=== PATIENT | female | born 1945 ===

== ENCOUNTER 2016-07-27 10:53 | Inpatient (IN) | payer MEDICARE, MEDICAID ==
[2016-07-27 10:54] VITALS: BMI 25.0
[2016-07-27] MEDS ORDERED: Sodium Chloride 0.9% 1,000 ML IV ONE (11:54)
[2016-07-27] MEDS ORDERED: Sodium Chloride 0.9% 250 ML IV ONE ×2 (12:03→17:18)
[2016-07-27 12:16] LABS: BASO % 0.3 % (0.0-2.0); EOS # 0.3 K/uL (0.0-0.7); EOS % 5.9 % (0.0-4.0); HEMATOCRIT 40.8 % (34.0-47.0); LYMPH % 16.1 % (20.0-40.0); MEAN CELL VOLUME 90.1 fL (81.0-99.0); MEAN CORPUSCULAR HEMOGLOBIN 30.1 pg (27.0-31.0); MEAN CORPUSCULAR HGB CONC 33.3 g/dL (33.0-37.0); MEAN PLATELET VOLUME 7.9 fL (7.2-11.7); MONO # 0.7 K/uL (0.0-0.8); MONO % 12.3 % (0.0-10.0); NRBC % 0.2 % (0.0-2.0); RED CELL DISTRIBUTION WIDTH 13.1 % (11.5-14.5); WHITE BLOOD COUNT 5.9 K/uL (4.8-10.8)
[2016-07-27 12:26] LABS: CHLORIDE 101 mmol/L (98-107); SODIUM 133 mmol/L (132-148)
[2016-07-27 12:28] LABS: ALB/GLOB RATIO 0.9 (1.0-2.1); AST/SGOT 26 U/L (14-36); BILIRUBIN,TOTAL 0.9 mg/dL (0.2-1.3); CARBON DIOXIDE 22 mmol/L (22-30); GFR AFRICAN-AMERICAN > 60; TOTAL PROTEIN 6.6 g/dL (6.3-8.3)
[2016-07-27 12:29] LABS: ALKALINE PHOSPHATASE 70 U/L (38-126); ALT/SGPT 15 U/L (9-52); BLOOD UREA NITROGEN 5 mg/dL (7-17); CALCIUM 8.1 mg/dl (8.6-10.4); GLUCOSE,RANDOM 87 mg/dL (65-105)
--- NOTE | 2016-07-27 12:31 | C.PDOC ---
History Of Present Illness 71 y/o female presents to the ED for evaluation of diarrhea which began around 1 month ago. Patient states she was evaluated by her PMD and prescribed antibiotics for her symptoms. Patient states she discontinued antibiotic use after her symptoms began to improve. Patient noticed her symptoms started again , f/u with Dr Do who prescribed a new set of abx. Notes her symptoms have still persisted. Last night, patient experienced mid-sternal chest pain which has since improved. Pain was sharp, no radiating. She denies fever, chills, difficulty breathing, and nausea. Patient notes PMHx of esophageal cancer which has been in remission for around 6 years. Patient states she "had mass removed from colon a couple months ago." Time Seen by Provider: 07/27/16 11:16 Chief Complaint (Nursing): Chest Pain History Per: Patient, Family History/Exam Limitations: language barrier (family used to translate ) Onset/Duration Of Symptoms: Persistent Current Symptoms Are (Timing): Still Present Quality: "Pain" Past Medical History Reviewed: Historical Data, Nursing Documentation, Vital Signs Vital Signs: Last Vital Signs Temp 98.0 F 07/27/16 17:18 Pulse 86 07/27/16 17:43 Resp 17 07/27/16 17:43 BP 103/50 L 07/27/16 17:43 Pulse Ox 94 L 07/27/16 17:43 - Medical History PMH: Arthritis, Colonic Polyps, Malignancy (THROAT CA) Denies: Chronic Kidney Disease Surgical History: Appendectomy, Endoscopy - [facility] Procedures CLOSED ENDOSCOPIC BIOPSY OF LARGE INTESTINE (01/28/14) DRAINAGE OF SPINAL CANAL, PERCUTANEOUS APPROACH, DIAGNOSTIC (03/15/15) ENDOSC POLYPECTOMY OF LG INTEST (09/09/14) ESOPHAGEAL DILATION (07/12/12) ESOPHAGOGASTRODUODENOSCOPY [EGD] W/CLOSED BIOPSY (06/17/14) EXCISION OF STOMACH, ENDO, DIAGN (03/15/15) INSPECTION OF LARYNX, ENDO (03/15/15) OTHER ENDOSCOPY OF SM INTEST (07/12/12) Family History: States: Unknown Family Hx - Social History Hx Tobacco Use: No Hx Alcohol Use: Yes Hx Substance Use: No - Immunization History Hx Tetanus Toxoid Vaccination: No Hx Influenza Vaccination: No Hx Pneumococcal Vaccination: No Review Of Systems Except As Marked, All Systems Reviewed And Found Negative. Constitutional: Negative for: Fever, Chills Cardiovascular: Positive for: Chest Pain (mid-sternal ) Gastrointestinal: Positive for: Diarrhea. Negative for: Vomiting Physical Exam - Physical Exam Appears: Non-toxic, No Acute Distress Skin: Normal Color, Warm, Dry Head: Atraumatic, Normacephalic Eye(s): bilateral: Normal Inspection, EOMI Oral Mucosa: Moist Neck: Normal ROM, Supple Chest: Symmetrical, No Deformity, Tenderness (midsternal chest wall ) Cardiovascular: Rhythm Regular, No Murmur Respiratory: Normal Breath Sounds, No Rales, No Rhonchi, No Wheezing Gastrointestinal/Abdominal: Tenderness (diffuse ), Guarding, No Rebound Back: Normal Inspection, No Vertebral Tenderness, No Paraspinal Tenderness Extremity: Normal ROM, Capillary Refill (less than 2 seconds ) Neurological/Psych: Oriented x3, Normal Speech, Normal Cognition Gait: Steady ED Course And Treatment - Laboratory Results Result Diagrams: 07/27/16 12:08 07/27/16 12:08 ECG: Interpreted By Me, Viewed By Me ECG Rhythm: Sinus Rhythm Interpretation Of ECG: Sinus Rhythm at rate 93bpm. No specific changes. T wave inversions in leads 3. Rate From EC O2 Sat by Pulse Oximetry: 99 (on RA) Pulse Ox Interpretation: Normal Progress Note: labs, CT A/P, EKG ordered and reviewed. Pt received IV Fluids. On reassessment, patient is resting comfortably and showing no signs of distress. Case discussed with Dr. Do who advises admission under Dr. Marquez. Case discussed with Dr. Marquez, who accepts the patient for admission. Disposition - Disposition Disposition: HOSPITALIZED Disposition Time: 15:43 Condition: STABLE - Clinical Impression Clinical Impression: Chest pain, Colitis, Diarrhea, Heme + stool - PA / GEOGRAPHY DEPARTMENT CHAIR / Resident Statement MD/DO has reviewed & agrees with the documentation as recorded. - Scribe Statement The provider has reviewed the documentation as recorded by the Scribe (Ludivina Marquez) All medical record entries made by the Scribe were at my direction and personally dictated by me. I have reviewed the chart and agree that the record accurately reflects my personal performance of the history, physical exam, medical decision making, and the department course for this patient. I have also personally directed, reviewed, and agree with the discharge instructions and disposition.
[2016-07-27] MEDS ORDERED: Iodixanol 320 mg/ml 150 ml Bottle IV ONE (13:16)
--- NOTE | 2016-07-27 14:12 | CT ---
CT abdomen and pelvis History: Abdominal pain. Comparison: CT abdomen dated 07/11/2012 Technique: Multiple contiguous axial images were performed through the abdomen and pelvis with the use of intravenous contrast. Subsequently, sagittal and coronal reformatted images were obtained. This CT exam was performed using one or more of the following dose reduction techniques: Automated exposure control, adjustment of the mA and/or kV according to patient size, and/or use of iterative reconstruction technique. Findings: Scattered areas of atelectasis and minimal consolidation at the visualized lung bases. Moderate to large hiatal hernia noted. Heart size within normal limits. Mild fatty infiltration of the liver. Gallbladder is preserved. Prominent common bile duct measuring up to 8 millimeters. Few punctate hypodensities in the liver, too small to adequately characterize. Spleen is preserved. Adrenal glands are preserved. Atrophic pancreas. Right kidney: Multiple prominent cystic lesions for example in the midpole a prominent lesion measures 3.7 centimeters demonstrating a Hounsfield unit attenuation of 8. Additional smaller hypodensities in the lower pole. Left Kidney: Punctate hypodensity in the midpole of the left kidney, too small to adequately characterize. Mild thickening of the urinary bladder. Free fluid noted within the pelvic cul-de-sac. Prominent thickening Postsurgical changes at the level of the right hemicolon. Diffuse thickening and edema seen throughout the visualized colon suggestive for a prominent colitis, possibly infectious versus inflammatory versus ischemic. Clinical correlation. Scattered diverticuli. Fluid in the right hemicolon. Few shotty para-aortic mesenteric lymph nodes. Calcification and plaque within the aorta. Prominent degenerative changes in the spine. Multilevel Schmorl's nodes noted. Impression: 1. Postsurgical changes at the level of the right hemicolon. Diffuse thickening and edema seen throughout the visualized colon suggestive for a prominent colitis, possibly infectious versus inflammatory versus ischemic. Clinical correlation. Scattered diverticuli. 2. Moderate to large hiatal hernia noted. 3. Mild thickening of the urinary bladder. 4. Free fluid noted within the pelvic cul-de-sac. 5. Renal cysts. Additional findings as above.
[2016-07-27] MEDS ORDERED: Ciprofloxacin 400mg/200ml D5W 400 MG/200 ML BAG IV STA (15:12)
[2016-07-27] MEDS ORDERED: metroNIDAZOLE IV 500 mg/100 ml 500 MG/100 ML BAG IV STA (15:20)
[2016-07-27] MEDS ORDERED: metroNIDAZOLE IV 500 mg/100 ml 500 MG/100 ML BAG ONE (15:28)
[2016-07-27] MEDS ORDERED: Ciprofloxacin 400mg/200ml D5W 400 MG/200 ML BAG IVPB ONE (15:28)
[2016-07-27 17:44] LABS: RBC URINE 1 /hpf (0-3); URINE BILIRUBIN NEGATIVE (NEGATIVE); URINE BLOOD NEGATIVE (NEGATIVE); URINE COLOR Yellow (YELLOW); URINE GLUCOSE (UA) NORMAL (Normal); URINE KETONE 1+ mg/dL (NEGATIVE); URINE LEUKOCYTE ESTERASE NEG Leu/uL (Negative); URINE PROTEIN NEGATIVE (NEGATIVE); URINE UROBILINOGEN NORMAL mg/dL (0.2-1.0); WBC URINE 1 /hpf (0-5)
[2016-07-27] MEDS: Ciprofloxacin 400mg/200ml D5W 400 MG/200 ML BAG IVPB SCH (18:00)
--- NOTE | 2016-07-27 19:25 | CP.PCM.CON ---
History of Present Illness - History of Present Illness History of Present Illness: 71 year old female with a history of esophageal cancer s/p surgery and adjuvant chemotherapy and radiation in 2010, admitted with colitis. The patient was found to have colitis by her PMD and prescribed antibiotics. She began to feel better and stopped her antibiotics. She reports a few days later her abdominal pain and diarrhea returned. Due to frequent liquid bowel movements she notes to feeling weak and came to the ER. She is currently feeling better and notes her diarrhea has resolved. Past medical history: Esophageal cancer Past surgical history: Partial esophagectomy, bowel resection Family history: Denies hematologic and oncologic problems Social history: Former tobacco abuse Allergies: NKA Review of systems: All remaining review of systems including HEENT, cardiovascular, respiratory, gastrointestinal, genitourinary, musculoskeletal, dermatologic, neurologic, and psychiatric are negative unless mentioned in the HPI. Past Patient History - Past Medical History & Family History Past Medical History?: Yes - Past Social History Smoking Status: Former Smoker - CARDIAC Hx Cardiac Disorders: No - PULMONARY Hx Respiratory Disorders: No - NEUROLOGICAL Hx Neurological Disorder: No - HEENT Hx HEENT Problems: Yes Hx Difficulty Chewing: Yes Other/Comment: DYSPHAGIA RELATED TO EXTENSIVE ESOPHAGEAL CANCER SX AND "TUBE" IN PLACE OF ESOPHAGUS - RENAL Hx Chronic Kidney Disease: No - ENDOCRINE/METABOLIC Hx Endocrine Disorders: No - HEMATOLOGICAL/ONCOLOGICAL Hx Blood Disorders: Yes Hx Blood Transfusions: Yes Hx Blood Transfusion Reaction: No Hx Cancer: Yes (ESOPHAGEAL) - INTEGUMENTARY Hx Dermatological Problems: No - MUSCULOSKELETAL/RHEUMATOLOGICAL Hx Arthritis: Yes - GASTROINTESTINAL Hx Gastrointestinal Disorders: Yes Hx Gastroesophageal Reflux: Yes HX Swallowing Problems: Yes Other/Comment: ESOPHAGEAL CANCER - GENITOURINARY/GYNECOLOGICAL Hx Genitourinary Disorders: No - PSYCHIATRIC Hx Substance Use: No - SURGICAL HISTORY Hx Appendectomy: Yes - ANESTHESIA Hx Anesthesia: Yes Hx Anesthesia Reactions: No Hx Malignant Hyperthermia: No Meds Allergies/Adverse Reactions: Allergies Allergy/AdvReac Type Severity Reaction Status Date / Time No Known Allergies Allergy Verified 07/27/16 11:01 - Medications Medications: Current Medications Aspirin (Aspirin) 325 mg PO DAILY [facility] Enoxaparin Sodium (Lovenox) 40 mg SC DAILY [facility] Ciprofloxacin (Cipro 400mg/200ml Dsw) 400 mg in 200 mls @ 133 mls/hr IVPB DAILY [facility] Last Admin: 07/27/16 18:00 Dose: Not Given Metronidazole (Flagyl) 500 mg in 100 mls @ 100 mls/hr IVPB BID [facility] Pantoprazole Sodium (Protonix Ec Tab) 40 mg PO DAILY [facility] Physical Exam - Head Exam Head Exam: ATRAUMATIC - Eye Exam Eye Exam: Normal appearance - ENT Exam ENT Exam: Mucous Membranes Dry - Respiratory Exam Respiratory Exam: NORMAL BREATHING PATTERN - Cardiovascular Exam Cardiovascular Exam: +S1, +S2 - GI/Abdominal Exam GI & Abdominal Exam: Normal Bowel Sounds - Neurological Exam Neurological exam: Oriented x3 - Psychiatric Exam Psychiatric exam: Normal Affect, Normal Mood - Skin Skin Exam: Warm Results - Vital Signs Recent Vital Signs: Last Vital Signs Temp 97.8 F 07/27/16 18:42 Pulse 75 07/27/16 18:42 Resp 17 07/27/16 18:42 BP 99/50 L 07/27/16 18:42 Pulse Ox 99 07/27/16 18:44 - Labs Result Diagrams: 07/27/16 12:08 07/27/16 12:08 Labs: Laboratory Results - last 24 hr 07/27/16 17:36 Urine Color Yellow Urine Clarity Clear Urine pH 5.0 Ur Specific [place] 1.059 H Urine Protein Negative Urine Glucose (UA) Normal Urine Ketones 1+ H Urine Blood Negative Urine Nitrate Negative Urine Bilirubin Negative Urine Urobilinogen Normal Ur Leukocyte Esterase Neg Urine WBC (Auto) 1 Urine RBC (Auto) 1 Ur Squamous Epith Cells 10 H Assessment & Plan (1) Neoplasm of esophagus, malignant Assessment and Plan: in remission likely cured Thank you for this interesting consult. Status: Chronic
[2016-07-27] MEDS ORDERED: HYDROmorphone 1 mg/ml ISec IVP PRN (20:44)
--- NOTE | 2016-07-27 21:07 | CP.PCM.HP ---
Past Patient History - Past Medical History & Family History Past Medical History?: Yes - Past Social History Smoking Status: Former Smoker - CARDIAC Hx Cardiac Disorders: No - PULMONARY Hx Respiratory Disorders: No - NEUROLOGICAL Hx Neurological Disorder: No - HEENT Hx HEENT Problems: Yes Hx Difficulty Chewing: Yes Other/Comment: DYSPHAGIA RELATED TO EXTENSIVE ESOPHAGEAL CANCER SX AND "TUBE" IN PLACE OF ESOPHAGUS - RENAL Hx Chronic Kidney Disease: No - ENDOCRINE/METABOLIC Hx Endocrine Disorders: No - HEMATOLOGICAL/ONCOLOGICAL Hx Blood Disorders: Yes Hx Blood Transfusions: Yes Hx Blood Transfusion Reaction: No Hx Cancer: Yes (ESOPHAGEAL) - INTEGUMENTARY Hx Dermatological Problems: No - MUSCULOSKELETAL/RHEUMATOLOGICAL Hx Arthritis: Yes - GASTROINTESTINAL Hx Gastrointestinal Disorders: Yes Hx Gastroesophageal Reflux: Yes HX Swallowing Problems: Yes Other/Comment: ESOPHAGEAL CANCER - GENITOURINARY/GYNECOLOGICAL Hx Genitourinary Disorders: No - PSYCHIATRIC Hx Substance Use: No - SURGICAL HISTORY Hx Appendectomy: Yes - ANESTHESIA Hx Anesthesia: Yes Hx Anesthesia Reactions: No Hx Malignant Hyperthermia: No Meds Allergies/Adverse Reactions: Allergies Allergy/AdvReac Type Severity Reaction Status Date / Time No Known Allergies Allergy Verified 07/27/16 11:01 Results - Vital Signs Recent Vital Signs: Last Vital Signs Temp 97.8 F 07/27/16 18:42 Pulse 75 07/27/16 18:42 Resp 17 07/27/16 18:42 BP 99/50 L 07/27/16 18:42 Pulse Ox 99 07/27/16 18:44 - Labs Result Diagrams: 07/27/16 12:08 07/27/16 12:08 Labs: Laboratory Results - last 24 hr 07/27/16 07/27/16 17:36 19:37 Total Creatine Kinase 23 L CK-MB (Mass) 0.39 Troponin I, Quant < 0.0120 Urine Color Yellow Urine Clarity Clear Urine pH 5.0 Ur Specific [place] 1.059 H Urine Protein Negative Urine Glucose (UA) Normal Urine Ketones 1+ H Urine Blood Negative Urine Nitrate Negative Urine Bilirubin Negative Urine Urobilinogen Normal Ur Leukocyte Esterase Neg Urine WBC (Auto) 1 Urine RBC (Auto) 1 Ur Squamous Epith Cells 10 H
[2016-07-28] MEDS: Pantoprazole 40 mg EC Tab PO SCH (10:25)
[2016-07-28] MEDS: metroNIDAZOLE IV 500 mg/100 ml 500 MG/100 ML BAG IVPB SCH ×2 (10:25→17:06)
[2016-07-28] MEDS: Enoxaparin 40 mg Syringe SC SCH (10:25)
--- NOTE | 2016-07-28 12:12 | PN ---
DATE: 07/28/2016 LOCATION: 550, bed B. This is a 71-year-old female seen and examined in rounds today, as well as for GI consultation on 12/03 as requested by the admitting MD, appeared to be awake, alert, oriented, complaining of crampy abdominal pain with diarrhea and intermittent periods of rectal bleeding. However, the most recent l ab results showed normal CBC, but guaiac positive stool with low BUN 5, low creatinine 0.5 with low a lbumin 3.1. Abdominal and pelvic CAT scan done yesterday. Report and films are seen indicative of changes, posto perative at the level of the right hemicolon with evidence of prominent colitis, infectious versus in flammatory bowel disease. Evidence of moderate to large hiatus hernia also seen with renal cyst. PHYSICAL EXAMINATION: GENERAL: A 71-year-old female, appears to be awake. VITAL SIGNS: Afebrile with pulse of 76, respiratory rate 20-22, blood pressure of 100/58. HEENT: Showed pale, dry oral mucoid membrane. Nonicteric sclerae. LUNGS: Few scattered crepitations, decreased air entry at bases. HEART: Positive S1 and S2. ABDOMEN: Soft. Bowel sounds are present with mild generalized tenderness. No mass or organomegaly. No rebound tenderness or guarding. RECTAL: Positive tone, guaiac positive stool. EXTREMITIES: With evidence of muscle wasting syndrome with slight lower extremity edematous changes. No clubbing or cyanosis. NEUROLOGIC: No reported neurological deficits, sensory or motor. IMPRESSION: 1. Diarrhea, rectal bleeding of unclear etiology that could be secondary to infectious diarrhea vers us inflammatory bowel disease. 2. Known history of osteoarthritis. 3. Peptic ulcer disease. 4. Colon polyp by history. 5. Esophageal dilation done before due to what reported is esophageal carcinoma. 6. Large hiatus hernia by radiology study results. 7. Status post partial ____, as well as partial bowel resection. SUGGESTION: 1. I agree with your plan. 2. Continue current medication. 3. Cancer markers including CEA. 4. Rehydration. 5. Colonoscopy to be scheduled after adequate preparation when the patient is more stable clinically . Thank you for letting me participate in your patient's case management. Griselda Hallman MD cc: 14 TT: 07/28/2016 12:11:35 Confirmation # [id number] Dictation # [id number]
[2016-07-28 13:02] LABS: INR 1.4
[2016-07-28 13:45] LABS: CARCINOEMBRYONIC ANTIGEN 14.7 ng/mL (0-3.0)
[2016-07-28 13:49] LABS: CA 19-9 < 1.4 U/mL (0-37)
[2016-07-28] MEDS: Ciprofloxacin 400mg/200ml D5W 400 MG/200 ML BAG IVPB SCH (14:04)
--- NOTE | 2016-07-28 14:28 | CP.PCM.CON ---
History of Present Illness - History of Present Illness History of Present Illness: 71 year old with hx of esophageal malignancy treated surgically. multiple admissions with CP, SOB, hx of asthma. had EF of 50% on echo about a year ago, presented with persistent. sob f/u with echo diarrhea, seen by oncology, no evidence of tumor rendered in remission or cured, she presented with colitis and diarrhea was treated initially with antibiotic however she has a recurrence after she stopped Review of Systems - Review of Systems Systems not reviewed;Unavailable: Unstable Vital Signs - Constitutional Constitutional: Anorexia, Weight Loss, Weakness - EENT Eyes: Dry Eye. absent: Discharge, Exophthalmos Ears: absent: Ear Discharge, Dizziness Nose/Mouth/Throat: absent: Nasal Discharge - Cardiovascular Cardiovascular: Dyspnea. absent: Acrocyanosis, Chest Pain, Edema, Palpitations , Syncope - Respiratory Respiratory: Dyspnea. absent: Cough, Hemoptysis - Gastrointestinal Gastrointestinal: Abdominal Pain, Cramping, Diarrhea. absent: Vomiting - Genitourinary Genitourinary: absent: Change in Urinary Stream Past Patient History - Past Medical History & Family History Past Medical History?: Yes - Past Social History Smoking Status: Former Smoker - CARDIAC Hx Cardiac Disorders: No - PULMONARY Hx Respiratory Disorders: No - NEUROLOGICAL Hx Neurological Disorder: No - HEENT Hx HEENT Problems: Yes Hx Difficulty Chewing: Yes Other/Comment: DYSPHAGIA RELATED TO EXTENSIVE ESOPHAGEAL CANCER SX AND "TUBE" IN PLACE OF ESOPHAGUS - RENAL Hx Chronic Kidney Disease: No - ENDOCRINE/METABOLIC Hx Endocrine Disorders: No - HEMATOLOGICAL/ONCOLOGICAL Hx Blood Disorders: Yes Hx Blood Transfusions: Yes Hx Blood Transfusion Reaction: No Hx Cancer: Yes (ESOPHAGEAL) - INTEGUMENTARY Hx Dermatological Problems: No - MUSCULOSKELETAL/RHEUMATOLOGICAL Hx Arthritis: Yes - GASTROINTESTINAL Hx Gastrointestinal Disorders: Yes Hx Gastroesophageal Reflux: Yes HX Swallowing Problems: Yes Other/Comment: ESOPHAGEAL CANCER - GENITOURINARY/GYNECOLOGICAL Hx Genitourinary Disorders: No - PSYCHIATRIC Hx Substance Use: No - SURGICAL HISTORY Hx Appendectomy: Yes - ANESTHESIA Hx Anesthesia: Yes Hx Anesthesia Reactions: No Hx Malignant Hyperthermia: No Meds Allergies/Adverse Reactions: Allergies Allergy/AdvReac Type Severity Reaction Status Date / Time No Known Allergies Allergy Verified 07/27/16 11:01 - Medications Medications: Current Medications Aspirin (Aspirin) 325 mg PO DAILY [facility] Enoxaparin Sodium (Lovenox) 40 mg SC DAILY [facility] Ciprofloxacin (Cipro 400mg/200ml Dsw) 400 mg in 200 mls @ 133 mls/hr IVPB DAILY [facility] Last Admin: 07/27/16 18:00 Dose: Not Given Metronidazole (Flagyl) 500 mg in 100 mls @ 100 mls/hr IVPB BID [facility] Pantoprazole Sodium (Protonix Ec Tab) 40 mg PO DAILY [facility] Physical Exam - Constitutional Appears: Toxic - Head Exam Head Exam: ATRAUMATIC - Eye Exam Eye Exam: EOMI - ENT Exam ENT Exam: Mucous Membranes Dry - Neck Exam Neck exam: Negative for: Lymphadenopathy, Thyromegaly - Respiratory Exam Respiratory Exam: Clear to Auscultation Bilateral. absent: Rales - Cardiovascular Exam Cardiovascular Exam: REGULAR RHYTHM, Systolic Murmur - GI/Abdominal Exam GI & Abdominal Exam: Diminished Bowel Sounds, Distended, Organomegaly - Rectal Exam Rectal Exam: Deferred - Extremities Exam Extremities exam: Positive for: normal capillary refill. Negative for: calf tenderness - Neurological Exam Neurological exam: Alert, Oriented x3 - Psychiatric Exam Psychiatric exam: Normal Mood - Skin Skin Exam: Dry Results - Vital Signs Recent Vital Signs: Last Vital Signs Temp 98.0 F 07/27/16 17:18 Pulse 86 07/27/16 17:43 Resp 17 07/27/16 17:43 BP 103/50 L 07/27/16 17:43 Pulse Ox 94 L 07/27/16 17:43 - Labs Result Diagrams: 07/27/16 12:08 07/27/16 12:08 Labs: Laboratory Results - last 24 hr 07/27/16 17:36 Urine Color Yellow Urine Clarity Clear Urine pH 5.0 Ur Specific [place] 1.059 H Urine Protein Negative Urine Glucose (UA) Normal Urine Ketones 1+ H Urine Blood Negative Urine Nitrate Negative Urine Bilirubin Negative Urine Urobilinogen Normal Ur Leukocyte Esterase Neg Urine WBC (Auto) 1 Urine RBC (Auto) 1 Ur Squamous Epith Cells 10 H Assessment & Plan (1) Neoplasm of esophagus, malignant Status: Chronic Comment: intervention as per oncology observe (2) Asthma Status: Chronic Comment: with shortness of breath observe and follow-up with echo
--- NOTE | 2016-07-28 14:30 | CP.PCM.PN ---
Subjective - Date & Time of Evaluation Date of Evaluation: 07/28/16 Time of Evaluation: 12:00 - Subjective Subjective: out of bed to chair, still with diarrhea, seen by oncology, follow-up with GI, awaiting an echo Objective - Vital Signs/Intake and Output Vital Signs (last 24 hours): Temp Pulse Resp BP Pulse Ox 97.7 F 72 20 104/59 L 99 07/28/16 08:00 07/28/16 08:00 07/28/16 08:00 07/28/16 08:00 07/28/16 08:00 - Medications Medications: Current Medications Aspirin (Aspirin) 325 mg PO DAILY [facility] Last Admin: 07/28/16 10:25 Dose: 325 mg Bisacodyl (Dulcolax) 10 mg PO ONCE ONE Stop: 07/29/16 17:01 Enoxaparin Sodium (Lovenox) 40 mg SC DAILY [facility] Last Admin: 07/28/16 10:25 Dose: 40 mg Hydromorphone HCl (Dilaudid) 1 mg IVP Q8 PRN PRN Reason: Pain, moderate (4-7) Last Admin: 07/28/16 08:38 Dose: 1 mg Ciprofloxacin (Cipro 400mg/200ml Dsw) 400 mg in 200 mls @ 133 mls/hr IVPB DAILY [facility] Last Admin: 07/28/16 14:04 Dose: 133 mls/hr Metronidazole (Flagyl) 500 mg in 100 mls @ 100 mls/hr IVPB BID [facility] Last Admin: 07/28/16 10:25 Dose: 100 mls/hr Metoclopramide HCl (Reglan) 5 mg IVP Q6 [facility] Pantoprazole Sodium (Protonix Ec Tab) 40 mg PO DAILY [facility] Last Admin: 07/28/16 10:25 Dose: 40 mg Polyethylene Glycol/Electrolytes (Golytely) 4,000 ml PO ONCE ONE Stop: 07/29/16 10:01 - Labs Labs: PT 15.8 SECONDS (9.7-12.2) H 07/28/16 12:43 INR 1.4 07/28/16 12:43 APTT 35 SECONDS (21-34) H 07/28/16 12:43 - Constitutional Appears: Toxic - Head Exam Head Exam: ATRAUMATIC - Eye Exam Eye Exam: EOMI - ENT Exam ENT Exam: Mucous Membranes Moist - Neck Exam Neck Exam: absent: Lymphadenopathy, Thyromegaly - Respiratory Exam Respiratory Exam: Clear to Ausculation Bilateral, Rhonchi - Cardiovascular Exam Cardiovascular Exam: REGULAR RHYTHM, Murmur - GI/Abdominal Exam GI & Abdominal Exam: Normal Bowel Sounds. absent: Organomegaly - Rectal Exam Rectal Exam: Deferred - Extremities Exam Extremities Exam: Normal Capillary Refill. absent: Calf Tenderness - Neurological Exam Neurological Exam: Alert, Oriented x3 - Psychiatric Exam Psychiatric exam: Normal Mood - Skin Skin Exam: Dry Assessment and Plan (1) Neoplasm of esophagus, malignant Status: Chronic (2) Asthma Status: Chronic
--- NOTE | 2016-07-28 15:37 | CP.PCM.PN ---
Subjective - Date & Time of Evaluation Date of Evaluation: 07/28/16 Time of Evaluation: 08:20 - Subjective Subjective: clinically same Objective - Vital Signs/Intake and Output Vital Signs (last 24 hours): Temp Pulse Resp BP Pulse Ox 99.8 F H 90 20 100/58 L 96 07/28/16 15:14 07/28/16 15:14 07/28/16 15:14 07/28/16 15:14 07/28/16 15:14 - Medications Medications: Current Medications Aspirin (Aspirin) 325 mg PO DAILY [facility] Last Admin: 07/28/16 10:25 Dose: 325 mg Bisacodyl (Dulcolax) 10 mg PO ONCE ONE Stop: 07/29/16 17:01 Enoxaparin Sodium (Lovenox) 40 mg SC DAILY [facility] Last Admin: 07/28/16 10:25 Dose: 40 mg Hydromorphone HCl (Dilaudid) 1 mg IVP Q8 PRN PRN Reason: Pain, moderate (4-7) Last Admin: 07/28/16 08:38 Dose: 1 mg Ciprofloxacin (Cipro 400mg/200ml Dsw) 400 mg in 200 mls @ 133 mls/hr IVPB DAILY [facility] Last Admin: 07/28/16 14:04 Dose: 133 mls/hr Metronidazole (Flagyl) 500 mg in 100 mls @ 100 mls/hr IVPB BID [facility] Last Admin: 07/28/16 10:25 Dose: 100 mls/hr Metoclopramide HCl (Reglan) 5 mg IVP Q6 [facility] Ondansetron HCl (Zofran Inj) 4 mg IVP Q4 PRN PRN Reason: Nausea/Vomiting Pantoprazole Sodium (Protonix Ec Tab) 40 mg PO DAILY [facility] Last Admin: 07/28/16 10:25 Dose: 40 mg Polyethylene Glycol/Electrolytes (Golytely) 4,000 ml PO ONCE ONE Stop: 07/29/16 10:01 - Labs Labs: PT 15.8 SECONDS (9.7-12.2) H 07/28/16 12:43 INR 1.4 07/28/16 12:43 APTT 35 SECONDS (21-34) H 07/28/16 12:43
[2016-07-29 07:54] LABS: BASO % 0.4 % (0.0-2.0); EOS # 0.4 K/uL (0.0-0.7); EOS % 8.6 % (0.0-4.0); HEMATOCRIT 39.4 % (34.0-47.0); LYMPH # 0.9 K/uL (1.0-4.3); MEAN CELL VOLUME 90.8 fL (81.0-99.0); MEAN CORPUSCULAR HEMOGLOBIN 29.8 pg (27.0-31.0); MEAN CORPUSCULAR HGB CONC 32.9 g/dL (33.0-37.0); MEAN PLATELET VOLUME 7.7 fL (7.2-11.7); MONO # 0.6 K/uL (0.0-0.8); RED CELL DISTRIBUTION WIDTH 13.4 % (11.5-14.5); WHITE BLOOD COUNT 4.9 K/uL (4.8-10.8)
--- NOTE | 2016-07-29 08:05 | CON ---
DATE: 07/27/[address] Griselda Hallman to Dr. Ethan Marquez. I was called for GI consultation by the admitting medical team. The patient is seen and fully examin ed on 07/27/2016 as requested by the admitting medical staff. All the available lab and radiology di dy results, current and previous medication lists, current and previous medical events, allergy to me dication list as well as all the available current and previous medical records were reviewed. Case discussed at length with staff on the floor. This is a 71-year-old female, well-known case for me, was admitted to the hospital through [facility] due to a complaint of crampy abdominal pain, diffuse diarrhea, which started about 1 month a go prior to her admission with generalized weakness and malaise, had been on oral antibiotic before w ithout any significant clinical changes, with reported mid sternal pain and discomfort, which subsequ ently subsided. PAST MEDICAL HISTORY: Including, but not limited to: 1. Throat CA. 2. Peptic ulcer disease. 3. Osteoarthritis. 4. Colon polyps. 5. Status post appendectomy by history. 6. Status post esophageal dilation done several years ago. The patient denied any actual persistent shortness of breath or palpitation, but recent postprandial abdominal distention. CURRENT MEDICATIONS: Lists were reviewed. FAMILY HISTORY: Unknown. SOCIAL HISTORY: Positive for alcohol intake, but no recent history of cigarette smoking or drug abus e. ALLERGY TO MEDICATION: Unclear. After being admitted to the hospital, initial report of stool workup was negative for C. diff. The patient also had normal CBC, but elevated platelet count to 84 with low BUN 5, low creatinine 0.5 . PHYSICAL EXAMINATION: GENERAL: A 71-year-old female, awake, alert, oriented. VITAL SIGNS: Afebrile with pulse of 88, respiratory rate of 20-22 with blood pressure 110/54. HEENT: Showed dry oral mucoid membrane, nonicteric sclerae. LYMPH NODES: No lymphadenitis or lymphadenopathy. LUNGS: Scattered crepitation. Decreased air entry at bases bilaterally. HEART: Positive S1 and S2. ABDOMEN: Soft with generalized tenderness and mild distention. Bowel sounds are hyperactive. No ma ss or organomegaly. No rebound tenderness or guarding. RECTAL: The patient refused. EXTREMITIES: With evidence of muscle wasting syndrome. No clubbing or cyanosis. NEUROLOGIC: No reported new neurological deficits, sensory or motor, and the peripheral pulses are p ositive. IMPRESSION: 1. Persistent diarrhea of unclear etiology, not responding to more than 1 trial of antibiotics as ou tpatient, as mentioned by the patient and the record. The possibility of malabsorption syndrome vers us fecal impaction inducing diarrhea, which is one of the most common causes of diarrhea in elderly v ersus possible diverticulosis with mild diverticulitis was raised. 2. Known history of colon polyps. 3. Known history of throat cancer. 4. Status post appendectomy by history. 5. History of osteoarthritis. SUGGESTION: 1. Agree with your plan. 2. Sectional abdominal CAT scan. 3. Cancer markers. 4. Proton pump inhibitors. 5. Creon 24,000 units p.o. twice a day, cholestyramine powder 1 bag twice a day. 6. The patient will need endoscopic evaluation with lower endoscopy in the meantime due to her persi stent diarrhea as well as known history of colon polyps. 7. Upper endoscopy with small bowel biopsy should be kept in mind to rule out any malabsorption synd ivon. 8. Further recommendations to follow. Thank you for letting me participate in your patient's case management. Griselda Hallman MD cc: 14 TT: 07/29/2016 08:04:11 Confirmation # [id number] Dictation # [id number]
[2016-07-29 08:49] LABS: ALB/GLOB RATIO 0.8 (1.0-2.1); ALKALINE PHOSPHATASE 60 U/L (38-126); ALT/SGPT 16 U/L (9-52); AST/SGOT 14 U/L (14-36); BILIRUBIN,TOTAL 0.4 mg/dL (0.2-1.3); BLOOD UREA NITROGEN 5 mg/dL (7-17); CALCIUM 7.8 mg/dl (8.6-10.4); CARBON DIOXIDE 25 mmol/L (22-30); CHLORIDE 106 mmol/L (98-107); GFR AFRICAN-AMERICAN > 60; GLUCOSE,RANDOM 86 mg/dL (65-105); MAGNESIUM 1.9 mg/dL (1.6-2.3); PHOSPHOROUS 3.5 mg/dL (2.5-4.5); POTASSIUM 3.2 mmol/L (3.6-5.2); SODIUM 140 mmol/L (132-148); TOTAL PROTEIN 5.2 g/dL (6.3-8.3)
[2016-07-29] MEDS ORDERED: Pneumococcal 23-Valent Vaccine IM ONE (10:00)
[2016-07-29] MEDS ORDERED: Peg-Electrolyte Oral Soln 4L (Golytely) PO ONE (10:00)
[2016-07-29] MEDS: Pantoprazole 40 mg EC Tab PO SCH (10:03)
[2016-07-29] MEDS: Enoxaparin 40 mg Syringe SC SCH ×2 (10:03→10:37)
[2016-07-29] MEDS: Potassium Chloride 20 mEq ER Tab PO SCH (10:03)
[2016-07-29] MEDS: metroNIDAZOLE IV 500 mg/100 ml 500 MG/100 ML BAG IVPB SCH ×2 (10:05→21:00)
[2016-07-29] MEDS: Ciprofloxacin 400mg/200ml D5W 400 MG/200 ML BAG IVPB SCH (10:05)
[2016-07-29] MEDS ORDERED: Phytonadione 10 mg/ml Inj (Adult) SC ONE (12:30)
--- NOTE | 2016-07-29 13:06 | PN ---
DATE: 07/29/2016 LOCATION: 550, bed B. This is a 71-year-old female seen and examined in rounds today, tolerating preparation for colonoscop y tomorrow, but with a complaint of generalized weakness and malaise. No reported hematemesis. The patient was seen by Dr. Arthur for cardiology evaluation. The entire chart is reviewed, including but not limited to the most recent lab and radiology study re sults, current and the previous medication list, current and the previous medical events, allergy to medication list, discussed with the staff on the floor. LABORATORY DATA: Most recent lab results showed normal CBC with increased PT and PTT with low potass ium of 3.2 and decreased BUN and creatinine, and low calcium 7.9 with low albumin 2.3, low total prot ein 5.2 with increased CEA level to 14.7. PHYSICAL EXAMINATION: GENERAL: A 71-year-old female, appears to be awake, alert, oriented. VITAL SIGNS: Afebrile with complaint of abdominal cramps with pulse of 88, respiratory rate 20-22, b lood pressure 108/64. HEENT: Showed pale, dry mucoid membranes. Nonicteric sclerae. LUNGS: Few scattered crepitations, decreased air entry at bases. HEART: Positive S1 and S2. ABDOMEN: Soft. Bowel sounds are present with mild generalized tenderness. No mass or organomegaly. EXTREMITIES: Evidence of mild lower extremities edematous changes and evidence of muscle wasting syn drome. No cyanosis or clubbing. Peripheral pulses are positive. NEUROLOGIC: No reported new neurologic deficits, sensory or motor. IMPRESSION: 1. Diarrhea with periods of rectal bleeding of unclear etiology, rule out lower gastrointestinal tra ct blood loss versus occult gastrointestinal malignancy, keeping in mind the elevated CEA level. 2. Known history of osteoarthritis. 3. Reexacerbation of peptic ulcer disease. 4. Colon polyps by history. 5. Esophageal carcinoma with status post esophageal dilation several months ago. 6. Reported large hiatus hernia by radiology studies. 7. Status post partial bowel resection, as well as partial esophageal resection. SUGGESTION: 1. I agree with your plan. 2. Add KCl p.o. 3. Correct any underlying coagulopathy. Griselda Hallman MD cc: 14 TT: 07/29/2016 13:05:51 Confirmation # [id number] Dictation # [id number]
--- NOTE | 2016-07-29 13:12 | CP.PCM.PN ---
Subjective - Date & Time of Evaluation Date of Evaluation: 07/29/16 Time of Evaluation: 13:00 - Subjective Subjective: Less diarrhea, follow-up with GI, observe shortness of breath Objective - Vital Signs/Intake and Output Vital Signs (last 24 hours): Temp Pulse Resp BP Pulse Ox 98.6 F 90 20 103/61 95 07/29/16 07:04 07/29/16 08:00 07/29/16 07:04 07/29/16 07:04 07/29/16 07:04 - Medications Medications: Current Medications Aspirin (Aspirin) 325 mg PO DAILY [facility] Last Admin: 07/29/16 10:03 Dose: 325 mg Bisacodyl (Dulcolax) 10 mg PO ONCE ONE Stop: 07/29/16 17:01 Enoxaparin Sodium (Lovenox) 40 mg SC DAILY [facility] Last Admin: 07/29/16 10:37 Dose: Not Given Hydromorphone HCl (Dilaudid) 1 mg IVP Q8 PRN PRN Reason: Pain, moderate (4-7) Last Admin: 07/29/16 08:38 Dose: 1 mg Ciprofloxacin (Cipro 400mg/200ml Dsw) 400 mg in 200 mls @ 133 mls/hr IVPB DAILY [facility] Last Admin: 07/29/16 10:05 Dose: 133 mls/hr Metronidazole (Flagyl) 500 mg in 100 mls @ 100 mls/hr IVPB BID [facility] Last Admin: 07/29/16 10:05 Dose: 100 mls/hr Metoclopramide HCl (Reglan) 5 mg IVP Q6 [facility] Last Admin: 07/29/16 13:06 Dose: 5 mg Ondansetron HCl (Zofran Inj) 4 mg IVP Q4 PRN PRN Reason: Nausea/Vomiting Last Admin: 07/28/16 15:41 Dose: 4 mg Pantoprazole Sodium (Protonix Ec Tab) 40 mg PO DAILY [facility] Last Admin: 07/29/16 10:03 Dose: 40 mg Potassium Chloride (K-Dur 20 Meq Er Tab) 40 meq PO DAILY [facility] Last Admin: 07/29/16 10:03 Dose: 40 meq - Labs Labs: 07/29/16 07:43 07/29/16 07:43 PT 15.8 SECONDS (9.7-12.2) H 07/28/16 12:43 INR 1.4 07/28/16 12:43 APTT 35 SECONDS (21-34) H 07/28/16 12:43 - Constitutional Appears: Non-toxic - Head Exam Head Exam: ATRAUMATIC - Eye Exam Eye Exam: EOMI - ENT Exam ENT Exam: Mucous Membranes Moist - Respiratory Exam Respiratory Exam: Clear to Ausculation Bilateral. absent: Rales - Cardiovascular Exam Cardiovascular Exam: REGULAR RHYTHM, Murmur - GI/Abdominal Exam GI & Abdominal Exam: Normal Bowel Sounds. absent: Organomegaly - Rectal Exam Rectal Exam: Deferred - Extremities Exam Extremities Exam: Normal Capillary Refill. absent: Calf Tenderness - Neurological Exam Neurological Exam: Alert, Oriented x3 - Psychiatric Exam Psychiatric exam: Normal Mood - Skin Skin Exam: Dry Assessment and Plan (1) Neoplasm of esophagus, malignant Status: Chronic (2) Asthma Status: Chronic
[2016-07-29] MEDS ORDERED: Bisacodyl 5mg EC Tab PO ONE (17:00)
--- NOTE | 2016-07-29 17:25 | CP.PCM.PN ---
Subjective - Date & Time of Evaluation Date of Evaluation: 07/29/16 Time of Evaluation: 10:00 - Subjective Subjective: clinically same Objective - Vital Signs/Intake and Output Vital Signs (last 24 hours): Temp Pulse Resp BP Pulse Ox 99.5 F 84 20 124/53 L 95 07/29/16 15:00 07/29/16 15:00 07/29/16 15:00 07/29/16 15:00 07/29/16 15:00 - Medications Medications: Current Medications Aspirin (Aspirin) 325 mg PO DAILY [facility] Last Admin: 07/29/16 10:03 Dose: 325 mg Enoxaparin Sodium (Lovenox) 40 mg SC DAILY [facility] Last Admin: 07/29/16 10:37 Dose: Not Given Hydromorphone HCl (Dilaudid) 1 mg IVP Q8 PRN PRN Reason: Pain, moderate (4-7) Last Admin: 07/29/16 08:38 Dose: 1 mg Ciprofloxacin (Cipro 400mg/200ml Dsw) 400 mg in 200 mls @ 133 mls/hr IVPB DAILY [facility] Last Admin: 07/29/16 10:05 Dose: 133 mls/hr Metronidazole (Flagyl) 500 mg in 100 mls @ 100 mls/hr IVPB Q12H [facility] Metoclopramide HCl (Reglan) 5 mg IVP Q6 [facility] Last Admin: 07/29/16 17:01 Dose: 5 mg Ondansetron HCl (Zofran Inj) 4 mg IVP Q4 PRN PRN Reason: Nausea/Vomiting Last Admin: 07/28/16 15:41 Dose: 4 mg Pantoprazole Sodium (Protonix Ec Tab) 40 mg PO DAILY [facility] Last Admin: 07/29/16 10:03 Dose: 40 mg Potassium Chloride (K-Dur 20 Meq Er Tab) 40 meq PO DAILY [facility] Last Admin: 07/29/16 10:03 Dose: 40 meq - Labs Labs: PT 15.8 SECONDS (9.7-12.2) H 07/28/16 12:43 INR 1.4 07/28/16 12:43 APTT 35 SECONDS (21-34) H 07/28/16 12:43 - Constitutional Appears: Well - Head Exam Head Exam: ATRAUMATIC, NORMAL INSPECTION, NORMOCEPHALIC - Eye Exam Eye Exam: EOMI, Normal appearance, PERRL Pupil Exam: NORMAL ACCOMODATION, PERRL - ENT Exam ENT Exam: Mucous Membranes Moist, Normal Exam - Neck Exam Neck Exam: Full ROM, Normal Inspection. absent: Lymphadenopathy - Respiratory Exam Respiratory Exam: Decreased Breath Sounds - Cardiovascular Exam Cardiovascular Exam: REGULAR RHYTHM, +S1, +S2 - GI/Abdominal Exam GI & Abdominal Exam: Soft, Diminished Bowel Sounds - Rectal Exam Rectal Exam: Deferred
[2016-07-30] MEDS ORDERED: Propofol 10 mg/ml Inj (20 ML) ONE (08:19)
[2016-07-30] MEDS ORDERED: Lidocaine Hydrochloride 5 ML INJ ONE (08:19)
[2016-07-30] MEDS ORDERED: methylPREDNISolone 125 MG in Sodium Chloride 0.9% 100 ML IVPB ONE (09:09)
[2016-07-30] MEDS ORDERED: MethylPREDNISolone 40 mg Vial IVP ONE (09:53)
[2016-07-30] MEDS: Ciprofloxacin 400mg/200ml D5W 400 MG/200 ML BAG IVPB SCH (10:49)
[2016-07-30] MEDS: metroNIDAZOLE IV 500 mg/100 ml 500 MG/100 ML BAG IVPB SCH (10:50)
[2016-07-30] MEDS: Potassium Chloride 20 mEq ER Tab PO SCH (10:50)
[2016-07-30] MEDS: Pantoprazole 40 mg EC Tab PO SCH (10:50)
[2016-07-30] MEDS: Enoxaparin 40 mg Syringe SC SCH (10:50)
--- NOTE | 2016-07-30 12:46 | CP.PCM.PN ---
Subjective - Date & Time of Evaluation Date of Evaluation: 07/30/16 Time of Evaluation: 13:00 - Subjective Subjective: No further shortness of breath, less diarrhea, in remission as per oncology Objective - Vital Signs/Intake and Output Vital Signs (last 24 hours): Temp Pulse Resp BP Pulse Ox 98.2 F 72 18 96/52 L 97 07/30/16 09:05 07/30/16 09:05 07/30/16 09:05 07/30/16 09:05 07/30/16 09:05 Intake and Output: 07/30/16 07/30/16 06:59 18:59 Intake Total 250 Balance 250 - Medications Medications: Current Medications Acetaminophen (Tylenol 325mg Tab) 650 mg PO Q6 PRN PRN Reason: Pain, Mild (1-3) Last Admin: 07/30/16 11:06 Dose: 650 mg Aspirin (Aspirin) 325 mg PO DAILY [facility] Last Admin: 07/30/16 10:50 Dose: 325 mg Enoxaparin Sodium (Lovenox) 40 mg SC DAILY [facility] Last Admin: 07/30/16 10:50 Dose: 40 mg Hydromorphone HCl (Dilaudid) 1 mg IVP Q8 PRN PRN Reason: Pain, moderate (4-7) Last Admin: 07/30/16 12:19 Dose: 1 mg Ciprofloxacin (Cipro 400mg/200ml Dsw) 400 mg in 200 mls @ 133 mls/hr IVPB DAILY [facility] Last Admin: 07/30/16 10:49 Dose: 133 mls/hr Metronidazole (Flagyl) 500 mg in 100 mls @ 100 mls/hr IVPB Q12H [facility] Last Admin: 07/30/16 10:50 Dose: 100 mls/hr Methylprednisolone (Solu-Medrol) 30 mg IVP Q8H [facility] Stop: 08/01/16 18:01 Methylprednisolone (Solu-Medrol) 20 mg IVP DAILY [facility] Metoclopramide HCl (Reglan) 5 mg IVP Q6 [facility] Last Admin: 07/30/16 12:11 Dose: Not Given Ondansetron HCl (Zofran Inj) 4 mg IVP Q4 PRN PRN Reason: Nausea/Vomiting Last Admin: 07/28/16 15:41 Dose: 4 mg Pantoprazole Sodium (Protonix Ec Tab) 40 mg PO DAILY [facility] Last Admin: 07/30/16 10:50 Dose: 40 mg Potassium Chloride (K-Dur 20 Meq Er Tab) 40 meq PO DAILY [facility] Last Admin: 07/30/16 10:50 Dose: 40 meq - Labs Labs: PT 15.8 SECONDS (9.7-12.2) H 07/28/16 12:43 INR 1.4 07/28/16 12:43 APTT 35 SECONDS (21-34) H 07/28/16 12:43 - Constitutional Appears: Non-toxic - Head Exam Head Exam: ATRAUMATIC - Eye Exam Eye Exam: EOMI - ENT Exam ENT Exam: Mucous Membranes Moist - Neck Exam Neck Exam: absent: Lymphadenopathy, Thyromegaly - Respiratory Exam Respiratory Exam: Clear to Ausculation Bilateral. absent: Rales - Cardiovascular Exam Cardiovascular Exam: REGULAR RHYTHM, Murmur - GI/Abdominal Exam GI & Abdominal Exam: Normal Bowel Sounds. absent: Organomegaly - Rectal Exam Rectal Exam: Deferred - Extremities Exam Extremities Exam: Normal Capillary Refill. absent: Calf Tenderness - Neurological Exam Neurological Exam: Alert, Oriented x3 - Psychiatric Exam Psychiatric exam: Normal Mood - Skin Skin Exam: Dry Assessment and Plan (1) Neoplasm of esophagus, malignant Status: Chronic (2) Asthma Status: Chronic
[2016-07-30] MEDS ORDERED: Potassium Chloride 10 mEq ER Tab PO SCH (13:00)
--- NOTE | 2016-07-30 13:43 | CP.PCM.PN ---
Subjective - Date & Time of Evaluation Date of Evaluation: 07/30/16 Time of Evaluation: 10:40 - Subjective Subjective: clinically same Objective - Vital Signs/Intake and Output Vital Signs (last 24 hours): Temp Pulse Resp BP Pulse Ox 98.2 F 72 18 96/52 L 97 07/30/16 09:05 07/30/16 09:05 07/30/16 09:05 07/30/16 09:05 07/30/16 09:05 Intake and Output: 07/30/16 07/30/16 06:59 18:59 Intake Total 250 Balance 250 - Medications Medications: Current Medications Acetaminophen (Tylenol 325mg Tab) 650 mg PO Q6 PRN PRN Reason: Pain, Mild (1-3) Last Admin: 07/30/16 11:06 Dose: 650 mg Aspirin (Aspirin) 325 mg PO DAILY [facility] Last Admin: 07/30/16 10:50 Dose: 325 mg Enoxaparin Sodium (Lovenox) 40 mg SC DAILY [facility] Last Admin: 07/30/16 10:50 Dose: 40 mg Hydromorphone HCl (Dilaudid) 1 mg IVP Q8 PRN PRN Reason: Pain, moderate (4-7) Last Admin: 07/30/16 12:19 Dose: 1 mg Ciprofloxacin (Cipro 400mg/200ml Dsw) 400 mg in 200 mls @ 133 mls/hr IVPB DAILY [facility] Last Admin: 07/30/16 10:49 Dose: 133 mls/hr Metronidazole (Flagyl) 500 mg in 100 mls @ 100 mls/hr IVPB Q12H [facility] Last Admin: 07/30/16 10:50 Dose: 100 mls/hr Methylprednisolone (Solu-Medrol) 30 mg IVP Q8H [facility] Stop: 08/01/16 18:01 Methylprednisolone (Solu-Medrol) 20 mg IVP DAILY [facility] Metoclopramide HCl (Reglan) 5 mg IVP Q6 [facility] Last Admin: 07/30/16 12:11 Dose: Not Given Ondansetron HCl (Zofran Inj) 4 mg IVP Q4 PRN PRN Reason: Nausea/Vomiting Last Admin: 07/28/16 15:41 Dose: 4 mg Pantoprazole Sodium (Protonix Ec Tab) 40 mg PO DAILY [facility] Last Admin: 07/30/16 10:50 Dose: 40 mg Potassium Chloride (K-Dur 20 Meq Er Tab) 40 meq PO DAILY [facility] Last Admin: 07/30/16 10:50 Dose: 40 meq - Labs Labs: PT 15.8 SECONDS (9.7-12.2) H 07/28/16 12:43 INR 1.4 07/28/16 12:43 APTT 35 SECONDS (21-34) H 07/28/16 12:43 - Constitutional Appears: Well - Head Exam Head Exam: ATRAUMATIC, NORMAL INSPECTION, NORMOCEPHALIC - Eye Exam Eye Exam: EOMI, Normal appearance, PERRL Pupil Exam: NORMAL ACCOMODATION, PERRL - ENT Exam ENT Exam: Mucous Membranes Moist, Normal Exam - Neck Exam Neck Exam: Full ROM, Normal Inspection. absent: Lymphadenopathy - Respiratory Exam Respiratory Exam: Decreased Breath Sounds - Cardiovascular Exam Cardiovascular Exam: REGULAR RHYTHM, +S1, +S2 - GI/Abdominal Exam GI & Abdominal Exam: Soft, Diminished Bowel Sounds - Rectal Exam Rectal Exam: Deferred Additional comments: clinically same Assessment and Plan - Assessment and Plan (Free Text) Plan: Status post: Total colonoscopy today which revealed extensive colitis with ulcer hemorrhoids GI consult Continue IV antibiotic Patient wants to go home awaiting the official colonoscopy
--- NOTE | 2016-07-30 16:04 | CP.PCM.PN ---
Subjective - Date & Time of Evaluation Date of Evaluation: 07/30/16 Time of Evaluation: 16:00 - Subjective Subjective: Feeling better Objective - Vital Signs/Intake and Output Vital Signs (last 24 hours): Temp Pulse Resp BP Pulse Ox 98.2 F 72 18 96/52 L 97 07/30/16 09:05 07/30/16 09:05 07/30/16 09:05 07/30/16 09:05 07/30/16 09:05 Intake and Output: 07/30/16 07/30/16 06:59 18:59 Intake Total 250 Balance 250 - Medications Medications: Current Medications Acetaminophen (Tylenol 325mg Tab) 650 mg PO Q6 PRN PRN Reason: Pain, Mild (1-3) Last Admin: 07/30/16 11:06 Dose: 650 mg Aspirin (Aspirin) 325 mg PO DAILY [facility] Last Admin: 07/30/16 10:50 Dose: 325 mg Enoxaparin Sodium (Lovenox) 40 mg SC DAILY [facility] Last Admin: 07/30/16 10:50 Dose: 40 mg Hydromorphone HCl (Dilaudid) 1 mg IVP Q8 PRN PRN Reason: Pain, moderate (4-7) Last Admin: 07/30/16 12:19 Dose: 1 mg Ciprofloxacin (Cipro 400mg/200ml Dsw) 400 mg in 200 mls @ 133 mls/hr IVPB DAILY [facility] Last Admin: 07/30/16 10:49 Dose: 133 mls/hr Metronidazole (Flagyl) 500 mg in 100 mls @ 100 mls/hr IVPB Q12H [facility] Last Admin: 07/30/16 10:50 Dose: 100 mls/hr Methylprednisolone (Solu-Medrol) 30 mg IVP Q8H [facility] Stop: 08/01/16 18:01 Methylprednisolone (Solu-Medrol) 20 mg IVP DAILY [facility] Metoclopramide HCl (Reglan) 5 mg IVP Q6 [facility] Last Admin: 07/30/16 12:11 Dose: Not Given Ondansetron HCl (Zofran Inj) 4 mg IVP Q4 PRN PRN Reason: Nausea/Vomiting Last Admin: 07/28/16 15:41 Dose: 4 mg Pantoprazole Sodium (Protonix Ec Tab) 40 mg PO DAILY [facility] Last Admin: 07/30/16 10:50 Dose: 40 mg Potassium Chloride (K-Dur 20 Meq Er Tab) 40 meq PO DAILY [facility] Last Admin: 07/30/16 10:50 Dose: 40 meq - Labs Labs: PT 15.8 SECONDS (9.7-12.2) H 07/28/16 12:43 INR 1.4 07/28/16 12:43 APTT 35 SECONDS (21-34) H 07/28/16 12:43 - Head Exam Head Exam: ATRAUMATIC - Eye Exam Eye Exam: Normal appearance - ENT Exam ENT Exam: Mucous Membranes Dry - Respiratory Exam Respiratory Exam: NORMAL BREATHING PATTERN - Cardiovascular Exam Cardiovascular Exam: +S1, +S2 - GI/Abdominal Exam GI & Abdominal Exam: Normal Bowel Sounds Assessment and Plan (1) Neoplasm of esophagus, malignant Assessment & Plan: in remission outpatient surveillance Status: Chronic
[2016-07-30 16:49] VITALS: BP 104/62; PULSE 63; RESP 20; TEMP 97.4; O2SAT 96
--- NOTE | 2016-07-30 16:56 | CP.PCM.PN ---
Subjective - Date & Time of Evaluation Date of Evaluation: 07/30/16 Time of Evaluation: 16:56 - Subjective Subjective: 71 Y/O FEMALE SEEN AND EXAMINED BY DR BUSTAMANTE TODAY PMHX: ASTHMA, NEOPLASM OF ESOPHAGUS, MALIGNANT- IN REMISSION, UNDER DR VILLAGOMEZ [place] , COLONSCOPY DONE BY DR MACHUCA, AWAITING FOR BIOPSY RESULT CONTINUE HOME MEDS, FLAGYL PER DR MACHUCA PT NEED TO FOLLOW UP WITH DR VILLAGOMEZ AND DR BUSTAMANTE IN THE OFFICE IN ONE WEEK FOLLOW UP WITH DR MACHUCA IN 4 WEEKS AGREE W/POC, VERBALIZE UNDERSTANDING Objective - Vital Signs/Intake and Output Vital Signs (last 24 hours): Temp Pulse Resp BP Pulse Ox 97.4 F L 63 20 104/62 96 07/30/16 16:00 07/30/16 16:00 07/30/16 16:00 07/30/16 16:00 07/30/16 16:00 Intake and Output: 07/30/16 07/30/16 06:59 18:59 Intake Total 250 Balance 250 - Medications Medications: Current Medications Acetaminophen (Tylenol 325mg Tab) 650 mg PO Q6 PRN PRN Reason: Pain, Mild (1-3) Last Admin: 07/30/16 11:06 Dose: 650 mg Aspirin (Aspirin) 325 mg PO DAILY [facility] Last Admin: 07/30/16 10:50 Dose: 325 mg Enoxaparin Sodium (Lovenox) 40 mg SC DAILY [facility] Last Admin: 07/30/16 10:50 Dose: 40 mg Hydromorphone HCl (Dilaudid) 1 mg IVP Q8 PRN PRN Reason: Pain, moderate (4-7) Last Admin: 07/30/16 12:19 Dose: 1 mg Ciprofloxacin (Cipro 400mg/200ml Dsw) 400 mg in 200 mls @ 133 mls/hr IVPB DAILY [facility] Last Admin: 07/30/16 10:49 Dose: 133 mls/hr Metronidazole (Flagyl) 500 mg in 100 mls @ 100 mls/hr IVPB Q12H [facility] Last Admin: 07/30/16 10:50 Dose: 100 mls/hr Methylprednisolone (Solu-Medrol) 30 mg IVP Q8H [facility] Stop: 08/01/16 18:01 Methylprednisolone (Solu-Medrol) 20 mg IVP DAILY [facility] Metoclopramide HCl (Reglan) 5 mg IVP Q6 [facility] Last Admin: 07/30/16 12:11 Dose: Not Given Ondansetron HCl (Zofran Inj) 4 mg IVP Q4 PRN PRN Reason: Nausea/Vomiting Last Admin: 07/28/16 15:41 Dose: 4 mg Pantoprazole Sodium (Protonix Ec Tab) 40 mg PO DAILY [facility] Last Admin: 07/30/16 10:50 Dose: 40 mg Potassium Chloride (K-Dur 20 Meq Er Tab) 40 meq PO DAILY [facility] Last Admin: 07/30/16 10:50 Dose: 40 meq - Labs Labs: PT 15.8 SECONDS (9.7-12.2) H 07/28/16 12:43 INR 1.4 07/28/16 12:43 APTT 35 SECONDS (21-34) H 07/28/16 12:43
[2016-07-30] MEDS ORDERED: Pneumococcal 23-Valent Vaccine IM ONE (17:01)
[2016-07-30] MEDS ORDERED: MethylPREDNISolone 40 mg Vial IVP SCH (18:00)
[2016-07-30 19:37] LABS: C DIFF TOXIN A B NEGATIVE (NEGATIVE)
[2016-07-30] MEDS ORDERED: SODIUM CHLORIDE 0.9% IVPB SCH (22:00)
[2016-07-30] MEDS ORDERED: METHYLPREDNISOLONE IVPB SCH (22:00)
[2016-07-30 22:24] LABS: FECAL LEUKOCYTES NEGATIVE (NEGATIVE)
--- NOTE | 2016-07-31 12:01 | CARD ---
APPROVED REPORT EKG Measurement Heart [id number] <Conclusion> Normal sinus rhythm Low voltage QRS Nonspecific T wave abnormality Abnormal ECG
[2016-08-02] MEDS ORDERED: MethylPREDNISolone 40 mg Vial IVP SCH (10:00)
== END 2016-07-30 17:15 | disposition home or self-care (01) | DRG 392 ==
LOC: C.ER 10:53 → C.9E 15:33 → C.5T 17:52 → OBSVTOIN 07-29 14:32
PROVIDERS: ADMIT Internal Medicine Nephrology; ATTEND Internal Medicine Nephrology
PROC: 0DBM8ZX Excision of Descending Colon, Via Natural or Artificial Opening Endoscopic, Diagnostic (ICD-10-PCS; principal; 2016-07-30 08:19)
DX: K58.0 Irritable bowel syndrome with diarrhea (principal); C15.9 Malignant neoplasm of esophagus, unspecified; N28.1 Cyst of kidney, acquired; R13.10 Dysphagia, unspecified; A09 Infectious gastroenteritis and colitis, unspecified; K27.9 Peptic ulcer, site unspecified, unspecified as acute or chronic, without hemorrhage or perforation; K64.8 Other hemorrhoids; K21.9 Gastro-esophageal reflux disease without esophagitis; J45.909 Unspecified asthma, uncomplicated; K44.9 Diaphragmatic hernia without obstruction or gangrene; Z85.819 Personal history of malignant neoplasm of unspecified site of lip, oral cavity, and pharynx; Z86.010 Personal history of colon polyps; Z90.49 Acquired absence of other specified parts of digestive tract; Z92.21 Personal history of antineoplastic chemotherapy; Z92.3 Personal history of irradiation; Z87.891 Personal history of nicotine dependence

== ENCOUNTER 2016-08-03 10:49 | Inpatient (IN) | payer MEDICARE, MEDICAID ==
[2016-08-03 10:49] VITALS: BMI 25.0
[2016-08-03] MEDS ORDERED: Lidocaine 2% Viscous 100 ml PO STA (11:19)
[2016-08-03] MEDS ORDERED: Sodium Chloride 0.9% 1,000 ML IV ONE (11:19)
[2016-08-03] MEDS ORDERED: Belladonna-Phenobarbital PO STA (11:19)
[2016-08-03 11:43] LABS: BASO % 0.3 % (0.0-2.0); EOS # 0.3 K/uL (0.0-0.7); EOS % 5.1 % (0.0-4.0); HEMATOCRIT 42.5 % (34.0-47.0); LYMPH # 0.5 K/uL (1.0-4.3); MEAN CELL VOLUME 89.2 fL (81.0-99.0); MEAN CORPUSCULAR HEMOGLOBIN 29.3 pg (27.0-31.0); MEAN CORPUSCULAR HGB CONC 32.9 g/dL (33.0-37.0); MEAN PLATELET VOLUME 7.4 fL (7.2-11.7); MONO # 0.3 K/uL (0.0-0.8); MONO % 5.6 % (0.0-10.0); PLATELET COUNT 342 K/uL (130-400); RED CELL DISTRIBUTION WIDTH 13.8 % (11.5-14.5); WHITE BLOOD COUNT 5.5 K/uL (4.8-10.8)
[2016-08-03] MEDS ORDERED: Sodium Chloride 0.9% 250 ML IV ONE (11:53)
[2016-08-03] MEDS ORDERED: Belladonna-Phenobarbital ONE (11:53)
[2016-08-03 11:58] LABS: EOSINOPHIL 1 % (0-4); NEUTROPHIL 83 % (50-75); TOTAL CELLS COUNTED 100
[2016-08-03 11:59] LABS: PLATELET CLUMPS PRESENT
--- NOTE | 2016-08-03 12:08 | C.PDOC ---
History Of Present Illness 71 y/o female with Hx of Esophageal cancer presents to ED with complaints of cramping abdominal pain, pinkish liquidly diarrhea. Pain is rated 5/10 and is mostly in the lower abdomen and suprapubic region. 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 Patient was recently D/C from [facility] ED for similar symptoms and patient received a Colonoscopy for Tulips, Hemorrhoids and Colitis. Patient was discharged with Martio that she is currently taking but states medication makes her dizzy and nauseous. Patient denies fever, chills, sob, cp or any other complaints at this time. Time Seen by Provider: 08/03/16 11:06 Chief Complaint (Nursing): Abdominal Pain History Per: Patient History/Exam Limitations: no limitations Onset/Duration Of Symptoms: Days Current Symptoms Are (Timing): Still Present Location Of Pain/Discomfort: Suprapubic Associated Symptoms: Nausea, Vomiting, Diarrhea. denies: Fever, Chills Past Medical History Reviewed: Historical Data, Nursing Documentation, Vital Signs Vital Signs: Last Vital Signs Temp 98.1 F 08/03/16 13:17 Pulse 78 08/03/16 13:17 Resp 18 08/03/16 13:17 BP 105/59 L 08/03/16 13:17 Pulse Ox 98 08/03/16 13:17 - Medical History PMH: Arthritis, Colonic Polyps, Malignancy (THROAT CA) Surgical History: Appendectomy, Endoscopy - [facility] Procedures CLOSED ENDOSCOPIC BIOPSY OF LARGE INTESTINE (01/28/14) DRAINAGE OF SPINAL CANAL, PERCUTANEOUS APPROACH, DIAGNOSTIC (03/15/15) ENDOSC POLYPECTOMY OF LG INTEST (09/09/14) ESOPHAGEAL DILATION (07/12/12) ESOPHAGOGASTRODUODENOSCOPY [EGD] W/CLOSED BIOPSY (06/17/14) EXCISION OF DESCENDING COLON, ENDO, DIAGN (07/29/16) EXCISION OF STOMACH, ENDO, DIAGN (03/15/15) INSPECTION OF LARYNX, ENDO (03/15/15) OTHER ENDOSCOPY OF SM INTEST (07/12/12) Family History: States: Unknown Family Hx - Social History Hx Tobacco Use: No Hx Alcohol Use: Yes (1 drink 3 times aweek) Hx Substance Use: No - Immunization History Hx Tetanus Toxoid Vaccination: No Hx Influenza Vaccination: No Hx Pneumococcal Vaccination: No Review Of Systems Except As Marked, All Systems Reviewed And Found Negative. Constitutional: Negative for: Fever, Chills Gastrointestinal: Positive for: Nausea, Vomiting, Abdominal Pain, Diarrhea Genitourinary: Negative for: Dysuria Musculoskeletal: Negative for: Back Pain Skin: Negative for: Rash Neurological: Positive for: Dizziness. Negative for: Weakness, Headache Physical Exam - Physical Exam Appears: Chronically Ill, Other (Tearful) Skin: Warm Head: Atraumatic, Normacephalic Oral Mucosa: Moist Cardiovascular: Rhythm Regular, No Murmur Respiratory: Normal Breath Sounds, No Rales, No Rhonchi, No Wheezing Gastrointestinal/Abdominal: Tenderness (Diffuse Tenderness more to epigastrium and suprapubic area), No Guarding, No Rebound Extremity: Normal ROM, Capillary Refill (<2 seconds) Neurological/Psych: Oriented x3 ED Course And Treatment - Laboratory Results Result Diagrams: 08/03/16 11:35 08/03/16 11:35 ECG: Interpreted By Me, Viewed By Me ECG Rhythm: Sinus Rhythm ECG Interpretation: Normal Rate From EC (BPM) O2 Sat by Pulse Oximetry: 94 (RA) Pulse Ox Interpretation: Normal Disposition Discussed With DrModesto: Daphne Marquez Doctor Will See Patient In The: Hospital Counseled Patient/Family Regarding: Diagnosis, Need For Followup - Disposition Disposition: HOSPITALIZED Disposition Time: 12:29 Condition: SERIOUS - Clinical Impression Clinical Impression: Colitis, Diarrhea, Heme + stool, Hypotension - Scribe Statement The provider has reviewed the documentation as recorded by the Booibcristopher Goel All medical record entries made by the Booibcristopher were at my direction and personally dictated by me. I have reviewed the chart and agree that the record accurately reflects my personal performance of the history, physical exam, medical decision making, and the department course for this patient. I have also personally directed, reviewed, and agree with the discharge instructions and disposition. Decision To Admit - Pt Status Changed To: Hospital Disposition Of: Inpatient - Admit Certification Admit to Inpatient:: After my assessment, the patient will require hospitalization for at least two midnights. This is because of the severity of symptoms shown, intensity of services needed, and/or the medical risk in this patient being treated as an outpatient. - InPatient: Physician Admission Certification:: patient with colitis, esophageal ca, presents with dizzyness, low BP and, bloody liquid stool. - . Bed Request Type: Telemetry Admitting Physician: Daphne Marquez Patient Diagnosis: Colitis, Diarrhea, Heme + stool, Hypotension
[2016-08-03 12:21] LABS: CHLORIDE 104 mmol/L (98-107); POTASSIUM 2.8 mmol/L (3.6-5.2); SODIUM 139 mmol/L (132-148)
[2016-08-03 12:23] LABS: GFR AFRICAN-AMERICAN > 60
[2016-08-03 12:24] LABS: ALB/GLOB RATIO 0.8 (1.0-2.1); ALKALINE PHOSPHATASE 61 U/L (38-126); ALT/SGPT 16 U/L (9-52); AST/SGOT 15 U/L (14-36); BILIRUBIN,TOTAL 0.5 mg/dL (0.2-1.3); BLOOD UREA NITROGEN 5 mg/dL (7-17); CALCIUM 7.7 mg/dl (8.6-10.4); CARBON DIOXIDE 26 mmol/L (22-30); GLUCOSE,RANDOM 123 mg/dL (65-105); TOTAL PROTEIN 5.5 g/dL (6.3-8.3)
--- NOTE | 2016-08-03 13:14 | CP.PCM.HP ---
Past Patient History - Past Medical History & Family History Past Medical History?: Yes - Past Social History Smoking Status: Former Smoker - CARDIAC Hx Cardiac Disorders: No - PULMONARY Hx Respiratory Disorders: No - NEUROLOGICAL Hx Neurological Disorder: No - HEENT Hx HEENT Problems: Yes Hx Difficulty Chewing: Yes Other/Comment: DYSPHAGIA RELATED TO EXTENSIVE ESOPHAGEAL CANCER SX AND "TUBE" IN PLACE OF ESOPHAGUS - RENAL Hx Chronic Kidney Disease: No - ENDOCRINE/METABOLIC Hx Endocrine Disorders: No - HEMATOLOGICAL/ONCOLOGICAL Hx Blood Disorders: Yes Hx Blood Transfusions: Yes Hx Blood Transfusion Reaction: No Hx Cancer: Yes (ESOPHAGEAL) - INTEGUMENTARY Hx Dermatological Problems: No - MUSCULOSKELETAL/RHEUMATOLOGICAL Hx Arthritis: Yes - GASTROINTESTINAL Hx Gastrointestinal Disorders: Yes Hx Gastroesophageal Reflux: Yes HX Swallowing Problems: Yes Other/Comment: ESOPHAGEAL CANCER - GENITOURINARY/GYNECOLOGICAL Hx Genitourinary Disorders: No - PSYCHIATRIC Hx Substance Use: No - SURGICAL HISTORY Hx Appendectomy: Yes - ANESTHESIA Hx Anesthesia: Yes Hx Anesthesia Reactions: No Hx Malignant Hyperthermia: No Meds Allergies/Adverse Reactions: Allergies Allergy/AdvReac Type Severity Reaction Status Date / Time No Known Allergies Allergy Verified 08/03/16 10:55 Physical Exam - Constitutional Appears: Well - Head Exam Head Exam: ATRAUMATIC, NORMAL INSPECTION, NORMOCEPHALIC - Eye Exam Eye Exam: EOMI, Normal appearance, PERRL Pupil Exam: NORMAL ACCOMODATION, PERRL - ENT Exam ENT Exam: Mucous Membranes Moist, Normal Exam - Neck Exam Neck exam: Positive for: Normal Inspection - Respiratory Exam Respiratory Exam: Decreased Breath Sounds - Cardiovascular Exam Cardiovascular Exam: REGULAR RHYTHM, +S1, +S2 - GI/Abdominal Exam GI & Abdominal Exam: Diminished Bowel Sounds, Soft - Rectal Exam Rectal Exam: Deferred Results - Vital Signs Recent Vital Signs: Last Vital Signs Temp 98.2 F 08/03/16 10:52 Pulse 72 08/03/16 12:00 Resp 18 08/03/16 12:00 BP 94/52 L 08/03/16 12:00 Pulse Ox 94 L 08/03/16 12:33 - Labs Result Diagrams: 08/03/16 11:35 08/03/16 11:35
[2016-08-03 13:20] LABS: RBC URINE 2 /hpf (0-3); URINE BACTERIA RARE (<OCC); URINE BILIRUBIN NEGATIVE (NEGATIVE); URINE BLOOD NEGATIVE (NEGATIVE); URINE COLOR Amber (YELLOW); URINE GLUCOSE (UA) NORMAL (Normal); URINE KETONE TRACE mg/dL (NEGATIVE); URINE LEUKOCYTE ESTERASE TRACE Leu/uL (Negative); URINE PROTEIN 1+ mg/dL (NEGATIVE); URINE UROBILINOGEN NORMAL mg/dL (0.2-1.0); WBC URINE 5 /hpf (0-5)
[2016-08-03] MEDS ORDERED: Sodium Chloride 0.9% 500 ML IV SCH (14:14)
[2016-08-03] MEDS ORDERED: Sodium Chloride 0.9% 500 ML IV ONE ×2 (18:00→18:03)
--- NOTE | 2016-08-03 21:16 | CP.PCM.CON ---
<Anthony Wilkerson - Last Filed: 08/03/16 21:55> History of Present Illness - History of Present Illness History of Present Illness: SURGERY CONSULT NOTE FOR DR. SO 71F present to [facility] with abdominal pain. Patient states pain is in the supra-pubic region and does not radiate anywhere. she has had a similar episode like this multiple times recently. Patient states pain is associated with bloody bowel movements. She also admits to nausea and vomiting. Vomit content included clear fluid and saliva. Patient has had recent colonoscopy that showed extensive ulcerative colitis. Recent CT done 7 days ago showed thickening of the colon suggestive of ulcerative colitis. Patient had now been put on steroid medication on this admission. PMH: esophageal cancer, peptic ulcer disease, OA, recently UC PSH: Esophageal, dilation/resection, partial colon resection Allergies: NKDA Past Patient History - Past Medical History & Family History Past Medical History?: Yes - Past Social History Smoking Status: Former Smoker - CARDIAC Hx Cardiac Disorders: No - PULMONARY Hx Respiratory Disorders: No - NEUROLOGICAL Hx Neurological Disorder: No - HEENT Hx HEENT Problems: Yes Hx Difficulty Chewing: Yes Other/Comment: DYSPHAGIA RELATED TO EXTENSIVE ESOPHAGEAL CANCER SX AND "TUBE" IN PLACE OF ESOPHAGUS - RENAL Hx Chronic Kidney Disease: No - ENDOCRINE/METABOLIC Hx Endocrine Disorders: No - HEMATOLOGICAL/ONCOLOGICAL Hx Blood Disorders: Yes Hx Blood Transfusions: Yes Hx Blood Transfusion Reaction: No Hx Cancer: Yes (ESOPHAGEAL) - INTEGUMENTARY Hx Dermatological Problems: No - MUSCULOSKELETAL/RHEUMATOLOGICAL Hx Arthritis: Yes - GASTROINTESTINAL Hx Gastrointestinal Disorders: Yes Hx Gastroesophageal Reflux: Yes HX Swallowing Problems: Yes Other/Comment: ESOPHAGEAL CANCER - GENITOURINARY/GYNECOLOGICAL Hx Genitourinary Disorders: No - PSYCHIATRIC Hx Substance Use: No - SURGICAL HISTORY Hx Appendectomy: Yes - ANESTHESIA Hx Anesthesia: Yes Hx Anesthesia Reactions: No Hx Malignant Hyperthermia: No Meds Allergies/Adverse Reactions: Allergies Allergy/AdvReac Type Severity Reaction Status Date / Time No Known Allergies Allergy Verified 08/03/16 10:55 - Medications Medications: Current Medications Acetaminophen (Tylenol 325mg Tab) 650 mg PO Q6 PRN PRN Reason: Pain, Mild (1-3) Metronidazole (Flagyl) 500 mg in 100 mls @ 100 mls/hr IVPB Q8 [place] Potassium Chloride 20 meq/ (Sodium Chloride) 1,010 mls @ 100 mls/hr IV .Q10H6M [facility] Stop: 08/04/16 10:41 Last Admin: 08/03/16 17:03 Dose: 100 mls/hr Ciprofloxacin (Cipro 400mg/200ml Dsw) 400 mg in 200 mls @ 133 mls/hr IVPB Q12H [facility] Methylprednisolone (Solu-Medrol) 40 mg IVP Q8H [place] Morphine Sulfate (Morphine) 2 mg IVP Q4 PRN PRN Reason: Pain, moderate (4-7) Last Admin: 08/03/16 19:25 Dose: 2 mg Pantoprazole Sodium (Protonix Inj) 40 mg IVP DAILY [facility] Physical Exam - Constitutional Appears: Non-toxic, No Acute Distress - Eye Exam Eye Exam: EOMI, PERRL - ENT Exam ENT Exam: Mucous Membranes Dry - Respiratory Exam Respiratory Exam: Clear to Auscultation Bilateral, NORMAL BREATHING PATTERN - Cardiovascular Exam Cardiovascular Exam: REGULAR RHYTHM, +S1, +S2 - GI/Abdominal Exam GI & Abdominal Exam: Soft, Tenderness. absent: Distended, Firm, Guarding, Rebound, Rigid - Rectal Exam Rectal Exam: Deferred - Extremities Exam Extremities exam: Negative for: pedal edema, tenderness - Neurological Exam Neurological exam: Alert, Oriented x3 - Psychiatric Exam Psychiatric exam: Anxious - Skin Skin Exam: Dry, Intact, Normal Color, Warm Results - Vital Signs Recent Vital Signs: Last Vital Signs Temp 97.9 F 08/03/16 15:45 Pulse 68 08/03/16 15:45 Resp 18 08/03/16 15:45 BP 89/60 L 08/03/16 15:45 Pulse Ox 96 08/03/16 15:45 - Labs Result Diagrams: 08/03/16 11:35 08/03/16 11:35 Labs: Laboratory Results - last 24 hr 08/03/16 08/03/16 12:43 13:06 Urine Color Rosita Urine Clarity Hazy Urine pH 5.0 Ur Specific Topmost 1.024 Urine Protein 1+ H Urine Glucose (UA) Normal Urine Ketones Trace Urine Blood Negative Urine Nitrate Negative Urine Bilirubin Negative Urine Urobilinogen Normal Ur Leukocyte Esterase Trace Urine WBC (Auto) 5 Urine RBC (Auto) 2 Ur Squamous Epith Cells 13 H Urine Bacteria Rare Blood Type O POSITIVE Antibody Screen Negative Assessment & Plan - Assessment and Plan (Free Text) Assessment: 71F with abdominal pain 2/2 colitis, recently diagnosed ulcerative colitis Plan: - NPO, pain control, anti-nausea - Antibiotics, steroids - IVF, replace potassium - serial abdominal pain - DVT/GI ppx Further recs discuss with Dr. Judah Wilkerson, PGY1 <Franklin So - Last Filed: 08/05/16 11:52> Meds - Medications Medications: Current Medications Acetaminophen (Tylenol 325mg Tab) 650 mg PO Q6 PRN PRN Reason: Pain, Mild (1-3) Last Admin: 08/04/16 23:49 Dose: 650 mg Folic Acid (Folic Acid) 1 mg PO DAILY [facility] Last Admin: 08/05/16 09:23 Dose: 1 mg Hydromorphone HCl (Dilaudid) 1 mg IVP Q4H PRN PRN Reason: Pain, moderate (4-7) Last Admin: 08/05/16 06:49 Dose: 1 mg Metronidazole (Flagyl) 500 mg in 100 mls @ 100 mls/hr IVPB Q8 [facility] Last Admin: 08/05/16 06:08 Dose: 100 mls/hr Ciprofloxacin (Cipro 400mg/200ml Dsw) 400 mg in 200 mls @ 133 mls/hr IVPB Q12H [facility] Last Admin: 08/05/16 09:23 Dose: 133 mls/hr Potassium Chloride 20 meq/ (Sodium Chloride) 1,010 mls @ 125 mls/hr IV .Q8H5M [facility] Last Admin: 08/05/16 06:07 Dose: Not Given Methylprednisolone (Solu-Medrol) 40 mg IVP Q8H [facility] Last Admin: 08/05/16 04:04 Dose: 40 mg Ondansetron HCl (Zofran Inj) 4 mg IVP Q4 PRN PRN Reason: Nausea/Vomiting Last Admin: 08/03/16 22:30 Dose: 4 mg Pantoprazole Sodium (Protonix Inj) 40 mg IVP DAILY [facility] Last Admin: 08/05/16 09:23 Dose: 40 mg Sucralfate (Carafate Oral Susp) 1 gm PO ACBHS [facility] Last Admin: 08/05/16 06:44 Dose: 1 gm Results - Vital Signs Recent Vital Signs: Last Vital Signs Temp 97.8 F 08/05/16 07:02 Pulse 78 08/05/16 07:02 Resp 18 08/05/16 07:02 BP 99/54 L 08/05/16 07:02 Pulse Ox 94 L 08/05/16 07:02 - Labs Result Diagrams: 08/05/16 11:06 08/05/16 11:06 Labs: Laboratory Results - last 24 hr 08/05/16 08/05/16 11:06 11:06 WBC 7.3 D RBC 4.02 Hgb 11.7 Hct 36.5 MCV 90.7 MCH 29.1 MCHC 32.2 L RDW 13.7 Plt Count 320 MPV 7.6 Neut % (Auto) 90.6 H Lymph % (Auto) 5.8 L Delta % (Auto) 3.5 Eos % (Auto) 0.0 Baso % (Auto) 0.1 Neut # 6.6 Lymph # 0.4 L Delta # 0.3 Eos # 0.0 Baso # 0.0 Neutrophils % (Manual) 79 H Band Neutrophils % 10 H Lymphocytes % (Manual) 7 L Monocytes % (Manual) 3 Eosinophils % (Manual) 1 Platelet Estimate Normal Hypochromasia (manual) Slight Poikilocytosis (manual Slight Anisocytosis (manual) Slight Sodium 141 Potassium 3.6 Chloride 113 H Carbon Dioxide 19 L Anion Gap 13 BUN 3 L Creatinine 0.4 L Est GFR ( Amer) > 60 Est GFR (Non-Af Amer) > 60 Random Glucose 221 H Calcium 7.2 L Total Bilirubin 0.3 AST 11 L ALT 13 Alkaline Phosphatase 48 Total Protein 4.6 L Albumin 2.0 L Globulin 2.6 Albumin/Globulin Ratio 0.8 L Attending/Attestation - Attestation I have fully participated in the care of the patient.: Yes I have reviewed all pertinent clinical information: Yes Notes (Text): 08/05/16 11:50 Pt was seen and examined at bedside Agree with above note and assessment Pt with Ulcerative colitis. Currently treated with Steroid C.w current mx.
[2016-08-03] MEDS: metroNIDAZOLE IV 500 mg/100 ml 500 MG/100 ML BAG IVPB SCH (22:20)
[2016-08-03] MEDS: Ciprofloxacin 400mg/200ml D5W 400 MG/200 ML BAG IVPB SCH (22:21)
[2016-08-03] MEDS: HYDROmorphone 1 mg/ml ISec IVP PRN (22:29)
--- NOTE | 2016-08-04 02:34 | CP.PCM.PN ---
<Anthony Wilkerson - Last Filed: 08/04/16 02:31> Subjective - Date & Time of Evaluation Date of Evaluation: 08/04/16 Time of Evaluation: 02:31 - Subjective Subjective: SURGERY PROGRESS NOTE FOR DR. SO 71F seen and examined at bedside. Patient states pain as resolved. Denies nausea /vomting. Objective - Vital Signs/Intake and Output Vital Signs (last 24 hours): Temp Pulse Resp BP Pulse Ox 98.9 F 82 20 99/68 L 95 08/03/16 23:35 08/04/16 00:58 08/03/16 23:35 08/03/16 23:35 08/03/16 23:35 Intake and Output: 08/03/16 08/04/16 18:59 06:59 Intake Total 2750 Balance 2750 - Medications Medications: Current Medications Acetaminophen (Tylenol 325mg Tab) 650 mg PO Q6 PRN PRN Reason: Pain, Mild (1-3) Hydromorphone HCl (Dilaudid) 1 mg IVP Q4H PRN PRN Reason: Pain, moderate (4-7) Last Admin: 08/03/16 22:29 Dose: 1 mg Metronidazole (Flagyl) 500 mg in 100 mls @ 100 mls/hr IVPB Q8 [facility] Last Admin: 08/03/16 22:20 Dose: 100 mls/hr Ciprofloxacin (Cipro 400mg/200ml Dsw) 400 mg in 200 mls @ 133 mls/hr IVPB Q12H [facility] Last Admin: 08/03/16 22:21 Dose: 133 mls/hr Potassium Chloride 20 meq/ (Sodium Chloride) 1,010 mls @ 150 mls/hr IV .Q6H44M [facility] Stop: 08/04/16 03:57 Last Admin: 08/03/16 22:25 Dose: 150 mls/hr Methylprednisolone (Solu-Medrol) 40 mg IVP Q8H [facility] Ondansetron HCl (Zofran Inj) 4 mg IVP Q4 PRN PRN Reason: Nausea/Vomiting Last Admin: 08/03/16 22:30 Dose: 4 mg Pantoprazole Sodium (Protonix Inj) 40 mg IVP DAILY [facility] - Constitutional Appears: Non-toxic, No Acute Distress - Respiratory Exam Respiratory Exam: Clear to Ausculation Bilateral, NORMAL BREATHING PATTERN - Cardiovascular Exam Cardiovascular Exam: REGULAR RHYTHM, +S1, +S2 - GI/Abdominal Exam GI & Abdominal Exam: Soft. absent: Distended, Firm, Guarding, Rigid, Tenderness , Rebound - Neurological Exam Neurological Exam: Alert, Awake Assessment and Plan - Assessment and Plan (Free Text) Assessment: 71F with ulcerative colitis - continue pain control - continue abx, steroid - continue medical management - serial abdominal exams - will continue to follow Further recs discuss with Dr. Judah Wilkerson, PGY1 <Franklin So - Last Filed: 08/05/16 11:55> Objective - Vital Signs/Intake and Output Vital Signs (last 24 hours): Temp Pulse Resp BP Pulse Ox 97.8 F 78 18 99/54 L 94 L 08/05/16 07:02 08/05/16 07:02 08/05/16 07:02 08/05/16 07:02 08/05/16 07:02 Intake and Output: 08/05/16 08/05/16 06:59 18:59 Intake Total 2450 Balance 2450 - Medications Medications: Current Medications Acetaminophen (Tylenol 325mg Tab) 650 mg PO Q6 PRN PRN Reason: Pain, Mild (1-3) Last Admin: 08/04/16 23:49 Dose: 650 mg Folic Acid (Folic Acid) 1 mg PO DAILY [facility] Last Admin: 08/05/16 09:23 Dose: 1 mg Hydromorphone HCl (Dilaudid) 1 mg IVP Q4H PRN PRN Reason: Pain, moderate (4-7) Last Admin: 08/05/16 06:49 Dose: 1 mg Metronidazole (Flagyl) 500 mg in 100 mls @ 100 mls/hr IVPB Q8 [facility] Last Admin: 08/05/16 06:08 Dose: 100 mls/hr Ciprofloxacin (Cipro 400mg/200ml Dsw) 400 mg in 200 mls @ 133 mls/hr IVPB Q12H [facility] Last Admin: 08/05/16 09:23 Dose: 133 mls/hr Potassium Chloride 20 meq/ (Sodium Chloride) 1,010 mls @ 125 mls/hr IV .Q8H5M [facility] Last Admin: 08/05/16 06:07 Dose: Not Given Methylprednisolone (Solu-Medrol) 40 mg IVP Q8H [facility] Last Admin: 08/05/16 04:04 Dose: 40 mg Ondansetron HCl (Zofran Inj) 4 mg IVP Q4 PRN PRN Reason: Nausea/Vomiting Last Admin: 08/03/16 22:30 Dose: 4 mg Pantoprazole Sodium (Protonix Inj) 40 mg IVP DAILY [facility] Last Admin: 08/05/16 09:23 Dose: 40 mg Sucralfate (Carafate Oral Susp) 1 gm PO ACBHS [facility] Last Admin: 08/05/16 06:44 Dose: 1 gm - Labs Labs: 08/05/16 11:06 08/05/16 11:06 Attending/Attestation - Attestation I have personally seen and examined this patient.: Yes I have fully participated in the care of the patient.: Yes I have reviewed all pertinent clinical information, including history, physical exam and plan: Yes Notes (Text): 08/05/16 11:53 Pt was seen and examined at bedside 08/05/16 Agree with above note and assessment Pt with Ulcerative colitis. Pt is improving clinically C.w current mx. Plan d.w pt in detail Risk and benefit explained in detail.
[2016-08-04] MEDS: MethylPREDNISolone 40 mg Vial IVP SCH ×3 (03:31→21:30)
[2016-08-04] MEDS: metroNIDAZOLE IV 500 mg/100 ml 500 MG/100 ML BAG IVPB SCH ×3 (05:27→22:10)
[2016-08-04] MEDS: HYDROmorphone 1 mg/ml ISec IVP PRN (08:40)
[2016-08-04 09:27] LABS: MEAN CELL VOLUME 90.1 fL (81.0-99.0); MEAN CORPUSCULAR HEMOGLOBIN 29.3 pg (27.0-31.0); MEAN CORPUSCULAR HGB CONC 32.6 g/dL (33.0-37.0); MEAN PLATELET VOLUME 7.7 fL (7.2-11.7); RED CELL DISTRIBUTION WIDTH 14.3 % (11.5-14.5); WHITE BLOOD COUNT 4.1 K/uL (4.8-10.8)
[2016-08-04] MEDS: Ciprofloxacin 400mg/200ml D5W 400 MG/200 ML BAG IVPB SCH ×2 (09:28→22:11)
[2016-08-04 09:42] LABS: CHLORIDE 106 mmol/L (98-107); POTASSIUM 3.6 mmol/L (3.6-5.2); SODIUM 134 mmol/L (132-148)
[2016-08-04 09:44] LABS: BILIRUBIN,TOTAL 0.4 mg/dL (0.2-1.3); GFR AFRICAN-AMERICAN > 60
[2016-08-04 09:45] LABS: ALB/GLOB RATIO 0.8 (1.0-2.1); ALKALINE PHOSPHATASE 47 U/L (38-126); ALT/SGPT 18 U/L (9-52); AST/SGOT 11 U/L (14-36); BLOOD UREA NITROGEN 3 mg/dL (7-17); CALCIUM 6.6 mg/dl (8.6-10.4); CARBON DIOXIDE 20 mmol/L (22-30); GLUCOSE,RANDOM 278 mg/dL (65-105); TOTAL PROTEIN 4.7 g/dL (6.3-8.3)
--- NOTE | 2016-08-04 11:17 | PN ---
DATE: 08/04/2016 LOCATION: [facility], bed B. This is a 71-year-old female seen and examined for GI consultation on 08/03/2016 as requested by the admitting MD, reexamined again today with less abdominal pain and subsequent decrease of bowel moveme nt frequency. It has to be mentioned that the patient was in the hospital a few days ago, had a colonoscopy up to a bout the hepatic flexure with excessive colitis with ulceration. Pathology report was indicative of ulcerative colitis for which the patient was placed on steroids; however, she was sent home, then cam e back with reexacerbation of her symptoms including rectal bleeding, severe crampy abdominal pain an d diarrhea. Please see my colonoscopy report from recent admission. The entire chart is reviewed, including but not limited to most recent lab and radiology study result s, current and previous medication list, current and the previous medical events, and the patient has so far normal CBC at the time of the admission with low potassium of 2.8 due to her diarrhea, low BU N and creatinine due to poor oral intake with increased blood glucose level of 127, low calcium 7.7 w ith low albumin and low total protein. The patient was placed again on IV steroids since admission yesterday. PHYSICAL EXAMINATION: GENERAL: A 71-year-old female, awake, alert, oriented. VITAL SIGNS: Afebrile with pulse of 72, respiratory rate 20-22, blood pressure of 104/66. HEENT: Showed pale, dry oral mucoid membrane. Nonicteric sclerae. LUNGS: Few scattered crepitation, decreased air entry at bases. HEART: Positive S1 and S2. ABDOMEN: Soft. Bowel sounds are present and hyperactive with diffuse tenderness, less than before. No mass or organomegaly, but positive for mild distention. RECTAL: Positive tone. Vault is empty, guaiac positive stool. EXTREMITIES: With evidence of mild muscle waste syndrome, but without significant edema, clubbing or cyanosis. Peripheral pulses are positive. NEUROLOGIC: No new reported neurological deficits, sensory or motor. IMPRESSION: 1. Reexacerbation of inflammatory bowel disease, please see recent pathology report and recent colono scopy report done by myself on very recent previous admission. 2. Known history of esophageal carcinoma treated surgically. 3. Known history of colon polyp, osteoarthritis, status post appendectomy. 4. Reexacerbation of peptic ulcer disease. SUGGESTION: 1. Continue current management. 2. Subsequent decrease of the steroid dose with Solu-Cortef to be 20 mg IV piggyback q. 12 hours star ting at 8:00 a.m. 3. Carafate liquid p.o. 4. Further recommendation to follow. It has to be mentioned that as the patient has severe inflammatory changes during the recent colonosc opy, repeat colonoscopy may be required only when the patient is more stable clinically. Further evaluation and recommendation to follow. Griselda Hallman MD cc: [id number] TT: 08/04/2016 11:16:36 Confirmation # [id number] Dictation # [id number] mn
[2016-08-04] MEDS: Sucralfate 1 gm/10 ml Oral Susp UD PO SCH (21:31)
--- NOTE | 2016-08-04 22:28 | CON ---
DATE: 08/03/[address] Griselda Hallman to Dr. Ethan Marquez. I was called for GI consultation by the admitting medical team. The patient is seen and fully examin ed on 08/03/[address] Ethan Marquez. The entire chart is reviewed, including, but not caro ited to, the most recent lab and radiology study results, current and previous medication list, curre nt and the previous medical events, as well as allergies to medications list. Case discussed with the staff on the floor at length. HISTORY OF PRESENT ILLNESS: This is a 71-year-old female, very well-known case for me from previous office, who had a colonoscopy a few days ago, before she was discontinued home, indicative of diffuse , extensive ulcerative colitis, readmitted again with diffuse abdominal pain, bloody diarrhea, very p oor oral intake, generalized weakness, and malaise. The patient also complaining of pain in the suprapubic area. PAST MEDICAL HISTORY: Including, but not limited to: 1. Recently diagnosed ulcerative colitis by colonoscopy. 2. Osteoarthritis. 3. Throat CA. 4. Colon polyps. 5. Status post appendectomy. The patient also had a complaint of recurrent dysphagia with esophageal atresia. CURRENT MEDICATIONS: Medication lists were reviewed. ALLERGIES TO MEDICATIONS: List is re-evaluated. FAMILY HISTORY: Unknown. SOCIAL HISTORY: Positive for alcohol intake, but no recent history of cigarette smoking. After being admitted to the hospital, the patient was found to have normal CBC, but low BUN at 5, low creatinine of 0.6, a low potassium 2.8, and elevated blood glucose level to 123. PHYSICAL EXAMINATION: GENERAL: A 71-year-old female. VITAL SIGNS: Afebrile with pulse of 82, respiratory rate 20-22, with blood pressure of 110/62. HEENT: Showed pale, dry oral mucoid membrane. Nonicteric sclerae. LUNGS: Few scattered bilateral crepitations with decreased air entry at bases. HEART: Positive S1 and S2. ABDOMEN: Soft with diffuse tenderness and generalized mild distention. Bowel sounds are hyperactive . No mass or organomegaly. No rebound tenderness or guarding. RECTAL: Positive stool, trace of fresh and old blood and blood clot. EXTREMITIES: With evidence of muscle wasting syndrome. No clubbing or cyanosis, but mild edematous changes. NEUROLOGIC: No new reported neurological deficits, sensory or motor. IMPRESSION: 1. Re-exacerbation of inflammatory bowel disease, diagnosed recently by colonoscopy and pathology re port. 2. Gastrointestinal bleeding secondary to above. 3. History of throat carcinoma. 4. Past medical history including, but not limited to, colon polyps, osteoarthritis. SUGGESTION: 1. Agree with your plan. 2. Complete stool workup, including C. diff. 3. Start steroids IV. Folic acid p.o. Keep the patient n.p.o. except oral medication for now with IV peripheral hyperalimentation. 4. Asacol p.o. 5. Proton pump inhibitors IV. Will follow up closely with you. Thank you for letting me participate in your patient's case management. It has to be mentioned that the recent colonoscopy was up to about the hepatic flexure due to the exc essive inflammation of the colon and what appears to be severe edematous changes inducing narrowing o f the lumen of the colon. The patient may need followup colonoscopy when she is more stable clinically and after aggressive rizwan atment. Dr. Ethan Marquez to be informed by Dr. Griselda Hallman. Griselda Hallman MD cc: 14 TT: 08/04/2016 22:27:25 Confirmation # [id number] Dictation # [id number] radha
--- NOTE | 2016-08-05 00:06 | CP.PCM.CON ---
History of Present Illness - History of Present Illness History of Present Illness: 71 year old female with a history of esophageal cancer s/p surgery and adjuvant chemotherapy and radiation in 2010, admitted with colitis, recently diagnosed with ulcerative colitis. The patient was found to have colitis by her PMD and prescribed antibiotics. She began to feel better and stopped her antibiotics. She reports a few days later her abdominal pain and diarrhea returned. Due to frequent liquid bowel movements she notes to feeling weak and came to the ER. She underwent a colonscopy with Dr. Hallman during her prior admission and pathology was consistent with ulcerative colitis. Past medical history: Esophageal cancer Past surgical history: Partial esophagectomy, bowel resection Family history: Denies hematologic and oncologic problems Social history: Former tobacco abuse Allergies: NKA Review of systems: All remaining review of systems including HEENT, cardiovascular, respiratory, gastrointestinal, genitourinary, musculoskeletal, dermatologic, neurologic, and psychiatric are negative unless mentioned in the HPI. Past Patient History - Past Medical History & Family History Past Medical History?: Yes - Past Social History Smoking Status: Former Smoker - CARDIAC Hx Cardiac Disorders: No - PULMONARY Hx Respiratory Disorders: No - NEUROLOGICAL Hx Neurological Disorder: No - HEENT Hx HEENT Problems: Yes Hx Difficulty Chewing: Yes Other/Comment: DYSPHAGIA RELATED TO EXTENSIVE ESOPHAGEAL CANCER SX AND "TUBE" IN PLACE OF ESOPHAGUS - RENAL Hx Chronic Kidney Disease: No - ENDOCRINE/METABOLIC Hx Endocrine Disorders: No - HEMATOLOGICAL/ONCOLOGICAL Hx Blood Disorders: Yes Hx Blood Transfusions: Yes Hx Blood Transfusion Reaction: No Hx Cancer: Yes (ESOPHAGEAL) - INTEGUMENTARY Hx Dermatological Problems: No - MUSCULOSKELETAL/RHEUMATOLOGICAL Hx Arthritis: Yes - GASTROINTESTINAL Hx Gastrointestinal Disorders: Yes Hx Gastroesophageal Reflux: Yes HX Swallowing Problems: Yes Other/Comment: ESOPHAGEAL CANCER - GENITOURINARY/GYNECOLOGICAL Hx Genitourinary Disorders: No - PSYCHIATRIC Hx Substance Use: No - SURGICAL HISTORY Hx Appendectomy: Yes - ANESTHESIA Hx Anesthesia: Yes Hx Anesthesia Reactions: No Hx Malignant Hyperthermia: No Meds Allergies/Adverse Reactions: Allergies Allergy/AdvReac Type Severity Reaction Status Date / Time No Known Allergies Allergy Verified 08/03/16 10:55 - Medications Medications: Current Medications Acetaminophen (Tylenol 325mg Tab) 650 mg PO Q6 PRN PRN Reason: Pain, Mild (1-3) Last Admin: 08/04/16 23:49 Dose: 650 mg Folic Acid (Folic Acid) 1 mg PO DAILY [facility] Last Admin: 08/04/16 09:29 Dose: 1 mg Hydromorphone HCl (Dilaudid) 1 mg IVP Q4H PRN PRN Reason: Pain, moderate (4-7) Last Admin: 08/04/16 08:40 Dose: 1 mg Metronidazole (Flagyl) 500 mg in 100 mls @ 100 mls/hr IVPB Q8 [facility] Last Admin: 08/04/16 22:10 Dose: 100 mls/hr Ciprofloxacin (Cipro 400mg/200ml Dsw) 400 mg in 200 mls @ 133 mls/hr IVPB Q12H [facility] Last Admin: 08/04/16 22:11 Dose: 133 mls/hr Potassium Chloride 20 meq/ (Sodium Chloride) 1,010 mls @ 125 mls/hr IV .Q8H5M [facility] Last Admin: 08/04/16 23:52 Dose: 125 mls/hr Methylprednisolone (Solu-Medrol) 40 mg IVP Q8H [facility] Last Admin: 08/04/16 21:30 Dose: 40 mg Ondansetron HCl (Zofran Inj) 4 mg IVP Q4 PRN PRN Reason: Nausea/Vomiting Last Admin: 08/03/16 22:30 Dose: 4 mg Pantoprazole Sodium (Protonix Inj) 40 mg IVP DAILY [facility] Last Admin: 08/04/16 09:29 Dose: 40 mg Sucralfate (Carafate Oral Susp) 1 gm PO ACBHS [facility] Last Admin: 08/04/16 21:31 Dose: 1 gm Physical Exam - Head Exam Head Exam: ATRAUMATIC - Eye Exam Eye Exam: Normal appearance - ENT Exam ENT Exam: Mucous Membranes Dry - Respiratory Exam Respiratory Exam: Clear to Auscultation Bilateral - Cardiovascular Exam Cardiovascular Exam: +S1, +S2 - GI/Abdominal Exam GI & Abdominal Exam: Normal Bowel Sounds - Extremities Exam Extremities exam: Positive for: normal inspection - Neurological Exam Neurological exam: Oriented x3 - Psychiatric Exam Psychiatric exam: Normal Affect, Normal Mood - Skin Skin Exam: Warm Results - Vital Signs Recent Vital Signs: Last Vital Signs Temp 97.6 F 08/04/16 15:28 Pulse 67 08/04/16 15:28 Resp 20 08/04/16 15:28 BP 91/53 L 08/04/16 15:28 Pulse Ox 95 08/04/16 15:28 - Labs Result Diagrams: 08/04/16 09:13 08/04/16 09:13 Labs: Laboratory Results - last 24 hr 08/04/16 08/04/16 09:13 09:13 WBC 4.1 L RBC 4.43 Hgb 13.0 Hct 40.0 MCV 90.1 MCH 29.3 MCHC 32.6 L RDW 14.3 Plt Count 305 MPV 7.7 Sodium 134 Potassium 3.6 Chloride 106 Carbon Dioxide 20 L Anion Gap 12 BUN 3 L Creatinine 0.4 L Est GFR ( Amer) > 60 Est GFR (Non-Af Amer) > 60 Random Glucose 278 H Calcium 6.6 L Total Bilirubin 0.4 AST 11 L D ALT 18 Alkaline Phosphatase 47 Total Protein 4.7 L Albumin 2.1 L Globulin 2.6 Albumin/Globulin Ratio 0.8 L Assessment & Plan (1) Neoplasm of esophagus, malignant Assessment and Plan: in remission likely cured Status: Chronic (2) Leukopenia Assessment and Plan: mild benign Thank you for this interesting consult. Status: Acute
[2016-08-05] MEDS: MethylPREDNISolone 40 mg Vial IVP SCH ×3 (04:04→21:00)
[2016-08-05] MEDS: metroNIDAZOLE IV 500 mg/100 ml 500 MG/100 ML BAG IVPB SCH ×3 (06:08→22:00)
[2016-08-05] MEDS: Sucralfate 1 gm/10 ml Oral Susp UD PO SCH ×2 (06:44→21:58)
[2016-08-05] MEDS: HYDROmorphone 1 mg/ml ISec IVP PRN ×2 (06:49→20:00)
[2016-08-05] MEDS: Ciprofloxacin 400mg/200ml D5W 400 MG/200 ML BAG IVPB SCH ×2 (09:23→23:00)
[2016-08-05 11:21] LABS: BASO % 0.1 % (0.0-2.0); HEMATOCRIT 36.5 % (34.0-47.0); LYMPH # 0.4 K/uL (1.0-4.3); LYMPH % 5.8 % (20.0-40.0); MEAN CELL VOLUME 90.7 fL (81.0-99.0); MEAN CORPUSCULAR HEMOGLOBIN 29.1 pg (27.0-31.0); MEAN CORPUSCULAR HGB CONC 32.2 g/dL (33.0-37.0); MEAN PLATELET VOLUME 7.6 fL (7.2-11.7); MONO # 0.3 K/uL (0.0-0.8); MONO % 3.5 % (0.0-10.0); PLATELET COUNT 320 K/uL (130-400); RED CELL DISTRIBUTION WIDTH 13.7 % (11.5-14.5)
[2016-08-05 11:27] LABS: WHITE BLOOD COUNT 7.3 K/uL (4.8-10.8)
[2016-08-05 11:31] LABS: CHLORIDE 113 mmol/L (98-107); POTASSIUM 3.6 mmol/L (3.6-5.2); SODIUM 141 mmol/L (132-148)
[2016-08-05 11:33] LABS: ALKALINE PHOSPHATASE 48 U/L (38-126); AST/SGOT 11 U/L (14-36); BILIRUBIN,TOTAL 0.3 mg/dL (0.2-1.3); CARBON DIOXIDE 19 mmol/L (22-30); GFR AFRICAN-AMERICAN > 60
[2016-08-05 11:34] LABS: ALB/GLOB RATIO 0.8 (1.0-2.1); ALT/SGPT 13 U/L (9-52); BLOOD UREA NITROGEN 3 mg/dL (7-17); CALCIUM 7.2 mg/dl (8.6-10.4); GLUCOSE,RANDOM 221 mg/dL (65-105); TOTAL PROTEIN 4.6 g/dL (6.3-8.3)
[2016-08-05 11:48] LABS: EOSINOPHIL 1 % (0-4); NEUTROPHIL 79 % (50-75); TOTAL CELLS COUNTED 100
--- NOTE | 2016-08-05 15:01 | PN ---
DATE: 08/05/2016 LOCATION: 667, bed B. This is a 71-year-old female, seen and examined in rounds today without significant clinical changes with intermittent periods of , but with dyspepsia and nausea with intermittent periods of less b owel movement and less rectal bleeding. The entire chart is reviewed including, but not limited to, the most recent lab and radiology study results, current and previous medication lists, current and p revious medical events. The patient reported that she is for upper endoscopy as she was informed before and that to be schedu led for a.m., not today. The most recent lab results, current and previous medication lists were reviewed and the case discuss ed with the staff on the floor. LABORATORIES: Today showed normal CBC with low CO2 content of 19 indicative of metabolic acidosis wi th low BUN and creatinine as well as increased blood glucose level to 221 with low calcium 7.2 with l ow albumin 2.0, low total protein 4.6. Stool for occult blood reported to be positive. PHYSICAL EXAMINATION: GENERAL: A 71-year-old female, awake, alert, oriented. VITAL SIGNS: Afebrile with pulse of 76, respiratory rate 20-22, blood pressure 106/64. HEENT: Showed pale, dry oral mucoid membrane. Nonicteric sclerae. LUNGS: Few scattered crepitation, decreased air entry at bases. HEART: Positive S1 and S2. ABDOMEN: Soft. Bowel sounds are present. No mass or organomegaly. No rebound tenderness or guardi ng. RECTAL: The patient refused. EXTREMITIES: Without significant edema, clubbing or cyanosis. Peripheral pulses are positive bilate rally. NEUROLOGIC: No reported new neurological deficits, sensory or motor. IMPRESSION: 1. Reexacerbation of inflammatory bowel disease, please see pathology report from recent colonoscopy . 2. Reexacerbation of peptic ulcer disease, rule out gastric versus duodenal ulcer. 3. Known history of esophageal cancer, treated surgically before. 4. Reported history of status post appendectomy, osteoarthritis and a colon polyp. 5. Metabolic acidosis, most likely secondary to infectious process. SUGGESTION: 1. Continue current management. 2. We may consider upper endoscopy due to the patient's recent complaint of dyspepsia and dysphagia on and off with mild nausea. 3. Decrease the dose of IV steroids gradually. Griselda Hallman MD cc: 14 TT: 08/05/2016 14:59:56 Confirmation # [id number] Dictation # [id number]
--- NOTE | 2016-08-05 15:21 | CP.PCM.PN ---
<Jayesh Ruiz Yaron - Last Filed: 08/05/16 15:21> Subjective - Date & Time of Evaluation Date of Evaluation: 08/05/16 Time of Evaluation: 15:20 - Subjective Subjective: Gen Sx: Dr So Pt S&E. OBEY. Reports improvement in abdominal pain. No further blood with bowel movements. Hungry. Objective - Vital Signs/Intake and Output Vital Signs (last 24 hours): Temp Pulse Resp BP Pulse Ox 97.8 F 78 18 99/54 L 94 L 08/05/16 07:02 08/05/16 07:02 08/05/16 07:02 08/05/16 07:02 08/05/16 07:02 Intake and Output: 08/05/16 08/05/16 06:59 18:59 Intake Total 2450 Balance 2450 - Medications Medications: Current Medications Acetaminophen (Tylenol 325mg Tab) 650 mg PO Q6 PRN PRN Reason: Pain, Mild (1-3) Last Admin: 08/05/16 13:19 Dose: 650 mg Folic Acid (Folic Acid) 1 mg PO DAILY [facility] Last Admin: 08/05/16 09:23 Dose: 1 mg Hydromorphone HCl (Dilaudid) 1 mg IVP Q4H PRN PRN Reason: Pain, moderate (4-7) Last Admin: 08/05/16 06:49 Dose: 1 mg Metronidazole (Flagyl) 500 mg in 100 mls @ 100 mls/hr IVPB Q8 [facility] Last Admin: 08/05/16 13:21 Dose: 100 mls/hr Ciprofloxacin (Cipro 400mg/200ml Dsw) 400 mg in 200 mls @ 133 mls/hr IVPB Q12H [facility] Last Admin: 08/05/16 09:23 Dose: 133 mls/hr Potassium Chloride 20 meq/ (Sodium Chloride) 1,010 mls @ 125 mls/hr IV .Q8H5M [facility] Last Admin: 08/05/16 06:07 Dose: Not Given Methylprednisolone (Solu-Medrol) 40 mg IVP Q8H [facility] Last Admin: 08/05/16 14:41 Dose: 40 mg Ondansetron HCl (Zofran Inj) 4 mg IVP Q4 PRN PRN Reason: Nausea/Vomiting Last Admin: 08/03/16 22:30 Dose: 4 mg Pantoprazole Sodium (Protonix Inj) 40 mg IVP DAILY [facility] Last Admin: 08/05/16 09:23 Dose: 40 mg Sucralfate (Carafate Oral Susp) 1 gm PO ACBHS [facility] Last Admin: 08/05/16 06:44 Dose: 1 gm - Labs Labs: 08/05/16 11:06 08/05/16 11:06 - Constitutional Appears: Non-toxic, No Acute Distress - ENT Exam ENT Exam: Mucous Membranes Moist - Respiratory Exam Respiratory Exam: absent: Accessory Muscle Use, Respiratory Distress - Cardiovascular Exam Cardiovascular Exam: REGULAR RHYTHM - GI/Abdominal Exam GI & Abdominal Exam: Soft, Tenderness (LLQ). absent: Distended Assessment and Plan - Assessment and Plan (Free Text) Assessment: 71F with ulcerative colitis; responding to medical mgmt Plan: pt condition improved no plan for surgical intervention further mgmt per GI and primary please reconsult if necessary d/w Dr Judah Ruiz, PGY2 <Franklin So - Last Filed: 08/06/16 10:57> Objective - Vital Signs/Intake and Output Vital Signs (last 24 hours): Temp Pulse Resp BP Pulse Ox 97.8 F 62 20 112/70 94 L 08/06/16 10:27 08/06/16 10:27 08/06/16 10:27 08/06/16 10:27 08/06/16 10:27 Intake and Output: 08/06/16 08/06/16 06:59 18:59 Intake Total 975 100 Balance 975 100 - Medications Medications: Current Medications Acetaminophen (Tylenol 325mg Tab) 650 mg PO Q6 PRN PRN Reason: Pain, Mild (1-3) Last Admin: 08/05/16 16:49 Dose: 650 mg Folic Acid (Folic Acid) 1 mg PO DAILY [facility] Last Admin: 08/05/16 09:23 Dose: 1 mg Hydromorphone HCl (Dilaudid) 1 mg IVP Q4H PRN PRN Reason: Pain, moderate (4-7) Last Admin: 08/06/16 00:58 Dose: 1 mg Metronidazole (Flagyl) 500 mg in 100 mls @ 100 mls/hr IVPB Q8 [facility] Last Admin: 08/06/16 06:00 Dose: 100 mls/hr Ciprofloxacin (Cipro 400mg/200ml Dsw) 400 mg in 200 mls @ 133 mls/hr IVPB Q12H [facility] Last Admin: 08/06/16 09:17 Dose: 133 mls/hr Potassium Chloride 20 meq/ (Sodium Chloride) 1,010 mls @ 125 mls/hr IV .Q8H5M [facility] Last Admin: 08/06/16 00:57 Dose: 125 mls/hr Methylprednisolone (Solu-Medrol) 40 mg IVP Q8H [facility] Last Admin: 08/06/16 04:15 Dose: 40 mg Metoclopramide HCl (Reglan) 5 mg IVP ONCE ONE Stop: 08/06/16 11:01 Ondansetron HCl (Zofran Inj) 4 mg IVP Q4 PRN PRN Reason: Nausea/Vomiting Last Admin: 08/03/16 22:30 Dose: 4 mg Ondansetron HCl (Zofran Inj) 4 mg IVP ONCE PRN PRN Reason: Nausea/Vomiting Stop: 08/06/16 12:37 Pantoprazole Sodium (Protonix Inj) 40 mg IVP DAILY [facility] Last Admin: 08/05/16 09:23 Dose: 40 mg Sucralfate (Carafate Oral Susp) 1 gm PO ACBHS [facility] Last Admin: 08/05/16 21:58 Dose: 1 gm - Labs Labs: 08/06/16 07:58 08/06/16 07:58 PT 12.9 SECONDS (9.7-12.2) H 08/05/16 17:12 INR 1.2 08/05/16 17:12 APTT 29 SECONDS (21-34) 08/05/16 17:12 Attending/Attestation - Attestation I have personally seen and examined this patient.: Yes I have fully participated in the care of the patient.: Yes I have reviewed all pertinent clinical information, including history, physical exam and plan: Yes Notes (Text): 08/06/16 10:57 Pt was seen and examined at bedside on 08/05/16 Agree with above note and assessment Pt with Resolving Ulcerative Colitis No need for any surgical intervention at present C/W current mx Plan d.w pt in detail Risk and benefit explained in detail.
--- NOTE | 2016-08-05 17:03 | CP.PCM.PN ---
Subjective - Date & Time of Evaluation Date of Evaluation: 08/05/16 Time of Evaluation: 12:20 - Subjective Subjective: clinically same Objective - Vital Signs/Intake and Output Vital Signs (last 24 hours): Temp Pulse Resp BP Pulse Ox 97.5 F L 64 20 101/66 97 08/05/16 15:41 08/05/16 15:41 08/05/16 15:41 08/05/16 15:41 08/05/16 15:41 Intake and Output: 08/05/16 08/05/16 06:59 18:59 Intake Total 2450 Balance 2450 - Medications Medications: Current Medications Acetaminophen (Tylenol 325mg Tab) 650 mg PO Q6 PRN PRN Reason: Pain, Mild (1-3) Last Admin: 08/05/16 16:49 Dose: 650 mg Folic Acid (Folic Acid) 1 mg PO DAILY [facility] Last Admin: 08/05/16 09:23 Dose: 1 mg Hydromorphone HCl (Dilaudid) 1 mg IVP Q4H PRN PRN Reason: Pain, moderate (4-7) Last Admin: 08/05/16 06:49 Dose: 1 mg Metronidazole (Flagyl) 500 mg in 100 mls @ 100 mls/hr IVPB Q8 [facility] Last Admin: 08/05/16 13:21 Dose: 100 mls/hr Ciprofloxacin (Cipro 400mg/200ml Dsw) 400 mg in 200 mls @ 133 mls/hr IVPB Q12H [facility] Last Admin: 08/05/16 09:23 Dose: 133 mls/hr Potassium Chloride 20 meq/ (Sodium Chloride) 1,010 mls @ 125 mls/hr IV .Q8H5M [facility] Last Admin: 08/05/16 06:07 Dose: Not Given Methylprednisolone (Solu-Medrol) 40 mg IVP Q8H [facility] Last Admin: 08/05/16 14:41 Dose: 40 mg Ondansetron HCl (Zofran Inj) 4 mg IVP Q4 PRN PRN Reason: Nausea/Vomiting Last Admin: 08/03/16 22:30 Dose: 4 mg Pantoprazole Sodium (Protonix Inj) 40 mg IVP DAILY [facility] Last Admin: 08/05/16 09:23 Dose: 40 mg Sucralfate (Carafate Oral Susp) 1 gm PO ACBHS [facility] Last Admin: 08/05/16 06:44 Dose: 1 gm - Labs Labs: 08/05/16 11:06 08/05/16 11:06 - Constitutional Appears: Well - Head Exam Head Exam: ATRAUMATIC, NORMAL INSPECTION, NORMOCEPHALIC - Eye Exam Eye Exam: EOMI, Normal appearance, PERRL Pupil Exam: NORMAL ACCOMODATION, PERRL - ENT Exam ENT Exam: Mucous Membranes Moist, Normal Exam - Neck Exam Neck Exam: Full ROM, Normal Inspection. absent: Lymphadenopathy - Respiratory Exam Respiratory Exam: Decreased Breath Sounds - Cardiovascular Exam Cardiovascular Exam: REGULAR RHYTHM, +S1, +S2 - GI/Abdominal Exam GI & Abdominal Exam: Soft, Diminished Bowel Sounds - Rectal Exam Rectal Exam: Deferred
[2016-08-05 17:54] LABS: INR 1.2
--- NOTE | 2016-08-05 22:15 | CP.PCM.PN ---
Subjective - Date & Time of Evaluation Date of Evaluation: 08/05/16 Time of Evaluation: 19:00 - Subjective Subjective: Feeling better Objective - Vital Signs/Intake and Output Vital Signs (last 24 hours): Temp Pulse Resp BP Pulse Ox 97.5 F L 76 20 101/66 97 08/05/16 15:41 08/05/16 16:20 08/05/16 15:41 08/05/16 15:41 08/05/16 15:41 - Medications Medications: Current Medications Acetaminophen (Tylenol 325mg Tab) 650 mg PO Q6 PRN PRN Reason: Pain, Mild (1-3) Last Admin: 08/05/16 16:49 Dose: 650 mg Folic Acid (Folic Acid) 1 mg PO DAILY [facility] Last Admin: 08/05/16 09:23 Dose: 1 mg Hydromorphone HCl (Dilaudid) 1 mg IVP Q4H PRN PRN Reason: Pain, moderate (4-7) Last Admin: 08/05/16 20:00 Dose: 1 mg Metronidazole (Flagyl) 500 mg in 100 mls @ 100 mls/hr IVPB Q8 [facility] Last Admin: 08/05/16 22:00 Dose: 100 mls/hr Ciprofloxacin (Cipro 400mg/200ml Dsw) 400 mg in 200 mls @ 133 mls/hr IVPB Q12H [facility] Last Admin: 08/05/16 09:23 Dose: 133 mls/hr Potassium Chloride 20 meq/ (Sodium Chloride) 1,010 mls @ 125 mls/hr IV .Q8H5M [facility] Last Admin: 08/05/16 22:04 Dose: Not Given Methylprednisolone (Solu-Medrol) 40 mg IVP Q8H [facility] Last Admin: 08/05/16 21:00 Dose: 40 mg Ondansetron HCl (Zofran Inj) 4 mg IVP Q4 PRN PRN Reason: Nausea/Vomiting Last Admin: 08/03/16 22:30 Dose: 4 mg Pantoprazole Sodium (Protonix Inj) 40 mg IVP DAILY [facility] Last Admin: 08/05/16 09:23 Dose: 40 mg Sucralfate (Carafate Oral Susp) 1 gm PO ACBHS [facility] Last Admin: 08/05/16 21:58 Dose: 1 gm - Labs Labs: 08/05/16 11:06 08/05/16 11:06 PT 12.9 SECONDS (9.7-12.2) H 08/05/16 17:12 INR 1.2 08/05/16 17:12 APTT 29 SECONDS (21-34) 08/05/16 17:12 - Head Exam Head Exam: ATRAUMATIC - Eye Exam Eye Exam: Normal appearance - ENT Exam ENT Exam: Mucous Membranes Dry - Respiratory Exam Respiratory Exam: NORMAL BREATHING PATTERN - Cardiovascular Exam Cardiovascular Exam: +S1, +S2 - GI/Abdominal Exam GI & Abdominal Exam: Normal Bowel Sounds - Extremities Exam Extremities Exam: Normal Inspection Assessment and Plan (1) Neoplasm of esophagus, malignant Assessment & Plan: in remission likely cured Status: Chronic (2) Leukopenia Status: Acute
[2016-08-06] MEDS: HYDROmorphone 1 mg/ml ISec IVP PRN ×3 (00:58→19:17)
[2016-08-06] MEDS: MethylPREDNISolone 40 mg Vial IVP SCH ×3 (04:15→19:17)
[2016-08-06] MEDS: metroNIDAZOLE IV 500 mg/100 ml 500 MG/100 ML BAG IVPB SCH ×3 (06:00→21:07)
[2016-08-06 08:12] LABS: BASO # 0.1 K/uL (0.0-0.2); BASO % 1.4 % (0.0-2.0); HEMATOCRIT 38.9 % (34.0-47.0); LYMPH # 0.4 K/uL (1.0-4.3); MEAN CELL VOLUME 91.8 fL (81.0-99.0); MEAN CORPUSCULAR HEMOGLOBIN 29.2 pg (27.0-31.0); MEAN CORPUSCULAR HGB CONC 31.8 g/dL (33.0-37.0); MEAN PLATELET VOLUME 7.5 fL (7.2-11.7); MONO # 0.2 K/uL (0.0-0.8); MONO % 3.6 % (0.0-10.0); PLATELET COUNT 308 K/uL (130-400); RED CELL DISTRIBUTION WIDTH 14.3 % (11.5-14.5)
[2016-08-06 08:34] LABS: CHLORIDE 116 mmol/L (98-107); POTASSIUM 3.8 mmol/L (3.6-5.2); SODIUM 140 mmol/L (132-148)
[2016-08-06 08:36] LABS: GFR AFRICAN-AMERICAN > 60
[2016-08-06 08:37] LABS: ALB/GLOB RATIO 0.8 (1.0-2.1); ALKALINE PHOSPHATASE 53 U/L (38-126); ALT/SGPT 19 U/L (9-52); AST/SGOT 12 U/L (14-36); BILIRUBIN,TOTAL 0.3 mg/dL (0.2-1.3); BLOOD UREA NITROGEN 4 mg/dL (7-17); CALCIUM 7.5 mg/dl (8.6-10.4); CARBON DIOXIDE 21 mmol/L (22-30); GLUCOSE,RANDOM 126 mg/dL (65-105); TOTAL PROTEIN 4.8 g/dL (6.3-8.3)
[2016-08-06] MEDS: Ciprofloxacin 400mg/200ml D5W 400 MG/200 ML BAG IVPB SCH ×2 (09:17→22:09)
[2016-08-06 09:43] LABS: NEUTROPHIL 89 % (50-75); TOTAL CELLS COUNTED 100
[2016-08-06] MEDS ORDERED: Propofol 10 mg/ml Inj (20 ML) ONE (10:25)
[2016-08-06] MEDS: Sucralfate 1 gm/10 ml Oral Susp UD PO SCH ×2 (11:58→22:10)
--- NOTE | 2016-08-06 16:25 | CP.PCM.PN ---
Subjective - Date & Time of Evaluation Date of Evaluation: 08/06/16 Time of Evaluation: 11:40 - Subjective Subjective: clinically same Objective - Vital Signs/Intake and Output Vital Signs (last 24 hours): Temp Pulse Resp BP Pulse Ox 98.2 F 73 20 108/63 95 08/06/16 15:26 08/06/16 15:26 08/06/16 15:26 08/06/16 15:26 08/06/16 15:26 Intake and Output: 08/06/16 08/06/16 06:59 18:59 Intake Total 975 1100 Output Total 500 Balance 975 600 - Medications Medications: Current Medications Acetaminophen (Tylenol 325mg Tab) 650 mg PO Q6 PRN PRN Reason: Pain, Mild (1-3) Last Admin: 08/05/16 16:49 Dose: 650 mg Folic Acid (Folic Acid) 1 mg PO DAILY [facility] Last Admin: 08/06/16 11:58 Dose: 1 mg Hydromorphone HCl (Dilaudid) 1 mg IVP Q4H PRN PRN Reason: Pain, moderate (4-7) Last Admin: 08/06/16 12:42 Dose: 1 mg Metronidazole (Flagyl) 500 mg in 100 mls @ 100 mls/hr IVPB Q8 [facility] Last Admin: 08/06/16 14:42 Dose: 100 mls/hr Ciprofloxacin (Cipro 400mg/200ml Dsw) 400 mg in 200 mls @ 133 mls/hr IVPB Q12H [facility] Last Admin: 08/06/16 09:17 Dose: 133 mls/hr Potassium Chloride 20 meq/ (Sodium Chloride) 1,010 mls @ 125 mls/hr IV .Q8H5M [facility] Last Admin: 08/06/16 00:57 Dose: 125 mls/hr Methylprednisolone (Solu-Medrol) 40 mg IVP Q8H [facility] Last Admin: 08/06/16 12:07 Dose: 40 mg Ondansetron HCl (Zofran Inj) 4 mg IVP Q4 PRN PRN Reason: Nausea/Vomiting Last Admin: 08/06/16 12:43 Dose: 4 mg Pantoprazole Sodium (Protonix Inj) 40 mg IVP DAILY [facility] Last Admin: 08/06/16 11:57 Dose: 40 mg Sucralfate (Carafate Oral Susp) 1 gm PO ACBHS [facility] Last Admin: 08/06/16 11:58 Dose: 1 gm - Labs Labs: 08/06/16 07:58 08/06/16 07:58 PT 12.9 SECONDS (9.7-12.2) H 08/05/16 17:12 INR 1.2 08/05/16 17:12 APTT 29 SECONDS (21-34) 08/05/16 17:12 - Constitutional Appears: Well - Head Exam Head Exam: ATRAUMATIC, NORMAL INSPECTION, NORMOCEPHALIC - Eye Exam Eye Exam: EOMI, Normal appearance, PERRL Pupil Exam: NORMAL ACCOMODATION, PERRL - ENT Exam ENT Exam: Mucous Membranes Moist, Normal Exam - Neck Exam Neck Exam: Full ROM, Normal Inspection. absent: Lymphadenopathy - Respiratory Exam Respiratory Exam: Decreased Breath Sounds - Cardiovascular Exam Cardiovascular Exam: REGULAR RHYTHM, +S1, +S2 - GI/Abdominal Exam GI & Abdominal Exam: Soft, Diminished Bowel Sounds - Rectal Exam Rectal Exam: Deferred
--- NOTE | 2016-08-06 21:34 | CARD ---
APPROVED REPORT EKG Measurement Heart [id number] <Conclusion> Normal sinus rhythm Low voltage QRS T wave abnormality, consider anterior ischemia Abnormal ECG
[2016-08-07] MEDS: HYDROmorphone 1 mg/ml ISec IVP PRN (01:04)
[2016-08-07] MEDS: MethylPREDNISolone 40 mg Vial IVP SCH ×2 (04:24→13:37)
[2016-08-07] MEDS: metroNIDAZOLE IV 500 mg/100 ml 500 MG/100 ML BAG IVPB SCH ×3 (05:40→22:06)
[2016-08-07] MEDS: Sucralfate 1 gm/10 ml Oral Susp UD PO SCH ×2 (09:49→22:07)
[2016-08-07] MEDS: Ciprofloxacin 400mg/200ml D5W 400 MG/200 ML BAG IVPB SCH ×2 (09:50→22:07)
--- NOTE | 2016-08-07 18:02 | PN ---
DATE: 08/07/2016 LOCATION: 667, bed B. HISTORY OF PRESENT ILLNESS: This is a 71-year-old female seen and examined at rounds today without s ignificant clinical changes or reported active bleeding as per the patient's statement. Tolerating o ral intake somewhat okay. The entire chart is reviewed, including but not limited to the most recent lab and radiology study re sults, current and previous medication lists, current and previous medical events. LABORATORY DATA: Yesterday, labs showed normal CBC with CO2 content of 21 indicative of metabolic ac idosis with low BUN and creatinine, but elevated blood glucose level with low albumin as well as low total protein. Pathology report from gastric mucosa was reported to be negative for Helicobacter pylori infection. PHYSICAL EXAMINATION: GENERAL: A 71-year-old female with a complaint of intermittent period of crampy abdominal pain. Ridge eared to be awake, alert, oriented. VITAL SIGNS: Afebrile with pulse of 80, respiratory rate 20-22 with blood pressure of 132/74. HEENT: Showed pale, dry oral mucoid membrane. Nonicteric sclerae. LUNGS: Few scattered crepitation, decreased air entry at bases. HEART: Positive S1 and S2. ABDOMEN: Soft. Bowel sounds are present with generalized mild tenderness and slight distention. No mass or organomegaly. RECTAL: The patient refused. EXTREMITIES: With mild lower extremity edematous changes. No clubbing or cyanosis. NEUROLOGIC: No reported new neurologic deficits, sensory or motor. IMPRESSION: 1. Inflammatory bowel disease by recent history with bloody diarrhea, gradually improving, patient i s on steroids. 2. Reexacerbation of peptic ulcer disease. 3. Known history of esophageal carcinoma treated surgically. 4. Known history of osteomyelitis, colon polyps, status post appendectomy. 5. Metabolic acidosis secondary to above. SUGGESTION: 1. Agree with your plan. 2. Would repeat colonoscopy after 24-48 hours and for full evaluation of the entire colon wall, plea se see my initial recent colonoscopy . to be discussed with the admitting medical team, discussed today with the family. Griselda Hallman MD cc: 14 TT: 08/07/2016 18:01:40 Confirmation # [id number] Dictation # [id number]
--- NOTE | 2016-08-07 18:26 | CP.PCM.PN ---
Subjective - Date & Time of Evaluation Date of Evaluation: 08/07/16 Time of Evaluation: 11:20 - Subjective Subjective: clinically same Objective - Vital Signs/Intake and Output Vital Signs (last 24 hours): Temp Pulse Resp BP Pulse Ox 98.2 F 84 20 127/71 94 L 08/07/16 09:04 08/07/16 09:04 08/07/16 09:04 08/07/16 09:04 08/07/16 09:04 Intake and Output: 08/07/16 08/07/16 06:59 18:59 Intake Total 2335 Balance 2335 - Medications Medications: Current Medications Acetaminophen (Tylenol 325mg Tab) 650 mg PO Q6 PRN PRN Reason: Pain, Mild (1-3) Last Admin: 08/05/16 16:49 Dose: 650 mg Folic Acid (Folic Acid) 1 mg PO DAILY [facility] Last Admin: 08/07/16 09:50 Dose: 1 mg Hydromorphone HCl (Dilaudid) 1 mg IVP Q4H PRN PRN Reason: Pain, moderate (4-7) Last Admin: 08/07/16 01:04 Dose: 1 mg Metronidazole (Flagyl) 500 mg in 100 mls @ 100 mls/hr IVPB Q8 [facility] Last Admin: 08/07/16 13:37 Dose: 100 mls/hr Ciprofloxacin (Cipro 400mg/200ml Dsw) 400 mg in 200 mls @ 133 mls/hr IVPB Q12H [facility] Last Admin: 08/07/16 09:50 Dose: 133 mls/hr Potassium Chloride 20 meq/ (Sodium Chloride) 1,010 mls @ 125 mls/hr IV .Q8H5M [facility] Last Admin: 08/07/16 06:41 Dose: 125 mls/hr Methylprednisolone (Solu-Medrol) 20 mg IVP Q12H [facility] Ondansetron HCl (Zofran Inj) 4 mg IVP Q4 PRN PRN Reason: Nausea/Vomiting Last Admin: 08/06/16 12:43 Dose: 4 mg Pantoprazole Sodium (Protonix Inj) 40 mg IVP DAILY [facility] Last Admin: 08/07/16 09:49 Dose: 40 mg Sucralfate (Carafate Oral Susp) 1 gm PO ACBHS [facility] Last Admin: 08/07/16 09:49 Dose: Not Given - Labs Labs: 08/06/16 07:58 08/06/16 07:58 PT 12.9 SECONDS (9.7-12.2) H 08/05/16 17:12 INR 1.2 08/05/16 17:12 APTT 29 SECONDS (21-34) 08/05/16 17:12
[2016-08-08] MEDS: metroNIDAZOLE IV 500 mg/100 ml 500 MG/100 ML BAG IVPB SCH ×3 (05:36→22:46)
[2016-08-08] MEDS: Sucralfate 1 gm/10 ml Oral Susp UD PO SCH ×2 (08:05→22:47)
--- NOTE | 2016-08-08 08:05 | PN ---
DATE: 08/08/2016 LOCATION: 667, bed B. This 71-year-old female seen and examined in rounds without significant clinical changes with subsequ ent decrease of bowel movement frequency and much less reported rectal bleeding to near normal. The patient appears to be awake, alert, oriented, tolerating oral intake well and the dose of steroid s has been reduced to 20 mg of Solu-Medrol q. 12 hours IV piggyback. The entire chart is reviewed including, but not limited to the most recent lab and radiology study re sults, current and the previous medication lists, current and the previous medical events and the mos t recent CBC was reported to be within normal limit as well as the acceptable level of PT and INR. The patient still has low CO2 content indicative of metabolic acidosis with low albumin, low BUN, low creatinine with mildly elevated blood glucose level with low calcium 7.5. PHYSICAL EXAMINATION: GENERAL: A 71-year-old female seen and examined with the staff on the floor. VITAL SIGNS: Afebrile with pulse of 68, respiratory rate 20-22 with blood pressure of 118/62. HEENT: Showed pale, dry oral mucoid membrane. Nonicteric sclerae. LUNGS: Few scattered crepitation, decreased air entry at bases. HEART: Positive S1 and S2. ABDOMEN: Soft with mild generalized tenderness. No mass or organomegaly. No rebound tenderness or guarding. EXTREMITIES: Without significant edema, clubbing or cyanosis. NEUROLOGIC: No reported new neurological deficit, sensory or motor. IMPRESSION: 1. Reexacerbation of inflammatory bowel disease, on steroids, folic acid. 2. Peptic ulcer disease by history. 3. Electrolyte imbalance with hypocalcemia due to above most likely and due to the patient's recurre nt episodes of bloody diarrhea before. 4. Known history of esophageal cancer, treated surgically. 5. History of colon polyp, osteomyelitis with status post appendectomy. 6. Malnutrition with hypoalbuminemia, hypoproteinemia. SUGGESTION: 1. Agree with your plan. 2. The patient for colonoscopy after more adequate preparation. 3. Case is to be discussed with the admitting MD at length. Griselda Hallman MD cc: 14 TT: 08/08/2016 08:05:10 Confirmation # [id number] Dictation # [id number] tn
[2016-08-08] MEDS: MethylPREDNISolone 40 mg Vial IVP SCH ×2 (10:11→22:46)
[2016-08-08] MEDS: Ciprofloxacin 400mg/200ml D5W 400 MG/200 ML BAG IVPB SCH ×2 (10:12→22:46)
[2016-08-08] MEDS ORDERED: Peg-Electrolyte Oral Soln 4L (Golytely) PO ONE (11:00)
--- NOTE | 2016-08-08 16:05 | CP.PCM.PN ---
Subjective - Date & Time of Evaluation Date of Evaluation: 08/08/16 Time of Evaluation: 10:20 - Subjective Subjective: clinically same Objective - Vital Signs/Intake and Output Vital Signs (last 24 hours): Temp Pulse Resp BP Pulse Ox 98.2 F 96 H 20 101/65 96 08/08/16 15:46 08/08/16 15:46 08/08/16 15:46 08/08/16 15:46 08/08/16 15:46 Intake and Output: 08/08/16 08/08/16 06:59 18:59 Intake Total 1095 Balance 1095 - Medications Medications: Current Medications Acetaminophen (Tylenol 325mg Tab) 650 mg PO Q6 PRN PRN Reason: Pain, Mild (1-3) Last Admin: 08/08/16 00:40 Dose: 650 mg Bisacodyl (Dulcolax) 10 mg PO ONCE ONE Stop: 08/08/16 17:01 Folic Acid (Folic Acid) 1 mg PO DAILY [facility] Last Admin: 08/08/16 10:16 Dose: 1 mg Metronidazole (Flagyl) 500 mg in 100 mls @ 100 mls/hr IVPB Q8 [facility] Last Admin: 08/08/16 13:34 Dose: 100 mls/hr Ciprofloxacin (Cipro 400mg/200ml Dsw) 400 mg in 200 mls @ 133 mls/hr IVPB Q12H [facility] Last Admin: 08/08/16 10:12 Dose: 133 mls/hr Methylprednisolone (Solu-Medrol) 20 mg IVP Q12H [facility] Last Admin: 08/08/16 10:11 Dose: 20 mg Metoclopramide HCl (Reglan) 5 mg IVP Q6 [facility] Last Admin: 08/08/16 11:45 Dose: 5 mg Ondansetron HCl (Zofran Inj) 4 mg IVP Q4 PRN PRN Reason: Nausea/Vomiting Last Admin: 08/06/16 12:43 Dose: 4 mg Pantoprazole Sodium (Protonix Ec Tab) 40 mg PO DAILY [facility] Sucralfate (Carafate Oral Susp) 1 gm PO ACBHS [facility] Last Admin: 08/08/16 08:05 Dose: 1 gm - Labs Labs: 08/06/16 07:58 08/06/16 07:58 PT 12.9 SECONDS (9.7-12.2) H 08/05/16 17:12 INR 1.2 08/05/16 17:12 APTT 29 SECONDS (21-34) 08/05/16 17:12 - Constitutional Appears: Well - Head Exam Head Exam: ATRAUMATIC, NORMAL INSPECTION, NORMOCEPHALIC - Eye Exam Eye Exam: EOMI, Normal appearance, PERRL Pupil Exam: NORMAL ACCOMODATION, PERRL - ENT Exam ENT Exam: Mucous Membranes Moist, Normal Exam - Neck Exam Neck Exam: Full ROM, Normal Inspection. absent: Lymphadenopathy - Respiratory Exam Respiratory Exam: Decreased Breath Sounds - Cardiovascular Exam Cardiovascular Exam: REGULAR RHYTHM, +S1, +S2 - GI/Abdominal Exam GI & Abdominal Exam: Soft, Diminished Bowel Sounds - Rectal Exam Rectal Exam: Deferred
[2016-08-08] MEDS ORDERED: Bisacodyl 5mg EC Tab PO ONE (17:00)
[2016-08-08] MEDS: Potassium Chl 20 mEq in NS 1,000 ML IV SCH (22:40)
[2016-08-09] MEDS: Potassium Chl 20 mEq in NS 1,000 ML IV SCH ×5 (00:51→22:35)
[2016-08-09 06:12] LABS: BASO % 0.1 % (0.0-2.0); EOS % 0.1 % (0.0-4.0); HEMATOCRIT 36.6 % (34.0-47.0); LYMPH # 0.5 K/uL (1.0-4.3); LYMPH % 17.9 % (20.0-40.0); MEAN CELL VOLUME 88.8 fL (81.0-99.0); MEAN CORPUSCULAR HEMOGLOBIN 29.2 pg (27.0-31.0); MEAN CORPUSCULAR HGB CONC 32.9 g/dL (33.0-37.0); MONO # 0.1 K/uL (0.0-0.8); MONO % 4.3 % (0.0-10.0); NRBC % 0.2 % (0.0-2.0); RED CELL DISTRIBUTION WIDTH 13.6 % (11.5-14.5)
[2016-08-09 06:41] LABS: CHLORIDE 104 mmol/L (98-107); SODIUM 137 mmol/L (132-148)
[2016-08-09 06:42] LABS: POTASSIUM 3.6 mmol/L (3.6-5.2)
[2016-08-09 06:44] LABS: ALB/GLOB RATIO 0.8 (1.0-2.1); ALKALINE PHOSPHATASE 52 U/L (38-126); ALT/SGPT 24 U/L (9-52); AST/SGOT 12 U/L (14-36); BILIRUBIN,TOTAL 0.4 mg/dL (0.2-1.3); BLOOD UREA NITROGEN 4 mg/dL (7-17); CARBON DIOXIDE 27 mmol/L (22-30); GFR AFRICAN-AMERICAN > 60; GLUCOSE,RANDOM 140 mg/dL (65-105); TOTAL PROTEIN 4.4 g/dL (6.3-8.3)
[2016-08-09 06:45] LABS: CALCIUM 7.4 mg/dl (8.6-10.4)
[2016-08-09] MEDS: Sucralfate 1 gm/10 ml Oral Susp UD PO SCH ×2 (07:55→22:35)
[2016-08-09] MEDS: Pantoprazole 40 mg EC Tab PO SCH (10:16)
[2016-08-09] MEDS: MethylPREDNISolone 40 mg Vial IVP SCH ×2 (10:16→22:34)
[2016-08-09] MEDS: Ciprofloxacin 400mg/200ml D5W 400 MG/200 ML BAG IVPB SCH ×2 (10:18→22:34)
[2016-08-09] MEDS ORDERED: Propofol 10 mg/ml Inj (20 ML) ONE (12:31)
[2016-08-09] MEDS ORDERED: Lactated Ringer's 500 ML IV ONE (12:33)
[2016-08-09 15:39] VITALS: RESP 20
--- NOTE | 2016-08-09 17:54 | CP.PCM.PN ---
Subjective - Date & Time of Evaluation Date of Evaluation: 08/09/16 Time of Evaluation: 09:40 - Subjective Subjective: clinically same Objective - Vital Signs/Intake and Output Vital Signs (last 24 hours): Temp Pulse Resp BP Pulse Ox 97.8 F 82 20 105/66 96 08/09/16 15:39 08/09/16 15:39 08/09/16 15:39 08/09/16 15:39 08/09/16 15:39 Intake and Output: 08/09/16 08/09/16 06:59 18:59 Intake Total 1000 700 Balance 1000 700 - Medications Medications: Current Medications Acetaminophen (Tylenol 325mg Tab) 650 mg PO Q6 PRN PRN Reason: Pain, Mild (1-3) Last Admin: 08/09/16 17:29 Dose: 650 mg Folic Acid (Folic Acid) 1 mg PO DAILY [facility] Last Admin: 08/09/16 10:16 Dose: 1 mg Ciprofloxacin (Cipro 400mg/200ml Dsw) 400 mg in 200 mls @ 133 mls/hr IVPB Q12H [facility] Last Admin: 08/09/16 10:18 Dose: 133 mls/hr Potassium Chloride/Sodium Chloride (Potassium Chl 20 Meq In Ns) 1,000 mls @ 125 mls/hr IV .Q8H [facility] Last Admin: 08/09/16 13:55 Dose: Not Given Methylprednisolone (Solu-Medrol) 20 mg IVP Q12H [facility] Last Admin: 08/09/16 10:16 Dose: 20 mg Metoclopramide HCl (Reglan) 5 mg IVP Q6 [facility] Last Admin: 08/09/16 17:30 Dose: Not Given Ondansetron HCl (Zofran Inj) 4 mg IVP Q4 PRN PRN Reason: Nausea/Vomiting Last Admin: 08/06/16 12:43 Dose: 4 mg Pantoprazole Sodium (Protonix Ec Tab) 40 mg PO DAILY [facility] Last Admin: 08/09/16 10:16 Dose: 40 mg Sucralfate (Carafate Oral Susp) 1 gm PO ACBHS [facility] Last Admin: 08/09/16 07:55 Dose: Not Given - Labs Labs: 08/09/16 06:08 08/09/16 06:08 PT 12.9 SECONDS (9.7-12.2) H 08/05/16 17:12 INR 1.2 06/19/17 17:12 APTT 29 SECONDS (21-34) 08/05/16 17:12 - Constitutional Appears: Well - Head Exam Head Exam: ATRAUMATIC, NORMAL INSPECTION, NORMOCEPHALIC - Eye Exam Eye Exam: EOMI, Normal appearance, PERRL Pupil Exam: NORMAL ACCOMODATION, PERRL - ENT Exam ENT Exam: Mucous Membranes Moist, Normal Exam - Neck Exam Neck Exam: Full ROM, Normal Inspection. absent: Lymphadenopathy - Respiratory Exam Respiratory Exam: Decreased Breath Sounds - Cardiovascular Exam Cardiovascular Exam: REGULAR RHYTHM, +S1, +S2 - GI/Abdominal Exam GI & Abdominal Exam: Soft, Diminished Bowel Sounds - Rectal Exam Rectal Exam: Deferred
[2016-08-10] MEDS: Potassium Chl 20 mEq in NS 1,000 ML IV SCH ×3 (06:47→21:30)
[2016-08-10] MEDS: Sucralfate 1 gm/10 ml Oral Susp UD PO SCH ×2 (06:47→21:41)
--- NOTE | 2016-08-10 09:32 | PN ---
DATE: 08/10/2016 LOCATION: 667, bed B. This is a 71-year-old female seen and examined at rounds without significant clinical changes with bridges bsequent decrease of bowel movement frequency, but with trace of fresh blood. The patient is post-colonoscopy with removal of a colon polyp, most likely inflammatory polyp. Armando ating oral intake well. The entire chart is reviewed including, but not limited to the most recent lab and radiology study re sults, current and the previous medication lists, current and the previous medical events. Case disc ussed with the staff at length. Today's labs still pending; however, her hemoglobin and hematocrit r eported yesterday to be normal, but low white blood cells of 3.0 with low platelet count 117 with low BUN and creatinine with blood glucose level of 140 with low calcium 7.4, low albumin 1.9 and low tot al protein 4.4 for which albumin IV should be kept in mind. PHYSICAL EXAMINATION: GENERAL: A 71-year-old female, awake, alert, oriented. VITAL SIGNS: Afebrile with pulse of 82, respiratory rate 20-22, blood pressure of 124/66. HEENT: Showed pale, dry oral mucoid membrane. Nonicteric sclerae. LUNGS: Few scattered crepitation, decreased air entry at bases. HEART: Positive S1 and S2. ABDOMEN: Soft with mild generalized tenderness. No mass or organomegaly. No rebound tenderness or guarding. RECTAL: The patient refused. EXTREMITIES: Without significant edema, clubbing or cyanosis. NEUROLOGIC: No new reported neurological deficits, sensory or motor. It has to be mentioned that the patient has intermittent periods of dyspepsia with mild dysphagia. IMPRESSION: 1. Inflammatory bowel disease. 2. Bloody diarrhea secondary to above. 3. Known history of esophageal cancer, treated surgically with remnant of esophagitis and peptic ulc er disease. 4. Known history of osteomyelitis, status post appendectomy. 5. Metabolic acidosis by recent history secondary to above. 6. Malnutrition with hypoalbuminemia, hypoproteinemia. SUGGESTION: 1. Agree with your plan. 2. Follow up on pathology report. 3. Gradually decrease the steroid intake. The patient will need Asacol 1 tablet 3 times a day with folic acid 1 tablet p.o. daily. Griselda Hallman MD cc: 14 TT: 08/10/2016 09:31:25 Confirmation # [id number] Dictation # [id number] tn
[2016-08-10] MEDS: MethylPREDNISolone 40 mg Vial IVP SCH ×2 (10:05→21:30)
[2016-08-10] MEDS: Pantoprazole 40 mg EC Tab PO SCH (10:05)
--- NOTE | 2016-08-10 10:18 | CP.PCM.PN ---
Subjective - Date & Time of Evaluation Date of Evaluation: 08/10/16 Time of Evaluation: 09:40 - Subjective Subjective: clinically same Objective - Vital Signs/Intake and Output Vital Signs (last 24 hours): Temp Pulse Resp BP Pulse Ox 98.5 F 82 20 118/68 92 L 08/10/16 07:00 08/10/16 08:45 08/10/16 07:00 08/10/16 07:00 08/10/16 07:00 Intake and Output: 08/10/16 08/10/16 06:59 18:59 Intake Total 2320 Balance 2320 - Medications Medications: Current Medications Acetaminophen (Tylenol 325mg Tab) 650 mg PO Q6 PRN PRN Reason: Pain, Mild (1-3) Last Admin: 08/09/16 17:29 Dose: 650 mg Folic Acid (Folic Acid) 1 mg PO DAILY [facility] Last Admin: 08/10/16 10:05 Dose: 1 mg Potassium Chloride/Sodium Chloride (Potassium Chl 20 Meq In Ns) 1,000 mls @ 125 mls/hr IV .Q8H [facility] Last Admin: 08/10/16 06:47 Dose: Not Given Methylprednisolone (Solu-Medrol) 20 mg IVP Q12H [facility] Last Admin: 08/10/16 10:05 Dose: 20 mg Metoclopramide HCl (Reglan) 5 mg IVP Q6 [facility] Last Admin: 08/10/16 06:47 Dose: Not Given Ondansetron HCl (Zofran Inj) 4 mg IVP Q4 PRN PRN Reason: Nausea/Vomiting Last Admin: 08/06/16 12:43 Dose: 4 mg Pantoprazole Sodium (Protonix Ec Tab) 40 mg PO DAILY [facility] Last Admin: 08/10/16 10:05 Dose: 40 mg Sucralfate (Carafate Oral Susp) 1 gm PO ACBHS [facility] Last Admin: 08/10/16 06:47 Dose: Not Given - Labs Labs: 08/09/16 06:08 08/09/16 06:08 PT 12.9 SECONDS (9.7-12.2) H 08/05/16 17:12 INR 1.2 08/05/16 17:12 APTT 29 SECONDS (21-34) 08/05/16 17:12 - Constitutional Appears: Well - Head Exam Head Exam: ATRAUMATIC, NORMAL INSPECTION, NORMOCEPHALIC - Eye Exam Eye Exam: EOMI, Normal appearance, PERRL Pupil Exam: NORMAL ACCOMODATION, PERRL - ENT Exam ENT Exam: Mucous Membranes Moist, Normal Exam - Neck Exam Neck Exam: Full ROM, Normal Inspection. absent: Lymphadenopathy - Respiratory Exam Respiratory Exam: Decreased Breath Sounds - Cardiovascular Exam Cardiovascular Exam: REGULAR RHYTHM, +S1, +S2 - GI/Abdominal Exam GI & Abdominal Exam: Soft, Diminished Bowel Sounds - Rectal Exam Rectal Exam: Deferred
[2016-08-10] MEDS: HYDROmorphone 1 mg/ml ISec IVP PRN ×2 (11:53→21:37)
[2016-08-10] MEDS: Ciprofloxacin 400mg/200ml D5W 400 MG/200 ML BAG IVPB SCH (12:23)
[2016-08-11] MEDS: Ciprofloxacin 400mg/200ml D5W 400 MG/200 ML BAG IVPB SCH ×3 (00:06→22:30)
[2016-08-11 02:01] LABS: RBC URINE < 1 /hpf (0-3); URINE BACTERIA RARE (<OCC); URINE BILIRUBIN NEGATIVE (NEGATIVE); URINE BLOOD NEGATIVE (NEGATIVE); URINE COLOR Yellow (YELLOW); URINE GLUCOSE (UA) 1+ mg/dL (Normal); URINE KETONE NEGATIVE (NEGATIVE); URINE LEUKOCYTE ESTERASE NEG Leu/uL (Negative); URINE PROTEIN NEGATIVE (NEGATIVE); URINE UROBILINOGEN NORMAL mg/dL (0.2-1.0); WBC URINE 1 /hpf (0-5)
[2016-08-11] MEDS: Potassium Chl 20 mEq in NS 1,000 ML IV SCH ×4 (06:15→23:43)
[2016-08-11] MEDS: Sucralfate 1 gm/10 ml Oral Susp UD PO SCH ×2 (06:38→21:56)
--- NOTE | 2016-08-11 09:25 | PN ---
DATE: 08/11/2016 LOCATION: 7, bed B This 71-year-old female seen and examined in rounds without significant clinical changes or reported active bleeding so far with low grade temperature reported as 99.3 with pulse of 84, respiratory rate 20-22. The pathology report of the upper endoscopy showed no evidence of Helicobacter pylori infect ion and the most recent lab result showed normal hemoglobin and hematocrit with thrombocytopenia with low albumin 1.9, low total protein 4.4. PHYSICAL EXAMINATION: GENERAL: A 71-year-old female, awake, alert, oriented. VITAL SIGNS: Respiratory rate of 20-22, blood pressure 110/62. HEENT: Showed pale, dry oral mucoid membrane. Nonicteric sclerae. LUNGS: Few scattered crepitation, decreased air entry at bases. HEART: Positive S1 and S2. ABDOMEN: Soft. Bowel sounds are present with mild generalized tenderness. No mass or organomegaly. No rebound tenderness or guarding. EXTREMITIES: No reported significant clinical changes. No clubbing, cyanosis or edema. NEUROLOGIC: No reported new neurological deficits, sensory or motor. It has to be mentioned that the patient's bowel movement frequency had been decreased gradually and r eported again period of mild dysphagia and dyspepsia. IMPRESSION: 1. Inflammatory bowel disease by previous pathology report. 2. Blood diarrhea secondary to above, improving. 3. Known history of esophageal cancer treated surgically. 4. Peptic ulcer disease. 5. Known history of osteomyelitis. 6. Malnutrition with hypoalbuminemia, hypoproteinemia. SUGGESTION: 1. Continue current medication. 2. Subsequent decrease of steroid intake, patient may start on prednisone 10 mg 1 tablet twice a day for the following week and then 5 mg twice a day for the following 1 month until seen in my office f or followup. 3. Asacol 1 tablet 3 times a day p.o. 4. Folic acid 1 tablet p.o. daily. 5. Prilosec 40 mg 1 tablet p.o. daily. 6. Carafate 1 gram 1 tablet 3 times a day. 7. The patient may need albumin IV before discharge home. 8. Advance oral intake. Griselda Hallman MD cc: 14 TT: 08/11/2016 09:24:05 Confirmation # [id number] Dictation # [id number]
[2016-08-11] MEDS: HYDROmorphone 1 mg/ml ISec IVP PRN ×2 (10:14→18:28)
[2016-08-11] MEDS: Pantoprazole 40 mg EC Tab PO SCH (10:14)
[2016-08-11] MEDS: MethylPREDNISolone 40 mg Vial IVP SCH ×2 (10:15→21:57)
--- NOTE | 2016-08-11 15:32 | CP.PCM.PN ---
Subjective - Date & Time of Evaluation Date of Evaluation: 08/11/16 Objective - Vital Signs/Intake and Output Vital Signs (last 24 hours): Temp Pulse Resp BP Pulse Ox 98.4 F 89 20 119/64 94 L 08/11/16 10:22 08/11/16 10:22 08/11/16 10:22 08/11/16 10:22 08/11/16 10:22 Intake and Output: 08/11/16 08/11/16 06:59 18:59 Intake Total 2132.5 Balance 2132.5 - Medications Medications: Current Medications Acetaminophen (Tylenol 325mg Tab) 650 mg PO Q6 PRN PRN Reason: Pain, Mild (1-3) Last Admin: 08/09/16 17:29 Dose: 650 mg Folic Acid (Folic Acid) 1 mg PO DAILY [facility] Last Admin: 08/11/16 10:14 Dose: 1 mg Hydromorphone HCl (Dilaudid) 1 mg IVP Q4H PRN PRN Reason: Pain, severe (8-10) Last Admin: 08/11/16 10:14 Dose: 1 mg Potassium Chloride/Sodium Chloride (Potassium Chl 20 Meq In Ns) 1,000 mls @ 125 mls/hr IV .Q8H [facility] Last Admin: 08/11/16 06:15 Dose: Not Given Ciprofloxacin (Cipro 400mg/200ml Dsw) 400 mg in 200 mls @ 133 mls/hr IVPB Q12H [facility] Last Admin: 08/11/16 14:22 Dose: 133 mls/hr Methylprednisolone (Solu-Medrol) 20 mg IVP Q12H [facility] Last Admin: 08/11/16 10:15 Dose: 20 mg Metoclopramide HCl (Reglan) 5 mg IVP Q6 [facility] Last Admin: 08/11/16 12:36 Dose: Not Given Ondansetron HCl (Zofran Inj) 4 mg IVP Q4 PRN PRN Reason: Nausea/Vomiting Last Admin: 08/06/16 12:43 Dose: 4 mg Pantoprazole Sodium (Protonix Ec Tab) 40 mg PO DAILY [facility] Last Admin: 08/11/16 10:14 Dose: 40 mg Sucralfate (Carafate Oral Susp) 1 gm PO ACBHS [facility] Last Admin: 08/11/16 06:38 Dose: Not Given - Labs Labs: 08/09/16 06:08 08/09/16 06:08 PT 12.9 SECONDS (9.7-12.2) H 08/05/16 17:12 INR 1.2 08/05/16 17:12 APTT 29 SECONDS (21-34) 08/05/16 17:12 Assessment and Plan - Assessment and Plan (Free Text) Plan: cbc cmp to check hgb adn platelets and electrolytes cosme speak to dr. brothers adn will ask him to speak to family to see whatelse can be done to prevent keep on happening abdo pain colitis is being treated [facility] antibitioci followupw ith dr. vera as out pt
[2016-08-12 01:39] LABS: RBC URINE 1 /hpf (0-3); URINE BACTERIA RARE (<OCC); URINE BILIRUBIN NEGATIVE (NEGATIVE); URINE BLOOD NEGATIVE (NEGATIVE); URINE COLOR Yellow (YELLOW); URINE GLUCOSE (UA) NORMAL (Normal); URINE KETONE NEGATIVE (NEGATIVE); URINE LEUKOCYTE ESTERASE NEG Leu/uL (Negative); URINE PROTEIN NEGATIVE (NEGATIVE); URINE UROBILINOGEN NORMAL mg/dL (0.2-1.0); WBC URINE 1 /hpf (0-5)
[2016-08-12] MEDS: Sucralfate 1 gm/10 ml Oral Susp UD PO SCH (06:50)
[2016-08-12 09:12] VITALS: O2SAT 95
[2016-08-12] MEDS: Pantoprazole 40 mg EC Tab PO SCH (09:35)
[2016-08-12] MEDS: MethylPREDNISolone 40 mg Vial IVP SCH (09:36)
--- NOTE | 2016-08-12 09:46 | CP.PCM.PN ---
Subjective - Date & Time of Evaluation Date of Evaluation: 08/12/16 Time of Evaluation: 10:40 - Subjective Subjective: clinically same Objective - Vital Signs/Intake and Output Vital Signs (last 24 hours): Temp Pulse Resp BP Pulse Ox 98.0 F 64 20 150/77 95 08/12/16 07:05 08/12/16 07:05 08/12/16 07:05 08/12/16 07:05 08/12/16 07:05 - Medications Medications: Current Medications Acetaminophen (Tylenol 325mg Tab) 650 mg PO Q6 PRN PRN Reason: Pain, Mild (1-3) Last Admin: 08/12/16 08:37 Dose: 650 mg Folic Acid (Folic Acid) 1 mg PO DAILY [facility] Last Admin: 08/12/16 09:35 Dose: 1 mg Hydromorphone HCl (Dilaudid) 1 mg IVP Q4H PRN PRN Reason: Pain, severe (8-10) Last Admin: 08/11/16 18:28 Dose: 1 mg Ciprofloxacin (Cipro 400mg/200ml Dsw) 400 mg in 200 mls @ 133 mls/hr IVPB Q12H [facility] Last Admin: 08/11/16 22:30 Dose: 133 mls/hr Methylprednisolone (Solu-Medrol) 20 mg IVP Q12H [facility] Last Admin: 08/12/16 09:36 Dose: 20 mg Metoclopramide HCl (Reglan) 5 mg IVP Q6 [facility] Last Admin: 08/12/16 05:36 Dose: 5 mg Ondansetron HCl (Zofran Inj) 4 mg IVP Q4 PRN PRN Reason: Nausea/Vomiting Last Admin: 08/06/16 12:43 Dose: 4 mg Pantoprazole Sodium (Protonix Ec Tab) 40 mg PO DAILY [facility] Last Admin: 08/12/16 09:35 Dose: 40 mg Sucralfate (Carafate Oral Susp) 1 gm PO ACBHS [facility] Last Admin: 08/12/16 06:50 Dose: 1 gm - Labs Labs: 08/09/16 06:08 08/09/16 06:08 PT 12.9 SECONDS (9.7-12.2) H 08/05/16 17:12 INR 1.2 08/05/16 17:12 APTT 29 SECONDS (21-34) 08/05/16 17:12 - Constitutional Appears: Well - Head Exam Head Exam: ATRAUMATIC, NORMAL INSPECTION, NORMOCEPHALIC - Eye Exam Eye Exam: EOMI, Normal appearance, PERRL Pupil Exam: NORMAL ACCOMODATION, PERRL - ENT Exam ENT Exam: Mucous Membranes Moist, Normal Exam - Neck Exam Neck Exam: Full ROM, Normal Inspection. absent: Lymphadenopathy - Respiratory Exam Respiratory Exam: Decreased Breath Sounds - Cardiovascular Exam Cardiovascular Exam: REGULAR RHYTHM, +S1, +S2 - GI/Abdominal Exam GI & Abdominal Exam: Soft, Diminished Bowel Sounds - Rectal Exam Rectal Exam: Deferred
--- NOTE | 2016-08-12 12:49 | PN ---
DATE: 08/12/2016 LOCATION: 667, bed B. This 71-year-old female is seen and examined at rounds today in the presence of her family members. Case discussed at length, for over half an hour, with the patient's daughter by telephone. The patie nt had much less abdominal pain much less bowel movement frequency with more solid stool, and no repo rted active bleeding. Tolerating oral intake well; however, she had been complaining of mild dysuria and polyuria recently. The entire chart is reviewed, including but not limited to the most recent lab and radiology study re sults, current and previous medication lists, current and the previous medical events. Today's lab is still pending. PHYSICAL EXAMINATION: GENERAL: A 71-year-old female, awake, alert, oriented. VITAL SIGNS: Afebrile with pulse of 68, respiratory rate 20-22 with blood pressure of 132/74. HEENT: Showed pale, dry mucoid membrane. Nonicteric sclerae. LUNGS: A few scattered crepitations. Decreased air entry at bases. HEART: Positive S1 and S2. ABDOMEN: Soft. Bowel sounds are present. No mass or organomegaly. No rebound tenderness or guardi ng, but mild suprapubic tenderness. EXTREMITIES: Without edema, clubbing or cyanosis. NEUROLOGIC: No reported new neurologic deficits, sensory or motor. IMPRESSION: 1. Reexacerbation of inflammatory bowel disease. 2. Peptic ulcer disease. 3. Anemia, most likely secondary to above. 4. Diarrhea secondary to above. 5. Known history of osteomyelitis. 6. Known history of esophageal cancer treated surgically. SUGGESTION: 1. Continue current management. 2. The patient is improving clinically and to be sent home on prednisone 10 mg p.o. 1 twice a day q. 12 for the following 3-4 weeks until seen in my office; that to be tapered gradually. 3. Folic acid 1 tablet p.o. daily. 4. Asacol 1 tablet 3 times a day p.o. 5. Protonix 40 mg 1 tablet p.o. q.i.d. 6. Further recommendation to follow as outpatient. Griselda Hallman MD cc: 14 TT: 08/12/2016 12:49:35 Confirmation # [id number] Dictation # [id number] mn
[2016-08-12] MEDS: Ciprofloxacin 400mg/200ml D5W 400 MG/200 ML BAG IVPB SCH (14:57)
--- NOTE | 2016-08-12 15:22 | CP.PCM.PN ---
Subjective - Date & Time of Evaluation Date of Evaluation: 08/12/16 Time of Evaluation: 15:20 - Subjective Subjective: 71 Y/O FEMALE SEEN AND EXAMINED TODAY BY DR Ethan BUSTAMANTE, WITH PMHX ARTHRITIS, POLYPS, THROAT CA, APPENDECTOMY, ENDOSCOPY, ADMITTED FOR DIARRHEA, REEXCERBATION OF IBD, PEPTIC ULCER, AMEMIA, RX FOR PREDNISONE 10 MG PO BID FOR 4 WEEKS BACTRIM 1 TAB PO BID FOR 7 DAYS ASACOL 1 TAB PO TID FOLIC ACID 1 MG PO TAB DAILY FOLLOW UP WITH DR MACHUCA IN 3 WEEKS RETURN TO ED IF ANY GI BLEED, WORSENING S/S Objective - Vital Signs/Intake and Output Vital Signs (last 24 hours): Temp Pulse Resp BP Pulse Ox 98.0 F 64 20 150/77 95 08/12/16 07:05 08/12/16 07:05 08/12/16 07:05 08/12/16 07:05 08/12/16 07:05 - Medications Medications: Current Medications Acetaminophen (Tylenol 325mg Tab) 650 mg PO Q6 PRN PRN Reason: Pain, Mild (1-3) Last Admin: 08/12/16 08:37 Dose: 650 mg Folic Acid (Folic Acid) 1 mg PO DAILY [facility] Last Admin: 08/12/16 09:35 Dose: 1 mg Hydromorphone HCl (Dilaudid) 1 mg IVP Q4H PRN PRN Reason: Pain, severe (8-10) Last Admin: 08/11/16 18:28 Dose: 1 mg Ciprofloxacin (Cipro 400mg/200ml Dsw) 400 mg in 200 mls @ 133 mls/hr IVPB Q12H [facility] Last Admin: 08/12/16 14:57 Dose: 133 mls/hr Methylprednisolone (Solu-Medrol) 20 mg IVP Q12H [facility] Last Admin: 08/12/16 09:36 Dose: 20 mg Metoclopramide HCl (Reglan) 5 mg IVP Q6 [facility] Last Admin: 08/12/16 14:57 Dose: 5 mg Ondansetron HCl (Zofran Inj) 4 mg IVP Q4 PRN PRN Reason: Nausea/Vomiting Last Admin: 08/06/16 12:43 Dose: 4 mg Pantoprazole Sodium (Protonix Ec Tab) 40 mg PO DAILY [facility] Last Admin: 08/12/16 09:35 Dose: 40 mg Sucralfate (Carafate Oral Susp) 1 gm PO ACB[facility] [place] Last Admin: 08/12/16 06:50 Dose: 1 gm - Labs Labs: 08/09/16 06:08 08/09/16 06:08 PT 12.9 SECONDS (9.7-12.2) H 08/05/16 17:12 INR 1.2 08/05/16 17:12 APTT 29 SECONDS (21-34) 08/05/16 17:12
[2016-08-12 15:42] VITALS: BP 100/59; PULSE 77; TEMP 98.4
== END 2016-08-12 17:10 | disposition home or self-care (01) | DRG 392 ==
LOC: C.ER 10:49 → C.9E 12:31 → C.6T 12:51
PROVIDERS: ADMIT Internal Medicine Nephrology; ATTEND Internal Medicine Nephrology
PROC: 0DB68ZX Excision of Stomach, Via Natural or Artificial Opening Endoscopic, Diagnostic (ICD-10-PCS; principal; 2016-08-06 10:29)
PROC: 0DBM8ZX Excision of Descending Colon, Via Natural or Artificial Opening Endoscopic, Diagnostic (ICD-10-PCS; 2016-08-09)
PROC: 0DBL8ZX Excision of Transverse Colon, Via Natural or Artificial Opening Endoscopic, Diagnostic (ICD-10-PCS; 2016-08-09)
PROC: 0DBN8ZX Excision of Sigmoid Colon, Via Natural or Artificial Opening Endoscopic, Diagnostic (ICD-10-PCS; 2016-08-09)
DX: K58.0 Irritable bowel syndrome with diarrhea (principal); E46 Unspecified protein-calorie malnutrition; E87.2 Acidosis; R13.10 Dysphagia, unspecified; D72.819 Decreased white blood cell count, unspecified; K29.00 Acute gastritis without bleeding; K21.0 Gastro-esophageal reflux disease with esophagitis; D12.4 Benign neoplasm of descending colon; D12.5 Benign neoplasm of sigmoid colon; D12.3 Benign neoplasm of transverse colon; K64.8 Other hemorrhoids; K64.4 Residual hemorrhoidal skin tags; D64.9 Anemia, unspecified; E88.09 Other disorders of plasma-protein metabolism, not elsewhere classified; E77.8 Other disorders of glycoprotein metabolism; E83.51 Hypocalcemia; K27.9 Peptic ulcer, site unspecified, unspecified as acute or chronic, without hemorrhage or perforation; Z85.01 Personal history of malignant neoplasm of esophagus; Z85.819 Personal history of malignant neoplasm of unspecified site of lip, oral cavity, and pharynx; Z90.49 Acquired absence of other specified parts of digestive tract; Z92.21 Personal history of antineoplastic chemotherapy; Z92.3 Personal history of irradiation; Z87.891 Personal history of nicotine dependence

== ENCOUNTER 2016-08-21 12:05 | Inpatient (IN) | payer MEDICAID, MEDICARE ==
[2016-08-21 12:06] VITALS: BMI 25.0
[2016-08-21] MEDS ORDERED: Sodium Chloride 0.9% 1,000 ML IV ONE (13:19)
[2016-08-21] MEDS ORDERED: HYDROmorphone 1 mg/ml ISec IM STA (13:19)
--- NOTE | 2016-08-21 13:34 | C.PDOC ---
History Of Present Illness 71 y/o female presents to ED with PMHx of esophageal cancer, peptic ulcer disease, and recent diagnosis of ulcerative colitis; history of esophageal dilations and stenting, partial bowel resection, recent 2 week long admission for abdominal pain and diarrhea and recently discharged home. Since going home, patient states she has been having persistent generalized abdominal pain, copious watery, orange colored diarrhea. Patient states unable to eat anything w /o diarrhea. Also, patient c/o dizziness and lightheadedness, with a near fall this morning. Denies head injury or LOC. Patient notes she was scheduled to see Dr. Do and Dr. Hallman for follow up appointments today, and was advised to come to ER for evaluation. Denies fever, chills, urinary symptoms, chest pain, SOB. Time Seen by Provider: 08/21/16 13:10 Chief Complaint (Nursing): Abdominal Pain History Per: Patient History/Exam Limitations: no limitations Onset/Duration Of Symptoms: Days, Persistent Current Symptoms Are (Timing): Still Present Location Of Pain/Discomfort: Diffuse Radiation Of Pain To:: None Quality Of Discomfort: Cramping, "Pain" Associated Symptoms: Diarrhea. denies: Fever, Vomiting, Urinary Symptoms Recent travel outside of the [place]: No Abnormal Vaginal Bleeding: No Past Medical History Reviewed: Historical Data, Nursing Documentation, Vital Signs Vital Signs: Last Vital Signs Temp 98.6 F 08/21/16 12:19 Pulse 137 H 08/21/16 12:19 Resp 18 08/21/16 12:19 BP 96/66 L 08/21/16 12:19 Pulse Ox 98 08/21/16 13:42 - Medical History PMH: Arthritis, Colonic Polyps, Malignancy (THROAT CA) Surgical History: Appendectomy, [facility] Procedures CLOSED ENDOSCOPIC BIOPSY OF LARGE INTESTINE (01/28/14) DRAINAGE OF SPINAL CANAL, PERCUTANEOUS APPROACH, DIAGNOSTIC (03/15/15) ENDOSC POLYPECTOMY OF LG INTEST (09/09/14) ESOPHAGEAL DILATION (07/12/12) ESOPHAGOGASTRODUODENOSCOPY [EGD] W/CLOSED BIOPSY (06/17/14) EXCISION OF DESCENDING COLON, ENDO, DIAGN (08/03/16) EXCISION OF SIGMOID COLON, ENDO, DIAGN (08/03/16) EXCISION OF STOMACH, ENDO, DIAGN (08/03/16) EXCISION OF TRANSVERSE COLON, ENDO, DIAGN (08/03/16) INSPECTION OF LARYNX, ENDO (03/15/15) OTHER ENDOSCOPY OF SM INTEST (07/12/12) Family History: States: Unknown Family Hx - Social History Hx Tobacco Use: No Hx Alcohol Use: Yes (1 drink 3 times aweek) Hx Substance Use: No - Immunization History Hx Tetanus Toxoid Vaccination: No Hx Influenza Vaccination: No Hx Pneumococcal Vaccination: No Review Of Systems Except As Marked, All Systems Reviewed And Found Negative. Constitutional: Positive for: Weakness. Negative for: Fever, Chills Cardiovascular: Negative for: Chest Pain Respiratory: Negative for: Cough, Shortness of Breath Gastrointestinal: Positive for: Abdominal Pain, Diarrhea. Negative for: Vomiting Genitourinary: Negative for: Dysuria Skin: Negative for: Rash Neurological: Negative for: Headache, Dizziness Physical Exam - Physical Exam Appears: Non-toxic, Other (uncomfortable) Skin: Warm, Dry Head: Atraumatic, Normacephalic Eye(s): bilateral: Normal Inspection, PERRL, EOMI Oral Mucosa: Dry Chest: Symmetrical Cardiovascular: Rhythm Regular (tachycardic), No Murmur, Other (hypotensive) Respiratory: Normal Breath Sounds, No Rales, No Rhonchi, No Wheezing Gastrointestinal/Abdominal: Bowel Sounds (normal), Soft, Tenderness (diffusely tender ), No Distention, No Guarding, No Rebound Back: Normal Inspection Extremity: Normal ROM, Capillary Refill (< 2 sec. ) Extremity: Bilateral: Normal Color And Temperature Neurological/Psych: Oriented x3, Normal Speech, Normal Cognition ED Course And Treatment - Laboratory Results Result Diagrams: 08/21/16 13:37 08/21/16 13:37 Lab Interpretation: Abnormal (Na+126, HCO3 17) O2 Sat by Pulse Oximetry: 98 (RA) Pulse Ox Interpretation: Normal Progress Note: Bloodwork, labs ordered. Treated with Dilaudid and IV fluids. Reevaluation Time: 14:48 Reassessment Condition: Improved - Physician Consult Information Outcome Of Conversation: Case discussed with Dr Do and Brady Hallman. Patient to be admitted to Dr Ethan Marquez for rehydration and treatment of severe ulcerative colitis. Disposition - Disposition Disposition: HOSPITALIZED Disposition Time: 14:49 Condition: SERIOUS - POA Present On Arrival: None - Clinical Impression Clinical Impression: Severe chronic ulcerative colitis, Dehydration - Scribe Statement The provider has reviewed the documentation as recorded by the Chichi Arthur Provider Attestation: All medical record entries made by the Chichi were at my direction and personally dictated by me. I have reviewed the chart and agree that the record accurately reflects my personal performance of the history, physical exam, medical decision making, and the department course for this patient. I have also personally directed, reviewed, and agree with the discharge instructions and disposition.
[2016-08-21 13:47] LABS: BASO % 0.2 % (0.0-2.0); EOS # 0.1 K/uL (0.0-0.7); EOS % 1.4 % (0.0-4.0); LYMPH # 0.6 K/uL (1.0-4.3); LYMPH % 13.9 % (20.0-40.0); MEAN CELL VOLUME 87.5 fL (81.0-99.0); MEAN CORPUSCULAR HEMOGLOBIN 28.8 pg (27.0-31.0); MEAN CORPUSCULAR HGB CONC 32.9 g/dL (33.0-37.0); MEAN PLATELET VOLUME 7.5 fL (7.2-11.7); MONO # 0.2 K/uL (0.0-0.8); MONO % 4.2 % (0.0-10.0); NEUT # 3.5 K/uL (1.8-7.0); NEUT % 80.3 % (50.0-75.0); NRBC % 0.1 % (0.0-2.0); RBC 4.18 Mil/uL (3.80-5.20); RED CELL DISTRIBUTION WIDTH 13.9 % (11.5-14.5); WHITE BLOOD COUNT 4.3 K/uL (4.8-10.8)
[2016-08-21 13:50] LABS: ALBUMIN 2.2 g/dL (3.5-5.0)
[2016-08-21 13:53] LABS: ALB/GLOB RATIO 0.7 (1.0-2.1); ALT/SGPT 15 U/L (9-52); AST/SGOT 22 U/L (14-36); BLOOD UREA NITROGEN 14 mg/dL (7-17); GFR AFRICAN-AMERICAN > 60; GFR NON-AFRICAN AMERICAN > 60
[2016-08-21 13:54] LABS: CALCIUM 7.5 mg/dl (8.6-10.4)
[2016-08-21 13:55] LABS: LIPASE < 10 U/L (23-300)
[2016-08-21 15:37] LABS: SQUAMOUS EPITHIAL 18 /hpf (0-5); URINE BACTERIA FEW (<OCC); URINE BILIRUBIN 1+ (NEGATIVE); URINE BLOOD 2+ (NEGATIVE); URINE CLARITY Hazy (Clear); URINE COLOR Amber (YELLOW); URINE GLUCOSE (UA) NORMAL (Normal); URINE LEUKOCYTE ESTERASE 3+ Leu/uL (Negative); URINE NITRATE NEGATIVE (NEGATIVE); URINE PROTEIN 1+ mg/dL (NEGATIVE); URINE UROBILINOGEN NORMAL mg/dL (0.2-1.0)
[2016-08-21] MEDS ORDERED: HYDROmorphone 1 mg/ml ISec ONE (16:09)
--- NOTE | 2016-08-21 19:42 | CP.PCM.HP ---
Past Patient History - Past Medical History & Family History Past Medical History?: Yes - Past Social History Smoking Status: Former Smoker - CARDIAC Hx Cardiac Disorders: No - PULMONARY Hx Respiratory Disorders: No - NEUROLOGICAL Hx Neurological Disorder: No - HEENT Hx HEENT Problems: Yes Hx Difficulty Chewing: Yes Other/Comment: DYSPHAGIA RELATED TO EXTENSIVE ESOPHAGEAL CANCER SX AND "TUBE" IN PLACE OF ESOPHAGUS - ENDOCRINE/METABOLIC Hx Endocrine Disorders: No - HEMATOLOGICAL/ONCOLOGICAL Hx Blood Disorders: Yes Hx Blood Transfusions: Yes Hx Cancer: Yes (ESOPHAGEAL) - INTEGUMENTARY Hx Dermatological Problems: No - MUSCULOSKELETAL/RHEUMATOLOGICAL Hx Falls: No - GASTROINTESTINAL Hx Gastrointestinal Disorders: Yes Hx Colitis: Yes Hx Gastroesophageal Reflux: Yes HX Swallowing Problems: Yes Other/Comment: ESOPHAGEAL CANCER - GENITOURINARY/GYNECOLOGICAL Hx Genitourinary Disorders: No - PSYCHIATRIC Hx Substance Use: No - SURGICAL HISTORY Hx Appendectomy: Yes - ANESTHESIA Hx Anesthesia: Yes Hx Anesthesia Reactions: No Hx Malignant Hyperthermia: No Meds Allergies/Adverse Reactions: Allergies Allergy/AdvReac Type Severity Reaction Status Date / Time No Known Allergies Allergy Verified 08/21/16 12:23 Results - Vital Signs Recent Vital Signs: Last Vital Signs Temp 98.1 F 08/21/16 19:08 Pulse 105 H 08/21/16 19:08 Resp 20 08/21/16 19:08 BP 105/67 08/21/16 19:08 Pulse Ox 93 L 08/21/16 19:08 - Labs Result Diagrams: 08/21/16 13:37 08/21/16 13:37 Labs: Laboratory Results - last 24 hr 08/21/16 08/21/16 15:25 16:32 POC Glucose (mg/dL) 117 H Urine Color Rosita Urine Clarity Hazy Urine pH 5.0 Ur Specific [place] 1.024 Urine Protein 1+ H Urine Glucose (UA) Normal Urine Ketones 2+ H Urine Blood 2+ H Urine Nitrate Negative Urine Bilirubin 1+ H Urine Urobilinogen Normal Ur Leukocyte Esterase 3+ H Urine WBC (Auto) 200 H Urine RBC (Auto) 34 H Ur Squamous Epith Cells 18 H Urine Bacteria Few H Hyaline Casts 3-5 H
[2016-08-21] MEDS: HYDROmorphone 1 mg/ml ISec IVP PRN (20:25)
[2016-08-21] MEDS: metroNIDAZOLE IV 500 mg/100 ml 500 MG/100 ML BAG IVPB SCH (22:13)
[2016-08-22 00:15] VITALS: RESP 20
[2016-08-22] MEDS: HYDROmorphone 1 mg/ml ISec IVP PRN ×2 (01:55→05:49)
[2016-08-22] MEDS: metroNIDAZOLE IV 500 mg/100 ml 500 MG/100 ML BAG IVPB SCH ×2 (05:45→13:33)
[2016-08-22] MEDS: Tmp-Smz 800 mg-160 mg DS Tab PO SCH ×2 (10:34→18:06)
[2016-08-22] MEDS: Enoxaparin 40 mg Syringe SC SCH (10:34)
[2016-08-22] MEDS: Sodium Chloride 0.9% 1,000 ML IV SCH ×2 (10:35→19:58)
[2016-08-22 11:05] LABS: BASO % 0.2 % (0.0-2.0); EOS # 0.1 K/uL (0.0-0.7); HEMOGLOBIN 10.2 g/dL (11.0-16.0); LYMPH # 1.2 K/uL (1.0-4.3); LYMPH % 32.5 % (20.0-40.0); MEAN CELL VOLUME 86.1 fL (81.0-99.0); MEAN CORPUSCULAR HGB CONC 33.7 g/dL (33.0-37.0); MEAN PLATELET VOLUME 6.8 fL (7.2-11.7); MONO # 0.3 K/uL (0.0-0.8); MONO % 8.5 % (0.0-10.0); NEUT # 2.1 K/uL (1.8-7.0); NEUT % 55.8 % (50.0-75.0); RBC 3.51 Mil/uL (3.80-5.20); RED CELL DISTRIBUTION WIDTH 13.6 % (11.5-14.5); WHITE BLOOD COUNT 3.8 K/uL (4.8-10.8)
--- NOTE | 2016-08-22 11:15 | CP.PCM.PN ---
<Ciara Morales Meenu - Last Filed: 08/22/16 11:12> Subjective - Date & Time of Evaluation Date of Evaluation: 08/22/16 Time of Evaluation: 09:00 - Subjective Subjective: PGY3 Medicine Note - Dr. Ethan Marquez's service: Patient seen and examined at bedside this AM. Patient admitted overnight for persistent abdominal pain and watery diarrhea and dizziness. Patient has history of IBD, peptic ulcer disease and esophageal cancer. Patient reports dizziness today when she moves her head from side to side. Patient says she only had one bout of diarrhea today compared to multiple yesterday. She says the diarrhea is watery and orange. Patient denies fever, chills, chest pain, SOB. Objective - Vital Signs/Intake and Output Vital Signs (last 24 hours): Temp Pulse Resp BP Pulse Ox 98 F 106 H 20 104/54 L 98 08/22/16 00:14 08/22/16 00:14 08/22/16 00:14 08/22/16 00:14 08/22/16 00:14 Intake and Output: 08/22/16 08/22/16 06:59 18:59 Intake Total 400 Balance 400 - Medications Medications: Current Medications Aspirin (Aspirin) 325 mg PO DAILY [facility] Last Admin: 08/22/16 10:34 Dose: 325 mg Enoxaparin Sodium (Lovenox) 40 mg SC DAILY [facility] Last Admin: 08/22/16 10:34 Dose: 40 mg Folic Acid (Folic Acid) 1 mg PO DAILY [facility] Last Admin: 08/22/16 10:34 Dose: 1 mg Hydromorphone HCl (Dilaudid) 1 mg IVP Q4H PRN PRN Reason: Pain, severe (8-10) Last Admin: 08/22/16 05:49 Dose: 1 mg Metronidazole (Flagyl) 500 mg in 100 mls @ 100 mls/hr IVPB Q8 [facility] Last Admin: 08/22/16 05:45 Dose: 100 mls/hr Sodium Chloride (Sodium Chloride 0.9%) 1,000 mls @ 100 mls/hr IV .Q10H [facility] Last Admin: 08/22/16 10:35 Dose: 100 mls/hr Meclizine HCl (Antivert) 12.5 mg PO TID PRN PRN Reason: Dizziness Last Admin: 08/22/16 10:33 Dose: 12.5 mg Mesalamine (Delzicol) 800 mg PO TID [facility] Last Admin: 08/22/16 10:34 Dose: 800 mg Prednisone (Prednisone Tab) 10 mg PO BID [facility] Last Admin: 08/22/16 10:35 Dose: 10 mg Trimethoprim/Sulfamethoxazole (Bactrim Ds Tab) 1 tab PO BID [facility] Last Admin: 08/22/16 10:34 Dose: 1 tab - Labs Labs: 08/22/16 10:53 - Constitutional Appears: Non-toxic, No Acute Distress - Head Exam Head Exam: NORMAL INSPECTION - Eye Exam Eye Exam: EOMI - ENT Exam ENT Exam: Mucous Membranes Moist - Respiratory Exam Respiratory Exam: Clear to Ausculation Bilateral, NORMAL BREATHING PATTERN. absent: Rales, Rhonchi, Wheezes - Cardiovascular Exam Cardiovascular Exam: REGULAR RHYTHM, +S1, +S2. absent: Gallop, Rubs, Murmur - GI/Abdominal Exam GI & Abdominal Exam: Soft, Normal Bowel Sounds. absent: Tenderness - Extremities Exam Extremities Exam: absent: Pedal Edema - Neurological Exam Neurological Exam: Alert, Awake, Oriented x3 - Psychiatric Exam Psychiatric exam: Normal Affect, Normal Mood - Skin Skin Exam: Normal Color, Warm Assessment and Plan - Assessment and Plan (Free Text) Assessment: Diarrhea Likely secondary to ulcerative colitis F/U stool culture, c diff, ova and parasite, stool occult blood, stool leukocytes IV fluids (cannot get vascular access. Order in for mid line or PICC line) Flagyl 500mg IVPB Q8H Abdominal Pain Dailudid 1mg IVP Q4H PRN IBD 08/09/16 colonoscopy - nonbleeding external internal hemorrhoids; congested mucosa in entire colon; five 4mm polyps; significant colonic spasm (please see full report) Pathology report showed active phase of IBD Mesalamine 800mg PO TID Prednisone 10mg PO BID Bactrim 1 tab PO BID GI consult - Dr. Hallman - f/u recs Benign Positional Vertigo Meclizine 12.5mg PO TID PRN Hyponatremia 126 on 08/21/16 Need vascular access for NS Esophageal CA Onc consult - Dr. Do - f/u recs Prophylaxis SCDs Pepcid 20mg IVP Q12H <Daphne Marquez S - Last Filed: 08/22/16 22:53> Objective - Vital Signs/Intake and Output Vital Signs (last 24 hours): Temp Pulse Resp BP Pulse Ox 98.8 F 100 H 20 94/64 L 96 08/22/16 14:00 08/22/16 14:00 08/22/16 14:00 08/22/16 14:00 08/22/16 14:00 Intake and Output: 08/22/16 08/23/16 18:59 06:59 Intake Total 560 Balance 560 - Medications Medications: Current Medications Aspirin (Aspirin) 325 mg PO DAILY [facility] Last Admin: 08/22/16 10:34 Dose: 325 mg Enoxaparin Sodium (Lovenox) 40 mg SC DAILY [facility] Last Admin: 08/22/16 10:34 Dose: 40 mg Famotidine (Pepcid) 20 mg IVP Q12 [facility] Last Admin: 08/22/16 21:52 Dose: Not Given Folic Acid (Folic Acid) 1 mg PO DAILY [facility] Last Admin: 08/22/16 10:34 Dose: 1 mg Sodium Chloride (Sodium Chloride 0.9%) 1,000 mls @ 100 mls/hr IV .Q10H [facility] Last Admin: 08/22/16 19:58 Dose: Not Given Meclizine HCl (Antivert) 12.5 mg PO TID PRN PRN Reason: Dizziness Last Admin: 08/22/16 16:44 Dose: 12.5 mg Mesalamine (Delzicol) 800 mg PO TID [facility] Last Admin: 08/22/16 18:06 Dose: 800 mg Metronidazole (Flagyl) 500 mg PO Q8 [facility] Last Admin: 08/22/16 21:52 Dose: 500 mg Oxycodone/Acetaminophen (Percocet 5/325 Mg Tab) 1 tab PO Q6H PRN PRN Reason: Pain, moderate (4-7) Stop: 08/25/16 13:27 Last Admin: 08/22/16 19:57 Dose: 1 tab Prednisone (Prednisone Tab) 10 mg PO BID [facility] Last Admin: 08/22/16 18:06 Dose: 10 mg Trimethoprim/Sulfamethoxazole (Bactrim Ds Tab) 1 tab PO BID [facility] Last Admin: 08/22/16 18:06 Dose: 1 tab - Labs Labs: 08/22/16 10:53 08/22/16 10:53 Attending/Attestation - Attestation I have personally seen and examined this patient.: Yes I have fully participated in the care of the patient.: Yes I have reviewed all pertinent clinical information, including history, physical exam and plan: Yes Notes (Text): 08/22/16 22:52 Continue with a GI consult patient has alcohol prednisone 3 times daily and will monitor Discussed with the family Case seen and discussed with the staff and other residents
[2016-08-22 11:30] LABS: ALBUMIN 1.9 g/dL (3.5-5.0)
[2016-08-22 11:33] LABS: ALB/GLOB RATIO 0.7 (1.0-2.1); ALT/SGPT 21 U/L (9-52); AST/SGOT 13 U/L (14-36); BLOOD UREA NITROGEN 10 mg/dL (7-17); GFR AFRICAN-AMERICAN > 60; GFR NON-AFRICAN AMERICAN > 60
[2016-08-22 11:34] LABS: CALCIUM 7.2 mg/dl (8.6-10.4)
[2016-08-22] MEDS: Potassium Chloride 20 mEq/15 ml LIQ UD PO SCH ×2 (12:51→16:44)
[2016-08-22] MEDS: Oxycodone/Acetaminophen 5/325 mg Tab PO PRN ×2 (13:42→19:57)
--- NOTE | 2016-08-22 15:34 | CP.PCM.PN ---
Subjective - Date & Time of Evaluation Date of Evaluation: 08/22/16 Time of Evaluation: 08:40 - Subjective Subjective: Clinically same Objective - Vital Signs/Intake and Output Vital Signs (last 24 hours): Temp Pulse Resp BP Pulse Ox 98 F 106 H 20 104/54 L 98 08/22/16 00:14 08/22/16 00:14 08/22/16 00:14 08/22/16 00:14 08/22/16 00:14 Intake and Output: 08/22/16 08/22/16 06:59 18:59 Intake Total 400 560 Balance 400 560 - Medications Medications: Current Medications Aspirin (Aspirin) 325 mg PO DAILY [facility] Last Admin: 08/22/16 10:34 Dose: 325 mg Enoxaparin Sodium (Lovenox) 40 mg SC DAILY [facility] Last Admin: 08/22/16 10:34 Dose: 40 mg Famotidine (Pepcid) 20 mg IVP Q12 [facility] Folic Acid (Folic Acid) 1 mg PO DAILY [facility] Last Admin: 08/22/16 10:34 Dose: 1 mg Sodium Chloride (Sodium Chloride 0.9%) 1,000 mls @ 100 mls/hr IV .Q10H [facility] Last Admin: 08/22/16 10:35 Dose: 100 mls/hr Meclizine HCl (Antivert) 12.5 mg PO TID PRN PRN Reason: Dizziness Last Admin: 08/22/16 10:33 Dose: 12.5 mg Mesalamine (Delzicol) 800 mg PO TID [facility] Last Admin: 08/22/16 13:44 Dose: 800 mg Metronidazole (Flagyl) 500 mg PO Q8 [facility] Last Admin: 08/22/16 14:34 Dose: 500 mg Oxycodone/Acetaminophen (Percocet 5/325 Mg Tab) 1 tab PO Q6H PRN PRN Reason: Pain, moderate (4-7) Stop: 08/25/16 13:27 Last Admin: 08/22/16 13:42 Dose: 1 tab Potassium Chloride (Potassium Chloride Oral Soln) 40 meq PO Q4H [facility] Stop: 08/22/16 16:01 Last Admin: 08/22/16 12:51 Dose: 40 meq Prednisone (Prednisone Tab) 10 mg PO BID [facility] Last Admin: 08/22/16 10:35 Dose: 10 mg Trimethoprim/Sulfamethoxazole (Bactrim Ds Tab) 1 tab PO BID [facility] Last Admin: 08/22/16 10:34 Dose: 1 tab - Labs Labs: 08/22/16 10:53 08/22/16 10:53 Assessment and Plan - Assessment and Plan (Free Text) Plan: Patient with ulcerative colitis on Asacol still being discussed with the GI consultation Prednisone Protonix Lovenox Continue same cipro adn flagyl
[2016-08-23] MEDS: Oxycodone/Acetaminophen 5/325 mg Tab PO PRN ×2 (01:52→09:09)
--- NOTE | 2016-08-23 03:55 | CP.PCM.CON ---
History of Present Illness - History of Present Illness History of Present Illness: 71 year old female with a history of esophageal cancer s/p surgery and adjuvant chemotherapy and radiation in 2010, admitted with colitis, recently diagnosed with ulcerative colitis. The patient was found to have colitis by her PMD and prescribed antibiotics. She began to feel better and stopped her antibiotics. She reports a few days later her abdominal pain and diarrhea returned. Due to frequent liquid bowel movements she notes to feeling weak and came to the ER. She underwent a colonscopy with Dr. Hallman during her prior admission and pathology was consistent with ulcerative colitis. Past medical history: Esophageal cancer Past surgical history: Partial esophagectomy, bowel resection Family history: Denies hematologic and oncologic problems Social history: Former tobacco abuse Allergies: NKA Review of systems: All remaining review of systems including HEENT, cardiovascular, respiratory, gastrointestinal, genitourinary, musculoskeletal, dermatologic, neurologic, and psychiatric are negative unless mentioned in the HPI. Past Patient History - Past Medical History & Family History Past Medical History?: Yes - Past Social History Smoking Status: Former Smoker - CARDIAC Hx Cardiac Disorders: No - PULMONARY Hx Respiratory Disorders: No - NEUROLOGICAL Hx Neurological Disorder: No - HEENT Hx HEENT Problems: Yes Hx Difficulty Chewing: Yes Other/Comment: DYSPHAGIA RELATED TO EXTENSIVE ESOPHAGEAL CANCER SX AND "TUBE" IN PLACE OF ESOPHAGUS - RENAL Hx Chronic Kidney Disease: No - ENDOCRINE/METABOLIC Hx Endocrine Disorders: No - HEMATOLOGICAL/ONCOLOGICAL Hx Blood Disorders: Yes Hx Blood Transfusions: Yes Hx Cancer: Yes (ESOPHAGEAL) - INTEGUMENTARY Hx Dermatological Problems: No - MUSCULOSKELETAL/RHEUMATOLOGICAL Hx Falls: No - GASTROINTESTINAL Hx Gastrointestinal Disorders: Yes Hx Colitis: Yes Hx Gastroesophageal Reflux: Yes HX Swallowing Problems: Yes Other/Comment: ESOPHAGEAL CANCER - GENITOURINARY/GYNECOLOGICAL Hx Genitourinary Disorders: No - PSYCHIATRIC Hx Substance Use: No - SURGICAL HISTORY Hx Appendectomy: Yes - ANESTHESIA Hx Anesthesia: Yes Hx Anesthesia Reactions: No Hx Malignant Hyperthermia: No Meds Allergies/Adverse Reactions: Allergies Allergy/AdvReac Type Severity Reaction Status Date / Time No Known Allergies Allergy Verified 08/21/16 12:23 - Medications Medications: Current Medications Aspirin (Aspirin) 325 mg PO DAILY [facility] Last Admin: 08/22/16 10:34 Dose: 325 mg Enoxaparin Sodium (Lovenox) 40 mg SC DAILY [facility] Last Admin: 08/22/16 10:34 Dose: 40 mg Famotidine (Pepcid) 20 mg IVP Q12 [facility] Last Admin: 08/22/16 21:52 Dose: Not Given Folic Acid (Folic Acid) 1 mg PO DAILY [facility] Last Admin: 08/22/16 10:34 Dose: 1 mg Sodium Chloride (Sodium Chloride 0.9%) 1,000 mls @ 100 mls/hr IV .Q10H [facility] Last Admin: 08/22/16 19:58 Dose: Not Given Meclizine HCl (Antivert) 12.5 mg PO TID PRN PRN Reason: Dizziness Last Admin: 08/22/16 16:44 Dose: 12.5 mg Mesalamine (Delzicol) 800 mg PO TID [facility] Last Admin: 08/22/16 18:06 Dose: 800 mg Metronidazole (Flagyl) 500 mg PO Q8 [facility] Last Admin: 08/22/16 21:52 Dose: 500 mg Oxycodone/Acetaminophen (Percocet 5/325 Mg Tab) 1 tab PO Q6H PRN PRN Reason: Pain, moderate (4-7) Stop: 08/25/16 13:27 Last Admin: 08/23/16 01:52 Dose: 1 tab Prednisone (Prednisone Tab) 10 mg PO BID [facility] Last Admin: 08/22/16 18:06 Dose: 10 mg Trimethoprim/Sulfamethoxazole (Bactrim Ds Tab) 1 tab PO BID [facility] Last Admin: 08/22/16 18:06 Dose: 1 tab Physical Exam - Head Exam Head Exam: ATRAUMATIC - Eye Exam Eye Exam: Normal appearance - ENT Exam ENT Exam: Mucous Membranes Dry - Respiratory Exam Respiratory Exam: NORMAL BREATHING PATTERN - Cardiovascular Exam Cardiovascular Exam: +S1, +S2 - GI/Abdominal Exam GI & Abdominal Exam: Normal Bowel Sounds - Extremities Exam Extremities exam: Positive for: normal inspection - Neurological Exam Neurological exam: Oriented x3 - Psychiatric Exam Psychiatric exam: Normal Affect, Normal Mood - Skin Skin Exam: Warm Results - Vital Signs Recent Vital Signs: Last Vital Signs Temp 97.3 F L 08/23/16 00:00 Pulse 71 08/23/16 00:00 Resp 20 08/23/16 00:00 BP 101/68 08/23/16 00:00 Pulse Ox 98 08/23/16 00:00 - Labs Result Diagrams: 08/22/16 10:53 07/06/17 10:53 Labs: Laboratory Results - last 24 hr 08/22/16 08/22/16 10:53 10:53 WBC 3.8 L RBC 3.51 L Hgb 10.2 L Hct 30.2 L MCV 86.1 MCH 29.0 MCHC 33.7 RDW 13.6 Plt Count 195 MPV 6.8 L Neut % (Auto) 55.8 Lymph % (Auto) 32.5 [place] % (Auto) 8.5 Eos % (Auto) 3.0 Baso % (Auto) 0.2 Neut # 2.1 Lymph # 1.2 [place] # 0.3 Eos # 0.1 Baso # 0.0 Sodium 124 L Potassium 3.1 L Chloride 92 L Carbon Dioxide 25 Anion Gap 10 BUN 10 Creatinine 0.5 L Est GFR ( Amer) > 60 Est GFR (Non-Af Amer) > 60 Random Glucose 134 H Calcium 7.2 L Total Bilirubin 0.6 AST 13 L D ALT 21 Alkaline Phosphatase 86 Total Protein 4.8 L Albumin 1.9 L Globulin 2.9 Albumin/Globulin Ratio 0.7 L Assessment & Plan (1) Anemia Assessment and Plan: will check ferritin, retic count, b12, folate likely chronic disease from colitis Status: Acute (2) Leukopenia Assessment and Plan: benign Status: Acute (3) Neoplasm of esophagus, malignant Assessment and Plan: likely cured Thank you for this interesting consult. Status: Chronic
[2016-08-23] MEDS: Sodium Chloride 0.9% 1,000 ML IV SCH ×2 (06:07→16:13)
--- NOTE | 2016-08-23 07:06 | CARD ---
APPROVED REPORT EKG Measurement Heart [id number] <Conclusion> Sinus tachycardia T wave abnormality, consider anterolateral ischemia Abnormal ECG
[2016-08-23 07:37] LABS: ALBUMIN 2.1 g/dL (3.5-5.0)
[2016-08-23 07:39] LABS: GFR AFRICAN-AMERICAN > 60; GFR NON-AFRICAN AMERICAN > 60
[2016-08-23 07:40] LABS: ALB/GLOB RATIO 0.7 (1.0-2.1); ALT/SGPT 18 U/L (9-52); AST/SGOT 16 U/L (14-36); BLOOD UREA NITROGEN 9 mg/dL (7-17); CALCIUM 7.8 mg/dl (8.6-10.4); MAGNESIUM 1.9 mg/dL (1.6-2.3)
--- NOTE | 2016-08-23 08:53 | CP.PCM.PN ---
Subjective - Date & Time of Evaluation Date of Evaluation: 08/23/16 Time of Evaluation: 08:00 - Subjective Subjective: PGY 3 Medicine Progress Note- Dr. Lupe Marquez's service: Patient seen and examined at bedside this AM. Patient reports feeling well. She has no abdominal pain, no nausea or vomiting. She denies chest pain, SOB, fevers or chills. Patient does report one big bloody BM today. This has never happened before per patient. No other complaints at this time. Objective - Vital Signs/Intake and Output Vital Signs (last 24 hours): Temp Pulse Resp BP Pulse Ox 97.3 F L 71 20 101/68 98 08/23/16 00:00 08/23/16 00:00 08/23/16 00:00 08/23/16 00:00 08/23/16 00:00 Intake and Output: 08/23/16 08/23/16 06:59 18:59 Intake Total 640 Balance 640 - Medications Medications: Current Medications Aspirin (Aspirin) 325 mg PO DAILY [facility] Last Admin: 08/22/16 10:34 Dose: 325 mg Enoxaparin Sodium (Lovenox) 40 mg SC DAILY [facility] Last Admin: 08/22/16 10:34 Dose: 40 mg Famotidine (Pepcid) 20 mg IVP Q12 [facility] Last Admin: 08/22/16 21:52 Dose: Not Given Folic Acid (Folic Acid) 1 mg PO DAILY [facility] Last Admin: 08/22/16 10:34 Dose: 1 mg Sodium Chloride (Sodium Chloride 0.9%) 1,000 mls @ 100 mls/hr IV .Q10H [facility] Last Admin: 08/23/16 06:07 Dose: Not Given Meclizine HCl (Antivert) 12.5 mg PO TID PRN PRN Reason: Dizziness Last Admin: 08/22/16 16:44 Dose: 12.5 mg Mesalamine (Delzicol) 800 mg PO TID [facility] Last Admin: 08/22/16 18:06 Dose: 800 mg Metronidazole (Flagyl) 500 mg PO Q8 [facility] Last Admin: 08/23/16 05:52 Dose: 500 mg Oxycodone/Acetaminophen (Percocet 5/325 Mg Tab) 1 tab PO Q6H PRN PRN Reason: Pain, moderate (4-7) Stop: 08/25/16 13:27 Last Admin: 08/23/16 01:52 Dose: 1 tab Prednisone (Prednisone Tab) 10 mg PO BID [facility] Last Admin: 08/22/16 18:06 Dose: 10 mg Trimethoprim/Sulfamethoxazole (Bactrim Ds Tab) 1 tab PO BID [facility] Last Admin: 08/22/16 18:06 Dose: 1 tab - Labs Labs: 08/22/16 10:53 08/23/16 06:49 - Constitutional Appears: No Acute Distress - Head Exam Head Exam: NORMAL INSPECTION, NORMOCEPHALIC - Eye Exam Eye Exam: EOMI - Respiratory Exam Respiratory Exam: NORMAL BREATHING PATTERN. absent: Rales, Rhonchi, Wheezes - Cardiovascular Exam Cardiovascular Exam: REGULAR RHYTHM, +S1, +S2 - Extremities Exam Extremities Exam: Full ROM. absent: Pedal Edema, Tenderness - Neurological Exam Neurological Exam: Alert, Awake - Psychiatric Exam Psychiatric exam: Normal Mood - Skin Skin Exam: Dry, Intact, Warm Assessment and Plan (1) Diarrhea Assessment & Plan: Likely secondary to ulcerative colitis. F/U stool culture, c diff, ova and parasite, stool occult blood, stool leukocytes IV fluids restarted today via new PICC Flagyl 500mg IVPB Q8H Status: Acute (2) Heme + stool Assessment & Plan: Patient had large bloody BM today Dr. Hallman made aware. Patient made NPO. Status: Acute (3) Anemia Assessment & Plan: Likely secondary to GI bleed and also chronic disease from colitis. F/U ferritin, retic count, b12, folate Status: Acute (4) Severe chronic ulcerative colitis Assessment & Plan: 08/09/16 colonoscopy - nonbleeding external internal hemorrhoids; congested mucosa in entire colon; five 4mm polyps; significant colonic spasm (please see full report) Pathology report showed active phase of IBD Mesalamine 800mg PO TID Prednisone 10mg PO BID Flagyn IVPB GI consult - Dr. Hallman - f/u recs Status: Acute (5) Abdominal pain Assessment & Plan: Likely exacerbation of severe UC. Plan as above Dailudid 1mg IVP Q4H PRN Status: Acute (6) Neoplasm of esophagus, malignant Assessment & Plan: Dr. Do consulted-helpa ppreciated s/p surgery and adjuvant chemotherapy and radiation in 2010 Status: Chronic (7) Hyponatremia Assessment & Plan: Impoved. 129 this AM. Continue NS IVF Status: Acute (8) UTI (urinary tract infection) Assessment & Plan: Start Rocephin IVPB f/u urine Cx for sensitivity Status: Acute (9) Leukopenia Assessment & Plan: As per Dr Do, likely benign Status: Acute (10) Prophylactic measure Assessment & Plan: Lovenox 40 SC on HOLD for GI bleed Start Protonix 40 IVP Q12H All management as per Dr. Marquez. Status: Acute
[2016-08-23] MEDS: Tmp-Smz 800 mg-160 mg DS Tab PO SCH ×2 (09:08→17:55)
[2016-08-23] MEDS: Enoxaparin 40 mg Syringe SC SCH (09:09)
[2016-08-23 10:02] LABS: BASO % 0.1 % (0.0-2.0); EOS % 1.3 % (0.0-4.0); HEMOGLOBIN 9.4 g/dL (11.0-16.0); LYMPH # 1.1 K/uL (1.0-4.3); LYMPH % 31.6 % (20.0-40.0); MEAN CELL VOLUME 86.7 fL (81.0-99.0); MEAN CORPUSCULAR HEMOGLOBIN 28.5 pg (27.0-31.0); MEAN CORPUSCULAR HGB CONC 32.9 g/dL (33.0-37.0); MEAN PLATELET VOLUME 7.1 fL (7.2-11.7); MONO # 0.2 K/uL (0.0-0.8); MONO % 4.7 % (0.0-10.0); NEUT # 2.1 K/uL (1.8-7.0); NEUT % 62.3 % (50.0-75.0); NRBC % 0.1 % (0.0-2.0); RBC 3.31 Mil/uL (3.80-5.20); RED CELL DISTRIBUTION WIDTH 13.5 % (11.5-14.5); WHITE BLOOD COUNT 3.4 K/uL (4.8-10.8)
--- NOTE | 2016-08-23 10:17 | RAD ---
HISTORY: verify right PICC COMPARISON: 12/30/2015. FINDINGS: LUNGS: No active pulmonary disease. PLEURA: No significant pleural effusion identified, no pneumothorax apparent. CARDIOVASCULAR: No radiographic findings to suggest acute or significant cardiovascular disease. PICC line in satisfactory position within 2 cm of the cavoatrial junction. OSSEOUS STRUCTURES: No significant abnormalities. VISUALIZED UPPER ABDOMEN: Normal. OTHER FINDINGS: Postoperative changes likely related to gastric pull-through with dilated stomach within the right jeb thorax. IMPRESSION: Satisfactory position of recently placed PICC line. No pneumothorax.
[2016-08-23 11:22] LABS: FECAL LEUKOCYTES NEGATIVE (NEGATIVE)
--- NOTE | 2016-08-23 13:08 | CP.PCM.PN ---
Subjective - Date & Time of Evaluation Date of Evaluation: 08/23/16 Time of Evaluation: 08:00 - Subjective Subjective: clinically same Objective - Vital Signs/Intake and Output Vital Signs (last 24 hours): Temp Pulse Resp BP Pulse Ox 98.9 F 89 20 100/63 96 08/23/16 09:10 08/23/16 09:10 08/23/16 09:10 08/23/16 09:10 08/23/16 09:10 Intake and Output: 08/23/16 08/23/16 06:59 18:59 Intake Total 640 Balance 640 - Medications Medications: Current Medications Aspirin (Aspirin) 325 mg PO DAILY [facility] Last Admin: 08/23/16 09:08 Dose: 325 mg Enoxaparin Sodium (Lovenox) 40 mg SC DAILY [facility] Last Admin: 08/23/16 09:09 Dose: 40 mg Famotidine (Pepcid) 20 mg IVP Q12 [facility] Last Admin: 08/23/16 09:08 Dose: 20 mg Folic Acid (Folic Acid) 1 mg PO DAILY [facility] Last Admin: 08/23/16 09:08 Dose: 1 mg Sodium Chloride (Sodium Chloride 0.9%) 1,000 mls @ 100 mls/hr IV .Q10H [facility] Last Admin: 08/23/16 06:07 Dose: Not Given Meclizine HCl (Antivert) 12.5 mg PO TID PRN PRN Reason: Dizziness Last Admin: 08/22/16 16:44 Dose: 12.5 mg Mesalamine (Delzicol) 800 mg PO TID [facility] Last Admin: 08/23/16 09:08 Dose: 800 mg Metronidazole (Flagyl) 500 mg PO Q8 [facility] Last Admin: 08/23/16 05:52 Dose: 500 mg Oxycodone/Acetaminophen (Percocet 5/325 Mg Tab) 1 tab PO Q6H PRN PRN Reason: Pain, moderate (4-7) Stop: 08/25/16 13:27 Last Admin: 08/23/16 09:09 Dose: 1 tab Prednisone (Prednisone Tab) 10 mg PO BID [facility] Last Admin: 08/23/16 09:08 Dose: 10 mg Trimethoprim/Sulfamethoxazole (Bactrim Ds Tab) 1 tab PO BID [facility] Last Admin: 08/23/16 09:08 Dose: 1 tab - Labs Labs: 08/23/16 09:52 08/23/16 06:49 - Constitutional Appears: Well - Head Exam Head Exam: ATRAUMATIC, NORMAL INSPECTION, NORMOCEPHALIC - Eye Exam Eye Exam: EOMI, Normal appearance, PERRL Pupil Exam: NORMAL ACCOMODATION, PERRL - ENT Exam ENT Exam: Mucous Membranes Moist, Normal Exam - Neck Exam Neck Exam: Full ROM, Normal Inspection. absent: Lymphadenopathy - Respiratory Exam Respiratory Exam: Decreased Breath Sounds - Cardiovascular Exam Cardiovascular Exam: REGULAR RHYTHM, +S1, +S2 - GI/Abdominal Exam GI & Abdominal Exam: Soft, Diminished Bowel Sounds - Rectal Exam Rectal Exam: Deferred
[2016-08-23] MEDS: HYDROmorphone 1 mg/ml ISec IVP PRN (14:48)
[2016-08-23 15:53] LABS: C DIFF TOXIN A B NEGATIVE (NEGATIVE)
[2016-08-24] MEDS: HYDROmorphone 1 mg/ml ISec IVP PRN ×2 (00:37→09:39)
[2016-08-24] MEDS: Sodium Chloride 0.9% 1,000 ML IV SCH ×4 (02:45→22:52)
[2016-08-24 08:20] LABS: BASO % 0.1 % (0.0-2.0); EOS % 0.7 % (0.0-4.0); HEMOGLOBIN 9.8 g/dL (11.0-16.0); LYMPH # 1.6 K/uL (1.0-4.3); LYMPH % 25.9 % (20.0-40.0); MEAN CELL VOLUME 86.5 fL (81.0-99.0); MEAN CORPUSCULAR HEMOGLOBIN 28.7 pg (27.0-31.0); MEAN CORPUSCULAR HGB CONC 33.2 g/dL (33.0-37.0); MEAN PLATELET VOLUME 7.2 fL (7.2-11.7); MONO # 0.2 K/uL (0.0-0.8); MONO % 2.8 % (0.0-10.0); NEUT # 4.4 K/uL (1.8-7.0); NEUT % 70.5 % (50.0-75.0); RBC 3.41 Mil/uL (3.80-5.20); RED CELL DISTRIBUTION WIDTH 13.7 % (11.5-14.5)
[2016-08-24 08:24] LABS: ALBUMIN 1.9 g/dL (3.5-5.0); WHITE BLOOD COUNT 6.2 K/uL (4.8-10.8)
[2016-08-24 08:27] LABS: AST/SGOT 12 U/L (14-36); GFR AFRICAN-AMERICAN > 60; GFR NON-AFRICAN AMERICAN > 60
[2016-08-24 08:28] LABS: ALB/GLOB RATIO 0.7 (1.0-2.1); ALT/SGPT 22 U/L (9-52); BLOOD UREA NITROGEN 5 mg/dL (7-17); CALCIUM 7.3 mg/dl (8.6-10.4); MAGNESIUM 1.7 mg/dL (1.6-2.3)
[2016-08-24] MEDS ORDERED: methylPREDNISolone 40 MG in Sodium Chloride 0.9% 100 ML IVPB SCH (08:30)
[2016-08-24] MEDS: MethylPREDNISolone 40 mg Vial IV SCH ×2 (09:38→18:00)
[2016-08-24] MEDS: cefTRIAXone IV 1 gm in Dextros 50 ML IVPB SCH (10:36)
[2016-08-24] MEDS: metroNIDAZOLE IV 500 mg/100 ml 500 MG/100 ML BAG IVPB SCH ×2 (13:21→22:01)
--- NOTE | 2016-08-24 14:20 | CP.PCM.PN ---
Subjective - Date & Time of Evaluation Date of Evaluation: 08/24/16 Time of Evaluation: 07:40 - Subjective Subjective: clinically same Objective - Vital Signs/Intake and Output Vital Signs (last 24 hours): Temp Pulse Resp BP Pulse Ox 98.7 F 89 20 102/61 95 08/23/16 23:20 08/23/16 23:20 08/23/16 23:20 08/24/16 00:35 08/23/16 23:20 Intake and Output: 08/24/16 08/24/16 06:59 18:59 Intake Total 1600 Balance 1600 - Medications Medications: Current Medications Aspirin (Aspirin) 325 mg PO DAILY [facility] Last Admin: 08/23/16 09:08 Dose: 325 mg Enoxaparin Sodium (Lovenox) 40 mg SC DAILY [facility] Last Admin: 08/23/16 09:09 Dose: 40 mg Folic Acid (Folic Acid) 1 mg PO DAILY [facility] Last Admin: 08/24/16 09:39 Dose: 1 mg Hydromorphone HCl (Dilaudid) 1 mg IVP Q8 PRN PRN Reason: Pain, severe (8-10) Last Admin: 08/24/16 09:39 Dose: 1 mg Sodium Chloride (Sodium Chloride 0.9%) 1,000 mls @ 100 mls/hr IV .Q10H [facility] Last Admin: 08/24/16 12:15 Dose: Not Given Ceftriaxone Sodium (Rocephin Iv 1 Gm Duplex) 50 mls @ 100 mls/hr IVPB DAILY [facility] Last Admin: 08/24/16 10:36 Dose: 100 mls/hr Metronidazole (Flagyl) 500 mg in 100 mls @ 100 mls/hr IVPB Q8 [facility] Last Admin: 08/24/16 13:21 Dose: 100 mls/hr Meclizine HCl (Antivert) 12.5 mg PO TID PRN PRN Reason: Dizziness Last Admin: 08/22/16 16:44 Dose: 12.5 mg Mesalamine (Delzicol) 800 mg PO TID [facility] Last Admin: 08/24/16 13:21 Dose: 800 mg Methylprednisolone (Solu-Medrol) 40 mg IV Q8H [facility] Stop: 08/26/16 09:01 Last Admin: 08/24/16 09:38 Dose: 40 mg Oxycodone/Acetaminophen (Percocet 5/325 Mg Tab) 1 tab PO Q6H PRN PRN Reason: Pain, moderate (4-7) Stop: 08/25/16 13:27 Last Admin: 08/23/16 09:09 Dose: 1 tab Pantoprazole Sodium (Protonix Inj) 40 mg IVP DAILY [facility] Last Admin: 08/24/16 09:38 Dose: 40 mg Sucralfate (Carafate Oral Susp) 1 gm PO ACBHS [place] - Labs Labs: 08/24/16 08:08 08/24/16 08:08 - Constitutional Appears: Well - Head Exam Head Exam: ATRAUMATIC, NORMAL INSPECTION, NORMOCEPHALIC - Eye Exam Eye Exam: EOMI, Normal appearance, PERRL Pupil Exam: NORMAL ACCOMODATION, PERRL - ENT Exam ENT Exam: Mucous Membranes Moist, Normal Exam - Neck Exam Neck Exam: Full ROM, Normal Inspection. absent: Lymphadenopathy - Respiratory Exam Respiratory Exam: Decreased Breath Sounds - Cardiovascular Exam Cardiovascular Exam: REGULAR RHYTHM, +S1, +S2 - GI/Abdominal Exam GI & Abdominal Exam: Soft, Diminished Bowel Sounds - Rectal Exam Rectal Exam: Deferred
[2016-08-24 17:31] LABS: INR 1.4
[2016-08-24] MEDS ORDERED: Sodium Chloride 0.9% 500 ML IV ONE (18:30)
[2016-08-24 20:43] LABS: VENOUS BLOOD GAS BASE EXCESS -1.3 mmol/L (0.0-2.0); VENOUS BLOOD GAS PCO2 35 mmHg (40-60); VENOUS BLOOD GAS PO2 34 mm/Hg (30-55); VENOUS BLOOD PH 7.42 (7.32-7.43)
[2016-08-24 21:06] LABS: BASO % 0.1 % (0.0-2.0); HEMOGLOBIN 8.6 g/dL (11.0-16.0); LYMPH # 0.6 K/uL (1.0-4.3); MEAN CELL VOLUME 86.7 fL (81.0-99.0); MEAN CORPUSCULAR HEMOGLOBIN 27.9 pg (27.0-31.0); MEAN CORPUSCULAR HGB CONC 32.2 g/dL (33.0-37.0); MONO # 0.1 K/uL (0.0-0.8); MONO % 2.9 % (0.0-10.0); NEUT # 3.4 K/uL (1.8-7.0); RBC 3.07 Mil/uL (3.80-5.20); RED CELL DISTRIBUTION WIDTH 13.7 % (11.5-14.5); WHITE BLOOD COUNT 4.2 K/uL (4.8-10.8)
[2016-08-24 21:15] LABS: ALBUMIN 1.7 g/dL (3.5-5.0)
[2016-08-24 21:17] LABS: GFR AFRICAN-AMERICAN > 60; GFR NON-AFRICAN AMERICAN > 60
[2016-08-24 21:18] LABS: ALB/GLOB RATIO 0.6 (1.0-2.1); ALT/SGPT 28 U/L (9-52); AST/SGOT 9 U/L (14-36); BLOOD UREA NITROGEN 5 mg/dL (7-17); CALCIUM 6.5 mg/dl (8.6-10.4)
[2016-08-24] MEDS: Sucralfate 1 gm/10 ml Oral Susp UD PO SCH (22:04)
--- NOTE | 2016-08-24 23:39 | CP.PCM.CON ---
History of Present Illness - History of Present Illness History of Present Illness: 71 f with h/o esophageal ca s/p resection, stomach pull up surg, recent diagnosis of colitis suggestive of UC, was started on prednisone, readmitted to the hospital with worsening of diarrhea and colitis on iv steroid, meslamine, abx. ICU eval called for todays episodes of bloody BM and lower side BP. Patient feeling weak progressively, c/o llq and suprapubic area pain related with BM. Hgb from admission 12 to 8.6. Denies sob, chest pain. Admits weight loss of 10 lbs in last month. Low albumin in labs suggest prolonged malnutrition. No fever noticed. Past medical history: Esophageal cancer Past surgical history: Partial esophagectomy, bowel resection Family history: Denies hematologic and oncologic problems Social history: Former tobacco abuse Allergies: NKA Review of Systems - Review of Systems All systems: reviewed and no additional remarkable complaints except (HPI) Past Patient History - Past Medical History & Family History Past Medical History?: Yes - Past Social History Smoking Status: Former Smoker - CARDIAC Hx Cardiac Disorders: No - PULMONARY Hx Respiratory Disorders: No - NEUROLOGICAL Hx Neurological Disorder: No - HEENT Hx HEENT Problems: Yes Hx Difficulty Chewing: Yes Other/Comment: DYSPHAGIA RELATED TO EXTENSIVE ESOPHAGEAL CANCER SX AND "TUBE" IN PLACE OF ESOPHAGUS - RENAL Hx Chronic Kidney Disease: No - ENDOCRINE/METABOLIC Hx Endocrine Disorders: No - HEMATOLOGICAL/ONCOLOGICAL Hx Blood Disorders: Yes Hx Blood Transfusions: Yes Hx Cancer: Yes (ESOPHAGEAL) - INTEGUMENTARY Hx Dermatological Problems: No - MUSCULOSKELETAL/RHEUMATOLOGICAL Hx Arthritis: Yes (BACK, KNEES) - GASTROINTESTINAL Hx Gastrointestinal Disorders: Yes Hx Colitis: Yes Hx Gastroesophageal Reflux: Yes HX Swallowing Problems: Yes Other/Comment: ESOPHAGEAL CANCER - GENITOURINARY/GYNECOLOGICAL Hx Genitourinary Disorders: No - PSYCHIATRIC Hx Substance Use: No - SURGICAL HISTORY Hx Appendectomy: Yes - ANESTHESIA Hx Anesthesia: Yes Hx Anesthesia Reactions: No Hx Malignant Hyperthermia: No Meds Allergies/Adverse Reactions: Allergies Allergy/AdvReac Type Severity Reaction Status Date / Time No Known Allergies Allergy Verified 08/21/16 12:23 - Medications Medications: Current Medications Aspirin (Aspirin) 325 mg PO DAILY [facility] Last Admin: 08/23/16 09:08 Dose: 325 mg Enoxaparin Sodium (Lovenox) 40 mg SC DAILY [facility] Last Admin: 08/23/16 09:09 Dose: 40 mg Folic Acid (Folic Acid) 1 mg PO DAILY [facility] Last Admin: 08/24/16 09:39 Dose: 1 mg Sodium Chloride (Sodium Chloride 0.9%) 1,000 mls @ 100 mls/hr IV .Q10H [facility] Last Admin: 08/24/16 22:52 Dose: Not Given Ceftriaxone Sodium (Rocephin Iv 1 Gm Duplex) 50 mls @ 100 mls/hr IVPB DAILY [facility] Last Admin: 08/24/16 10:36 Dose: 100 mls/hr Metronidazole (Flagyl) 500 mg in 100 mls @ 100 mls/hr IVPB Q8 [facility] Last Admin: 08/24/16 22:01 Dose: 100 mls/hr Meclizine HCl (Antivert) 12.5 mg PO TID PRN PRN Reason: Dizziness Last Admin: 08/22/16 16:44 Dose: 12.5 mg Mesalamine (Delzicol) 800 mg PO TID [facility] Last Admin: 08/24/16 18:10 Dose: 800 mg Methylprednisolone (Solu-Medrol) 40 mg IV Q8H [facility] Stop: 08/26/16 09:01 Last Admin: 08/24/16 18:00 Dose: 40 mg Oxycodone/Acetaminophen (Percocet 5/325 Mg Tab) 1 tab PO Q6H PRN PRN Reason: Pain, moderate (4-7) Stop: 08/25/16 13:27 Last Admin: 08/23/16 09:09 Dose: 1 tab Pantoprazole Sodium (Protonix Inj) 40 mg IVP DAILY [facility] Last Admin: 08/24/16 09:38 Dose: 40 mg Sucralfate (Carafate Oral Susp) 1 gm PO ACBHS [facility] Last Admin: 08/24/16 22:04 Dose: 1 gm Physical Exam - Additional Findings Additional findings: * HEENT CARRIE * Neck supple * chest Clear * CVS Regular, no gallop no rub, no tachycardia * PA soft, mild suprapubic and LLQ abd tenderness * Ext no edema * Skin dry reduced turgor * [employer] awake oriented x3 no fnd * Results - Vital Signs Recent Vital Signs: Last Vital Signs Temp 98.6 F 08/24/16 15:13 Pulse 85 08/24/16 15:13 Resp 20 08/24/16 15:13 BP 90/56 L 08/24/16 15:13 Pulse Ox 95 08/24/16 15:13 - Labs Result Diagrams: 08/24/16 20:58 08/24/16 20:58 Labs: Laboratory Results - last 24 hr 08/24/16 08/24/16 08/24/16 07:42 08:08 08:08 WBC 6.2 D RBC 3.41 L Hgb 9.8 L Hct 29.5 L MCV 86.5 MCH 28.7 MCHC 33.2 RDW 13.7 Plt Count 246 MPV 7.2 Neut % (Auto) 70.5 Lymph % (Auto) 25.9 [place] % (Auto) 2.8 Eos % (Auto) 0.7 Baso % (Auto) 0.1 Neut # 4.4 Lymph # 1.6 [place] # 0.2 Eos # 0.0 Baso # 0.0 PT INR APTT pO2 VBG pH VBG pCO2 VBG HCO3 VBG Total CO2 VBG O2 Sat (Calc) VBG Base Excess VBG Potassium Glucose Lactate Sodium 127 L Potassium 4.0 Chloride 98 Carbon Dioxide 23 Anion Gap 10 BUN 5 L Creatinine 0.5 L Est GFR ( Amer) > 60 Est GFR (Non-Af Amer) > 60 POC Glucose (mg/dL) 87 Random Glucose 75 Calcium 7.3 L Magnesium 1.7 Total Bilirubin 0.4 AST 12 L D ALT 22 Alkaline Phosphatase 77 Total Protein 4.6 L Albumin 1.9 L Globulin 2.7 Albumin/Globulin Ratio 0.7 L Carcinoembryonic Ag CA 125 Antigen Venous Blood Potassium 08/24/16 08/24/16 08/24/16 10:01 11:50 16:38 WBC RBC Hgb Hct MCV MCH MCHC RDW Plt Count MPV Neut % (Auto) Lymph % (Auto) [place] % (Auto) Eos % (Auto) Baso % (Auto) Neut # Lymph # [place] # Eos # Baso # PT INR APTT pO2 VBG pH VBG pCO2 VBG HCO3 VBG Total CO2 VBG O2 Sat (Calc) VBG Base Excess VBG Potassium Glucose Lactate Sodium Potassium Chloride Carbon Dioxide Anion Gap BUN Creatinine Est GFR ( Amer) Est GFR (Non-Af Amer) POC Glucose (mg/dL) 80 107 Random Glucose Calcium Magnesium Total Bilirubin AST ALT Alkaline Phosphatase Total Protein Albumin Globulin Albumin/Globulin Ratio Carcinoembryonic Ag 6.6 H CA 125 Antigen 43.9 H D Venous Blood Potassium 08/24/16 08/24/16 08/24/16 17:16 20:38 20:58 WBC 4.2 L RBC 3.07 L Hgb 8.6 L Hct 26.6 L MCV 86.7 MCH 27.9 MCHC 32.2 L RDW 13.7 Plt Count 221 MPV 7.0 L Neut % (Auto) 82.0 H Lymph % (Auto) 15.0 L [place] % (Auto) 2.9 Eos % (Auto) 0.0 Baso % (Auto) 0.1 Neut # 3.4 Lymph # 0.6 L [place] # 0.1 Eos # 0.0 Baso # 0.0 PT 16.0 H INR 1.4 APTT 30 pO2 34 VBG pH 7.42 VBG pCO2 35 L VBG HCO3 23.1 VBG Total CO2 23.8 VBG O2 Sat (Calc) 71.0 H VBG Base Excess -1.3 L VBG Potassium 3.8 Glucose 93 Lactate 0.6 L Sodium 132.0 Potassium Chloride 102.0 Carbon Dioxide Anion Gap BUN Creatinine Est GFR ( Amer) Est GFR (Non-Af Amer) POC Glucose (mg/dL) Random Glucose Calcium Magnesium Total Bilirubin AST ALT Alkaline Phosphatase Total Protein Albumin Globulin Albumin/Globulin Ratio Carcinoembryonic Ag CA 125 Antigen Venous Blood Potassium 3.8 08/24/16 08/24/16 20:58 21:46 WBC RBC Hgb Hct MCV MCH MCHC RDW Plt Count MPV Neut % (Auto) Lymph % (Auto) [place] % (Auto) Eos % (Auto) Baso % (Auto) Neut # Lymph # [place] # Eos # Baso # PT INR APTT pO2 VBG pH VBG pCO2 VBG HCO3 VBG Total CO2 VBG O2 Sat (Calc) VBG Base Excess VBG Potassium Glucose Lactate Sodium 130 L Potassium 3.6 Chloride 101 Carbon Dioxide 20 L Anion Gap 13 BUN 5 L Creatinine 0.5 L Est GFR ( Amer) > 60 Est GFR (Non-Af Amer) > 60 POC Glucose (mg/dL) 105 Random Glucose 85 Calcium 6.5 L Magnesium Total Bilirubin 0.4 AST 9 L D ALT 28 Alkaline Phosphatase 62 Total Protein 4.4 L Albumin 1.7 L Globulin 2.7 Albumin/Globulin Ratio 0.6 L Carcinoembryonic Ag CA 125 Antigen Venous Blood Potassium Assessment & Plan - Assessment and Plan (Free Text) Assessment: * Inflammatory colitis DD of infectious, repeat CT ordered by primary team * Recent secondary weight loss and drop in hemoglobin * Low albumin suggesting prolonged malnutrition * Hyponatremia likely from diarrhea. Plan: * IVF replacement + maintenance * Empiric ABX * Continue steroid/meslamine * PRBC as pt malnourished and clinically symptomatic * Currently can be observed on the medical floor.
[2016-08-25] MEDS: MethylPREDNISolone 40 mg Vial IV SCH ×3 (00:31→16:28)
[2016-08-25] MEDS: metroNIDAZOLE IV 500 mg/100 ml 500 MG/100 ML BAG IVPB SCH ×3 (05:43→22:11)
[2016-08-25] MEDS: Sodium Chloride 0.9% 1,000 ML IV SCH (07:52)
[2016-08-25] MEDS ORDERED: Phytonadione 10 mg/ml Inj (Adult) SC STA (07:54)
[2016-08-25] MEDS ORDERED: Iodixanol 320 mg/ml 150 ml Bottle IV ONE (08:15)
[2016-08-25] MEDS: Sucralfate 1 gm/10 ml Oral Susp UD PO SCH ×2 (08:19→22:12)
[2016-08-25] MEDS ORDERED: Iohexol 240 (50 ml) PO ONE (09:00)
[2016-08-25] MEDS: cefTRIAXone IV 1 gm in Dextros 50 ML IVPB SCH (09:20)
[2016-08-25] MEDS: Pantoprazole 40 mg EC Tab PO SCH (09:20)
[2016-08-25] MEDS ORDERED: Albumin Human 25% (12.5 gm/50 ml) IV SCH (10:00)
[2016-08-25 10:31] LABS: BASO % 0.3 % (0.0-2.0); HEMOGLOBIN 10.4 g/dL (11.0-16.0); LYMPH # 0.8 K/uL (1.0-4.3); LYMPH % 17.9 % (20.0-40.0); MEAN CELL VOLUME 87.3 fL (81.0-99.0); MEAN CORPUSCULAR HEMOGLOBIN 28.4 pg (27.0-31.0); MEAN CORPUSCULAR HGB CONC 32.6 g/dL (33.0-37.0); MONO # 0.2 K/uL (0.0-0.8); MONO % 4.8 % (0.0-10.0); NEUT # 3.3 K/uL (1.8-7.0); NRBC % 0.1 % (0.0-2.0); RBC 3.65 Mil/uL (3.80-5.20); RED CELL DISTRIBUTION WIDTH 13.9 % (11.5-14.5); WHITE BLOOD COUNT 4.2 K/uL (4.8-10.8)
[2016-08-25 10:50] LABS: ALB/GLOB RATIO 0.7 (1.0-2.1); AST/SGOT 11 U/L (14-36); BLOOD UREA NITROGEN 6 mg/dL (7-17); GFR AFRICAN-AMERICAN > 60; GFR NON-AFRICAN AMERICAN > 60
[2016-08-25 10:51] LABS: ALT/SGPT 32 U/L (9-52); CALCIUM 7.5 mg/dl (8.6-10.4); MAGNESIUM 1.8 mg/dL (1.6-2.3)
[2016-08-25] MEDS: Potassium Chloride 20 mEq ER Tab PO SCH (12:39)
--- NOTE | 2016-08-25 12:46 | CP.PCM.PN ---
Subjective - Date & Time of Evaluation Date of Evaluation: 08/23/16 Time of Evaluation: 13:00 - Subjective Subjective: Has stomach pains. Objective - Vital Signs/Intake and Output Vital Signs (last 24 hours): Temp Pulse Resp BP Pulse Ox 97.6 F 83 20 92/54 L 96 08/25/16 08:00 08/25/16 08:00 08/25/16 08:00 08/25/16 08:00 08/25/16 08:00 Intake and Output: 08/25/16 08/25/16 06:59 18:59 Intake Total 2300 Balance 2300 - Medications Medications: Current Medications Aspirin (Aspirin) 325 mg PO DAILY [facility] Last Admin: 08/23/16 09:08 Dose: 325 mg Enoxaparin Sodium (Lovenox) 40 mg SC DAILY [facility] Last Admin: 08/23/16 09:09 Dose: 40 mg Folic Acid (Folic Acid) 1 mg PO DAILY [facility] Last Admin: 08/25/16 09:20 Dose: 1 mg Ceftriaxone Sodium (Rocephin Iv 1 Gm Duplex) 50 mls @ 100 mls/hr IVPB DAILY [facility] Last Admin: 08/25/16 09:20 Dose: 100 mls/hr Metronidazole (Flagyl) 500 mg in 100 mls @ 100 mls/hr IVPB Q8 [facility] Last Admin: 08/25/16 05:43 Dose: 100 mls/hr Albumin Human (Albumin Human 25% (12.5 Gm/50 Ml)) 50 mls @ 100 mls/hr IV Q12H [facility] Stop: 08/27/16 22:29 Last Admin: 08/25/16 09:00 Dose: 100 mls/hr Meclizine HCl (Antivert) 12.5 mg PO TID PRN PRN Reason: Dizziness Last Admin: 08/22/16 16:44 Dose: 12.5 mg Mesalamine (Delzicol) 800 mg PO TID [facility] Last Admin: 08/25/16 09:19 Dose: 800 mg Methylprednisolone (Solu-Medrol) 40 mg IV Q8H [facility] Stop: 08/26/16 09:01 Last Admin: 08/25/16 09:20 Dose: 40 mg Oxycodone/Acetaminophen (Percocet 5/325 Mg Tab) 1 tab PO Q6H PRN PRN Reason: Pain, moderate (4-7) Stop: 08/25/16 13:27 Last Admin: 08/23/16 09:09 Dose: 1 tab Pantoprazole Sodium (Protonix Ec Tab) 40 mg PO DAILY [facility] Last Admin: 08/25/16 09:20 Dose: 40 mg Potassium Chloride (K-Dur 20 Meq Er Tab) 40 meq PO DAILY [facility] Last Admin: 08/25/16 12:39 Dose: 40 meq Sucralfate (Carafate Oral Susp) 1 gm PO ACBHS [facility] Last Admin: 08/25/16 08:19 Dose: 1 gm - Labs Labs: 08/25/16 10:19 08/25/16 10:19 PT 16.0 SECONDS (9.7-12.2) H 08/24/16 17:16 INR 1.4 08/24/16 17:16 APTT 30 SECONDS (21-34) 08/24/16 17:16 - Head Exam Head Exam: ATRAUMATIC - Eye Exam Eye Exam: Normal appearance - ENT Exam ENT Exam: Mucous Membranes Dry - Respiratory Exam Respiratory Exam: NORMAL BREATHING PATTERN - Cardiovascular Exam Cardiovascular Exam: +S1, +S2 - GI/Abdominal Exam GI & Abdominal Exam: Normal Bowel Sounds - Extremities Exam Extremities Exam: Normal Inspection - Neurological Exam Neurological Exam: Oriented x3 Assessment and Plan (1) Anemia Assessment & Plan: chronic disease Status: Acute (2) Leukopenia Assessment & Plan: benign Status: Acute (3) Neoplasm of esophagus, malignant Assessment & Plan: likely cured Status: Chronic
--- NOTE | 2016-08-25 12:47 | CP.PCM.PN ---
Subjective - Date & Time of Evaluation Date of Evaluation: 08/24/16 Time of Evaluation: 15:00 - Subjective Subjective: Has some stomach pain but feeling better Objective - Vital Signs/Intake and Output Vital Signs (last 24 hours): Temp Pulse Resp BP Pulse Ox 97.6 F 83 20 92/54 L 96 08/25/16 08:00 08/25/16 08:00 08/25/16 08:00 08/25/16 08:00 08/25/16 08:00 Intake and Output: 08/25/16 08/25/16 06:59 18:59 Intake Total 2300 Balance 2300 - Medications Medications: Current Medications Aspirin (Aspirin) 325 mg PO DAILY [facility] Last Admin: 08/23/16 09:08 Dose: 325 mg Enoxaparin Sodium (Lovenox) 40 mg SC DAILY [facility] Last Admin: 08/23/16 09:09 Dose: 40 mg Folic Acid (Folic Acid) 1 mg PO DAILY [facility] Last Admin: 08/25/16 09:20 Dose: 1 mg Ceftriaxone Sodium (Rocephin Iv 1 Gm Duplex) 50 mls @ 100 mls/hr IVPB DAILY [facility] Last Admin: 08/25/16 09:20 Dose: 100 mls/hr Metronidazole (Flagyl) 500 mg in 100 mls @ 100 mls/hr IVPB Q8 [facility] Last Admin: 08/25/16 05:43 Dose: 100 mls/hr Albumin Human (Albumin Human 25% (12.5 Gm/50 Ml)) 50 mls @ 100 mls/hr IV Q12H [facility] Stop: 08/27/16 22:29 Last Admin: 08/25/16 09:00 Dose: 100 mls/hr Meclizine HCl (Antivert) 12.5 mg PO TID PRN PRN Reason: Dizziness Last Admin: 08/22/16 16:44 Dose: 12.5 mg Mesalamine (Delzicol) 800 mg PO TID [facility] Last Admin: 08/25/16 09:19 Dose: 800 mg Methylprednisolone (Solu-Medrol) 40 mg IV Q8H [facility] Stop: 08/26/16 09:01 Last Admin: 08/25/16 09:20 Dose: 40 mg Oxycodone/Acetaminophen (Percocet 5/325 Mg Tab) 1 tab PO Q6H PRN PRN Reason: Pain, moderate (4-7) Stop: 08/25/16 13:27 Last Admin: 08/23/16 09:09 Dose: 1 tab Pantoprazole Sodium (Protonix Ec Tab) 40 mg PO DAILY [facility] Last Admin: 08/25/16 09:20 Dose: 40 mg Potassium Chloride (K-Dur 20 Meq Er Tab) 40 meq PO DAILY [facility] Last Admin: 08/25/16 12:39 Dose: 40 meq Sucralfate (Carafate Oral Susp) 1 gm PO ACBHS [facility] Last Admin: 08/25/16 08:19 Dose: 1 gm - Labs Labs: 08/25/16 10:19 08/25/16 10:19 PT 16.0 SECONDS (9.7-12.2) H 08/24/16 17:16 INR 1.4 08/24/16 17:16 APTT 30 SECONDS (21-34) 08/24/16 17:16 - Head Exam Head Exam: ATRAUMATIC - Eye Exam Eye Exam: Normal appearance - ENT Exam ENT Exam: Mucous Membranes Dry - Respiratory Exam Respiratory Exam: NORMAL BREATHING PATTERN - Cardiovascular Exam Cardiovascular Exam: +S1, +S2 - GI/Abdominal Exam GI & Abdominal Exam: Normal Bowel Sounds - Extremities Exam Extremities Exam: Normal Inspection Assessment and Plan (1) Anemia Assessment & Plan: chronic disease Status: Acute (2) Leukopenia Assessment & Plan: benign Status: Acute (3) Neoplasm of esophagus, malignant Assessment & Plan: likely cured Status: Chronic
[2016-08-25] MEDS ORDERED: Potassium Chloride 20 mEq ER Tab PO SCH (15:00)
--- NOTE | 2016-08-25 20:51 | CP.PCM.PN ---
Subjective - Date & Time of Evaluation Date of Evaluation: 08/25/16 Time of Evaluation: 07:40 - Subjective Subjective: clinically same Objective - Vital Signs/Intake and Output Vital Signs (last 24 hours): Temp Pulse Resp BP Pulse Ox 97.8 F 86 20 117/71 95 08/25/16 16:00 08/25/16 16:00 08/25/16 16:00 08/25/16 16:00 08/25/16 16:00 Intake and Output: 08/25/16 08/26/16 18:59 06:59 Intake Total 1000 Balance 1000 - Medications Medications: Current Medications Aspirin (Aspirin) 325 mg PO DAILY [facility] Last Admin: 08/23/16 09:08 Dose: 325 mg Enoxaparin Sodium (Lovenox) 40 mg SC DAILY [facility] Last Admin: 08/23/16 09:09 Dose: 40 mg Folic Acid (Folic Acid) 1 mg PO DAILY [facility] Last Admin: 08/25/16 09:20 Dose: 1 mg Ceftriaxone Sodium (Rocephin Iv 1 Gm Duplex) 50 mls @ 100 mls/hr IVPB DAILY [facility] Last Admin: 08/25/16 09:20 Dose: 100 mls/hr Metronidazole (Flagyl) 500 mg in 100 mls @ 100 mls/hr IVPB Q8 [facility] Last Admin: 08/25/16 13:54 Dose: 100 mls/hr Albumin Human (Albumin Human 25% (12.5 Gm/50 Ml)) 50 mls @ 100 mls/hr IV Q12H [facility] Stop: 08/27/16 22:29 Last Admin: 08/25/16 09:00 Dose: 100 mls/hr Meclizine HCl (Antivert) 12.5 mg PO TID PRN PRN Reason: Dizziness Last Admin: 08/22/16 16:44 Dose: 12.5 mg Mesalamine (Delzicol) 800 mg PO TID [facility] Last Admin: 08/25/16 17:39 Dose: 800 mg Methylprednisolone (Solu-Medrol) 40 mg IV Q8H [facility] Stop: 08/26/16 09:01 Last Admin: 08/25/16 16:28 Dose: 40 mg Morphine Sulfate (Morphine) 2 mg IVP Q8 PRN PRN Reason: Pain, moderate (4-7) Last Admin: 08/25/16 17:39 Dose: 2 mg Pantoprazole Sodium (Protonix Ec Tab) 40 mg PO DAILY [facility] Last Admin: 08/25/16 09:20 Dose: 40 mg Potassium Chloride (K-Dur 20 Meq Er Tab) 40 meq PO DAILY [facility] Last Admin: 08/25/16 12:39 Dose: 40 meq Potassium Chloride (K-Dur 20 Meq Er Tab) 40 meq PO BRK [facility] Last Admin: 08/25/16 15:23 Dose: Not Given Sucralfate (Carafate Oral Susp) 1 gm PO ACBHS [facility] Last Admin: 08/25/16 08:19 Dose: 1 gm - Labs Labs: 08/25/16 10:19 08/25/16 10:19 PT 16.0 SECONDS (9.7-12.2) H 08/24/16 17:16 INR 1.4 08/24/16 17:16 APTT 30 SECONDS (21-34) 08/24/16 17:16 - Constitutional Appears: Well - Head Exam Head Exam: ATRAUMATIC, NORMAL INSPECTION, NORMOCEPHALIC - Eye Exam Eye Exam: EOMI, Normal appearance, PERRL Pupil Exam: NORMAL ACCOMODATION, PERRL - ENT Exam ENT Exam: Mucous Membranes Moist, Normal Exam - Neck Exam Neck Exam: Full ROM, Normal Inspection. absent: Lymphadenopathy - Respiratory Exam Respiratory Exam: Decreased Breath Sounds - Cardiovascular Exam Cardiovascular Exam: REGULAR RHYTHM, +S1, +S2 - GI/Abdominal Exam GI & Abdominal Exam: Soft, Diminished Bowel Sounds - Rectal Exam Rectal Exam: Deferred
--- NOTE | 2016-08-26 00:37 | CP.PCM.PN ---
Subjective - Date & Time of Evaluation Date of Evaluation: 08/25/16 Time of Evaluation: 14:00 - Subjective Subjective: Has stomach pain Objective - Vital Signs/Intake and Output Vital Signs (last 24 hours): Temp Pulse Resp BP Pulse Ox 97.8 F 86 20 117/71 95 08/25/16 16:00 08/25/16 16:00 08/25/16 16:00 08/25/16 16:00 08/25/16 16:00 Intake and Output: 08/25/16 08/26/16 18:59 06:59 Intake Total 1000 Balance 1000 - Medications Medications: Current Medications Aspirin (Aspirin) 325 mg PO DAILY [facility] Last Admin: 08/23/16 09:08 Dose: 325 mg Enoxaparin Sodium (Lovenox) 40 mg SC DAILY [facility] Last Admin: 08/23/16 09:09 Dose: 40 mg Folic Acid (Folic Acid) 1 mg PO DAILY [facility] Last Admin: 08/25/16 09:20 Dose: 1 mg Ceftriaxone Sodium (Rocephin Iv 1 Gm Duplex) 50 mls @ 100 mls/hr IVPB DAILY [facility] Last Admin: 08/25/16 09:20 Dose: 100 mls/hr Metronidazole (Flagyl) 500 mg in 100 mls @ 100 mls/hr IVPB Q8 [facility] Last Admin: 08/25/16 22:11 Dose: 100 mls/hr Albumin Human (Albumin Human 25% (12.5 Gm/50 Ml)) 50 mls @ 100 mls/hr IV Q12H [facility] Stop: 08/27/16 22:29 Last Admin: 08/25/16 22:12 Dose: 100 mls/hr Meclizine HCl (Antivert) 12.5 mg PO TID PRN PRN Reason: Dizziness Last Admin: 08/22/16 16:44 Dose: 12.5 mg Mesalamine (Delzicol) 800 mg PO TID [facility] Last Admin: 08/25/16 17:39 Dose: 800 mg Methylprednisolone (Solu-Medrol) 40 mg IV Q8H [facility] Stop: 08/26/16 09:01 Last Admin: 08/25/16 16:28 Dose: 40 mg Morphine Sulfate (Morphine) 2 mg IVP Q8 PRN PRN Reason: Pain, moderate (4-7) Last Admin: 08/25/16 17:39 Dose: 2 mg Pantoprazole Sodium (Protonix Ec Tab) 40 mg PO DAILY [facility] Last Admin: 08/25/16 09:20 Dose: 40 mg Potassium Chloride (K-Dur 20 Meq Er Tab) 40 meq PO DAILY [facility] Last Admin: 08/25/16 12:39 Dose: 40 meq Potassium Chloride (K-Dur 20 Meq Er Tab) 40 meq PO BRK [facility] Last Admin: 08/25/16 15:23 Dose: Not Given Sucralfate (Carafate Oral Susp) 1 gm PO ACBHS [facility] Last Admin: 08/25/16 22:12 Dose: 1 gm - Labs Labs: 08/25/16 10:19 08/25/16 10:19 PT 16.0 SECONDS (9.7-12.2) H 08/24/16 17:16 INR 1.4 08/24/16 17:16 APTT 30 SECONDS (21-34) 08/24/16 17:16 - Head Exam Head Exam: ATRAUMATIC - Eye Exam Eye Exam: Normal appearance - ENT Exam ENT Exam: Mucous Membranes Dry - Respiratory Exam Respiratory Exam: NORMAL BREATHING PATTERN - Cardiovascular Exam Cardiovascular Exam: +S1, +S2 - GI/Abdominal Exam GI & Abdominal Exam: Normal Bowel Sounds - Extremities Exam Extremities Exam: Normal Inspection Assessment and Plan (1) Anemia Assessment & Plan: chronic disease Status: Acute (2) Leukopenia Assessment & Plan: benign Status: Acute (3) Neoplasm of esophagus, malignant Assessment & Plan: likely cured Status: Chronic
[2016-08-26] MEDS: MethylPREDNISolone 40 mg Vial IV SCH ×2 (01:56→09:47)
[2016-08-26] MEDS: metroNIDAZOLE IV 500 mg/100 ml 500 MG/100 ML BAG IVPB SCH ×3 (06:13→21:36)
[2016-08-26 07:47] LABS: ALBUMIN 2.2 g/dL (3.5-5.0)
[2016-08-26 07:50] LABS: AST/SGOT 9 U/L (14-36); GFR AFRICAN-AMERICAN > 60; GFR NON-AFRICAN AMERICAN > 60
[2016-08-26 07:51] LABS: ALB/GLOB RATIO 0.8 (1.0-2.1); ALT/SGPT 24 U/L (9-52); BLOOD UREA NITROGEN 5 mg/dL (7-17); CALCIUM 7.5 mg/dl (8.6-10.4); MAGNESIUM 1.9 mg/dL (1.6-2.3)
[2016-08-26] MEDS: Sucralfate 1 gm/10 ml Oral Susp UD PO SCH ×2 (08:00→21:37)
[2016-08-26 08:18] LABS: BASO % 0.2 % (0.0-2.0); EOS % 0.1 % (0.0-4.0); HEMOGLOBIN 10.9 g/dL (11.0-16.0); LYMPH # 0.7 K/uL (1.0-4.3); LYMPH % 12.6 % (20.0-40.0); MEAN CELL VOLUME 86.6 fL (81.0-99.0); MEAN CORPUSCULAR HEMOGLOBIN 28.5 pg (27.0-31.0); MEAN CORPUSCULAR HGB CONC 32.9 g/dL (33.0-37.0); MONO # 0.2 K/uL (0.0-0.8); MONO % 3.4 % (0.0-10.0); NEUT # 4.4 K/uL (1.8-7.0); NEUT % 83.7 % (50.0-75.0); NRBC % 0.1 % (0.0-2.0); RBC 3.83 Mil/uL (3.80-5.20); RED CELL DISTRIBUTION WIDTH 13.9 % (11.5-14.5); WHITE BLOOD COUNT 5.2 K/uL (4.8-10.8)
--- NOTE | 2016-08-26 08:40 | CT ---
CT abdomen and pelvis History: Lower GI bleed. Comparison: None available. Technique: Axial computed tomographic images of the abdomen and pelvis were performed with the use of intravenous contrast. Subsequently, sagittal and coronal reformatted images were obtained. This CT exam was performed using one or more of the following dose reduction techniques: Automated exposure control, adjustment of the mA and/or kV according to patient size, and/or use of iterative reconstruction technique. Findings: 9.7 x 4.9 x 8.6 centimeter hiatal hernia, incompletely imaged. Trace bilateral pleural fluid. Mild dependent atelectasis at the lung bases. Fatty infiltration of the liver. Punctate hypodensity in the left hepatic lobe, too small to adequately characterize. Surgical clips adjacent to gallbladder fossa, anterior to the pancreatic head, and anterior to the right psoas muscle. Contracted gallbladder. Pancreatic atrophy. No ductal dilatation. Spleen and adrenal glands are preserved. Prominent right renal cysts ; for example, in the midpole measuring up to 3.2 and 2.5 centimeters respectively with Hounsfield unit attenuation some of 6 and 10. Additional hypodensity in the lower pole of the right kidney. Circumferential wall thickening of the colon. Trace pericolonic fat stranding. Surgical clips between the bladder and sigmoid colon. No bowel obstruction. Appendix not seen. Patient status post prior hysterectomy. Degenerative changes in the osseous structures. Vascular calcifications. Impression: Circumferential wall thickening of the colon with trace pericolonic fat stranding. These findings are compatible with an underlying colitis. Clinical correlation. Additional findings as above. These findings were preliminarily reported by doctor Ursula Fu at 1:05 p.m. on 08/25/2016 from [facility].
[2016-08-26] MEDS: Pantoprazole 40 mg EC Tab PO SCH (09:47)
[2016-08-26] MEDS: Potassium Chloride 20 mEq ER Tab PO SCH (09:48)
[2016-08-26] MEDS: cefTRIAXone IV 1 gm in Dextros 50 ML IVPB SCH (09:49)
--- NOTE | 2016-08-26 14:02 | CP.PCM.PN ---
Subjective - Date & Time of Evaluation Date of Evaluation: 08/26/16 Time of Evaluation: 07:40 - Subjective Subjective: clinically same Objective - Vital Signs/Intake and Output Vital Signs (last 24 hours): Temp Pulse Resp BP Pulse Ox 98.5 F 83 20 101/62 99 08/26/16 08:43 08/26/16 12:02 08/26/16 08:43 08/26/16 08:43 08/26/16 12:02 Intake and Output: 08/26/16 08/26/16 06:59 18:59 Intake Total 650 Balance 650 - Medications Medications: Current Medications Aspirin (Aspirin) 325 mg PO DAILY [facility] Last Admin: 08/23/16 09:08 Dose: 325 mg Enoxaparin Sodium (Lovenox) 40 mg SC DAILY [facility] Last Admin: 08/23/16 09:09 Dose: 40 mg Folic Acid (Folic Acid) 1 mg PO DAILY [facility] Last Admin: 08/26/16 09:47 Dose: 1 mg Ceftriaxone Sodium (Rocephin Iv 1 Gm Duplex) 50 mls @ 100 mls/hr IVPB DAILY [facility] Last Admin: 08/26/16 09:49 Dose: 100 mls/hr Metronidazole (Flagyl) 500 mg in 100 mls @ 100 mls/hr IVPB Q8 [facility] Last Admin: 08/26/16 13:37 Dose: Not Given Albumin Human (Albumin Human 25% (12.5 Gm/50 Ml)) 50 mls @ 100 mls/hr IV Q12H [facility] Stop: 08/27/16 22:29 Last Admin: 08/26/16 09:00 Dose: 100 mls/hr Meclizine HCl (Antivert) 12.5 mg PO TID PRN PRN Reason: Dizziness Last Admin: 08/22/16 16:44 Dose: 12.5 mg Mesalamine (Delzicol) 800 mg PO TID [facility] Last Admin: 08/26/16 13:37 Dose: Not Given Morphine Sulfate (Morphine) 2 mg IVP Q8 PRN PRN Reason: Pain, moderate (4-7) Last Admin: 08/26/16 09:50 Dose: 2 mg Pantoprazole Sodium (Protonix Ec Tab) 40 mg PO DAILY [facility] Last Admin: 08/26/16 09:47 Dose: 40 mg Potassium Chloride (K-Dur 20 Meq Er Tab) 40 meq PO DAILY [facility] Last Admin: 08/26/16 09:48 Dose: 40 meq Sucralfate (Carafate Oral Susp) 1 gm PO ACBHS [facility] Last Admin: 08/26/16 08:00 Dose: 1 gm - Labs Labs: 08/26/16 07:11 08/26/16 07:11 PT 16.0 SECONDS (9.7-12.2) H 08/24/16 17:16 INR 1.4 08/24/16 17:16 APTT 30 SECONDS (21-34) 08/24/16 17:16 - Constitutional Appears: Well - Head Exam Head Exam: ATRAUMATIC, NORMAL INSPECTION, NORMOCEPHALIC - Eye Exam Eye Exam: EOMI, Normal appearance, PERRL Pupil Exam: NORMAL ACCOMODATION, PERRL - ENT Exam ENT Exam: Mucous Membranes Moist, Normal Exam - Neck Exam Neck Exam: Full ROM, Normal Inspection. absent: Lymphadenopathy - Respiratory Exam Respiratory Exam: Decreased Breath Sounds - Cardiovascular Exam Cardiovascular Exam: REGULAR RHYTHM, +S1, +S2 - GI/Abdominal Exam GI & Abdominal Exam: Soft, Diminished Bowel Sounds - Rectal Exam Rectal Exam: Deferred
[2016-08-27] MEDS ORDERED: Oxycodone/Acetaminophen 5/325 mg Tab PO STA (02:45)
[2016-08-27] MEDS: metroNIDAZOLE IV 500 mg/100 ml 500 MG/100 ML BAG IVPB SCH ×3 (06:03→21:28)
[2016-08-27] MEDS: Sucralfate 1 gm/10 ml Oral Susp UD PO SCH ×3 (08:40→21:28)
[2016-08-27] MEDS: Pantoprazole 40 mg EC Tab PO SCH (09:08)
[2016-08-27] MEDS: Potassium Chloride 20 mEq ER Tab PO SCH (09:08)
[2016-08-27] MEDS: cefTRIAXone IV 1 gm in Dextros 50 ML IVPB SCH (09:09)
--- NOTE | 2016-08-27 11:14 | CP.PCM.PN ---
Subjective - Date & Time of Evaluation Date of Evaluation: 08/27/16 Time of Evaluation: 08:00 - Subjective Subjective: clinically same Objective - Vital Signs/Intake and Output Vital Signs (last 24 hours): Temp Pulse Resp BP Pulse Ox 98.9 F 90 20 105/65 97 08/27/16 08:00 08/27/16 08:00 08/27/16 08:00 08/27/16 08:00 08/27/16 08:00 Intake and Output: 08/27/16 08/27/16 06:59 18:59 Intake Total 650 Balance 650 - Medications Medications: Current Medications Aspirin (Aspirin) 325 mg PO DAILY [facility] Last Admin: 08/23/16 09:08 Dose: 325 mg Enoxaparin Sodium (Lovenox) 40 mg SC DAILY [facility] Last Admin: 08/23/16 09:09 Dose: 40 mg Folic Acid (Folic Acid) 1 mg PO DAILY [facility] Last Admin: 08/27/16 09:08 Dose: 1 mg Ceftriaxone Sodium (Rocephin Iv 1 Gm Duplex) 50 mls @ 100 mls/hr IVPB DAILY [facility] Last Admin: 08/27/16 09:09 Dose: 100 mls/hr Metronidazole (Flagyl) 500 mg in 100 mls @ 100 mls/hr IVPB Q8 [facility] Last Admin: 08/27/16 06:03 Dose: 100 mls/hr Albumin Human (Albumin Human 25% (12.5 Gm/50 Ml)) 50 mls @ 100 mls/hr IV Q12H [facility] Stop: 08/27/16 22:29 Last Admin: 08/26/16 21:36 Dose: 100 mls/hr Meclizine HCl (Antivert) 12.5 mg PO TID PRN PRN Reason: Dizziness Last Admin: 08/22/16 16:44 Dose: 12.5 mg Mesalamine (Delzicol) 800 mg PO TID [facility] Last Admin: 08/27/16 09:08 Dose: 800 mg Morphine Sulfate (Morphine) 2 mg IVP Q8 PRN PRN Reason: Pain, moderate (4-7) Last Admin: 08/26/16 18:15 Dose: 2 mg Pantoprazole Sodium (Protonix Ec Tab) 40 mg PO DAILY [facility] Last Admin: 08/27/16 09:08 Dose: 40 mg Potassium Chloride (K-Dur 20 Meq Er Tab) 40 meq PO DAILY [facility] Last Admin: 08/27/16 09:08 Dose: 40 meq Sucralfate (Carafate Oral Susp) 1 gm PO ACBHS [facility] Last Admin: 08/27/16 08:40 Dose: Not Given - Labs Labs: 08/26/16 07:11 08/26/16 07:11 PT 16.0 SECONDS (9.7-12.2) H 08/24/16 17:16 INR 1.4 08/24/16 17:16 APTT 30 SECONDS (21-34) 08/24/16 17:16 - Constitutional Appears: Well - Head Exam Head Exam: ATRAUMATIC, NORMAL INSPECTION, NORMOCEPHALIC - Eye Exam Eye Exam: EOMI, Normal appearance, PERRL Pupil Exam: NORMAL ACCOMODATION, PERRL - ENT Exam ENT Exam: Mucous Membranes Moist, Normal Exam - Neck Exam Neck Exam: Full ROM, Normal Inspection. absent: Lymphadenopathy - Respiratory Exam Respiratory Exam: Decreased Breath Sounds - Cardiovascular Exam Cardiovascular Exam: REGULAR RHYTHM, +S1, +S2 - GI/Abdominal Exam GI & Abdominal Exam: Soft, Diminished Bowel Sounds - Rectal Exam Rectal Exam: Deferred Assessment and Plan - Assessment and Plan (Free Text) Plan: Family bedside patient has no motor GI bleeding patient still has abdominal pain advance the diet to semisoft diet Patient encouraged. Continue same mx Monitor the hemoglobin
[2016-08-28] MEDS: metroNIDAZOLE IV 500 mg/100 ml 500 MG/100 ML BAG IVPB SCH ×2 (06:06→14:59)
[2016-08-28 07:53] VITALS: O2SAT 95
[2016-08-28] MEDS: Sucralfate 1 gm/10 ml Oral Susp UD PO SCH (08:38)
[2016-08-28] MEDS: Potassium Chloride 20 mEq ER Tab PO SCH (09:25)
[2016-08-28] MEDS: Pantoprazole 40 mg EC Tab PO SCH (09:25)
[2016-08-28] MEDS: cefTRIAXone IV 1 gm in Dextros 50 ML IVPB SCH (09:25)
--- NOTE | 2016-08-28 12:47 | CP.PCM.PN ---
Subjective - Date & Time of Evaluation Date of Evaluation: 08/27/16 Time of Evaluation: 15:00 - Subjective Subjective: Has stomach discomfort. Objective - Vital Signs/Intake and Output Vital Signs (last 24 hours): Temp Pulse Resp BP Pulse Ox 99.5 F 83 20 91/53 L 95 08/28/16 07:51 08/28/16 07:51 08/28/16 07:51 08/28/16 07:51 08/28/16 07:51 Intake and Output: 08/28/16 08/28/16 06:59 18:59 Intake Total 600 Balance 600 - Medications Medications: Current Medications Aspirin (Aspirin) 325 mg PO DAILY [facility] Last Admin: 08/23/16 09:08 Dose: 325 mg Enoxaparin Sodium (Lovenox) 40 mg SC DAILY [facility] Last Admin: 08/23/16 09:09 Dose: 40 mg Folic Acid (Folic Acid) 1 mg PO DAILY [facility] Last Admin: 08/28/16 09:25 Dose: 1 mg Ceftriaxone Sodium (Rocephin Iv 1 Gm Duplex) 50 mls @ 100 mls/hr IVPB DAILY [facility] Last Admin: 08/28/16 09:25 Dose: 100 mls/hr Metronidazole (Flagyl) 500 mg in 100 mls @ 100 mls/hr IVPB Q8 [facility] Last Admin: 08/28/16 06:06 Dose: 100 mls/hr Meclizine HCl (Antivert) 12.5 mg PO TID PRN PRN Reason: Dizziness Last Admin: 08/22/16 16:44 Dose: 12.5 mg Mesalamine (Delzicol) 800 mg PO TID [facility] Last Admin: 08/28/16 09:57 Dose: 800 mg Methylprednisolone (Solu-Medrol) 20 mg IV Q8 [facility] Stop: 08/31/16 06:01 Morphine Sulfate (Morphine) 2 mg IVP Q8 PRN PRN Reason: Pain, moderate (4-7) Last Admin: 08/28/16 09:57 Dose: 2 mg Pantoprazole Sodium (Protonix Ec Tab) 40 mg PO DAILY [facility] Last Admin: 08/28/16 09:25 Dose: 40 mg Potassium Chloride (K-Dur 20 Meq Er Tab) 40 meq PO DAILY [facility] Last Admin: 08/28/16 09:25 Dose: 40 meq Sucralfate (Carafate Oral Susp) 1 gm PO ACBHS [facility] Last Admin: 08/28/16 08:38 Dose: 1 gm - Labs Labs: 08/26/16 07:11 08/26/16 07:11 PT 16.0 SECONDS (9.7-12.2) H 08/24/16 17:16 INR 1.4 08/24/16 17:16 APTT 30 SECONDS (21-34) 08/24/16 17:16 - Head Exam Head Exam: ATRAUMATIC - Eye Exam Eye Exam: Normal appearance - ENT Exam ENT Exam: Mucous Membranes Dry - Respiratory Exam Respiratory Exam: NORMAL BREATHING PATTERN - Cardiovascular Exam Cardiovascular Exam: +S1, +S2 - GI/Abdominal Exam GI & Abdominal Exam: Normal Bowel Sounds - Extremities Exam Extremities Exam: Normal Inspection Assessment and Plan (1) Anemia Assessment & Plan: chronic disease Status: Acute (2) Neoplasm of esophagus, malignant Assessment & Plan: likely cured Status: Chronic
--- NOTE | 2016-08-28 12:48 | CP.PCM.PN ---
Subjective - Date & Time of Evaluation Date of Evaluation: 08/28/16 Time of Evaluation: 11:00 - Subjective Subjective: Has abdominal pain. Objective - Vital Signs/Intake and Output Vital Signs (last 24 hours): Temp Pulse Resp BP Pulse Ox 99.5 F 83 20 91/53 L 95 08/28/16 07:51 08/28/16 07:51 08/28/16 07:51 08/28/16 07:51 08/28/16 07:51 Intake and Output: 08/28/16 08/28/16 06:59 18:59 Intake Total 600 Balance 600 - Medications Medications: Current Medications Aspirin (Aspirin) 325 mg PO DAILY [facility] Last Admin: 08/23/16 09:08 Dose: 325 mg Enoxaparin Sodium (Lovenox) 40 mg SC DAILY [facility] Last Admin: 08/23/16 09:09 Dose: 40 mg Folic Acid (Folic Acid) 1 mg PO DAILY [facility] Last Admin: 08/28/16 09:25 Dose: 1 mg Ceftriaxone Sodium (Rocephin Iv 1 Gm Duplex) 50 mls @ 100 mls/hr IVPB DAILY [facility] Last Admin: 08/28/16 09:25 Dose: 100 mls/hr Metronidazole (Flagyl) 500 mg in 100 mls @ 100 mls/hr IVPB Q8 [facility] Last Admin: 08/28/16 06:06 Dose: 100 mls/hr Meclizine HCl (Antivert) 12.5 mg PO TID PRN PRN Reason: Dizziness Last Admin: 08/22/16 16:44 Dose: 12.5 mg Mesalamine (Delzicol) 800 mg PO TID [facility] Last Admin: 08/28/16 09:57 Dose: 800 mg Methylprednisolone (Solu-Medrol) 20 mg IV Q8 [facility] Stop: 08/31/16 06:01 Morphine Sulfate (Morphine) 2 mg IVP Q8 PRN PRN Reason: Pain, moderate (4-7) Last Admin: 08/28/16 09:57 Dose: 2 mg Pantoprazole Sodium (Protonix Ec Tab) 40 mg PO DAILY [facility] Last Admin: 08/28/16 09:25 Dose: 40 mg Potassium Chloride (K-Dur 20 Meq Er Tab) 40 meq PO DAILY [facility] Last Admin: 08/28/16 09:25 Dose: 40 meq Sucralfate (Carafate Oral Susp) 1 gm PO ACBHS [facility] Last Admin: 08/28/16 08:38 Dose: 1 gm - Labs Labs: 08/26/16 07:11 08/26/16 07:11 PT 16.0 SECONDS (9.7-12.2) H 08/24/16 17:16 INR 1.4 08/24/16 17:16 APTT 30 SECONDS (21-34) 08/24/16 17:16 - Head Exam Head Exam: ATRAUMATIC - Eye Exam Eye Exam: Normal appearance - ENT Exam ENT Exam: Mucous Membranes Dry - Respiratory Exam Respiratory Exam: NORMAL BREATHING PATTERN - Cardiovascular Exam Cardiovascular Exam: +S1, +S2 - GI/Abdominal Exam GI & Abdominal Exam: Normal Bowel Sounds - Extremities Exam Extremities Exam: Normal Inspection Assessment and Plan (1) Anemia Assessment & Plan: chronic disease Status: Acute (2) Neoplasm of esophagus, malignant Assessment & Plan: likely cured Status: Chronic
[2016-08-28 13:30] LABS: BASO % 0.2 % (0.0-2.0); EOS % 0.7 % (0.0-4.0); HEMOGLOBIN 10.5 g/dL (11.0-16.0); LYMPH # 1.2 K/uL (1.0-4.3); LYMPH % 22.5 % (20.0-40.0); MEAN CELL VOLUME 86.7 fL (81.0-99.0); MEAN CORPUSCULAR HEMOGLOBIN 28.4 pg (27.0-31.0); MEAN CORPUSCULAR HGB CONC 32.8 g/dL (33.0-37.0); MEAN PLATELET VOLUME 6.6 fL (7.2-11.7); MONO # 0.2 K/uL (0.0-0.8); MONO % 3.6 % (0.0-10.0); NRBC % 0.1 % (0.0-2.0); RBC 3.69 Mil/uL (3.80-5.20); RED CELL DISTRIBUTION WIDTH 14.1 % (11.5-14.5); WHITE BLOOD COUNT 5.6 K/uL (4.8-10.8)
[2016-08-28 13:37] LABS: ALBUMIN 2.3 g/dL (3.5-5.0)
[2016-08-28 13:40] LABS: GFR AFRICAN-AMERICAN > 60; GFR NON-AFRICAN AMERICAN > 60
[2016-08-28 13:41] LABS: ALB/GLOB RATIO 0.9 (1.0-2.1); ALT/SGPT 26 U/L (9-52); AST/SGOT 9 U/L (14-36); BLOOD UREA NITROGEN 3 mg/dL (7-17); CALCIUM 7.5 mg/dl (8.6-10.4)
[2016-08-28] MEDS ORDERED: MethylPREDNISolone 40 mg Vial IV SCH (14:00)
[2016-08-28] MEDS ORDERED: methylPREDNISolone 20 MG in Sodium Chloride 0.9% 100 ML IVPB SCH (14:00)
[2016-08-28 16:19] VITALS: BP 92/55; PULSE 111; TEMP 101.1
--- NOTE | 2016-08-28 18:17 | CP.PCM.PN ---
Subjective - Date & Time of Evaluation Date of Evaluation: 08/28/16 Time of Evaluation: 08:00 - Subjective Subjective: clinically same Objective - Vital Signs/Intake and Output Vital Signs (last 24 hours): Temp Pulse Resp BP Pulse Ox 101.1 F H 111 H 20 92/55 L 95 08/28/16 16:00 08/28/16 16:00 08/28/16 16:00 08/28/16 16:00 08/28/16 16:00 Intake and Output: 08/28/16 08/28/16 06:59 18:59 Intake Total 600 510 Balance 600 510 - Medications Medications: Current Medications Aspirin (Aspirin) 325 mg PO DAILY [facility] Last Admin: 08/23/16 09:08 Dose: 325 mg Enoxaparin Sodium (Lovenox) 40 mg SC DAILY [facility] Last Admin: 08/23/16 09:09 Dose: 40 mg Folic Acid (Folic Acid) 1 mg PO DAILY [facility] Last Admin: 08/28/16 09:25 Dose: 1 mg Ceftriaxone Sodium (Rocephin Iv 1 Gm Duplex) 50 mls @ 100 mls/hr IVPB DAILY [facility] Last Admin: 08/28/16 09:25 Dose: 100 mls/hr Metronidazole (Flagyl) 500 mg in 100 mls @ 100 mls/hr IVPB Q8 [facility] Last Admin: 08/28/16 14:59 Dose: 100 mls/hr Meclizine HCl (Antivert) 12.5 mg PO TID PRN PRN Reason: Dizziness Last Admin: 08/22/16 16:44 Dose: 12.5 mg Mesalamine (Delzicol) 800 mg PO TID [facility] Last Admin: 08/28/16 17:32 Dose: 800 mg Methylprednisolone (Solu-Medrol) 20 mg IV Q8 [facility] Stop: 08/31/16 06:01 Last Admin: 08/28/16 15:00 Dose: 20 mg Morphine Sulfate (Morphine) 2 mg IVP Q8 PRN PRN Reason: Pain, moderate (4-7) Last Admin: 08/28/16 17:36 Dose: 2 mg Pantoprazole Sodium (Protonix Ec Tab) 40 mg PO DAILY [facility] Last Admin: 08/28/16 09:25 Dose: 40 mg Potassium Chloride (K-Dur 20 Meq Er Tab) 40 meq PO DAILY [facility] Last Admin: 08/28/16 09:25 Dose: 40 meq Sucralfate (Carafate Oral Susp) 1 gm PO [facility] AL Last Admin: 08/28/16 08:38 Dose: 1 gm - Labs Labs: 08/28/16 13:27 08/28/16 13:27 PT 16.0 SECONDS (9.7-12.2) H 08/24/16 17:16 INR 1.4 08/24/16 17:16 APTT 30 SECONDS (21-34) 08/24/16 17:16
--- NOTE | 2016-08-30 22:55 | CON ---
DATE: 08/21/2016 I was called for GI consultation by the admitting MD. The patient was seen and fully examined on 08/21/2016, an alert on consultation was not provided and due to the malfunction of the dictation system, the consultation dictation formula is provided now. HISTORY OF PRESENT ILLNESS: This is a 71-year-old female, seen and examined for GI consultation on 08/21/2016 due to severe crampy abdominal pain, bloody diarrhea, dyspepsia, nausea, generalized weakness and malaise. The patient recently had upper and lower endoscopy indicative of peptic ulcer disease as well as inflammatory bowel disease, which was extensive to the point that the scope was not introduced into the cecum to avoid any potential higher risk of perforation. The patient denied any chills or fever, chest pain or palpitation, but mild shortness of breath on and off. PAST MEDICAL HISTORY: Including many, but not limited to: 1. Esophageal CA. 2. Ulcerative colitis. 3. Peptic ulcer disease. 4. Colon polyps. 5. Osteoarthritis. 6. Status post appendectomy. FAMILY HISTORY: Unknown. SOCIAL HISTORY: Positive for alcohol addict, but no recent history of cigarette smoking anymore. CURRENT MEDICATIONS: Medication list were reviewed. ALLERGIC TO MEDICATION: Unclear. After being admitted to the hospital, the patient's initial blood workup showed normal CBC, with low creatinine and low sodium of 126, low CO2 content of 17 indicative of metabolic acidosis. PHYSICAL EXAMINATION: GENERAL: A 71-year-old female, appears to be pale, somewhat cachectic. VITAL SIGNS: Afebrile with pulse 112, respiratory rate 20 to 22. Blood pressure 102/64. HEENT: Show pale, dry oral mucous membrane, nonicteric sclerae. LUNGS: Reveal scattered crepitation, decreased air entry at bases. HEART: Positive S1 and S2 with increased rate. LYMPH NODES: No lymphadenitis or lymphadenopathy. ABDOMEN: Soft, bowel sounds are present. Hyperactive with diffuse abdominal tenderness with mild distention. No mass or organomegaly. No rebound tenderness or guarding. RECTAL : Positive with trace of *------* and fresh blood. EXTREMITIES: Without lower extremity edematous changes. No clubbing or cyanosis. NEUROLOGIC: No reported neurological deficits, sensory or motor. IMPRESSION: 1. Re-exacerbation of peptic ulcer disease. 2. Rectal bleeding secondary to re-exacerbation of peptic ulcer disease. 3. Diarrhea infectious versus mechanical, most likely secondary to the patient's ulcerative colitis. 4. Known history of but not limited to esophageal cancer, colon polyps, osteoarthritis, status post appendectomy. 6. Metabolic acidosis secondary to above suggestion . Complete full workup. Repeat CEA. *------* CAT scan. Folic acid p.o. Asacol p.o. Hematology/Oncology consult. No need for aggressive GI workup in the meantime until the patient is more stable clinically and the repeat colonoscopy is to be kept in mind when the patient is much more stable, that could be done as an outpatient anyhow. Thank you for letting me participate in your patient's case management. Anamaria Ferguson MD cc: Anamaria Ferguson MD
== END 2016-08-28 18:50 | disposition home health service (06) | DRG 179 ==
LOC: C.ER 12:05 → C.9E 14:35 → C.3T 17:53
PROVIDERS: ADMIT Internal Medicine Nephrology; ATTEND Internal Medicine Nephrology
PROC: 02HV33Z Insertion of Infusion Device into Superior Vena Cava, Percutaneous Approach (ICD-10-PCS; principal; 2016-08-23)
PROC: 30233N1 Transfusion of Nonautologous Red Blood Cells into Peripheral Vein, Percutaneous Approach (ICD-10-PCS; 2016-08-25)
DX: K51.911 Ulcerative colitis, unspecified with rectal bleeding (principal); E46 Unspecified protein-calorie malnutrition; E87.1 Hypo-osmolality and hyponatremia; D63.8 Anemia in other chronic diseases classified elsewhere; E86.0 Dehydration; R19.7 Diarrhea, unspecified; D72.819 Decreased white blood cell count, unspecified; H81.10 Benign paroxysmal vertigo, unspecified ear; K21.9 Gastro-esophageal reflux disease without esophagitis; F10.20 Alcohol dependence, uncomplicated; Z85.01 Personal history of malignant neoplasm of esophagus; Z86.010 Personal history of colon polyps; Z87.11 Personal history of peptic ulcer disease; Z87.891 Personal history of nicotine dependence; Z90.49 Acquired absence of other specified parts of digestive tract; Z92.21 Personal history of antineoplastic chemotherapy; Z92.3 Personal history of irradiation

== ENCOUNTER 2016-09-11 15:05 | Inpatient (IN) | payer MEDICAID, MEDICARE ==
[2016-09-11 15:06] VITALS: BMI 25.0
[2016-09-11] MEDS ORDERED: Sodium Chloride 0.9% 1,000 ML IV ONE ×3 (15:19→18:44)
[2016-09-11] MEDS ORDERED: Sodium Chloride 0.9% 1,000 ML ONE ×3 (15:22→19:58)
[2016-09-11 15:58] LABS: BASO % 0.3 % (0.0-2.0); EOS % 0.4 % (0.0-4.0); HEMATOCRIT 31.5 % (34.0-47.0); LYMPH # 1.1 K/uL (1.0-4.3); LYMPH % 23.7 % (20.0-40.0); MEAN CORPUSCULAR HEMOGLOBIN 28.1 pg (27.0-31.0); MEAN CORPUSCULAR HGB CONC 32.7 g/dL (33.0-37.0); MEAN PLATELET VOLUME 6.9 fL (7.2-11.7); MONO # 0.3 K/uL (0.0-0.8); MONO % 6.4 % (0.0-10.0); NRBC % 0.1 % (0.0-2.0); RED CELL DISTRIBUTION WIDTH 14.4 % (11.5-14.5); WHITE BLOOD COUNT 4.7 K/uL (4.8-10.8)
--- NOTE | 2016-09-11 16:02 | C.PDOC ---
History Of Present Illness 71-year-old female, presents to the emergency department with complaints of non- bloody diarrhea for the past month that is associated with generalized weakness , according to family. Patient is being seen by Dr Do, for a Hx of esophageal CA, and is receiving iron treatment. Patient was seen by Dr Hallman (GI ) yesterday, for fever. No other complaints at this time. Time Seen by Provider: 09/11/16 15:11 Chief Complaint (Nursing): Fever History Per: Patient, Family History/Exam Limitations: no limitations Onset/Duration Of Symptoms: Days Current Symptoms Are (Timing): Still Present Severity: Moderate Past Medical History Reviewed: Historical Data, Nursing Documentation, Vital Signs Vital Signs: Last Vital Signs Temp 99.2 F 09/11/16 15:13 Pulse 81 09/11/16 18:45 Resp 14 09/11/16 18:45 BP 95/44 L 09/11/16 18:45 Pulse Ox 95 09/11/16 18:57 - Medical History PMH: Arthritis (BACK, KNEES), Colonic Polyps, Malignancy (THROAT CA) Denies: Chronic Kidney Disease Surgical History: Appendectomy, Endoscopy - [facility] Procedures CLOSED ENDOSCOPIC BIOPSY OF LARGE INTESTINE (01/28/14) DRAINAGE OF SPINAL CANAL, PERCUTANEOUS APPROACH, DIAGNOSTIC (03/15/15) ENDOSC POLYPECTOMY OF LG INTEST (09/09/14) ESOPHAGEAL DILATION (07/12/12) ESOPHAGOGASTRODUODENOSCOPY [EGD] W/CLOSED BIOPSY (06/17/14) EXCISION OF DESCENDING COLON, ENDO, DIAGN (08/03/16) EXCISION OF SIGMOID COLON, ENDO, DIAGN (08/03/16) EXCISION OF STOMACH, ENDO, DIAGN (08/03/16) EXCISION OF TRANSVERSE COLON, ENDO, DIAGN (08/03/16) INSERTION OF INFUSION DEV INTO SUP VENA CAVA, PERC APPROACH (08/21/16) INSPECTION OF LARYNX, ENDO (03/15/15) OTHER ENDOSCOPY OF SM INTEST (07/12/12) TRANSFUSE NONAUT RED BLOOD CELLS IN PERIPH VEIN, PERC (08/21/16) Family History: States: No Known Family Hx - Social History Hx Tobacco Use: No Hx Alcohol Use: Yes (1 drink 3 times aweek) Hx Substance Use: No - Immunization History Hx Tetanus Toxoid Vaccination: No Hx Influenza Vaccination: No Hx Pneumococcal Vaccination: No Review Of Systems Except As Marked, All Systems Reviewed And Found Negative. Constitutional: Positive for: Fever Cardiovascular: Negative for: Chest Pain Gastrointestinal: Positive for: Abdominal Pain, Diarrhea Physical Exam - Physical Exam Appears: Non-toxic, No Acute Distress Skin: Warm, Dry, No Rash Head: Atraumatic, Normacephalic Eye(s): bilateral: Normal Inspection Neck: Normal ROM Cardiovascular: Rhythm Regular, No Murmur Respiratory: Normal Breath Sounds, No Accessory Muscle Use Gastrointestinal/Abdominal: Soft, Tenderness (diffuse), No Guarding, No Rebound Extremity: Normal ROM ED Course And Treatment - Laboratory Results Result Diagrams: 09/11/16 15:47 09/11/16 15:47 Lab Interpretation: No Acute Changes ECG: Interpreted By Me ECG Rhythm: Sinus Tachycardia, Nonspecific Changes ECG Interpretation: No Acute Changes Rate From EC O2 Sat by Pulse Oximetry: 95 Pulse Ox Interpretation: Normal Progress Note: Treated with IVF NSS x 2 and rocephen 1 GM IV. Treated with rocephin 1 gm IV and additional NSS Reassessment Condition: Improved - Physician Consult Information Physician Contacted: Daphne Marquez Outcome Of Conversation: admit Medical Decision Making Medical Decision Making: Case discussed with Dr Lupe Marquez who request ICU evaluation for hypotension Patient evaluated by ICU attending who request telemetry admission Disposition Discussed With Dr.: Daphne Marquez Doctor Will See Patient In The: Hospital - Disposition Disposition: HOSPITALIZED Disposition Time: 17:30 Condition: STABLE - POA Present On Arrival: None - Clinical Impression Clinical Impression: Fever, Abdominal pain, Hypotension, UTI (urinary tract infection) - Scribe Statement The provider has reviewed the documentation as recorded by the Scribe (Mariella Tapia) All medical record entries made by the Scribe were at my direction and personally dictated by me. I have reviewed the chart and agree that the record accurately reflects my personal performance of the history, physical exam, medical decision making, and the department course for this patient. I have also personally directed, reviewed, and agree with the discharge instructions and disposition.
[2016-09-11 16:11] LABS: CHLORIDE 92 mmol/L (98-107); POTASSIUM 3.6 mmol/L (3.6-5.2); SODIUM 130 mmol/L (132-148)
[2016-09-11 16:13] LABS: ALB/GLOB RATIO 0.8 (1.0-2.1); ALKALINE PHOSPHATASE 106 U/L (38-126); ALT/SGPT 28 U/L (9-52); AST/SGOT 15 U/L (14-36); BILIRUBIN,TOTAL 0.5 mg/dL (0.2-1.3); BLOOD UREA NITROGEN 7 mg/dL (7-17); CARBON DIOXIDE 28 mmol/L (22-30); GFR AFRICAN-AMERICAN > 60; TOTAL PROTEIN 4.8 g/dL (6.3-8.3)
[2016-09-11 16:14] LABS: CALCIUM 7.4 mg/dl (8.6-10.4); GLUCOSE,RANDOM 92 mg/dL (65-105)
[2016-09-11 17:11] LABS: RBC URINE 12 /hpf (0-3); URINE BILIRUBIN NEGATIVE (NEGATIVE); URINE BLOOD 2+ (NEGATIVE); URINE COLOR Yellow (YELLOW); URINE GLUCOSE (UA) NORMAL (Normal); URINE KETONE NEGATIVE (NEGATIVE); URINE LEUKOCYTE ESTERASE 3+ Leu/uL (Negative); URINE PROTEIN NEGATIVE (NEGATIVE); URINE UROBILINOGEN NORMAL mg/dL (0.2-1.0); WBC URINE 39 /hpf (0-5)
[2016-09-11] MEDS ORDERED: cefTRIAXone IV 1 gm in Dextros 50 ML IV ONE (17:18)
[2016-09-11] MEDS ORDERED: cefTRIAXone IV 1 gm in Dextros 50 ML IVPB ONE (17:25)
[2016-09-11 18:46] LABS: VENOUS BLOOD GAS PCO2 39 mmHg (40-60); VENOUS BLOOD PH 7.45 (7.32-7.43)
[2016-09-11] MEDS ORDERED: Albumin Human 25% (12.5 gm/50 ml) IV STA (18:47)
[2016-09-11] MEDS ORDERED: Sodium Chloride 0.9% 1,000 ML IV SCH ×2 (19:00→22:05)
[2016-09-11] MEDS ORDERED: Sodium Chloride 0.9% 250 ML IV ONE (21:58)
[2016-09-11 22:50] LABS: BASO % 0.2 % (0.0-2.0); EOS % 0.9 % (0.0-4.0); HEMATOCRIT 24.4 % (34.0-47.0); LYMPH # 1.1 K/uL (1.0-4.3); LYMPH % 26.2 % (20.0-40.0); MEAN CELL VOLUME 86.6 fL (81.0-99.0); MEAN CORPUSCULAR HEMOGLOBIN 28.4 pg (27.0-31.0); MEAN CORPUSCULAR HGB CONC 32.8 g/dL (33.0-37.0); MEAN PLATELET VOLUME 6.8 fL (7.2-11.7); MONO # 0.3 K/uL (0.0-0.8); MONO % 6.7 % (0.0-10.0); RED CELL DISTRIBUTION WIDTH 14.5 % (11.5-14.5); WHITE BLOOD COUNT 4.1 K/uL (4.8-10.8)
[2016-09-11 22:56] LABS: CHLORIDE 102 mmol/L (98-107); POTASSIUM 3.1 mmol/L (3.6-5.2); SODIUM 133 mmol/L (132-148)
[2016-09-11 22:59] LABS: BLOOD UREA NITROGEN 5 mg/dL (7-17); CARBON DIOXIDE 25 mmol/L (22-30); GFR AFRICAN-AMERICAN > 60; GLUCOSE,RANDOM 87 mg/dL (65-105)
[2016-09-11] MEDS ORDERED: Dextrose 5%/0.45% NS 1,000 ML IV SCH (23:15)
[2016-09-11] MEDS: metroNIDAZOLE IV 250mg/50 ml 250 MG/50 ML BAG IVPB SCH (23:33)
--- NOTE | 2016-09-12 00:45 | CP.CCUPN ---
CCU Subjective - Physician Review Events Since Last Encounter (Free Text): 09/12/16 00:43 called for icu for hypotension pt is awake and no distress no tachy cardic c/o diarrhea seen by GI colitis? labs renal function normal no evidence of endorgan damage diarrea and electrolyte problems needs IVF and controll for diarreha GI eval as per pmd spoke to pt daughter CCU Objective - Vital Signs / Intake & Output Vital Signs (Last 4 hours): Vital Signs Temp Pulse Resp BP Pulse Ox 09/11/16 22:57 74 85/51 L 09/11/16 21:55 98.8 F 88 20 77/49 L 94 L 09/11/16 21:45 75 09/11/16 20:54 93 H 15 90/42 L 96 09/11/16 20:48 101.4 F H - Medications Active Medications: Active Medications Generic Name Dose Route Start Last Admin Trade Name Freq PRN Reason Stop Dose Admin Metronidazole 250 mg in 50 mls @ 100 mls/hr 09/11/16 23:00 09/11/16 23:33 Flagyl IVPB 09/16/16 23:01 100 mls/hr Q8H AL Administration Ceftriaxone Sodium 1 gm/ 100 mls @ 100 mls/hr 09/12/16 10:00 Sodium Chloride IVPB DAILY AL Potassium Chloride 20 meq in 100 mls @ 50 mls/hr 09/12/16 00:00 09/11/16 23: 48 Potassium Chloride 20 Meq/100 Ml IVPB 09/12/16 05:59 50 mls/hr Q2 AL Administration Dextrose/Sodium Chloride 1,000 mls @ 100 mls/hr 09/11/16 23:15 09/11/16 23:36 Dextrose 5%/0.45% Ns 1000 Ml IV 100 mls/hr .Q10H AL Administration - Patient Studies Lab Studies: Lab Studies 09/11/16 09/11/16 09/11/16 Range/Units 22:45 22:45 18:40 WBC 4.1 L (4.8-10.8) K/uL RBC 2.82 L (3.80-5.20) Mil/uL Hgb 8.0 L D (11.0-16.0) g/dL Hct 24.4 L (34.0-47.0) % MCV 86.6 (81.0-99.0) fL MCH 28.4 (27.0-31.0) pg MCHC 32.8 L (33.0-37.0) g/dL RDW 14.5 (11.5-14.5) % Plt Count 130 (130-400) K/uL MPV 6.8 L (7.2-11.7) fL Neut % (Auto) 66.0 (50.0-75.0) % Lymph % (Auto) 26.2 (20.0-40.0) % [place] % (Auto) 6.7 (0.0-10.0) % Eos % (Auto) 0.9 (0.0-4.0) % Baso % (Auto) 0.2 (0.0-2.0) % Neut # 2.7 (1.8-7.0) K/uL Lymph # 1.1 (1.0-4.3) K/uL [place] # 0.3 (0.0-0.8) K/uL Eos # 0.0 (0.0-0.7) K/uL Baso # 0.0 (0.0-0.2) K/uL pO2 13 L (30-55) mm/Hg VBG pH 7.45 H (7.32-7.43) VBG pCO2 39 L (40-60) mmHg VBG HCO3 25.1 mmol/L VBG Total CO2 28.3 H (22-28) mmol/L VBG O2 Sat (Calc) 20.0 L (40-65) % VBG Base Excess 3.0 H (0.0-2.0) mmol/L VBG Potassium 3.1 L (3.6-5.2) mmol/L Sodium 133 137.0 (132-148) mmol/l Chloride 102 108.0 H (98-107) mmol/L Glucose 88 (65-105) mg/dl Lactate 1.5 (0.7-2.1) mmol/L Potassium 3.1 L (3.6-5.2) mmol/L Carbon Dioxide 25 (22-30) mmol/L Anion Gap 9 L (10-20) BUN 5 L (7-17) mg/dL Creatinine 0.4 L (0.7-1.2) MG/DL Est GFR ( Amer) > 60 Est GFR (Non-Af Amer) > 60 Random Glucose 87 (65-105) mg/dL Calcium 6.0 L* (8.6-10.4) mg/dl Venous Blood Potassium 3.1 L (3.6-5.2) mmol/L Laboratory Results - last 24 hr 09/11/16 09/11/16 09/11/16 18:40 22:45 22:45 WBC 4.1 L RBC 2.82 L Hgb 8.0 L D Hct 24.4 L MCV 86.6 MCH 28.4 MCHC 32.8 L RDW 14.5 Plt Count 130 MPV 6.8 L Neut % (Auto) 66.0 Lymph % (Auto) 26.2 [place] % (Auto) 6.7 Eos % (Auto) 0.9 Baso % (Auto) 0.2 Neut # 2.7 Lymph # 1.1 [place] # 0.3 Eos # 0.0 Baso # 0.0 pO2 13 L VBG pH 7.45 H VBG pCO2 39 L VBG HCO3 25.1 VBG Total CO2 28.3 H VBG O2 Sat (Calc) 20.0 L VBG Base Excess 3.0 H VBG Potassium 3.1 L Sodium 137.0 133 Chloride 108.0 H 102 Glucose 88 Lactate 1.5 Potassium 3.1 L Carbon Dioxide 25 Anion Gap 9 L BUN 5 L Creatinine 0.4 L Est GFR ( Amer) > 60 Est GFR (Non-Af Amer) > 60 Random Glucose 87 Calcium 6.0 L* Venous Blood Potassium 3.1 L Fingerstick Blood Sugar Results: 109 Critical Care Progress Note - Nutrition Nutrition: Nutrition Category Date Time Status Heart Healthy Diet [DIET] Diets 09/11/16 Dinner Active
[2016-09-12] MEDS: metroNIDAZOLE IV 250mg/50 ml 250 MG/50 ML BAG IVPB SCH ×3 (06:56→23:55)
[2016-09-12] MEDS ORDERED: Sodium Chloride 0.9% 250 ML IV ONE (09:20)
[2016-09-12] MEDS ORDERED: Albumin Human 5% (12.5 gm/250 ml) IV STA (09:30)
[2016-09-12] MEDS ORDERED: Calcium Chloride 1000 mg/10 ml Syringe IV ONE (09:32)
[2016-09-12] MEDS: Vancomycin 125 MG/5 ML SOLN (ORAL/RECTAL) PO SCH ×4 (10:50→21:01)
[2016-09-12 11:51] LABS: MEAN CORPUSCULAR HEMOGLOBIN 28.2 pg (27.0-31.0); MEAN CORPUSCULAR HGB CONC 32.4 g/dL (33.0-37.0); MEAN PLATELET VOLUME 7.1 fL (7.2-11.7); RED CELL DISTRIBUTION WIDTH 14.9 % (11.5-14.5); WHITE BLOOD COUNT 4.4 K/uL (4.8-10.8)
--- NOTE | 2016-09-12 12:06 | PN ---
DATE: SUBJECTIVE: This is a 71-year-old female seen and examined for GI consultation requested by the admitting medical team on 09/11/2016, re-examined again today with intermittent periods of diarrhea, severe crampy abdominal pain, postprandial abdominal distention. The entire chart is reviewed including, but not limited to the most recent lab and radiology study results, current and previous medication list, current and previous medical events, and the patient reported some rectal bleeding. The most recent lab results showed a drop of hemoglobin 8.0 with hematocrit 24.4 with drop of potassium 3.1 with low calcium 6.0, low albumin and low total protein. PHYSICAL EXAMINATION: GENERAL: A 71-year-old female, awake, alert and oriented. VITAL SIGNS: Afebrile with blood pressure of 94/54, respiratory rate 20-22, pulse of 78. HEENT: Showed pale, dry oral mucous membrane, nonicteric sclerae. LUNGS: Scattered crepitation, decreased air entry at bases. ABDOMEN: Soft with generalized tenderness. Bowel sounds are present. Small distention and diffuse tenderness. RECTAL: The patient refused. EXTREMITIES: With slight lower extremity edematous changes. No clubbing or cyanosis. NEUROLOGIC: No reported new neurological deficits, sensory or motor. IMPRESSION: 1. Re-exacerbation of peptic ulcer disease. 2. Diarrhea with rectal bleeding secondary to above. 3. Peptic ulcer disease. 4. Anemia secondary to above. 5. Known history of colon polyp, I am not sure of cancer. 6. Osteoarthritis. 7. Status post appendectomy. SUGGESTIONS: 1. Agree with your plan. 2. Correct any underlying electrolyte imbalance. 3. The patient has to be on enteral hyperalimentation. 4. Start IV steroids. 5. Further recommendations to follow and sectional abdominal of the CAT scan to be given. 6. We will follow up closely with you. Thank you for letting me to participate in your patient's case management. Anamaria Ferguson MD
[2016-09-12 12:22] LABS: CHLORIDE 104 mmol/L (98-107); SODIUM 137 mmol/L (132-148)
[2016-09-12 12:23] LABS: POTASSIUM 3.5 mmol/L (3.6-5.2)
[2016-09-12 12:25] LABS: ALB/GLOB RATIO 0.8 (1.0-2.1); ALKALINE PHOSPHATASE 79 U/L (38-126); ALT/SGPT 25 U/L (9-52); AST/SGOT 15 U/L (14-36); BILIRUBIN,TOTAL 0.3 mg/dL (0.2-1.3); BLOOD UREA NITROGEN 3 mg/dL (7-17); CARBON DIOXIDE 24 mmol/L (22-30); GFR AFRICAN-AMERICAN > 60; TOTAL PROTEIN 3.9 g/dL (6.3-8.3)
[2016-09-12 12:26] LABS: CALCIUM 6.4 mg/dl (8.6-10.4); GLUCOSE,RANDOM 97 mg/dL (65-105)
--- NOTE | 2016-09-12 13:19 | CP.PCM.HP ---
History of Present Illness - History of Present Illness History of Present Illness: 71 years old female patient with past medical history of colonic polyps, arthritis, esophageal cancer S/P surgery and chemo radiotherapy in 2010, recently diagnosed with ulcerative colitis, presented to the emergency department with complaint of nonbloody diarrhea, generalized weakness. Recently patient consulted PMD and found to have colitis and prescribed antibiotics. Then she felt better and stop her antibiotics. She recently underwent colonoscopy with Dr. Cain during last admission suggestive of ulcerative colitis. Past surgical history of partial esophagectomy, bowel resection No fever, nausea, vomiting No chest pain, back pain, shortness of breath, limb swelling Present on Admission - Present on Admission Any Indicators Present on Admission: No Past Patient History - Past Medical History & Family History Past Medical History?: Yes - Past Social History Smoking Status: Former Smoker - CARDIAC Hx Cardiac Disorders: No - PULMONARY Hx Respiratory Disorders: No - NEUROLOGICAL Hx Neurological Disorder: No - HEENT Hx HEENT Problems: Yes Hx Difficulty Chewing: Yes Other/Comment: DYSPHAGIA RELATED TO EXTENSIVE ESOPHAGEAL CANCER SX AND "TUBE" IN PLACE OF ESOPHAGUS - RENAL Hx Chronic Kidney Disease: No - ENDOCRINE/METABOLIC Hx Endocrine Disorders: No - HEMATOLOGICAL/ONCOLOGICAL Hx Blood Disorders: Yes Hx Blood Transfusions: Yes Hx Cancer: Yes (ESOPHAGEAL) - INTEGUMENTARY Hx Dermatological Problems: No - MUSCULOSKELETAL/RHEUMATOLOGICAL Hx Musculoskeletal Disorders: No Hx Falls: No - GASTROINTESTINAL Hx Gastrointestinal Disorders: Yes Hx Colitis: Yes Hx Gastroesophageal Reflux: Yes HX Swallowing Problems: Yes Other/Comment: ESOPHAGEAL CANCER - GENITOURINARY/GYNECOLOGICAL Hx Genitourinary Disorders: No - PSYCHIATRIC Hx Psychophysiologic Disorder: No Hx Substance Use: No - SURGICAL HISTORY Hx Surgeries: Yes Hx Appendectomy: Yes - ANESTHESIA Hx Anesthesia: Yes Hx Anesthesia Reactions: No Hx Malignant Hyperthermia: No Meds Home Medications: Home Medication List Medication Instructions Recorded Confirmed Type Apixaban [Eliquis] 2.5 mg PO BID #60 tablet 09/27/16 Rx Potassium Chloride [Klor-Con 10] 40 meq PO BID #60 ter 09/27/16 Rx Allergies/Adverse Reactions: Allergies Allergy/AdvReac Type Severity Reaction Status Date / Time No Known Allergies Allergy Verified 09/11/16 15:18 Physical Exam - Constitutional Appears: Well - Head Exam Head Exam: ATRAUMATIC, NORMAL INSPECTION, NORMOCEPHALIC - Eye Exam Eye Exam: EOMI, Normal appearance, PERRL Pupil Exam: NORMAL ACCOMODATION, PERRL - ENT Exam ENT Exam: Mucous Membranes Moist, Normal Exam - Neck Exam Neck exam: Positive for: Normal Inspection - Respiratory Exam Respiratory Exam: Decreased Breath Sounds - Cardiovascular Exam Cardiovascular Exam: REGULAR RHYTHM, +S1, +S2 - GI/Abdominal Exam GI & Abdominal Exam: Diminished Bowel Sounds, Soft - Rectal Exam Rectal Exam: Deferred Results - Vital Signs Recent Vital Signs: Last Vital Signs Temp 98.1 F 09/12/16 08:00 Pulse 92 H 09/12/16 11:00 Resp 18 09/12/16 08:00 BP 89/60 L 09/12/16 11:00 Pulse Ox 99 09/12/16 08:00 - Labs Result Diagrams: 09/27/16 13:59 09/26/16 06:51 Labs: Laboratory Results - last 24 hr 09/11/16 09/11/16 09/11/16 18:40 22:45 22:45 WBC 4.1 L RBC 2.82 L Hgb 8.0 L D Hct 24.4 L MCV 86.6 MCH 28.4 MCHC 32.8 L RDW 14.5 Plt Count 130 MPV 6.8 L Neut % (Auto) 66.0 Lymph % (Auto) 26.2 [place] % (Auto) 6.7 Eos % (Auto) 0.9 Baso % (Auto) 0.2 Neut # 2.7 Lymph # 1.1 [place] # 0.3 Eos # 0.0 Baso # 0.0 pO2 13 L VBG pH 7.45 H VBG pCO2 39 L VBG HCO3 25.1 VBG Total CO2 28.3 H VBG O2 Sat (Calc) 20.0 L VBG Base Excess 3.0 H VBG Potassium 3.1 L Sodium 137.0 133 Chloride 108.0 H 102 Glucose 88 Lactate 1.5 Potassium 3.1 L Carbon Dioxide 25 Anion Gap 9 L BUN 5 L Creatinine 0.4 L Est GFR ( Amer) > 60 Est GFR (Non-Af Amer) > 60 POC Glucose (mg/dL) Random Glucose 87 Calcium 6.0 L* Total Bilirubin AST ALT Alkaline Phosphatase Total Protein Albumin Globulin Albumin/Globulin Ratio Venous Blood Potassium 3.1 L C. difficile Ag & Toxin 09/12/16 09/12/16 09/12/16 00:48 11:44 11:44 WBC 4.4 L RBC 3.22 L Hgb 9.1 L Hct 28.0 L MCV 87.0 MCH 28.2 MCHC 32.4 L RDW 14.9 H Plt Count 167 MPV 7.1 L Neut % (Auto) Lymph % (Auto) [place] % (Auto) Eos % (Auto) Baso % (Auto) Neut # Lymph # [place] # Eos # Baso # pO2 VBG pH VBG pCO2 VBG HCO3 VBG Total CO2 VBG O2 Sat (Calc) VBG Base Excess VBG Potassium Sodium 137 Chloride 104 Glucose Lactate Potassium 3.5 L Carbon Dioxide 24 Anion Gap 12 BUN 3 L Creatinine 0.4 L Est GFR ( Amer) > 60 Est GFR (Non-Af Amer) > 60 POC Glucose (mg/dL) Random Glucose 97 Calcium 6.4 L Total Bilirubin 0.3 AST 15 ALT 25 Alkaline Phosphatase 79 Total Protein 3.9 L Albumin 1.7 L Globulin 2.2 Albumin/Globulin Ratio 0.8 L Venous Blood Potassium C. difficile Ag & Toxin Negative 09/12/16 12:02 WBC RBC Hgb Hct MCV MCH MCHC RDW Plt Count MPV Neut % (Auto) Lymph % (Auto) [place] % (Auto) Eos % (Auto) Baso % (Auto) Neut # Lymph # [place] # Eos # Baso # pO2 VBG pH VBG pCO2 VBG HCO3 VBG Total CO2 VBG O2 Sat (Calc) VBG Base Excess VBG Potassium Sodium Chloride Glucose Lactate Potassium Carbon Dioxide Anion Gap BUN Creatinine Est GFR ( Amer) Est GFR (Non-Af Amer) POC Glucose (mg/dL) 118 H Random Glucose Calcium Total Bilirubin AST ALT Alkaline Phosphatase Total Protein Albumin Globulin Albumin/Globulin Ratio Venous Blood Potassium C. difficile Ag & Toxin Assessment & Plan (1) Abdominal pain Status: Acute (2) Abnormal EKG Status: Acute (3) Acute colitis Status: Acute (4) Anemia Status: Acute (5) Bronchitis Status: Acute (6) Chest pain Status: Acute (7) Colitis Status: Acute (8) Dehydration Status: Acute (9) Diarrhea Status: Acute (10) Elbow fracture Status: Acute (11) Fever Status: Acute (12) H/O adenomatous polyp of colon Status: Acute (13) Heme + stool Status: Acute (14) Hyponatremia Status: Acute (15) Hypotension Status: Acute (16) Leukopenia Status: Acute (17) Lung nodules Status: Acute (18) Pharyngitis Status: Acute (19) Pneumonia Status: Acute (20) Prophylactic measure Status: Acute (21) Pulmonary embolism Status: Acute (22) Risk for coronary artery disease less than 10% in next 10 years Status: Acute (23) Severe chronic ulcerative colitis Status: Acute (24) Sore throat symptom Status: Acute (25) Thyroid nodule Status: Acute (26) UTI (urinary tract infection) Status: Acute (27) UTI (urinary tract infection) Status: Acute (28) Wrist fracture Status: Acute (29) Asthma Status: Chronic (30) Neoplasm of esophagus, malignant Status: Chronic - Assessment and Plan (Free Text) Plan: Labs and meds reviewed Hydration Continue meds as advised Metronidazole Ceftriaxone Vancomycin Cultures awaited Dr. vera Labs next a.m.
[2016-09-12] MEDS ORDERED: Lidocaine 1% Inj (20ml) ONE (13:39)
--- NOTE | 2016-09-12 13:48 | PCM.SURG1 ---
Surgeon's Initial Post Op Note - Surgeon's Notes Surgeon: Oscar Ramirez MD Web Site Developer: NONE Type of Anesthesia: Local Pre-Operative Diagnosis: Poor venous access Operative Findings: Patent right basilic vein Post-Operative Diagnosis: Poor venous access Operation Performed: Single lumen picc placement right basilic vein, 33 cm. Tip in the SVC. Specimen/Specimens Removed: None Estimated Blood Loss: EBL {In ML}: 2 Blood Products Given: N/A Drains Used: No Drains Post-Op Condition: Fair Date of Surgery/Procedure: 09/12/16 Time of Surgery/Procedure: 13:45
--- NOTE | 2016-09-13 04:01 | CP.PCM.CON ---
History of Present Illness - History of Present Illness History of Present Illness: 71 year old female with a history of esophageal cancer s/p surgery and adjuvant chemotherapy and radiation in 2010, admitted with colitis, recently diagnosed with ulcerative colitis. The patient was found to have colitis by her PMD and prescribed antibiotics. She began to feel better and stopped her antibiotics. She reports a few days later her abdominal pain and diarrhea returned. Due to frequent liquid bowel movements she notes to feeling weak and came to the ER. She underwent a colonscopy with Dr. Hallman during her prior admission and pathology was consistent with ulcerative colitis. Past medical history: Esophageal cancer Past surgical history: Partial esophagectomy, bowel resection Family history: Denies hematologic and oncologic problems Social history: Former tobacco abuse Allergies: NKA Review of systems: All remaining review of systems including HEENT, cardiovascular, respiratory, gastrointestinal, genitourinary, musculoskeletal, dermatologic, neurologic, and psychiatric are negative unless mentioned in the HPI. Past Patient History - Past Medical History & Family History Past Medical History?: Yes - Past Social History Smoking Status: Former Smoker - CARDIAC Hx Cardiac Disorders: No - PULMONARY Hx Respiratory Disorders: No - NEUROLOGICAL Hx Neurological Disorder: No - HEENT Hx HEENT Problems: Yes Hx Difficulty Chewing: Yes Other/Comment: DYSPHAGIA RELATED TO EXTENSIVE ESOPHAGEAL CANCER SX AND "TUBE" IN PLACE OF ESOPHAGUS - RENAL Hx Chronic Kidney Disease: No - ENDOCRINE/METABOLIC Hx Endocrine Disorders: No - HEMATOLOGICAL/ONCOLOGICAL Hx Blood Disorders: Yes Hx Blood Transfusions: Yes Hx Cancer: Yes (ESOPHAGEAL) - INTEGUMENTARY Hx Dermatological Problems: No - MUSCULOSKELETAL/RHEUMATOLOGICAL Hx Musculoskeletal Disorders: No Hx Falls: No - GASTROINTESTINAL Hx Gastrointestinal Disorders: Yes Hx Colitis: Yes Hx Gastroesophageal Reflux: Yes HX Swallowing Problems: Yes Other/Comment: ESOPHAGEAL CANCER - GENITOURINARY/GYNECOLOGICAL Hx Genitourinary Disorders: No - PSYCHIATRIC Hx Psychophysiologic Disorder: No Hx Substance Use: No - SURGICAL HISTORY Hx Surgeries: Yes Hx Appendectomy: Yes - ANESTHESIA Hx Anesthesia: Yes Hx Anesthesia Reactions: No Hx Malignant Hyperthermia: No Meds Allergies/Adverse Reactions: Allergies Allergy/AdvReac Type Severity Reaction Status Date / Time No Known Allergies Allergy Verified 09/11/16 15:18 - Medications Medications: Current Medications Metronidazole (Flagyl) 250 mg in 50 mls @ 100 mls/hr IVPB Q8H [facility] Stop: 09/16/16 23:01 Last Admin: 09/12/16 23:55 Dose: 100 mls/hr Ceftriaxone Sodium 1 gm/ (Sodium Chloride) 100 mls @ 100 mls/hr IVPB DAILY [facility] Last Admin: 09/12/16 14:30 Dose: 100 mls/hr Potassium Chloride 40 meq/ (Sodium Chloride) 1,020 mls @ 175 mls/hr IV .Q5H50M [facility] Last Admin: 09/12/16 23:55 Dose: 175 mls/hr Vancomycin HCl (Vancocin (Oral Or Rectal Use)) 125 mg PO QID [facility] Last Admin: 09/12/16 21:01 Dose: 125 mg Physical Exam - Head Exam Head Exam: ATRAUMATIC - Eye Exam Eye Exam: Normal appearance - ENT Exam ENT Exam: Mucous Membranes Dry - Respiratory Exam Respiratory Exam: NORMAL BREATHING PATTERN - Cardiovascular Exam Cardiovascular Exam: +S1, +S2 - GI/Abdominal Exam GI & Abdominal Exam: Normal Bowel Sounds - Extremities Exam Extremities exam: Positive for: normal inspection - Neurological Exam Neurological exam: Oriented x3 - Psychiatric Exam Psychiatric exam: Normal Affect, Normal Mood - Skin Skin Exam: Warm Results - Vital Signs Recent Vital Signs: Last Vital Signs Temp 99.4 F 09/12/16 23:15 Pulse 87 09/13/16 00:30 Resp 20 09/12/16 23:15 BP 95/60 L 09/12/16 23:15 Pulse Ox 99 09/12/16 23:15 - Labs Result Diagrams: 09/12/16 11:44 09/12/16 11:44 Labs: Laboratory Results - last 24 hr 09/12/16 09/12/16 09/12/16 00:48 11:44 11:44 WBC 4.4 L RBC 3.22 L Hgb 9.1 L Hct 28.0 L MCV 87.0 MCH 28.2 MCHC 32.4 L RDW 14.9 H Plt Count 167 MPV 7.1 L Sodium 137 Potassium 3.5 L Chloride 104 Carbon Dioxide 24 Anion Gap 12 BUN 3 L Creatinine 0.4 L Est GFR ( Amer) > 60 Est GFR (Non-Af Amer) > 60 POC Glucose (mg/dL) Random Glucose 97 Calcium 6.4 L Total Bilirubin 0.3 AST 15 ALT 25 Alkaline Phosphatase 79 Total Protein 3.9 L Albumin 1.7 L Globulin 2.2 Albumin/Globulin Ratio 0.8 L C. difficile Ag & Toxin Negative 09/12/16 09/12/16 12:02 20:36 WBC RBC Hgb Hct MCV MCH MCHC RDW Plt Count MPV Sodium Potassium Chloride Carbon Dioxide Anion Gap BUN Creatinine Est GFR ( Amer) Est GFR (Non-Af Amer) POC Glucose (mg/dL) 118 H 129 H Random Glucose Calcium Total Bilirubin AST ALT Alkaline Phosphatase Total Protein Albumin Globulin Albumin/Globulin Ratio C. difficile Ag & Toxin Assessment & Plan (1) Anemia Assessment and Plan: hematochezia likely from colitis chronic disease from colitis transfusion support PRN Status: Acute (2) Neoplasm of esophagus, malignant Assessment and Plan: in remission likely cured Thank you for this interesting consult. Status: Chronic
[2016-09-13] MEDS: metroNIDAZOLE IV 250mg/50 ml 250 MG/50 ML BAG IVPB SCH ×3 (06:15→22:00)
--- NOTE | 2016-09-13 09:52 | CON ---
DATE: 09/11/[address] Ferguson to Dr. Ethan Marquez. I was called for GI consultation by the admitting MD. The patient is seen and fully examined on 09/11/2016 for GI consultation as requested by the admitting medical team. The entire chart is reviewed including but not limited to the most recent lab and radiology study results, current and previous medication list, current and previous medical events, allergies to medication list as well as all the available current and the previous medical records. Case was discussed at length with the staff on the floor as well as the admitting medical team. HISTORY OF PRESENT ILLNESS: This is a 71-year-old female, very well known case for me with known history of ulcerative colitis and peptic ulcer disease, was admitted to the hospital through the emergency room with a complaint of again non-bloody diarrhea at this time, been associated with traces of rectal bleeding, severe crampy abdominal pain, generalized weakness and malaise, episodes of nausea and vomiting. No chest pain or palpitation and no significant recent history of shortness of breath, chills, or fever. The patient was seen very recently in my office and instructed to go to the emergency room at that time, after receiving adequate treatment as outpatient. PAST MEDICAL HISTORY: Including, but not limited to: 1. Inflammatory bowel disease, ulcerative colitis. 2. Esophageal CA treated by Dr. Do. 3. Osteoarthritis. 4. Known history of peptic ulcer disease. 5. Known history of colon polyps. The patient is status post appendectomy and recent upper and lower endoscopies. FAMILY HISTORY: Unknown. SOCIAL HISTORY: Positive for alcohol intake, excessive at times. CURRENT MEDICATIONS: Medical lists reviewed. ALLERGIES TO MEDICATIONS: UNCLEAR. After being admitted to the hospital, the patient was found to have low hemoglobin initially of 10.3 with hematocrit 31.5 with low white blood cells of 4.7. Low sodium 130, low creatinine 0.5. PHYSICAL EXAMINATION GENERAL: A 71-year-old female, awake, alert, oriented, complaining of severe abdominal pain. VITAL SIGNS: Temperature of 99.4, pulse of 84, respiratory rate *------* 13 with blood pressure 98/52. HEENT: Show pale dry oral mucous membrane. Nonicteric sclerae. LYMPH NODES: No lymphadenitis or lymphadenopathy. LUNGS: Few scattered crepitation with decreased air entry at the bases. HEART: Positive S1 and S2. ABDOMEN: Soft with generalized diffuse tenderness. Bowel sounds are hyperactive. No masses or organomegaly. No rebound tenderness or guarding. RECTAL: Positive stool, guaiac positive stool. EXTREMITIES: Right lower extremity was unchanged. No clubbing or cyanosis. NEUROLOGIC: No neurological deficits, sensory or motor. IMPRESSION: 1. Re-exacerbation of peptic ulcer disease. 2. Diarrhea, infectious versus secondary to above. 3. Anemia secondary to above. SUGGESTION: 1. Continue current management. 2. *------* abdominal and pelvic CAT scan. 3. Cardiac markers. 4. Proton pump inhibitors. 5. Steroids IV. 6. Keep the patient n.p.o. until full stool workup is obtained including C. diff, culture and sensitivity. 7. Further recommendation to follow. Thank you for letting me participate in your patient's case management. Anamaria Ferguson MD
[2016-09-13] MEDS: Vancomycin 125 MG/5 ML SOLN (ORAL/RECTAL) PO SCH ×5 (10:44→22:04)
--- NOTE | 2016-09-13 12:19 | CP.PCM.PN ---
Subjective - Date & Time of Evaluation Date of Evaluation: 09/13/16 Time of Evaluation: 12:00 - Subjective Subjective: Still with diarrhea, stable blood pressure, no chest pain, observe Objective - Vital Signs/Intake and Output Vital Signs (last 24 hours): Temp Pulse Resp BP Pulse Ox 98.9 F 92 H 20 90/52 L 100 09/13/16 08:33 09/13/16 08:33 09/13/16 08:33 09/13/16 08:33 09/13/16 08:33 Intake and Output: 09/13/16 09/13/16 06:59 18:59 Intake Total 3220 Balance 3220 - Medications Medications: Current Medications Metronidazole (Flagyl) 250 mg in 50 mls @ 100 mls/hr IVPB Q8H [facility] Stop: 09/16/16 23:01 Last Admin: 09/13/16 06:15 Dose: 100 mls/hr Ceftriaxone Sodium 1 gm/ (Sodium Chloride) 100 mls @ 100 mls/hr IVPB DAILY [facility] Last Admin: 09/13/16 10:00 Dose: 100 mls/hr Potassium Chloride 40 meq/ (Sodium Chloride) 1,020 mls @ 175 mls/hr IV .Q5H50M [facility] Last Admin: 09/13/16 06:15 Dose: 175 mls/hr Vancomycin HCl (Vancocin (Oral Or Rectal Use)) 125 mg PO QID [facility] Last Admin: 09/13/16 10:44 Dose: 125 mg - Labs Labs: 09/12/16 11:44 09/12/16 11:44 - Constitutional Appears: Non-toxic - Head Exam Head Exam: ATRAUMATIC - Eye Exam Eye Exam: EOMI - ENT Exam ENT Exam: Mucous Membranes Dry - Neck Exam Neck Exam: absent: Lymphadenopathy, Thyromegaly - Respiratory Exam Respiratory Exam: Clear to Ausculation Bilateral. absent: Rales - Cardiovascular Exam Cardiovascular Exam: REGULAR RHYTHM, Murmur - GI/Abdominal Exam GI & Abdominal Exam: Hyperactive Bowel Sounds. absent: Organomegaly - Rectal Exam Rectal Exam: Deferred - Extremities Exam Extremities Exam: Normal Capillary Refill. absent: Calf Tenderness - Neurological Exam Neurological Exam: Alert, Oriented x3 - Psychiatric Exam Psychiatric exam: Anxious - Skin Skin Exam: Dry
--- NOTE | 2016-09-13 14:26 | PN ---
DATE: LOCATION: [facility], bed B. SUBJECTIVE: This is a 71-year-old female seen and examined in rounds today without significant clinical changes and reported vomiting; appeared to be awake, alert, and oriented. The patient has a PICC line for nutritional support. The entire chart is reviewed. Anamaria Ferguson MD
--- NOTE | 2016-09-13 15:02 | CP.PCM.CON ---
History of Present Illness - History of Present Illness History of Present Illness: 71 year old with hx of esophageal malignancy treated surgically. multiple admissions with CP, SOB, hx of asthma. had EF of 50% on echo about a year ago, presented with persistent. sob diarrhea, seen by oncology, no evidence of tumor rendered in remission or cured, she presented with colitis and diarrhea was treated initially with antibiotic however she has a recurrence after she stopped, reported hypotenssion, responded to fluid, seen and followed by GI as outpt Review of Systems - Review of Systems Systems not reviewed;Unavailable: Unstable Vital Signs - Constitutional Constitutional: Anorexia - EENT Eyes: absent: Discharge Ears: absent: Dizziness Nose/Mouth/Throat: absent: Epistaxis - Cardiovascular Cardiovascular: absent: Acrocyanosis, Chest Pain, Diaphoresis, Leg Edema, Palpitations, Syncope - Respiratory Respiratory: absent: Cough, Dyspnea, Hemoptysis - Gastrointestinal Gastrointestinal: Abdominal Pain, Diarrhea, Nausea. absent: Vomiting - Genitourinary Genitourinary: absent: Change in Urinary Stream - Reproductive: Female Reproductive:Female: Post Menopausal Past Patient History - Past Medical History & Family History Past Medical History?: Yes - Past Social History Smoking Status: Former Smoker - CARDIAC Hx Cardiac Disorders: No - PULMONARY Hx Respiratory Disorders: No - NEUROLOGICAL Hx Neurological Disorder: No - HEENT Hx HEENT Problems: Yes Hx Difficulty Chewing: Yes Other/Comment: DYSPHAGIA RELATED TO EXTENSIVE ESOPHAGEAL CANCER SX AND "TUBE" IN PLACE OF ESOPHAGUS - RENAL Hx Chronic Kidney Disease: No - ENDOCRINE/METABOLIC Hx Endocrine Disorders: No - HEMATOLOGICAL/ONCOLOGICAL Hx Blood Disorders: Yes Hx Blood Transfusions: Yes Hx Cancer: Yes (ESOPHAGEAL) - INTEGUMENTARY Hx Dermatological Problems: No - MUSCULOSKELETAL/RHEUMATOLOGICAL Hx Musculoskeletal Disorders: No Hx Falls: No - GASTROINTESTINAL Hx Gastrointestinal Disorders: Yes Hx Colitis: Yes Hx Gastroesophageal Reflux: Yes HX Swallowing Problems: Yes Other/Comment: ESOPHAGEAL CANCER - GENITOURINARY/GYNECOLOGICAL Hx Genitourinary Disorders: No - PSYCHIATRIC Hx Psychophysiologic Disorder: No Hx Substance Use: No - SURGICAL HISTORY Hx Surgeries: Yes Hx Appendectomy: Yes - ANESTHESIA Hx Anesthesia: Yes Hx Anesthesia Reactions: No Hx Malignant Hyperthermia: No Meds Allergies/Adverse Reactions: Allergies Allergy/AdvReac Type Severity Reaction Status Date / Time No Known Allergies Allergy Verified 09/11/16 15:18 - Medications Medications: Current Medications Metronidazole (Flagyl) 250 mg in 50 mls @ 100 mls/hr IVPB Q8H [facility] Stop: 09/16/16 23:01 Last Admin: 09/12/16 18:12 Dose: 100 mls/hr Ceftriaxone Sodium 1 gm/ (Sodium Chloride) 100 mls @ 100 mls/hr IVPB DAILY [facility] Last Admin: 09/12/16 14:30 Dose: 100 mls/hr Potassium Chloride 40 meq/ (Sodium Chloride) 1,020 mls @ 175 mls/hr IV .Q5H50M [facility] Last Admin: 09/12/16 02:13 Dose: 175 mls/hr Vancomycin HCl (Vancocin (Oral Or Rectal Use)) 125 mg PO QID [facility] Last Admin: 09/12/16 18:17 Dose: 125 mg Physical Exam - Constitutional Appears: Toxic - Head Exam Head Exam: ATRAUMATIC - Eye Exam Eye Exam: EOMI - ENT Exam ENT Exam: Mucous Membranes Dry - Neck Exam Neck exam: Negative for: Lymphadenopathy, Thyromegaly - Respiratory Exam Respiratory Exam: Clear to Auscultation Bilateral. absent: Rales - Cardiovascular Exam Cardiovascular Exam: REGULAR RHYTHM, Systolic Murmur - GI/Abdominal Exam GI & Abdominal Exam: Normal Bowel Sounds. absent: Organomegaly - Rectal Exam Rectal Exam: Deferred - Extremities Exam Extremities exam: Positive for: normal capillary refill. Negative for: calf tenderness - Neurological Exam Neurological exam: Alert, Oriented x3 - Psychiatric Exam Psychiatric exam: Depressed - Skin Skin Exam: Dry Results - Vital Signs Recent Vital Signs: Last Vital Signs Temp 98.5 F 09/12/16 16:00 Pulse 100 H 09/12/16 18:24 Resp 20 09/12/16 18:24 BP 85/54 L 09/12/16 18:24 Pulse Ox 100 09/12/16 16:00 - Labs Result Diagrams: 09/12/16 11:44 09/12/16 11:44 Labs: Laboratory Results - last 24 hr 09/11/16 09/11/16 09/12/16 22:45 22:45 00:48 WBC 4.1 L RBC 2.82 L Hgb 8.0 L D Hct 24.4 L MCV 86.6 MCH 28.4 MCHC 32.8 L RDW 14.5 Plt Count 130 MPV 6.8 L Neut % (Auto) 66.0 Lymph % (Auto) 26.2 [place] % (Auto) 6.7 Eos % (Auto) 0.9 Baso % (Auto) 0.2 Neut # 2.7 Lymph # 1.1 [place] # 0.3 Eos # 0.0 Baso # 0.0 Sodium 133 Potassium 3.1 L Chloride 102 Carbon Dioxide 25 Anion Gap 9 L BUN 5 L Creatinine 0.4 L Est GFR ( Amer) > 60 Est GFR (Non-Af Amer) > 60 POC Glucose (mg/dL) Random Glucose 87 Calcium 6.0 L* Total Bilirubin AST ALT Alkaline Phosphatase Total Protein Albumin Globulin Albumin/Globulin Ratio C. difficile Ag & Toxin Negative 09/12/16 09/12/16 09/12/16 11:44 11:44 12:02 WBC 4.4 L RBC 3.22 L Hgb 9.1 L Hct 28.0 L MCV 87.0 MCH 28.2 MCHC 32.4 L RDW 14.9 H Plt Count 167 MPV 7.1 L Neut % (Auto) Lymph % (Auto) [place] % (Auto) Eos % (Auto) Baso % (Auto) Neut # Lymph # [place] # Eos # Baso # Sodium 137 Potassium 3.5 L Chloride 104 Carbon Dioxide 24 Anion Gap 12 BUN 3 L Creatinine 0.4 L Est GFR ( Amer) > 60 Est GFR (Non-Af Amer) > 60 POC Glucose (mg/dL) 118 H Random Glucose 97 Calcium 6.4 L Total Bilirubin 0.3 AST 15 ALT 25 Alkaline Phosphatase 79 Total Protein 3.9 L Albumin 1.7 L Globulin 2.2 Albumin/Globulin Ratio 0.8 L C. difficile Ag & Toxin Assessment & Plan (1) Hypotension Status: Acute Comment: hypovolemia, diarrhea, hydrated (2) Abdominal pain Status: Acute Comment: collitis (3) Neoplasm of esophagus, malignant Status: Chronic
--- NOTE | 2016-09-13 15:30 | US ---
Date of procedure: 09/12/2016 Procedure: Ultrasound guidance for vascular access HISTORY: Infection requiring long-term IV antibiotics TECHNIQUE: Following informed consent and procedure time-out, the patient placed supine on the interventional table and the right arm prepped and draped in the usual sterile fashion. Ultrasound showed a patent and compressible basilic vein. After the skin was anesthetized with lidocaine, the basilic vein was accessed with micro micropuncture technique using ultrasound guidance. An image documenting ultrasound guidance for vascular access was permanently saved. IMPRESSION: Ultrasound guidance for vascular access for placement of PICC.
--- NOTE | 2016-09-13 15:32 | RAD ---
PROCEDURE: Date of procedure: 09/12/2016 Procedure: 1. Placement of a right arm PICC with ultrasound and fluoroscopic guidance, CPT 76335 2. PICC tip confirmation with spot radiograph and is in the superior vena cava Medications: 1 percent lidocaine Total Fluoro time: 2.7 seconds Radiation: 0.762 MGy EBL: 2 cc HISTORY: Infection requiring long-term IV antibiotics TECHNIQUE: Following informed consent and procedure time-out, the patient was placed supine on the interventional table and the right arm prepped and draped in the usual sterile fashion. Ultrasound showed a patent and compressible right basilic vein. After the skin was anesthetized with lidocaine, the basilic vein was accessed with micro micropuncture technique using ultrasound guidance. A guidewire was then advanced under fluoroscopic guidance into the superior vena cava. An image documenting ultrasound guidance for vascular access was permanently saved. The length of the single-lumen 4 [place] PICC was trimmed to 33 centimeters and advanced through a peel-away sheath. The PICC was position with tip of PICC confirm a spot radiograph the superior vena cava. The PICC was secured to the patient's skin. The PICC was flushed. A biopatch and sterile dressing was applied. IMPRESSION: Placement of a single-lumen 4 [place] PICC trimmed to 33 centimeters via right basilic vein. The tip of the PICC is confirmed with spot radiograph and is in the superior vena cava.
--- NOTE | 2016-09-13 16:34 | CP.PCM.PN ---
Subjective - Date & Time of Evaluation Date of Evaluation: 09/13/16 Time of Evaluation: 12:00 - Subjective Subjective: clinically same Objective - Vital Signs/Intake and Output Vital Signs (last 24 hours): Temp Pulse Resp BP Pulse Ox 98.4 F 92 H 20 90/52 L 100 09/13/16 16:09 09/13/16 08:33 09/13/16 08:33 09/13/16 08:33 09/13/16 08:33 Intake and Output: 09/13/16 09/13/16 06:59 18:59 Intake Total 3220 Balance 3220 - Medications Medications: Current Medications Acetaminophen (Tylenol 325mg Tab) 650 mg PO Q6 PRN PRN Reason: Pain, moderate (4-7) Last Admin: 09/13/16 16:09 Dose: 650 mg Folic Acid (Folic Acid) 1 mg PO DAILY [facility] Metronidazole (Flagyl) 250 mg in 50 mls @ 100 mls/hr IVPB Q8H [facility] Stop: 09/16/16 23:01 Last Admin: 09/13/16 15:10 Dose: 100 mls/hr Ceftriaxone Sodium 1 gm/ (Sodium Chloride) 100 mls @ 100 mls/hr IVPB DAILY [facility] Last Admin: 09/13/16 10:00 Dose: 100 mls/hr Potassium Chloride 40 meq/ (Sodium Chloride) 1,020 mls @ 175 mls/hr IV .Q5H50M [facility] Last Admin: 09/13/16 15:11 Dose: Not Given Multivitamins (Hexavitamin) 1 tab PO DAILY [facility] Vancomycin HCl (Vancocin (Oral Or Rectal Use)) 125 mg PO QID [facility] Last Admin: 09/13/16 14:00 Dose: 125 mg - Labs Labs: 09/12/16 11:44 09/12/16 11:44 - Constitutional Appears: Well - Head Exam Head Exam: ATRAUMATIC, NORMAL INSPECTION, NORMOCEPHALIC - Eye Exam Eye Exam: EOMI, Normal appearance, PERRL Pupil Exam: NORMAL ACCOMODATION, PERRL - ENT Exam ENT Exam: Mucous Membranes Moist, Normal Exam - Neck Exam Neck Exam: Full ROM, Normal Inspection. absent: Lymphadenopathy - Respiratory Exam Respiratory Exam: Decreased Breath Sounds - Cardiovascular Exam Cardiovascular Exam: REGULAR RHYTHM, +S1, +S2 - GI/Abdominal Exam GI & Abdominal Exam: Soft, Diminished Bowel Sounds - Rectal Exam Rectal Exam: Deferred Assessment and Plan (1) Abdominal pain Status: Acute (2) Abnormal EKG Status: Acute (3) Acute colitis Status: Acute (4) Anemia Status: Acute (5) Bronchitis Status: Acute (6) Chest pain Status: Acute (7) Colitis Status: Acute (8) Dehydration Status: Acute (9) Diarrhea Status: Acute (10) Elbow fracture Status: Acute (11) Fever Status: Acute (12) H/O adenomatous polyp of colon Status: Acute (13) Heme + stool Status: Acute (14) Hyponatremia Status: Acute (15) Hypotension Status: Acute (16) Leukopenia Status: Acute (17) Lung nodules Status: Acute (18) Pharyngitis Status: Acute (19) Pneumonia Status: Acute (20) Prophylactic measure Status: Acute (21) Pulmonary embolism Status: Acute (22) Risk for coronary artery disease less than 10% in next 10 years Status: Acute (23) Severe chronic ulcerative colitis Status: Acute (24) Sore throat symptom Status: Acute (25) Thyroid nodule Status: Acute (26) UTI (urinary tract infection) Status: Acute (27) UTI (urinary tract infection) Status: Acute (28) Wrist fracture Status: Acute (29) Asthma Status: Chronic (30) Neoplasm of esophagus, malignant Status: Chronic - Assessment and Plan (Free Text) Plan: Symptoms partially improved No acute event overnight Labs and meds reviewed Hydration Continue as advised Metronidazole Ceftriaxone Vancomycin Cultures awaited Dr. vera Labs next a.m.
[2016-09-14] MEDS: metroNIDAZOLE IV 250mg/50 ml 250 MG/50 ML BAG IVPB SCH ×3 (07:00→22:11)
--- NOTE | 2016-09-14 07:08 | CARD ---
APPROVED REPORT EKG Measurement Heart [id number] <Conclusion> Sinus tachycardia Low voltage QRS ST & T wave abnormality, consider anterolateral ischemia Abnormal ECG
[2016-09-14 07:42] LABS: HEMATOCRIT 25.5 % (34.0-47.0); MEAN CELL VOLUME 86.5 fL (81.0-99.0); MEAN CORPUSCULAR HEMOGLOBIN 27.6 pg (27.0-31.0); MEAN CORPUSCULAR HGB CONC 31.9 g/dL (33.0-37.0); RED CELL DISTRIBUTION WIDTH 14.3 % (11.5-14.5); WHITE BLOOD COUNT 3.3 K/uL (4.8-10.8)
[2016-09-14 07:55] LABS: CHLORIDE 107 mmol/L (98-107); POTASSIUM 4.3 mmol/L (3.6-5.2); SODIUM 138 mmol/L (132-148)
[2016-09-14 07:58] LABS: CARBON DIOXIDE 26 mmol/L (22-30); GFR AFRICAN-AMERICAN > 60; GLUCOSE,RANDOM 71 mg/dL (65-105)
[2016-09-14 08:03] LABS: BLOOD UREA NITROGEN < 2 mg/dL (7-17)
[2016-09-14] MEDS: Multiple Vitamins Tab PO SCH (09:15)
[2016-09-14] MEDS: Vancomycin 125 MG/5 ML SOLN (ORAL/RECTAL) PO SCH ×3 (09:49→22:11)
[2016-09-14] MEDS ORDERED: Sodium Chloride 0.9% 1,000 ML IV SCH (12:03)
--- NOTE | 2016-09-14 12:13 | CP.PCM.PN ---
Subjective - Date & Time of Evaluation Date of Evaluation: 09/14/16 Time of Evaluation: 11:00 - Subjective Subjective: clinically same Objective - Vital Signs/Intake and Output Vital Signs (last 24 hours): Temp Pulse Resp BP Pulse Ox 97.3 F L 76 20 100/63 98 09/13/16 23:10 09/14/16 07:30 09/13/16 23:10 09/13/16 23:10 09/13/16 23:10 Intake and Output: 09/14/16 09/14/16 06:59 18:59 Intake Total 1720 Balance 1720 - Medications Medications: Current Medications Acetaminophen (Tylenol 325mg Tab) 650 mg PO Q6 PRN PRN Reason: Pain, moderate (4-7) Last Admin: 09/14/16 09:20 Dose: 650 mg Folic Acid (Folic Acid) 1 mg PO DAILY [facility] Last Admin: 09/14/16 09:15 Dose: 1 mg Metronidazole (Flagyl) 250 mg in 50 mls @ 100 mls/hr IVPB Q8H [facility] Stop: 09/16/16 23:01 Last Admin: 09/14/16 07:00 Dose: 100 mls/hr Ceftriaxone Sodium 1 gm/ (Sodium Chloride) 100 mls @ 100 mls/hr IVPB DAILY [facility] Last Admin: 09/14/16 09:30 Dose: 100 mls/hr Sodium Chloride (Sodium Chloride 0.9%) 1,000 mls @ 50 mls/hr IV .Q20H [facility] Multivitamins (Hexavitamin) 1 tab PO DAILY [facility] Last Admin: 09/14/16 09:15 Dose: 1 tab Mupirocin (Bactroban Ointment) 0 gm TOP BID [facility] Last Admin: 09/14/16 09:00 Dose: 1 applic Vancomycin HCl (Vancocin (Oral Or Rectal Use)) 125 mg PO QID [facility] Last Admin: 09/14/16 09:49 Dose: 125 mg - Labs Labs: 09/14/16 07:33 09/14/16 07:33 - Constitutional Appears: Well - Head Exam Head Exam: ATRAUMATIC, NORMAL INSPECTION, NORMOCEPHALIC - Eye Exam Eye Exam: EOMI, Normal appearance, PERRL Pupil Exam: NORMAL ACCOMODATION, PERRL - ENT Exam ENT Exam: Mucous Membranes Moist, Normal Exam - Neck Exam Neck Exam: Full ROM, Normal Inspection. absent: Lymphadenopathy - Respiratory Exam Respiratory Exam: Decreased Breath Sounds - Cardiovascular Exam Cardiovascular Exam: REGULAR RHYTHM, +S1, +S2 - GI/Abdominal Exam GI & Abdominal Exam: Soft, Diminished Bowel Sounds - Rectal Exam Rectal Exam: Deferred Assessment and Plan (1) Abdominal pain Status: Acute (2) Abnormal EKG Status: Acute (3) Acute colitis Status: Acute (4) Anemia Status: Acute (5) Bronchitis Status: Acute (6) Chest pain Status: Acute (7) Colitis Status: Acute (8) Dehydration Status: Acute (9) Diarrhea Status: Acute (10) Elbow fracture Status: Acute (11) Fever Status: Acute (12) H/O adenomatous polyp of colon Status: Acute (13) Heme + stool Status: Acute (14) Hyponatremia Status: Acute (15) Hypotension Status: Acute (16) Leukopenia Status: Acute (17) Lung nodules Status: Acute (18) Pharyngitis Status: Acute (19) Pneumonia Status: Acute (20) Prophylactic measure Status: Acute (21) Pulmonary embolism Status: Acute (22) Risk for coronary artery disease less than 10% in next 10 years Status: Acute (23) Severe chronic ulcerative colitis Status: Acute (24) Sore throat symptom Status: Acute (25) Thyroid nodule Status: Acute (26) UTI (urinary tract infection) Status: Acute (27) UTI (urinary tract infection) Status: Acute (28) Wrist fracture Status: Acute (29) Asthma Status: Chronic (30) Neoplasm of esophagus, malignant Status: Chronic - Assessment and Plan (Free Text) Plan: Continue as advised Labs noted Labs and meds reviewed Hydration Continue meds as advised Metronidazole Ceftriaxone Vancomycin Cultures awaited Dr. chuy Diaz Labs next a.m.
--- NOTE | 2016-09-14 12:48 | CP.PCM.PN ---
Subjective - Date & Time of Evaluation Date of Evaluation: 09/14/16 Time of Evaluation: 13:00 - Subjective Subjective: still with diarrhea Objective - Vital Signs/Intake and Output Vital Signs (last 24 hours): Temp Pulse Resp BP Pulse Ox 97.3 F L 76 20 100/63 98 09/13/16 23:10 09/14/16 07:30 09/13/16 23:10 09/13/16 23:10 09/13/16 23:10 Intake and Output: 09/14/16 09/14/16 06:59 18:59 Intake Total 1720 Balance 1720 - Medications Medications: Current Medications Acetaminophen (Tylenol 325mg Tab) 650 mg PO Q6 PRN PRN Reason: Pain, moderate (4-7) Last Admin: 09/14/16 09:20 Dose: 650 mg Folic Acid (Folic Acid) 1 mg PO DAILY [facility] Last Admin: 09/14/16 09:15 Dose: 1 mg Metronidazole (Flagyl) 250 mg in 50 mls @ 100 mls/hr IVPB Q8H [facility] Stop: 09/16/16 23:01 Last Admin: 09/14/16 07:00 Dose: 100 mls/hr Ceftriaxone Sodium 1 gm/ (Sodium Chloride) 100 mls @ 100 mls/hr IVPB DAILY [facility] Last Admin: 09/14/16 09:30 Dose: 100 mls/hr Sodium Chloride (Sodium Chloride 0.9%) 1,000 mls @ 50 mls/hr IV .Q20H [facility] Multivitamins (Hexavitamin) 1 tab PO DAILY [facility] Last Admin: 09/14/16 09:15 Dose: 1 tab Mupirocin (Bactroban Ointment) 0 gm TOP BID [facility] Last Admin: 09/14/16 09:00 Dose: 1 applic Vancomycin HCl (Vancocin (Oral Or Rectal Use)) 125 mg PO QID [facility] Last Admin: 09/14/16 09:49 Dose: 125 mg - Labs Labs: 09/14/16 07:33 09/14/16 07:33 - Constitutional Appears: Non-toxic - Head Exam Head Exam: ATRAUMATIC - Eye Exam Eye Exam: EOMI - ENT Exam ENT Exam: Mucous Membranes Moist - Neck Exam Neck Exam: absent: Lymphadenopathy, Thyromegaly - Respiratory Exam Respiratory Exam: Clear to Ausculation Bilateral - Cardiovascular Exam Cardiovascular Exam: REGULAR RHYTHM, Murmur - GI/Abdominal Exam GI & Abdominal Exam: Normal Bowel Sounds. absent: Organomegaly - Rectal Exam Rectal Exam: Deferred - Extremities Exam Extremities Exam: Normal Capillary Refill. absent: Calf Tenderness - Neurological Exam Neurological Exam: Alert, Oriented x3 - Psychiatric Exam Psychiatric exam: Anxious - Skin Skin Exam: Dry
--- NOTE | 2016-09-14 13:43 | CP.PCM.CON ---
History of Present Illness - History of Present Illness History of Present Illness: COVERING DR DALTON Asked by family for a Second GI opinion on the management of this 71 year old patient with a complicated GI history including esophageal cancer resected by Dr Schwartz, Recent polypoid mass in TV colon removed [place] [address] Araya and reported to be non-cancerous by family (path report not on chart for this). Patient has been having a profuse diarrheal illness for the past 6-8 weeks. Had a colonoscopy done last month that showed several small polyps and a "diffuse colitis" as seen by Dr Hallman with pathology showing acute cryptitis and ulceration. She has been treated with antibiotics and per the outpatient medications list she was on 10-20mg of Prednisone and 500mg once daily of Sulfasalazine. Stool C diff is negative but I don't see any other stool studies. Asked to see for further evaluation and treatment of her "colitis" which was defined at [facility] by Dr Hallman. Family reports symptoms of bowel problems began at the time of the colon "surgery" for her polypoid mass. No bleeding or melena. Review of Systems - Cardiovascular Cardiovascular: absent: Chest Pain, Dyspnea on Exertion - Respiratory Respiratory: absent: Chest Congestion - Gastrointestinal Gastrointestinal: As Per HPI, Abdominal Pain, Diarrhea Past Patient History - Past Medical History & Family History Past Medical History?: Yes - Past Social History Smoking Status: Former Smoker - CARDIAC Hx Cardiac Disorders: No - PULMONARY Hx Respiratory Disorders: No - NEUROLOGICAL Hx Neurological Disorder: No - HEENT Hx HEENT Problems: Yes Hx Difficulty Chewing: Yes Other/Comment: DYSPHAGIA RELATED TO EXTENSIVE ESOPHAGEAL CANCER SX AND "TUBE" IN PLACE OF ESOPHAGUS - RENAL Hx Chronic Kidney Disease: No - ENDOCRINE/METABOLIC Hx Endocrine Disorders: No - HEMATOLOGICAL/ONCOLOGICAL Hx Blood Disorders: Yes Hx Blood Transfusions: Yes Hx Cancer: Yes (ESOPHAGEAL) Hx Cirrhosis: No Hx Hepatitis A: No Hx Hepatitis B: No Hx Hepatitis C: No Hx Human Immunodeficiency Virus (HIV): No - INTEGUMENTARY Hx Dermatological Problems: No - MUSCULOSKELETAL/RHEUMATOLOGICAL Hx Musculoskeletal Disorders: No Hx Falls: No - GASTROINTESTINAL Hx Gastrointestinal Disorders: Yes Hx Colitis: Yes Hx Gastroesophageal Reflux: Yes HX Swallowing Problems: Yes Other/Comment: ESOPHAGEAL CANCER - GENITOURINARY/GYNECOLOGICAL Hx Genitourinary Disorders: No - PSYCHIATRIC Hx Psychophysiologic Disorder: No Hx Substance Use: No - SURGICAL HISTORY Hx Surgeries: Yes Hx Appendectomy: Yes - ANESTHESIA Hx Anesthesia: Yes Hx Anesthesia Reactions: No Hx Malignant Hyperthermia: No Meds Allergies/Adverse Reactions: Allergies Allergy/AdvReac Type Severity Reaction Status Date / Time No Known Allergies Allergy Verified 09/11/16 15:18 - Medications Medications: Current Medications Acetaminophen (Tylenol 325mg Tab) 650 mg PO Q6 PRN PRN Reason: Pain, moderate (4-7) Last Admin: 09/14/16 09:20 Dose: 650 mg Folic Acid (Folic Acid) 1 mg PO DAILY [facility] Last Admin: 09/14/16 09:15 Dose: 1 mg Metronidazole (Flagyl) 250 mg in 50 mls @ 100 mls/hr IVPB Q8H [facility] Stop: 09/16/16 23:01 Last Admin: 09/14/16 07:00 Dose: 100 mls/hr Ceftriaxone Sodium 1 gm/ (Sodium Chloride) 100 mls @ 100 mls/hr IVPB DAILY [facility] Last Admin: 09/14/16 09:30 Dose: 100 mls/hr Sodium Chloride (Sodium Chloride 0.9%) 1,000 mls @ 50 mls/hr IV .Q20H [facility] Multivitamins (Hexavitamin) 1 tab PO DAILY [facility] Last Admin: 09/14/16 09:15 Dose: 1 tab Mupirocin (Bactroban Ointment) 0 gm TOP BID [facility] Last Admin: 09/14/16 09:00 Dose: 1 applic Vancomycin HCl (Vancocin (Oral Or Rectal Use)) 125 mg PO QID [facility] Last Admin: 09/14/16 09:49 Dose: 125 mg Physical Exam - Constitutional Appears: No Acute Distress - Head Exam Head Exam: ATRAUMATIC, NORMOCEPHALIC - Eye Exam Eye Exam: EOMI, PERRL - Respiratory Exam Respiratory Exam: NORMAL BREATHING PATTERN - Cardiovascular Exam Cardiovascular Exam: REGULAR RHYTHM, +S1 - GI/Abdominal Exam GI & Abdominal Exam: Hyperactive Bowel Sounds, Soft. absent: Distended, Firm, Guarding, Mass, Organomegaly, Rebound, Tenderness Additional comments: Midline well healed scar - Rectal Exam Rectal Exam: Deferred - Extremities Exam Extremities exam: Positive for: normal inspection - Neurological Exam Neurological exam: Alert, Oriented x3 - Psychiatric Exam Psychiatric exam: Normal Affect, Normal Mood Results - Vital Signs Recent Vital Signs: Last Vital Signs Temp 97.3 F L 09/13/16 23:10 Pulse 76 07/29/17 07:30 Resp 20 09/13/16 23:10 BP 100/63 09/13/16 23:10 Pulse Ox 98 09/13/16 23:10 - Labs Result Diagrams: 09/14/16 07:33 09/14/16 07:33 Labs: Laboratory Results - last 24 hr 09/14/16 09/14/16 07:33 07:33 WBC 3.3 L RBC 2.94 L Hgb 8.1 L Hct 25.5 L MCV 86.5 MCH 27.6 MCHC 31.9 L RDW 14.3 Plt Count 186 MPV 7.0 L Sodium 138 Potassium 4.3 Chloride 107 Carbon Dioxide 26 Anion Gap 9 L BUN < 2 L Creatinine 0.4 L Est GFR ( Amer) > 60 Est GFR (Non-Af Amer) > 60 Random Glucose 71 Calcium 7.0 L Assessment & Plan (1) Acute colitis Assessment and Plan: Patient with findings of acute colitis on colon exam from 07/2016 but has not responded to current therapy. Diagnosis of UC was reported by the diagnosis has not been established as biopsy findings may appear similarly in acute infectious , ischemic colitis as well. I would advise the following: CT Scan of abd and pelvis to exclude abscess and define extent of inflammatory activity (small bowel involved as well?), r/o fistula (See no scan done) Stool for C and S, O and P, WBC's, C diff (repeat), fecal calprotectin level. Inflammatory bowel disease discrimination antibody profile (ANCA, ASCA) Would place on full dose 5-ASA pending results of work-up Consider repeat colonoscopy to reassess and rebiopsy If work-up determines that steroids are appropriate for management of IBD would give equivalent of 40-60mg of Prednisone or Budesonide at recommended IBD dosing. Advised that family speak with Dr Marquez about considering these recommendations with the primary GI Jewel Gauger or to consider transferring care to Dr Dalton. No orders are written in the role of a second opinion risk control consultant. Status: Acute (2) Abdominal pain Status: Acute (3) Diarrhea Status: Acute (4) H/O adenomatous polyp of colon Assessment and Plan: Further management per Dr Araya Status: Acute
--- NOTE | 2016-09-14 16:59 | CP.PCM.PN ---
Subjective - Date & Time of Evaluation Date of Evaluation: 09/14/16 Time of Evaluation: 16:30 - Subjective Subjective: Abdominal pain slightly improved still with diarrhea Objective - Vital Signs/Intake and Output Vital Signs (last 24 hours): Temp Pulse Resp BP Pulse Ox 97.9 F 85 20 91/52 L 99 09/14/16 16:08 09/14/16 16:08 09/14/16 16:08 09/14/16 16:08 09/14/16 16:08 Intake and Output: 09/14/16 09/14/16 06:59 18:59 Intake Total 1720 Balance 1720 - Medications Medications: Current Medications Acetaminophen (Tylenol 325mg Tab) 650 mg PO Q6 PRN PRN Reason: Pain, moderate (4-7) Last Admin: 09/14/16 09:20 Dose: 650 mg Folic Acid (Folic Acid) 1 mg PO DAILY [facility] Last Admin: 09/14/16 09:15 Dose: 1 mg Metronidazole (Flagyl) 250 mg in 50 mls @ 100 mls/hr IVPB Q8H [facility] Stop: 09/16/16 23:01 Last Admin: 09/14/16 16:13 Dose: 100 mls/hr Ceftriaxone Sodium 1 gm/ (Sodium Chloride) 100 mls @ 100 mls/hr IVPB DAILY [facility] Last Admin: 09/14/16 09:30 Dose: 100 mls/hr Sodium Chloride (Sodium Chloride 0.9%) 1,000 mls @ 50 mls/hr IV .Q20H [facility] Multivitamins (Hexavitamin) 1 tab PO DAILY [facility] Last Admin: 09/14/16 09:15 Dose: 1 tab Mupirocin (Bactroban Ointment) 0 gm TOP BID [facility] Last Admin: 09/14/16 09:00 Dose: 1 applic Vancomycin HCl (Vancocin (Oral Or Rectal Use)) 125 mg PO QID [facility] Last Admin: 09/14/16 09:49 Dose: 125 mg - Labs Labs: 09/14/16 07:33 09/14/16 07:33 - Head Exam Head Exam: ATRAUMATIC - Eye Exam Eye Exam: Normal appearance - ENT Exam ENT Exam: Mucous Membranes Dry - Respiratory Exam Respiratory Exam: NORMAL BREATHING PATTERN - Cardiovascular Exam Cardiovascular Exam: +S1, +S2 - GI/Abdominal Exam GI & Abdominal Exam: Normal Bowel Sounds - Extremities Exam Extremities Exam: Normal Inspection Assessment and Plan (1) Anemia Assessment & Plan: hematchezia and chronic disease Status: Acute (2) Neoplasm of esophagus, malignant Assessment & Plan: likely cured Status: Chronic
--- NOTE | 2016-09-14 17:01 | CP.PCM.PN ---
Subjective - Date & Time of Evaluation Date of Evaluation: 09/14/16 Time of Evaluation: 16:35 Objective - Vital Signs/Intake and Output Vital Signs (last 24 hours): Temp Pulse Resp BP Pulse Ox 97.9 F 85 20 91/52 L 99 09/14/16 16:08 09/14/16 16:08 09/14/16 16:08 09/14/16 16:08 09/14/16 16:08 Intake and Output: 09/14/16 09/14/16 06:59 18:59 Intake Total 1720 Balance 1720 - Medications Medications: Current Medications Acetaminophen (Tylenol 325mg Tab) 650 mg PO Q6 PRN PRN Reason: Pain, moderate (4-7) Last Admin: 09/14/16 09:20 Dose: 650 mg Folic Acid (Folic Acid) 1 mg PO DAILY [facility] Last Admin: 09/14/16 09:15 Dose: 1 mg Metronidazole (Flagyl) 250 mg in 50 mls @ 100 mls/hr IVPB Q8H [facility] Stop: 09/16/16 23:01 Last Admin: 09/14/16 16:13 Dose: 100 mls/hr Ceftriaxone Sodium 1 gm/ (Sodium Chloride) 100 mls @ 100 mls/hr IVPB DAILY [facility] Last Admin: 09/14/16 09:30 Dose: 100 mls/hr Sodium Chloride (Sodium Chloride 0.9%) 1,000 mls @ 50 mls/hr IV .Q20H [facility] Multivitamins (Hexavitamin) 1 tab PO DAILY [facility] Last Admin: 09/14/16 09:15 Dose: 1 tab Mupirocin (Bactroban Ointment) 0 gm TOP BID [facility] Last Admin: 09/14/16 09:00 Dose: 1 applic Vancomycin HCl (Vancocin (Oral Or Rectal Use)) 125 mg PO QID [facility] Last Admin: 09/14/16 09:49 Dose: 125 mg - Labs Labs: 09/14/16 07:33 09/14/16 07:33 Assessment and Plan (1) Anemia Status: Acute (2) Neoplasm of esophagus, malignant Status: Chronic
[2016-09-14] MEDS ORDERED: Sodium Chloride 0.9% 500 ML IV ONE (23:33)
[2016-09-15] MEDS: Sodium Chloride 0.9% 1,000 ML IV SCH ×3 (00:57→20:36)
[2016-09-15] MEDS: metroNIDAZOLE IV 250mg/50 ml 250 MG/50 ML BAG IVPB SCH ×3 (06:02→22:41)
[2016-09-15] MEDS: Multiple Vitamins Tab PO SCH (09:47)
[2016-09-15] MEDS: Vancomycin 125 MG/5 ML SOLN (ORAL/RECTAL) PO SCH ×4 (09:49→21:19)
[2016-09-15] MEDS: MethylPREDNISolone 40 mg Vial IV SCH ×2 (09:49→21:18)
--- NOTE | 2016-09-15 12:30 | CP.PCM.PN ---
Subjective - Date & Time of Evaluation Date of Evaluation: 09/15/16 Time of Evaluation: 11:40 - Subjective Subjective: clinically same Objective - Vital Signs/Intake and Output Vital Signs (last 24 hours): Temp Pulse Resp BP Pulse Ox 98.4 F 104 H 18 95/61 L 99 09/15/16 07:30 09/15/16 07:30 09/15/16 07:30 09/15/16 07:30 09/15/16 07:30 Intake and Output: 09/15/16 09/15/16 06:59 18:59 Intake Total 2240 Balance 2240 - Medications Medications: Current Medications Acetaminophen (Tylenol 325mg Tab) 650 mg PO Q6 PRN PRN Reason: Pain, moderate (4-7) Last Admin: 09/15/16 05:41 Dose: 650 mg Folic Acid (Folic Acid) 1 mg PO DAILY [facility] Last Admin: 09/15/16 09:47 Dose: 1 mg Metronidazole (Flagyl) 250 mg in 50 mls @ 100 mls/hr IVPB Q8H [facility] Stop: 09/16/16 23:01 Last Admin: 09/15/16 06:02 Dose: 100 mls/hr Ceftriaxone Sodium 1 gm/ (Sodium Chloride) 100 mls @ 100 mls/hr IVPB DAILY [facility] Last Admin: 09/15/16 09:48 Dose: 100 mls/hr Sodium Chloride (Sodium Chloride 0.9%) 1,000 mls @ 100 mls/hr IV .Q10H [facility] Last Admin: 09/15/16 00:57 Dose: 100 mls/hr Methylprednisolone (Solu-Medrol) 40 mg IV Q12 [facility] Stop: 09/17/16 22:01 Last Admin: 09/15/16 09:49 Dose: 40 mg Multivitamins (Hexavitamin) 1 tab PO DAILY [facility] Last Admin: 09/15/16 09:47 Dose: 1 tab Mupirocin (Bactroban Ointment) 0 gm TOP BID [facility] Last Admin: 09/15/16 09:54 Dose: 1 applic Vancomycin HCl (Vancocin (Oral Or Rectal Use)) 125 mg PO QID [facility] Last Admin: 09/15/16 09:49 Dose: 125 mg - Labs Labs: 09/14/16 07:33 09/14/16 07:33 - Constitutional Appears: Well - Head Exam Head Exam: ATRAUMATIC, NORMAL INSPECTION, NORMOCEPHALIC - Eye Exam Eye Exam: EOMI, Normal appearance, PERRL Pupil Exam: NORMAL ACCOMODATION, PERRL - ENT Exam ENT Exam: Mucous Membranes Moist, Normal Exam - Neck Exam Neck Exam: Full ROM, Normal Inspection. absent: Lymphadenopathy - Respiratory Exam Respiratory Exam: Decreased Breath Sounds - Cardiovascular Exam Cardiovascular Exam: REGULAR RHYTHM, +S1, +S2 - GI/Abdominal Exam GI & Abdominal Exam: Soft, Diminished Bowel Sounds - Rectal Exam Rectal Exam: Deferred Assessment and Plan (1) Abdominal pain Status: Acute (2) Abnormal EKG Status: Acute (3) Acute colitis Status: Acute (4) Anemia Status: Acute (5) Bronchitis Status: Acute (6) Chest pain Status: Acute (7) Colitis Status: Acute (8) Dehydration Status: Acute (9) Diarrhea Status: Acute (10) Elbow fracture Status: Acute (11) Fever Status: Acute (12) H/O adenomatous polyp of colon Status: Acute (13) Heme + stool Status: Acute (14) Hyponatremia Status: Acute (15) Hypotension Status: Acute (16) Leukopenia Status: Acute (17) Lung nodules Status: Acute (18) Pharyngitis Status: Acute (19) Pneumonia Status: Acute (20) Prophylactic measure Status: Acute (21) Pulmonary embolism Status: Acute (22) Risk for coronary artery disease less than 10% in next 10 years Status: Acute (23) Severe chronic ulcerative colitis Status: Acute (24) Sore throat symptom Status: Acute (25) Thyroid nodule Status: Acute (26) UTI (urinary tract infection) Status: Acute (27) UTI (urinary tract infection) Status: Acute (28) Wrist fracture Status: Acute (29) Asthma Status: Chronic (30) Neoplasm of esophagus, malignant Status: Chronic - Assessment and Plan (Free Text) Plan: No diarrhea Hydration Burning with urination Labs and meds reviewed Continue as advised Metronidazole Ceftriaxone Vancomycin Cultures awaited Dr. chuy Young next a.m.
--- NOTE | 2016-09-15 12:34 | PN ---
DATE: SUBJECTIVE: A 71-year-old female seen and examined in rounds today with reported hypotension which was treated with IP normal saline. The patient has feeling of generalized weakness and malaise, but less episodes of diarrhea and no reported active bleeding. The entire chart is reviewed including but not limited to the most recent lab and radiology study results, current and previous medication list, current and previous medical events. The latest blood workup showed hemoglobin dropped to 8.1, hematocrit 25.5 for which multiple transfusions is to be consider with a low of BUN and low creatinine as well as low calcium of 7.0 with a very low albumin of 1.7. The patient denies any significant complaint of chest pain or reported shortness of breath. PHYSICAL EXAMINATION: GENERAL: A 71-year-old female, awake, alert, oriented. VITAL SIGNS: Afebrile with pulse of 72, respiratory rate 20-22, blood pressure 100/64. HEENT: Showed pale, dry oral mucous membrane, nonicteric sclerae. LUNGS: Scattered crepitation. Decreased air entry at bases. HEART: Positive S1 and S2. ABDOMEN: Soft. Bowel sounds are present with generalized mild tenderness. No mass or organomegaly. No rebound, tenderness or guarding. EXTREMITIES: Without edema, clubbing or cyanosis. NEUROLOGIC: No reported new neurological deficits, sensory or motor. IMPRESSION: 1. Exacerbation of inflammatory bowel disease. 2. Peptic ulcer disease. 3. Severe malnutrition with hypoalbuminemia and hypoproteinemia. 4. Anemia, most likely secondary to above. 5. Rule out possible infectious colitis. 5. Colon polyps by history. SUGGESTIONS: 1. Agree with your plan. 2. Consider repeat colonoscopy when the patient is more stable clinically. 3. Further evaluation and recommendation to follow and the patient will need some type of hyperalimentation with albumin IV. Case is to discussed with admitting . Anamaria Ferguson MD
--- NOTE | 2016-09-15 17:35 | CP.PCM.PN ---
Subjective - Date & Time of Evaluation Date of Evaluation: 09/13/16 Time of Evaluation: 19:50 - Subjective Subjective: Has abdominal pain and diarrhea Objective - Vital Signs/Intake and Output Vital Signs (last 24 hours): Temp Pulse Resp BP Pulse Ox 98.1 F 106 H 20 86/58 L 99 09/15/16 17:20 09/15/16 17:20 09/15/16 17:20 09/15/16 17:20 09/15/16 17:20 Intake and Output: 09/15/16 09/15/16 06:59 18:59 Intake Total 2240 800 Balance 2240 800 - Medications Medications: Current Medications Acetaminophen (Tylenol 325mg Tab) 650 mg PO Q6 PRN PRN Reason: Pain, moderate (4-7) Last Admin: 09/15/16 16:10 Dose: 650 mg Folic Acid (Folic Acid) 1 mg PO DAILY [facility] Last Admin: 09/15/16 09:47 Dose: 1 mg Metronidazole (Flagyl) 250 mg in 50 mls @ 100 mls/hr IVPB Q8H [facility] Stop: 09/16/16 23:01 Last Admin: 09/15/16 14:01 Dose: 100 mls/hr Ceftriaxone Sodium 1 gm/ (Sodium Chloride) 100 mls @ 100 mls/hr IVPB DAILY [facility] Last Admin: 09/15/16 09:48 Dose: 100 mls/hr Sodium Chloride (Sodium Chloride 0.9%) 1,000 mls @ 100 mls/hr IV .Q10H [facility] Last Admin: 09/15/16 12:51 Dose: 100 mls/hr Methylprednisolone (Solu-Medrol) 40 mg IV Q12 [facility] Stop: 09/17/16 22:01 Last Admin: 09/15/16 09:49 Dose: 40 mg Multivitamins (Hexavitamin) 1 tab PO DAILY [facility] Last Admin: 09/15/16 09:47 Dose: 1 tab Mupirocin (Bactroban Ointment) 0 gm TOP BID [facility] Last Admin: 09/15/16 09:54 Dose: 1 applic Vancomycin HCl (Vancocin (Oral Or Rectal Use)) 125 mg PO QID [facility] Last Admin: 09/15/16 14:01 Dose: 125 mg - Labs Labs: 09/14/16 07:33 09/14/16 07:33 - Head Exam Head Exam: ATRAUMATIC - Eye Exam Eye Exam: Normal appearance - ENT Exam ENT Exam: Mucous Membranes Dry - Respiratory Exam Respiratory Exam: NORMAL BREATHING PATTERN - Cardiovascular Exam Cardiovascular Exam: +S1, +S2 - GI/Abdominal Exam GI & Abdominal Exam: Hyperactive Bowel Sounds - Extremities Exam Extremities Exam: Normal Inspection Assessment and Plan (1) Anemia Assessment & Plan: hematochezia and chronic disease repeat ferritin, b12, folate in AM Status: Acute (2) Neoplasm of esophagus, malignant Assessment & Plan: likely cured Status: Chronic
--- NOTE | 2016-09-15 17:38 | CP.PCM.PN ---
Subjective - Date & Time of Evaluation Date of Evaluation: 09/15/16 Time of Evaluation: 17:00 - Subjective Subjective: Feeling better, less pain and diarrhea has burning with urination Objective - Vital Signs/Intake and Output Vital Signs (last 24 hours): Temp Pulse Resp BP Pulse Ox 98.1 F 106 H 20 86/58 L 99 09/15/16 17:20 09/15/16 17:20 09/15/16 17:20 09/15/16 17:20 09/15/16 17:20 Intake and Output: 09/15/16 09/15/16 06:59 18:59 Intake Total 2240 800 Balance 2240 800 - Medications Medications: Current Medications Acetaminophen (Tylenol 325mg Tab) 650 mg PO Q6 PRN PRN Reason: Pain, moderate (4-7) Last Admin: 09/15/16 16:10 Dose: 650 mg Folic Acid (Folic Acid) 1 mg PO DAILY [facility] Last Admin: 09/15/16 09:47 Dose: 1 mg Metronidazole (Flagyl) 250 mg in 50 mls @ 100 mls/hr IVPB Q8H [facility] Stop: 09/16/16 23:01 Last Admin: 09/15/16 14:01 Dose: 100 mls/hr Ceftriaxone Sodium 1 gm/ (Sodium Chloride) 100 mls @ 100 mls/hr IVPB DAILY [facility] Last Admin: 09/15/16 09:48 Dose: 100 mls/hr Sodium Chloride (Sodium Chloride 0.9%) 1,000 mls @ 100 mls/hr IV .Q10H [facility] Last Admin: 09/15/16 12:51 Dose: 100 mls/hr Methylprednisolone (Solu-Medrol) 40 mg IV Q12 [facility] Stop: 09/17/16 22:01 Last Admin: 09/15/16 09:49 Dose: 40 mg Multivitamins (Hexavitamin) 1 tab PO DAILY [facility] Last Admin: 09/15/16 09:47 Dose: 1 tab Mupirocin (Bactroban Ointment) 0 gm TOP BID [facility] Last Admin: 09/15/16 09:54 Dose: 1 applic Vancomycin HCl (Vancocin (Oral Or Rectal Use)) 125 mg PO QID [facility] Last Admin: 09/15/16 14:01 Dose: 125 mg - Labs Labs: 09/14/16 07:33 09/14/16 07:33 - Head Exam Head Exam: ATRAUMATIC - Eye Exam Eye Exam: Normal appearance - ENT Exam ENT Exam: Mucous Membranes Dry - Respiratory Exam Respiratory Exam: NORMAL BREATHING PATTERN - Cardiovascular Exam Cardiovascular Exam: +S1, +S2 - GI/Abdominal Exam GI & Abdominal Exam: Hyperactive Bowel Sounds Assessment and Plan (1) Anemia Assessment & Plan: chronic disease hematochezia ferritin, b12, folate in AM Status: Acute (2) Neoplasm of esophagus, malignant Assessment & Plan: likely cured Status: Chronic
--- NOTE | 2016-09-15 22:38 | CP.PCM.PN ---
Subjective - Date & Time of Evaluation Date of Evaluation: 09/15/16 Time of Evaluation: 14:00 - Subjective Subjective: no further diarrhea, cp with tenderness, anxious Objective - Vital Signs/Intake and Output Vital Signs (last 24 hours): Temp Pulse Resp BP Pulse Ox 98.1 F 68 20 86/58 L 99 09/15/16 17:20 09/15/16 20:00 09/15/16 17:20 09/15/16 17:20 09/15/16 17:20 Intake and Output: 09/15/16 09/16/16 18:59 06:59 Intake Total 800 Balance 800 - Medications Medications: Current Medications Acetaminophen (Tylenol 325mg Tab) 650 mg PO Q6 PRN PRN Reason: Pain, moderate (4-7) Last Admin: 09/15/16 16:10 Dose: 650 mg Folic Acid (Folic Acid) 1 mg PO DAILY [facility] Last Admin: 09/15/16 09:47 Dose: 1 mg Metronidazole (Flagyl) 250 mg in 50 mls @ 100 mls/hr IVPB Q8H [facility] Stop: 09/16/16 23:01 Last Admin: 09/15/16 14:01 Dose: 100 mls/hr Ceftriaxone Sodium 1 gm/ (Sodium Chloride) 100 mls @ 100 mls/hr IVPB DAILY [facility] Last Admin: 09/15/16 09:48 Dose: 100 mls/hr Sodium Chloride (Sodium Chloride 0.9%) 1,000 mls @ 100 mls/hr IV .Q10H [facility] Last Admin: 09/15/16 20:36 Dose: Not Given Methylprednisolone (Solu-Medrol) 40 mg IV Q12 [facility] Stop: 09/17/16 22:01 Last Admin: 09/15/16 21:18 Dose: 40 mg Multivitamins (Hexavitamin) 1 tab PO DAILY [facility] Last Admin: 09/15/16 09:47 Dose: 1 tab Mupirocin (Bactroban Ointment) 0 gm TOP BID [facility] Last Admin: 09/15/16 17:53 Dose: 1 applic Vancomycin HCl (Vancocin (Oral Or Rectal Use)) 125 mg PO QID [facility] Last Admin: 09/15/16 21:19 Dose: 125 mg - Labs Labs: 09/14/16 07:33 09/14/16 07:33 - Constitutional Appears: Non-toxic - Head Exam Head Exam: ATRAUMATIC - Eye Exam Eye Exam: EOMI - ENT Exam ENT Exam: Mucous Membranes Moist - Neck Exam Neck Exam: absent: Lymphadenopathy, Tenderness - Respiratory Exam Respiratory Exam: Chest Wall Tenderness, Clear to Ausculation Bilateral. absent : Rales - Cardiovascular Exam Cardiovascular Exam: REGULAR RHYTHM, Murmur. absent: Gallop - GI/Abdominal Exam GI & Abdominal Exam: Normal Bowel Sounds. absent: Organomegaly - Rectal Exam Rectal Exam: Deferred - Extremities Exam Extremities Exam: Normal Capillary Refill. absent: Calf Tenderness - Neurological Exam Neurological Exam: Alert, Oriented x3 - Psychiatric Exam Psychiatric exam: Anxious - Skin Skin Exam: Dry
[2016-09-16] MEDS: metroNIDAZOLE IV 250mg/50 ml 250 MG/50 ML BAG IVPB SCH ×3 (05:59→22:40)
[2016-09-16 07:49] LABS: FOLATE 11.3 ng/mL
[2016-09-16] MEDS: MethylPREDNISolone 40 mg Vial IV SCH ×2 (09:23→21:10)
[2016-09-16] MEDS: Multiple Vitamins Tab PO SCH (09:24)
[2016-09-16] MEDS: Vancomycin 125 MG/5 ML SOLN (ORAL/RECTAL) PO SCH ×4 (09:27→21:10)
[2016-09-16] MEDS ORDERED: Iodixanol 320 MG/ML 100 ML BOTTLE IV ONE (11:58)
--- NOTE | 2016-09-16 16:03 | PN ---
DATE: LOCATION: Room 662, Bed B. SUBJECTIVE: This 71-year-old female seen in rounds in the presence of her daughter today indicating much more improvement, with more solid movement this morning. The patient appeared to be awake, alert, oriented. The entire chart is reviewed including, but not limited to the most recent lab and radiology study results, current and previous medication list, current and previous medical events and today's lab still pending but with retic count of 2.4, elevated, with normal level as well as increased B12 to 1000 and more with normal folate. Her albumin, however, and her total protein have been low as well as calcium, which are gradually improving. The patient tolerated oral intake well. PHYSICAL EXAMINATION GENERAL: A 71-year-old female. It has to be mentioned that the patient is still complaining of right upper chest muscle pin like, especially on movement. VITAL SIGNS: Afebrile, pulse of 76, respiratory rate 20-22, blood pressure 110/64. HEENT: Show pale, dry oral mucous membrane, nonicteric sclerae. LUNGS: Scattered mild crepitation. Decreased air entry at bases. HEART: Positive S1 and S2. ABDOMEN: Soft with mild distension, mild generalized tenderness with hyperactive bowel sounds. No masses or organomegaly. EXTREMITIES: Without significant clubbing or cyanosis but lower extremities have edematous changes. NEUROLOGIC: No reported new neurological deficits, sensory or motor. It has to be mentioned that there is no reported active rectal bleeding this morning. IMPRESSION: 1. Re-exacerbation of inflammatory bowel disease. The patient has no signs of ischemic colitis as suggested in one of the notes mentioned recently and the patient has no evidence of fistula formation or abscess formation, had recently more than one CAT scan. 2. Re-exacerbation of peptic ulcer disease. 3. Anemia secondary to above. 4. Malnutrition with hypoalbuminemia and hypoproteinemia. 5. Colon polyps by history. 6. Esophageal cancer by history. 7. Severe muscle spasm. The patient is still complaining of right upper chest muscle pain. RECOMMENDATION: 1. Continue current management. 2. May add Asacol p.o. 3. Repeat colonoscopy when more stable as well as repeat upper endoscopy to rule out possible esophageal candidiasis. 4. Flexeril p.o.. Further recommendations to follow. Anamaria Ferguson MD
[2016-09-16] MEDS: Sucralfate 1 gm/10 ml Oral Susp UD PO SCH (17:17)
[2016-09-16] MEDS: Sodium Chloride 0.9% 1,000 ML IV SCH (17:18)
[2016-09-16] MEDS: Enoxaparin 60 mg Syringe SC SCH ×2 (18:07→22:05)
--- NOTE | 2016-09-16 18:19 | CP.PCM.PN ---
Subjective - Date & Time of Evaluation Date of Evaluation: 09/16/16 Time of Evaluation: 10:40 - Subjective Subjective: clinically same Objective - Vital Signs/Intake and Output Vital Signs (last 24 hours): Temp Pulse Resp BP Pulse Ox 98.4 F 78 20 118/68 97 09/16/16 15:05 09/16/16 16:00 09/16/16 15:05 09/16/16 15:05 09/16/16 15:05 Intake and Output: 09/16/16 09/16/16 06:59 18:59 Intake Total 1200 1200 Balance 1200 1200 - Medications Medications: Current Medications Acetaminophen (Tylenol 325mg Tab) 650 mg PO Q6 PRN PRN Reason: Pain, moderate (4-7) Last Admin: 09/16/16 14:36 Dose: 650 mg Cyclobenzaprine HCl (Flexeril) 10 mg PO TID [facility] Last Admin: 09/16/16 17:17 Dose: 10 mg Enoxaparin Sodium (Lovenox) 50 mg SC Q12 [facility] Last Admin: 09/16/16 18:07 Dose: 50 mg Folic Acid (Folic Acid) 1 mg PO DAILY [facility] Last Admin: 09/16/16 09:24 Dose: 1 mg Metronidazole (Flagyl) 250 mg in 50 mls @ 100 mls/hr IVPB Q8H [facility] Stop: 09/16/16 23:01 Last Admin: 09/16/16 14:38 Dose: 100 mls/hr Ceftriaxone Sodium 1 gm/ (Sodium Chloride) 100 mls @ 100 mls/hr IVPB DAILY [facility] Last Admin: 09/16/16 09:23 Dose: 100 mls/hr Sodium Chloride (Sodium Chloride 0.9%) 1,000 mls @ 100 mls/hr IV .Q10H [facility] Last Admin: 09/16/16 17:18 Dose: Not Given Mesalamine (Delzicol) 800 mg PO TID [facility] Last Admin: 09/16/16 17:18 Dose: 800 mg Methylprednisolone (Solu-Medrol) 40 mg IV Q12 [facility] Stop: 09/17/16 22:01 Last Admin: 09/16/16 09:23 Dose: 40 mg Multivitamins (Hexavitamin) 1 tab PO DAILY [facility] Last Admin: 09/16/16 09:24 Dose: 1 tab Mupirocin (Bactroban Ointment) 0 gm TOP BID [facility] Last Admin: 09/16/16 17:17 Dose: 1 applic Sucralfate (Carafate Oral Susp) 1 gm PO ACBD [facility] Last Admin: 09/16/16 17:17 Dose: 1 gm Vancomycin HCl (Vancocin (Oral Or Rectal Use)) 125 mg PO QID [facility] Last Admin: 09/16/16 17:16 Dose: 125 mg - Labs Labs: 09/14/16 07:33 09/14/16 07:33 - Constitutional Appears: Well - Head Exam Head Exam: ATRAUMATIC, NORMAL INSPECTION, NORMOCEPHALIC - Eye Exam Eye Exam: EOMI, Normal appearance, PERRL Pupil Exam: NORMAL ACCOMODATION, PERRL - ENT Exam ENT Exam: Mucous Membranes Moist, Normal Exam - Neck Exam Neck Exam: Full ROM, Normal Inspection. absent: Lymphadenopathy - Respiratory Exam Respiratory Exam: Decreased Breath Sounds - Cardiovascular Exam Cardiovascular Exam: REGULAR RHYTHM, +S1, +S2 - GI/Abdominal Exam GI & Abdominal Exam: Soft, Diminished Bowel Sounds - Rectal Exam Rectal Exam: Deferred Assessment and Plan (1) Abdominal pain Status: Acute (2) Abnormal EKG Status: Acute (3) Acute colitis Status: Acute (4) Anemia Status: Acute (5) Bronchitis Status: Acute (6) Chest pain Status: Acute (7) Colitis Status: Acute (8) Dehydration Status: Acute (9) Diarrhea Status: Acute (10) Elbow fracture Status: Acute (11) Fever Status: Acute (12) H/O adenomatous polyp of colon Status: Acute (13) Heme + stool Status: Acute (14) Hyponatremia Status: Acute (15) Hypotension Status: Acute (16) Leukopenia Status: Acute (17) Lung nodules Status: Acute (18) Pharyngitis Status: Acute (19) Pneumonia Status: Acute (20) Prophylactic measure Status: Acute (21) Pulmonary embolism Status: Acute (22) Risk for coronary artery disease less than 10% in next 10 years Status: Acute (23) Severe chronic ulcerative colitis Status: Acute (24) Sore throat symptom Status: Acute (25) Thyroid nodule Status: Acute (26) UTI (urinary tract infection) Status: Acute (27) UTI (urinary tract infection) Status: Acute (28) Wrist fracture Status: Acute (29) Asthma Status: Chronic (30) Neoplasm of esophagus, malignant Status: Chronic - Assessment and Plan (Free Text) Plan: Patient feeling better No acute event overnight Labs and meds reviewed Low Hb, monitor further Solu-Medrol Hydration Continue meds as advised Delzicol Vancomycin Dr. vera Labs next a.m.
[2016-09-17] MEDS: Sodium Chloride 0.9% 1,000 ML IV SCH ×2 (02:09→22:24)
[2016-09-17] MEDS: Enoxaparin 60 mg Syringe SC SCH ×3 (06:00→21:26)
[2016-09-17] MEDS: Sucralfate 1 gm/10 ml Oral Susp UD PO SCH ×2 (06:29→17:30)
[2016-09-17 07:30] LABS: INR 1.2
[2016-09-17] MEDS: Vancomycin 125 MG/5 ML SOLN (ORAL/RECTAL) PO SCH ×4 (10:12→21:26)
[2016-09-17] MEDS: Multiple Vitamins Tab PO SCH (10:14)
[2016-09-17] MEDS: MethylPREDNISolone 40 mg Vial IV SCH ×2 (10:14→21:26)
--- NOTE | 2016-09-17 12:44 | PN ---
LOCATION: 2, bed B. SUBJECTIVE: This 71-year-old female seen and examined in rounds today with no significant clinical changes, but decrease of blood pressure at times with least bowel movement frequency; no reported active bleeding; however, it was reported that the patient might have perianal abscess, draining purulent exudate with less abdominal pain. The patient is seen by the wound care team and surgical consultation has to be called for possible drainage. The entire chart is reviewed including but not limited to the most recent lab and radiology study results, current and previous medication list, current and previous medical events, case discussed with the staff at length. Today's lab showed PT of 14.0 with normal PTT. Recent lab results still pending. A CAT scan was ordered; no official report yet. PHYSICAL EXAMINATION: GENERAL: A 71-year-old female, appeared to be awake, alert, oriented. Tolerating oral intake well without any reported nausea or vomiting this morning. VITAL SIGNS: Afebrile; pulse of 90, respiratory rate 20 to 22 with blood pressure of 100/58. HEENT: Showed pale dry oral mucous membrane. Nonicteric sclerae. LUNGS: Few scattered crepitation. Decreased air entry at bases. HEART: Positive S1 and S2. ABDOMEN: Soft with slight generalized tenderness, mildly distended. Perianal area with small abscess formation like small amount of purulent exudate. EXTREMITIES: With lower extremities edematous changes. No clubbing or cyanosis. NEUROLOGIC: No reported neurological deficits, sensory or motor. IMPRESSION: 1. Re-exacerbation of peptic ulcer disease. 2. Re-exacerbation of inflammatory bowel disease. 3. Perianal abscess. No clear evidence of fistula formation so far. 4. Anemia secondary to above. 5. Diarrhea secondary to above, subsiding. 6. Malnutrition with hypoalbuminemia. 7. Known history of colon polyps. 8. Esophageal cancer by history. 9. The patient complaint of right upper sided chest wall pain have been gradually improving. CAT scan report still pending. SUGGESTIONS: 1. Continue current management. 2. Surgical evaluation. 3. The patient will need repeat colonoscopy when she is more stable clinically. 4. Further recommendation to follow. Anamaria Ferguson MD
--- NOTE | 2016-09-17 13:33 | CP.PCM.CON ---
History of Present Illness - History of Present Illness History of Present Illness: General Surgery- Dr. Murray Reason for Consult: Perianal Wound 71F Hx of esophageal cancer, C.Diff 2month ago, has been in and out of the hospital over the last two months, presented with continued diarrhea. Denies blood in stool. Stool is becoming more formed. Colonoscopy done last month that showed several small polyps and a diffuse colitis, pathology showing acute cryptitis and ulceration. Pt can feel tear around anus. denies F/C N/V CP/SOB. no blood per rectum or stool. PMH: Esophageal Cancer (7 years ago treated with surgery, chemo, radiation). UTI , Cdiff infxn PSH: Esophageal Cancer (7 years ago), Appendectomy, Colon biopsy, Hernia repair ALL: none SocialHx: former smoker (quit 9years ago), former drinker (quit 2months ago- drank 6pack/day) Review of Systems - Review of Systems All systems: reviewed and no additional remarkable complaints except Past Patient History - Past Medical History & Family History Past Medical History?: Yes - Past Social History Smoking Status: Former Smoker - CARDIAC Hx Cardiac Disorders: No - PULMONARY Hx Respiratory Disorders: No - NEUROLOGICAL Hx Neurological Disorder: No - HEENT Hx HEENT Problems: Yes Hx Difficulty Chewing: Yes Other/Comment: DYSPHAGIA RELATED TO EXTENSIVE ESOPHAGEAL CANCER SX AND "TUBE" IN PLACE OF ESOPHAGUS - RENAL Hx Chronic Kidney Disease: No - ENDOCRINE/METABOLIC Hx Endocrine Disorders: No - HEMATOLOGICAL/ONCOLOGICAL Hx Blood Disorders: Yes Hx Blood Transfusions: Yes Hx Cancer: Yes (ESOPHAGEAL) Hx Cirrhosis: No Hx Hepatitis A: No Hx Hepatitis B: No Hx Hepatitis C: No Hx Human Immunodeficiency Virus (HIV): No - INTEGUMENTARY Hx Dermatological Problems: No - MUSCULOSKELETAL/RHEUMATOLOGICAL Hx Arthritis: Yes - GASTROINTESTINAL Hx Gastrointestinal Disorders: Yes Hx Colitis: Yes Hx Gastroesophageal Reflux: Yes HX Swallowing Problems: Yes Other/Comment: ESOPHAGEAL CANCER - GENITOURINARY/GYNECOLOGICAL Hx Genitourinary Disorders: No - PSYCHIATRIC Hx Psychophysiologic Disorder: No Hx Substance Use: No - SURGICAL HISTORY Hx Surgeries: Yes Hx Appendectomy: Yes - ANESTHESIA Hx Anesthesia: Yes Hx Anesthesia Reactions: No Hx Malignant Hyperthermia: No Meds Allergies/Adverse Reactions: Allergies Allergy/AdvReac Type Severity Reaction Status Date / Time No Known Allergies Allergy Verified 09/11/16 15:18 - Medications Medications: Current Medications Acetaminophen (Tylenol 325mg Tab) 650 mg PO Q6 PRN PRN Reason: Pain, moderate (4-7) Last Admin: 09/16/16 22:13 Dose: 650 mg Cyclobenzaprine HCl (Flexeril) 10 mg PO TID [facility] Last Admin: 09/17/16 10:14 Dose: 10 mg Enoxaparin Sodium (Lovenox) 50 mg SC Q12 [facility] Last Admin: 09/17/16 10:12 Dose: 50 mg Folic Acid (Folic Acid) 1 mg PO DAILY [facility] Last Admin: 09/17/16 10:14 Dose: 1 mg Sodium Chloride (Sodium Chloride 0.9%) 1,000 mls @ 100 mls/hr IV .Q10H [facility] Last Admin: 09/17/16 02:09 Dose: 100 mls/hr Mesalamine (Delzicol) 800 mg PO TID [facility] Last Admin: 09/17/16 10:13 Dose: 800 mg Methylprednisolone (Solu-Medrol) 40 mg IV Q12 [facility] Stop: 09/17/16 22:01 Last Admin: 09/17/16 10:14 Dose: 40 mg Multivitamins (Hexavitamin) 1 tab PO DAILY [facility] Last Admin: 09/17/16 10:14 Dose: 1 tab Mupirocin (Bactroban Ointment) 0 gm TOP BID [facility] Last Admin: 09/17/16 10:13 Dose: 1 applic Sucralfate (Carafate Oral Susp) 1 gm PO ACBD [facility] Last Admin: 09/17/16 06:29 Dose: 1 gm Vancomycin HCl (Vancocin (Oral Or Rectal Use)) 125 mg PO QID [facility] Last Admin: 09/17/16 10:12 Dose: 125 mg Physical Exam - Constitutional Appears: Non-toxic, No Acute Distress - Head Exam Head Exam: ATRAUMATIC - Eye Exam Eye Exam: EOMI - ENT Exam ENT Exam: Mucous Membranes Moist - Respiratory Exam Respiratory Exam: NORMAL BREATHING PATTERN. absent: Accessory Muscle Use, Rhonchi, Wheezes - Cardiovascular Exam Cardiovascular Exam: REGULAR RHYTHM, +S1, +S2 - GI/Abdominal Exam GI & Abdominal Exam: Normal Bowel Sounds, Soft. absent: Distended, Rigid - Rectal Exam Additional comments: 6:00 position emilia-anal ulcercation. subq fat seen at laceration site. measuring 2x3cm. good granulation tissue. no induration Results - Vital Signs Recent Vital Signs: Last Vital Signs Temp 97.7 F 09/17/16 07:00 Pulse 99 H 09/17/16 08:00 Resp 20 09/17/16 07:00 BP 102/62 09/17/16 07:00 Pulse Ox 95 09/17/16 07:00 - Labs Result Diagrams: 09/14/16 07:33 09/14/16 07:33 Labs: Laboratory Results - last 24 hr 09/17/16 07:08 PT 14.0 H INR 1.2 APTT 32 Assessment & Plan - Assessment and Plan (Free Text) Assessment: 71F perianal abscess vs laceration Plan: - keep area dry & clean * good granulation tissue, no signs of induration. - no packing necessary at this time - no acute surgical intervention at this time will discuss with Dr. Terri Diaz PGY1
--- NOTE | 2016-09-17 17:08 | CP.PCM.PN ---
Subjective - Date & Time of Evaluation Date of Evaluation: 09/17/16 Time of Evaluation: 11:20 - Subjective Subjective: clinically same Objective - Vital Signs/Intake and Output Vital Signs (last 24 hours): Temp Pulse Resp BP Pulse Ox 97.9 F 84 20 101/62 96 09/17/16 15:15 09/17/16 16:00 09/17/16 15:15 09/17/16 15:15 09/17/16 15:15 Intake and Output: 09/17/16 09/17/16 06:59 18:59 Intake Total 1170 Balance 1170 - Medications Medications: Current Medications Acetaminophen (Tylenol 325mg Tab) 650 mg PO Q6 PRN PRN Reason: Pain, moderate (4-7) Last Admin: 09/16/16 22:13 Dose: 650 mg Cyclobenzaprine HCl (Flexeril) 10 mg PO TID [facility] Last Admin: 09/17/16 14:33 Dose: 10 mg Enoxaparin Sodium (Lovenox) 50 mg SC Q12 [facility] Last Admin: 09/17/16 10:12 Dose: 50 mg Folic Acid (Folic Acid) 1 mg PO DAILY [facility] Last Admin: 09/17/16 10:14 Dose: 1 mg Sodium Chloride (Sodium Chloride 0.9%) 1,000 mls @ 100 mls/hr IV .Q10H [facility] Last Admin: 09/17/16 02:09 Dose: 100 mls/hr Mesalamine (Delzicol) 800 mg PO TID [facility] Last Admin: 09/17/16 15:07 Dose: 800 mg Methylprednisolone (Solu-Medrol) 40 mg IV Q12 [facility] Stop: 09/17/16 22:01 Last Admin: 09/17/16 10:14 Dose: 40 mg Multivitamins (Hexavitamin) 1 tab PO DAILY [facility] Last Admin: 09/17/16 10:14 Dose: 1 tab Mupirocin (Bactroban Ointment) 0 gm TOP BID [facility] Last Admin: 09/17/16 10:13 Dose: 1 applic Sucralfate (Carafate Oral Susp) 1 gm PO ACBD [facility] Last Admin: 09/17/16 06:29 Dose: 1 gm Vancomycin HCl (Vancocin (Oral Or Rectal Use)) 125 mg PO QID [facility] Last Admin: 09/17/16 14:33 Dose: 125 mg - Labs Labs: 07/29/17 07:33 09/14/16 07:33 PT 14.0 SECONDS (9.7-12.2) H 09/17/16 07:08 INR 1.2 09/17/16 07:08 APTT 32 SECONDS (21-34) 09/17/16 07:08 - Constitutional Appears: Well - Head Exam Head Exam: ATRAUMATIC, NORMAL INSPECTION, NORMOCEPHALIC - Eye Exam Eye Exam: EOMI, Normal appearance, PERRL Pupil Exam: NORMAL ACCOMODATION, PERRL - ENT Exam ENT Exam: Mucous Membranes Moist, Normal Exam - Neck Exam Neck Exam: Full ROM, Normal Inspection. absent: Lymphadenopathy - Respiratory Exam Respiratory Exam: Decreased Breath Sounds - Cardiovascular Exam Cardiovascular Exam: REGULAR RHYTHM, +S1, +S2 - GI/Abdominal Exam GI & Abdominal Exam: Soft, Diminished Bowel Sounds - Rectal Exam Rectal Exam: Deferred Assessment and Plan (1) Acute colitis Status: Acute (2) Fever Status: Acute (3) H/O adenomatous polyp of colon Status: Acute (4) Hypotension Status: Acute (5) UTI (urinary tract infection) Status: Acute (6) Abdominal pain Status: Acute (7) Abnormal EKG Status: Acute (8) Anemia Status: Acute (9) Bronchitis Status: Acute (10) Chest pain Status: Acute (11) Colitis Status: Acute (12) Dehydration Status: Acute (13) Diarrhea Status: Acute (14) Elbow fracture Status: Acute (15) Heme + stool Status: Acute (16) Hyponatremia Status: Acute (17) Leukopenia Status: Acute (18) Pharyngitis Status: Acute (19) Pneumonia Status: Acute (20) Prophylactic measure Status: Acute (21) Risk for coronary artery disease less than 10% in next 10 years Status: Acute (22) Severe chronic ulcerative colitis Status: Acute (23) Sore throat symptom Status: Acute (24) UTI (urinary tract infection) Status: Acute (25) Wrist fracture Status: Acute (26) Asthma Status: Chronic (27) Neoplasm of esophagus, malignant Status: Chronic - Assessment and Plan (Free Text) Plan: Consultations with GI doctors to pop call me back and said that he will not be able to do the second opinion he requested Dr. Khalil to do the second opinion discussed with the staff on the floor will discuss with the doctor tomorrow patient's workup was ordered by Dr. Diaz will continue respect to the family and also Dr. vera for further workup
--- NOTE | 2016-09-17 19:31 | CP.PCM.PN ---
Subjective - Date & Time of Evaluation Date of Evaluation: 09/17/16 Time of Evaluation: 12:15 - Subjective Subjective: Feeling better, stool more formed Objective - Vital Signs/Intake and Output Vital Signs (last 24 hours): Temp Pulse Resp BP Pulse Ox 97.9 F 84 20 101/62 96 09/17/16 15:15 09/17/16 16:00 09/17/16 15:15 09/17/16 15:15 09/17/16 15:15 - Medications Medications: Current Medications Acetaminophen (Tylenol 325mg Tab) 650 mg PO Q6 PRN PRN Reason: Pain, moderate (4-7) Last Admin: 09/16/16 22:13 Dose: 650 mg Cyclobenzaprine HCl (Flexeril) 10 mg PO TID [facility] Last Admin: 09/17/16 18:27 Dose: 10 mg Enoxaparin Sodium (Lovenox) 50 mg SC Q12 [facility] Last Admin: 09/17/16 10:12 Dose: 50 mg Folic Acid (Folic Acid) 1 mg PO DAILY [facility] Last Admin: 09/17/16 10:14 Dose: 1 mg Sodium Chloride (Sodium Chloride 0.9%) 1,000 mls @ 100 mls/hr IV .Q10H [facility] Last Admin: 09/17/16 02:09 Dose: 100 mls/hr Mesalamine (Delzicol) 800 mg PO TID [facility] Last Admin: 09/17/16 18:27 Dose: 800 mg Methylprednisolone (Solu-Medrol) 40 mg IV Q12 [facility] Stop: 09/17/16 22:01 Last Admin: 09/17/16 10:14 Dose: 40 mg Multivitamins (Hexavitamin) 1 tab PO DAILY [facility] Last Admin: 09/17/16 10:14 Dose: 1 tab Mupirocin (Bactroban Ointment) 0 gm TOP BID [facility] Last Admin: 09/17/16 18:28 Dose: 1 applic Sucralfate (Carafate Oral Susp) 1 gm PO ACBD [facility] Last Admin: 09/17/16 17:30 Dose: 1 gm Vancomycin HCl (Vancocin (Oral Or Rectal Use)) 125 mg PO QID [facility] Last Admin: 09/17/16 18:27 Dose: 125 mg Vancomycin HCl (Vancocin (Oral Or Rectal Use)) 125 mg PO QID [facility] - Labs Labs: 09/14/16 07:33 09/14/16 07:33 PT 14.0 SECONDS (9.7-12.2) H 09/17/16 07:08 INR 1.2 09/17/16 07:08 APTT 32 SECONDS (21-34) 09/17/16 07:08 - Head Exam Head Exam: ATRAUMATIC - Eye Exam Eye Exam: Normal appearance - ENT Exam ENT Exam: Mucous Membranes Dry - Respiratory Exam Respiratory Exam: NORMAL BREATHING PATTERN - Cardiovascular Exam Cardiovascular Exam: +S1, +S2 - GI/Abdominal Exam GI & Abdominal Exam: Normal Bowel Sounds - Extremities Exam Extremities Exam: Normal Inspection Assessment and Plan (1) Anemia Assessment & Plan: chronic disease Status: Acute (2) Neoplasm of esophagus, malignant Assessment & Plan: likely cured Status: Chronic
--- NOTE | 2016-09-17 19:32 | CP.PCM.PN ---
Subjective - Date & Time of Evaluation Date of Evaluation: 09/16/16 Time of Evaluation: 20:45 - Subjective Subjective: Feeling better Objective - Vital Signs/Intake and Output Vital Signs (last 24 hours): Temp Pulse Resp BP Pulse Ox 97.9 F 84 20 101/62 96 09/17/16 15:15 09/17/16 16:00 09/17/16 15:15 09/17/16 15:15 09/17/16 15:15 - Medications Medications: Current Medications Acetaminophen (Tylenol 325mg Tab) 650 mg PO Q6 PRN PRN Reason: Pain, moderate (4-7) Last Admin: 09/16/16 22:13 Dose: 650 mg Cyclobenzaprine HCl (Flexeril) 10 mg PO TID [facility] Last Admin: 09/17/16 18:27 Dose: 10 mg Enoxaparin Sodium (Lovenox) 50 mg SC Q12 [facility] Last Admin: 09/17/16 10:12 Dose: 50 mg Folic Acid (Folic Acid) 1 mg PO DAILY [facility] Last Admin: 09/17/16 10:14 Dose: 1 mg Sodium Chloride (Sodium Chloride 0.9%) 1,000 mls @ 100 mls/hr IV .Q10H [facility] Last Admin: 09/17/16 02:09 Dose: 100 mls/hr Mesalamine (Delzicol) 800 mg PO TID [facility] Last Admin: 09/17/16 18:27 Dose: 800 mg Methylprednisolone (Solu-Medrol) 40 mg IV Q12 [facility] Stop: 09/17/16 22:01 Last Admin: 09/17/16 10:14 Dose: 40 mg Multivitamins (Hexavitamin) 1 tab PO DAILY [facility] Last Admin: 09/17/16 10:14 Dose: 1 tab Mupirocin (Bactroban Ointment) 0 gm TOP BID [facility] Last Admin: 09/17/16 18:28 Dose: 1 applic Sucralfate (Carafate Oral Susp) 1 gm PO ACBD [facility] Last Admin: 09/17/16 17:30 Dose: 1 gm Vancomycin HCl (Vancocin (Oral Or Rectal Use)) 125 mg PO QID [facility] Last Admin: 09/17/16 18:27 Dose: 125 mg Vancomycin HCl (Vancocin (Oral Or Rectal Use)) 125 mg PO QID [facility] - Labs Labs: 09/14/16 07:33 09/14/16 07:33 PT 14.0 SECONDS (9.7-12.2) H 09/17/16 07:08 INR 1.2 09/17/16 07:08 APTT 32 SECONDS (21-34) 09/17/16 07:08 - Head Exam Head Exam: ATRAUMATIC - Eye Exam Eye Exam: Normal appearance - ENT Exam ENT Exam: Mucous Membranes Dry - Respiratory Exam Respiratory Exam: NORMAL BREATHING PATTERN - Cardiovascular Exam Cardiovascular Exam: +S1, +S2 - GI/Abdominal Exam GI & Abdominal Exam: Normal Bowel Sounds - Extremities Exam Extremities Exam: Normal Inspection Assessment and Plan (1) Anemia Assessment & Plan: chronic disease Status: Acute (2) Neoplasm of esophagus, malignant Assessment & Plan: likely cured Status: Chronic
[2016-09-18 01:26] LABS: ASCA IGA 36.9 U; ASCA IGG 35.6 U
[2016-09-18 06:09] LABS: HEMATOCRIT 24.4 % (34.0-47.0); MEAN CELL VOLUME 86.7 fL (81.0-99.0); MEAN CORPUSCULAR HEMOGLOBIN 28.6 pg (27.0-31.0); MEAN PLATELET VOLUME 6.5 fL (7.2-11.7)
[2016-09-18 06:17] LABS: CHLORIDE 107 mmol/L (98-107); SODIUM 141 mmol/L (132-148)
[2016-09-18 06:18] LABS: POTASSIUM 3.8 mmol/L (3.6-5.2)
[2016-09-18 06:20] LABS: ALB/GLOB RATIO 0.7 (1.0-2.1); ALKALINE PHOSPHATASE 113 U/L (38-126); ALT/SGPT 29 U/L (9-52); AST/SGOT 11 U/L (14-36); BILIRUBIN,TOTAL 0.2 mg/dL (0.2-1.3); BLOOD UREA NITROGEN 5 mg/dL (7-17); CALCIUM 7.2 mg/dl (8.6-10.4); CARBON DIOXIDE 27 mmol/L (22-30); GFR AFRICAN-AMERICAN > 60; GLUCOSE,RANDOM 121 mg/dL (65-105); TOTAL PROTEIN 4.1 g/dL (6.3-8.3)
[2016-09-18] MEDS: Sucralfate 1 gm/10 ml Oral Susp UD PO SCH ×2 (06:40→18:17)
--- NOTE | 2016-09-18 09:04 | CP.PCM.PN ---
Subjective - Date & Time of Evaluation Date of Evaluation: 09/18/16 Time of Evaluation: 07:00 - Subjective Subjective: SURGERY PROGRESS NOTE FOR DR. VALERA Patient seen and examined at bedside. She reports some burning pain in the perirectal area. Denies CP/SOB/N/V/D. Rahul was applied this AM. Objective - Vital Signs/Intake and Output Vital Signs (last 24 hours): Temp Pulse Resp BP Pulse Ox 98.2 F 61 18 116/67 97 09/18/16 07:15 09/18/16 07:15 09/18/16 07:15 09/18/16 07:15 09/18/16 07:15 Intake and Output: 09/18/16 09/18/16 06:59 18:59 Intake Total 1920 Balance 0 - Medications Medications: Current Medications Acetaminophen (Tylenol 325mg Tab) 650 mg PO Q6 PRN PRN Reason: Pain, moderate (4-7) Last Admin: 09/16/16 22:13 Dose: 650 mg Cyclobenzaprine HCl (Flexeril) 10 mg PO TID [facility] Last Admin: 09/17/16 18:27 Dose: 10 mg Enoxaparin Sodium (Lovenox) 50 mg SC Q12 [facility] Last Admin: 09/17/16 21:26 Dose: 50 mg Folic Acid (Folic Acid) 1 mg PO DAILY [facility] Last Admin: 09/17/16 10:14 Dose: 1 mg Mesalamine (Delzicol) 800 mg PO TID [facility] Last Admin: 09/17/16 18:27 Dose: 800 mg Multivitamins (Hexavitamin) 1 tab PO DAILY [facility] Last Admin: 09/17/16 10:14 Dose: 1 tab Mupirocin (Bactroban Ointment) 0 gm TOP BID [facility] Last Admin: 09/17/16 18:28 Dose: 1 applic Sucralfate (Carafate Oral Susp) 1 gm PO ACBD [facility] Last Admin: 09/18/16 06:40 Dose: 1 gm Vancomycin HCl (Vancocin (Oral Or Rectal Use)) 125 mg PO QID [facility] Last Admin: 09/17/16 21:26 Dose: 125 mg Vancomycin HCl (Vancocin (Oral Or Rectal Use)) 125 mg PO QID [facility] - Labs Labs: 09/18/16 05:59 09/18/16 05:59 PT 14.0 SECONDS (9.7-12.2) H 09/17/16 07:08 INR 1.2 09/17/16 07:08 APTT 32 SECONDS (21-34) 09/17/16 07:08 - Constitutional Appears: Non-toxic, No Acute Distress - Head Exam Head Exam: ATRAUMATIC - Eye Exam Eye Exam: EOMI, Normal appearance - Respiratory Exam Respiratory Exam: NORMAL BREATHING PATTERN. absent: Respiratory Distress - Cardiovascular Exam Cardiovascular Exam: +S1, +S2 - Neurological Exam Neurological Exam: Alert, Awake - Psychiatric Exam Psychiatric exam: Normal Affect, Normal Mood - Skin Additional comments: 1x2cm perianal wound, tender, no induration, no purulent discharge, good granulation tissue Assessment and Plan - Assessment and Plan (Free Text) Assessment: 71yo F with perianal wound - No I&D necessary, no packing needed - Applied Medihoney this AM - Keep area clean and dry - No acute surgical intervention necessary at this time - Discussed plan with Dr. Terri Mullen PGY-3
--- NOTE | 2016-09-18 09:49 | CP.PCM.CON ---
<Raleigh Marquez - Last Filed: 09/18/16 13:48> History of Present Illness - History of Present Illness History of Present Illness: PGY4 Initial GI consult Note Maricruz Padilla is a 71F w/ hx of colitis, esophageal ca (s/p chemo, radition , surgery) who presented to the Ed with complaints of diarrhea. Pt has been seen by multiple GI specialist this hospital admissions and we were consulted for an additional opinion. Pt seems to be an established pt of Dr. Greenwood. She was recently diagnosed as having diffuse mod/sev colitis visualized on colonoscopy in July; subsequent biopsies were non-specific. Pt was started on ASA and seems to have gotten courses of prednisone. Pt states that she has had these symptoms for weeks. She states that her diarrhea is watery with minimal formed stool. Currently, she denies any abd pain and her last BM was yesterday. Pt denies any blood or mucus in her stool. Since her admission, she was started on mesalamine with minimal improvement. C.diff toxin this admission was neg. Pt currently has no complaints. Abd to tolerate diet PMH: Esophageal Cancer (7 years ago treated with surgery, chemo, radiation). UTI , Cdiff infxn PSH: Esophageal Cancer (7 years ago), Appendectomy, Colon biopsy, Hernia repair ALL: none SocialHx: former smoker (quit 9years ago), former drinker (quit 2months ago- drank 6pack/day) Endoscopy hx: 07/30: colonoscopy identified diffuse colitis 08/06: EGD: grade B esophagitis, normal esophageal and gastic anastom 08/09: Colonoscopy: multiple sessile polyps on the transverse and ascending, diffuse colitis Past Patient History - Past Medical History & Family History Past Medical History?: Yes - Past Social History Smoking Status: Former Smoker - CARDIAC Hx Cardiac Disorders: No - PULMONARY Hx Respiratory Disorders: No - NEUROLOGICAL Hx Neurological Disorder: No - HEENT Hx HEENT Problems: Yes Hx Difficulty Chewing: Yes Other/Comment: DYSPHAGIA RELATED TO EXTENSIVE ESOPHAGEAL CANCER SX AND "TUBE" IN PLACE OF ESOPHAGUS - RENAL Hx Chronic Kidney Disease: No - ENDOCRINE/METABOLIC Hx Endocrine Disorders: No - HEMATOLOGICAL/ONCOLOGICAL Hx Blood Disorders: Yes Hx Blood Transfusions: Yes Hx Cancer: Yes (ESOPHAGEAL) Hx Cirrhosis: No Hx Hepatitis A: No Hx Hepatitis B: No Hx Hepatitis C: No Hx Human Immunodeficiency Virus (HIV): No - INTEGUMENTARY Hx Dermatological Problems: No - MUSCULOSKELETAL/RHEUMATOLOGICAL Hx Arthritis: Yes - GASTROINTESTINAL Hx Gastrointestinal Disorders: Yes Hx Colitis: Yes Hx Gastroesophageal Reflux: Yes HX Swallowing Problems: Yes Other/Comment: ESOPHAGEAL CANCER - GENITOURINARY/GYNECOLOGICAL Hx Genitourinary Disorders: No - PSYCHIATRIC Hx Psychophysiologic Disorder: No Hx Substance Use: No - SURGICAL HISTORY Hx Surgeries: Yes Hx Appendectomy: Yes - ANESTHESIA Hx Anesthesia: Yes Hx Anesthesia Reactions: No Hx Malignant Hyperthermia: No Meds Allergies/Adverse Reactions: Allergies Allergy/AdvReac Type Severity Reaction Status Date / Time No Known Allergies Allergy Verified 09/11/16 15:18 - Medications Medications: Current Medications Acetaminophen (Tylenol 325mg Tab) 650 mg PO Q6 PRN PRN Reason: Pain, moderate (4-7) Last Admin: 09/16/16 22:13 Dose: 650 mg Cyclobenzaprine HCl (Flexeril) 10 mg PO TID [facility] Last Admin: 09/17/16 18:27 Dose: 10 mg Enoxaparin Sodium (Lovenox) 50 mg SC Q12 [facility] Last Admin: 09/17/16 21:26 Dose: 50 mg Folic Acid (Folic Acid) 1 mg PO DAILY [facility] Last Admin: 09/17/16 10:14 Dose: 1 mg Mesalamine (Delzicol) 800 mg PO TID [facility] Last Admin: 09/17/16 18:27 Dose: 800 mg Multivitamins (Hexavitamin) 1 tab PO DAILY [facility] Last Admin: 09/17/16 10:14 Dose: 1 tab Mupirocin (Bactroban Ointment) 0 gm TOP BID [facility] Last Admin: 09/17/16 18:28 Dose: 1 applic Sucralfate (Carafate Oral Susp) 1 gm PO ACBD [facility] Last Admin: 09/18/16 06:40 Dose: 1 gm Vancomycin HCl (Vancocin (Oral Or Rectal Use)) 125 mg PO QID [facility] Last Admin: 09/17/16 21:26 Dose: 125 mg Vancomycin HCl (Vancocin (Oral Or Rectal Use)) 125 mg PO QID [facility] Physical Exam - Constitutional Appears: Well, Non-toxic, No Acute Distress - Head Exam Head Exam: ATRAUMATIC, NORMOCEPHALIC - Eye Exam Eye Exam: Normal appearance - ENT Exam ENT Exam: Mucous Membranes Moist, Normal Exam - Respiratory Exam Respiratory Exam: Clear to Auscultation Bilateral, NORMAL BREATHING PATTERN. absent: Rales, Rhonchi, Wheezes, Respiratory Distress - GI/Abdominal Exam GI & Abdominal Exam: Normal Bowel Sounds, Soft. absent: Distended, Guarding, Rebound, Rigid, Tenderness - Extremities Exam Extremities exam: Positive for: normal inspection - Neurological Exam Neurological exam: Alert, Oriented x3 - Psychiatric Exam Psychiatric exam: Normal Affect, Normal Mood - Skin Skin Exam: Dry, Intact, Normal Color, Warm Results - Vital Signs Recent Vital Signs: Last Vital Signs Temp 98.2 F 09/18/16 07:15 Pulse 61 09/18/16 07:15 Resp 18 09/18/16 07:15 BP 116/67 09/18/16 07:15 Pulse Ox 97 09/18/16 07:15 - Labs Result Diagrams: 09/18/16 05:59 09/18/16 05:59 Labs: Laboratory Results - last 24 hr 09/14/16 09/18/16 09/18/16 08:49 05:59 05:59 WBC 4.0 L RBC 2.81 L Hgb 8.1 L Hct 24.4 L MCV 86.7 MCH 28.6 MCHC 33.0 RDW 15.0 H Plt Count 266 MPV 6.5 L Sodium 141 Potassium 3.8 Chloride 107 Carbon Dioxide 27 Anion Gap 11 BUN 5 L Creatinine 0.4 L Est GFR ( Amer) > 60 Est GFR (Non-Af Amer) > 60 Random Glucose 121 H Calcium 7.2 L Total Bilirubin 0.2 AST 11 L D ALT 29 Alkaline Phosphatase 113 Total Protein 4.1 L Albumin 1.7 L Globulin 2.3 Albumin/Globulin Ratio 0.7 L S.cerevisiae IgG Ab 35.6 H S.cerevisiae IgA Ab 36.9 H Assessment & Plan - Assessment and Plan (Free Text) Assessment: Maricruz Padilla is a 71F w/ hx of esophageal ca, colitis who presented to the ED w/ complaints of diarrhea and abd pain. Etiology of the colitis is non- specefic, with complete lumenal exam and biopsy def diag of UC cannot be made. Pt seems ro have gotten mutiple regiments of prednisone in the past as well as started on sulfasalazine as outpt. Pt symptoms have improved as of today and is only on mesalamine Colitis etiology unknown Diarrea Abd pain hx of esophageal ca Plan -continue mesalamine for now with PPI -C.Diff neg -Stool cultures pending -recommend a complete luminal study as an oupt -would continue current tx, no need to step up level of tx unless clinically warranted -Can consider repeat CT abd to eval other areas of inflammation -if able to tolerate advanced diet and diarrhea improves can complete work-up as oupt -as oupt recommend Gold interferon and Hep B w/u for potential escalation D/W Chandra Chandra <Issac Chandra - Last Filed: 09/18/16 14:25> Meds - Medications Medications: Current Medications Acetaminophen (Tylenol 325mg Tab) 650 mg PO Q6 PRN PRN Reason: Pain, moderate (4-7) Last Admin: 09/16/16 22:13 Dose: 650 mg Albumin Human (Albumin Human 25% (12.5 Gm/50 Ml)) 12.5 gm IV BID [facility] Stop: 09/19/16 18:01 Last Admin: 09/18/16 13:06 Dose: 12.5 gm Cyclobenzaprine HCl (Flexeril) 10 mg PO TID [facility] Last Admin: 09/18/16 13:23 Dose: 10 mg Enoxaparin Sodium (Lovenox) 50 mg SC Q12 [facility] Last Admin: 09/18/16 10:06 Dose: 50 mg Folic Acid (Folic Acid) 1 mg PO DAILY [facility] Last Admin: 09/18/16 10:06 Dose: 1 mg Hydrocortisone Sodium Succinate (Solu-Cortef) 20 mg IV Q8H [facility] Last Admin: 09/18/16 13:05 Dose: 20 mg Mesalamine (Delzicol) 800 mg PO TID [facility] Last Admin: 09/18/16 13:24 Dose: 800 mg Multivitamins (Hexavitamin) 1 tab PO DAILY [facility] Last Admin: 09/18/16 10:06 Dose: 1 tab Mupirocin (Bactroban Ointment) 0 gm TOP BID [facility] Last Admin: 09/18/16 10:00 Dose: 1 applic Sucralfate (Carafate Oral Susp) 1 gm PO ACBD [facility] Last Admin: 09/18/16 06:40 Dose: 1 gm Vancomycin HCl (Vancocin (Oral Or Rectal Use)) 125 mg PO QID [facility] Last Admin: 09/18/16 13:24 Dose: 125 mg Results - Vital Signs Recent Vital Signs: Last Vital Signs Temp 98.0 F 09/18/16 10:12 Pulse 108 H 09/18/16 10:12 Resp 18 09/18/16 10:12 BP 109/73 09/18/16 10:12 Pulse Ox 99 09/18/16 10:12 - Labs Result Diagrams: 09/18/16 05:59 09/18/16 05:59 Labs: Laboratory Results - last 24 hr 09/14/16 09/18/16 09/18/16 08:49 05:59 05:59 WBC 4.0 L RBC 2.81 L Hgb 8.1 L Hct 24.4 L MCV 86.7 MCH 28.6 MCHC 33.0 RDW 15.0 H Plt Count 266 MPV 6.5 L Sodium 141 Potassium 3.8 Chloride 107 Carbon Dioxide 27 Anion Gap 11 BUN 5 L Creatinine 0.4 L Est GFR ( Amer) > 60 Est GFR (Non-Af Amer) > 60 Random Glucose 121 H Calcium 7.2 L Total Bilirubin 0.2 AST 11 L D ALT 29 Alkaline Phosphatase 113 Total Protein 4.1 L Albumin 1.7 L Globulin 2.3 Albumin/Globulin Ratio 0.7 L S.cerevisiae IgG Ab 35.6 H S.cerevisiae IgA Ab 36.9 H Attending/Attestation - Attestation I have personally seen and examined this patient.: Yes I have fully participated in the care of the patient.: Yes I have reviewed all pertinent clinical information: Yes Notes (Text): 09/18/16 14:22 71 year old female with h/o esophageal cancer s/p resection in the past. We are consulted as second opinion regarding colitis. 1. 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
[2016-09-18] MEDS: Enoxaparin 60 mg Syringe SC SCH ×2 (10:06→21:06)
[2016-09-18] MEDS: Multiple Vitamins Tab PO SCH (10:06)
[2016-09-18] MEDS: Vancomycin 125 MG/5 ML SOLN (ORAL/RECTAL) PO SCH ×5 (10:07→21:07)
--- NOTE | 2016-09-18 11:12 | CP.PCM.PN ---
Subjective - Date & Time of Evaluation Date of Evaluation: 09/18/16 Time of Evaluation: 11:00 - Subjective Subjective: clinically same Objective - Vital Signs/Intake and Output Vital Signs (last 24 hours): Temp Pulse Resp BP Pulse Ox 98.0 F 108 H 18 109/73 99 09/18/16 10:12 09/18/16 10:12 09/18/16 10:12 09/18/16 10:12 09/18/16 10:12 Intake and Output: 09/18/16 09/18/16 06:59 18:59 Intake Total 1920 Balance 1920 - Medications Medications: Current Medications Acetaminophen (Tylenol 325mg Tab) 650 mg PO Q6 PRN PRN Reason: Pain, moderate (4-7) Last Admin: 09/16/16 22:13 Dose: 650 mg Cyclobenzaprine HCl (Flexeril) 10 mg PO TID [facility] Last Admin: 09/18/16 10:06 Dose: 10 mg Enoxaparin Sodium (Lovenox) 50 mg SC Q12 [facility] Last Admin: 09/18/16 10:06 Dose: 50 mg Folic Acid (Folic Acid) 1 mg PO DAILY [facility] Last Admin: 09/18/16 10:06 Dose: 1 mg Mesalamine (Delzicol) 800 mg PO TID [facility] Last Admin: 09/18/16 10:06 Dose: 800 mg Multivitamins (Hexavitamin) 1 tab PO DAILY [facility] Last Admin: 09/18/16 10:06 Dose: 1 tab Mupirocin (Bactroban Ointment) 0 gm TOP BID [facility] Last Admin: 09/17/16 18:28 Dose: 1 applic Sucralfate (Carafate Oral Susp) 1 gm PO ACBD [facility] Last Admin: 09/18/16 06:40 Dose: 1 gm Vancomycin HCl (Vancocin (Oral Or Rectal Use)) 125 mg PO QID [facility] Last Admin: 09/18/16 10:07 Dose: Not Given - Labs Labs: 09/18/16 05:59 09/18/16 05:59 PT 14.0 SECONDS (9.7-12.2) H 09/17/16 07:08 INR 1.2 09/17/16 07:08 APTT 32 SECONDS (21-34) 09/17/16 07:08 - Constitutional Appears: Well - Head Exam Head Exam: ATRAUMATIC, NORMAL INSPECTION, NORMOCEPHALIC - Eye Exam Eye Exam: EOMI, Normal appearance, PERRL Pupil Exam: NORMAL ACCOMODATION, PERRL - ENT Exam ENT Exam: Mucous Membranes Moist, Normal Exam - Neck Exam Neck Exam: Full ROM, Normal Inspection. absent: Lymphadenopathy - Respiratory Exam Respiratory Exam: Decreased Breath Sounds - Cardiovascular Exam Cardiovascular Exam: REGULAR RHYTHM, +S1, +S2 - GI/Abdominal Exam GI & Abdominal Exam: Soft, Diminished Bowel Sounds - Rectal Exam Rectal Exam: Deferred Assessment and Plan (1) Acute colitis Status: Acute (2) Fever Status: Acute (3) H/O adenomatous polyp of colon Status: Acute (4) Hypotension Status: Acute (5) UTI (urinary tract infection) Status: Acute (6) Abdominal pain Status: Acute (7) Abnormal EKG Status: Acute (8) Anemia Status: Acute (9) Bronchitis Status: Acute (10) Chest pain Status: Acute (11) Colitis Status: Acute (12) Dehydration Status: Acute (13) Diarrhea Status: Acute (14) Elbow fracture Status: Acute (15) Heme + stool Status: Acute (16) Hyponatremia Status: Acute (17) Leukopenia Status: Acute (18) Pharyngitis Status: Acute (19) Pneumonia Status: Acute (20) Prophylactic measure Status: Acute (21) Risk for coronary artery disease less than 10% in next 10 years Status: Acute (22) Severe chronic ulcerative colitis Status: Acute (23) Sore throat symptom Status: Acute (24) UTI (urinary tract infection) Status: Acute (25) Wrist fracture Status: Acute (26) Asthma Status: Chronic (27) Neoplasm of esophagus, malignant Status: Chronic - Assessment and Plan (Free Text) Plan: Patient's case and seen and discussed with the staff and the resident patient was seen by the animal sticker today patient has multiple issues patient not responding to regular therapy for the severe ulcerative colitis may need to treat for TM PT for which to be done as an outpatient will talk to the daughter who calls me usually will follow with the consultations Labs Vital signs GI
[2016-09-18] MEDS ORDERED: Pantoprazole 40 mg Susp UD PEG SCH (11:53)
--- NOTE | 2016-09-18 12:09 | CP.PCM.PN ---
<Tano Gr - Last Filed: 09/18/16 12:02> Subjective - Date & Time of Evaluation Date of Evaluation: 09/18/16 Time of Evaluation: 10:00 - Subjective Subjective: PGY3 on heme/onc Dr. Do service: Pt seen and examined at bedside this morning. Pt reports feeling better than yesterday with better appetite. Pt still have diarrhea but it's more formed and not bloody. Objective - Vital Signs/Intake and Output Vital Signs (last 24 hours): Temp Pulse Resp BP Pulse Ox 98.0 F 108 H 18 109/73 99 09/18/16 10:12 09/18/16 10:12 09/18/16 10:12 09/18/16 10:12 09/18/16 10:12 Intake and Output: 09/18/16 09/18/16 06:59 18:59 Intake Total 1920 Balance 1920 - Medications Medications: Current Medications Acetaminophen (Tylenol 325mg Tab) 650 mg PO Q6 PRN PRN Reason: Pain, moderate (4-7) Last Admin: 09/16/16 22:13 Dose: 650 mg Cyclobenzaprine HCl (Flexeril) 10 mg PO TID [facility] Last Admin: 09/18/16 10:06 Dose: 10 mg Enoxaparin Sodium (Lovenox) 50 mg SC Q12 [facility] Last Admin: 09/18/16 10:06 Dose: 50 mg Folic Acid (Folic Acid) 1 mg PO DAILY [facility] Last Admin: 09/18/16 10:06 Dose: 1 mg Mesalamine (Delzicol) 800 mg PO TID [facility] Last Admin: 09/18/16 10:06 Dose: 800 mg Multivitamins (Hexavitamin) 1 tab PO DAILY [facility] Last Admin: 09/18/16 10:06 Dose: 1 tab Mupirocin (Bactroban Ointment) 0 gm TOP BID [facility] Last Admin: 09/17/16 18:28 Dose: 1 applic Sucralfate (Carafate Oral Susp) 1 gm PO ACBD [facility] Last Admin: 09/18/16 06:40 Dose: 1 gm Vancomycin HCl (Vancocin (Oral Or Rectal Use)) 125 mg PO QID [facility] Last Admin: 09/18/16 10:07 Dose: Not Given - Labs Labs: 09/18/16 05:59 09/18/16 05:59 PT 14.0 SECONDS (9.7-12.2) H 09/17/16 07:08 INR 1.2 09/17/16 07:08 APTT 32 SECONDS (21-34) 09/17/16 07:08 - Constitutional Appears: Non-toxic, No Acute Distress - Head Exam Head Exam: NORMOCEPHALIC - Eye Exam Eye Exam: Normal appearance Pupil Exam: NORMAL ACCOMODATION - Respiratory Exam Respiratory Exam: NORMAL BREATHING PATTERN - Cardiovascular Exam Cardiovascular Exam: REGULAR RHYTHM - GI/Abdominal Exam GI & Abdominal Exam: Normal Bowel Sounds - Neurological Exam Neurological Exam: Alert, Awake, Oriented x3 - Psychiatric Exam Psychiatric exam: Normal Mood Assessment and Plan - Assessment and Plan (Free Text) Assessment: (1) Anemia Assessment & Plan: Reticulocyte index 0.7 Elevated Ferritin Likely secondary to chronic disease/IBD Status: Acute (2) IBD Assessment & Plan: ASCA positive, pending pANCA Management as per GI team Status: Chronic <Jose Guadalupe Do - Last Filed: 09/19/16 17:16> Objective - Vital Signs/Intake and Output Vital Signs (last 24 hours): Temp Pulse Resp BP Pulse Ox 98.2 F 115 H 20 104/61 94 L 09/19/16 16:45 09/19/16 16:45 09/19/16 16:45 09/19/16 16:45 09/19/16 16:45 Intake and Output: 09/19/16 09/19/16 06:59 18:59 Intake Total 600 Balance 600 - Medications Medications: Current Medications Acetaminophen (Tylenol 325mg Tab) 650 mg PO Q6 PRN PRN Reason: Pain, moderate (4-7) Last Admin: 09/18/16 21:12 Dose: 650 mg Albumin Human (Albumin Human 25% (12.5 Gm/50 Ml)) 12.5 gm IV BID [facility] Stop: 09/19/16 18:01 Last Admin: 09/19/16 10:45 Dose: 12.5 gm Cyclobenzaprine HCl (Flexeril) 10 mg PO TID [facility] Last Admin: 09/19/16 14:08 Dose: 10 mg Enoxaparin Sodium (Lovenox) 50 mg SC Q12 [facility] Last Admin: 09/19/16 10:19 Dose: 50 mg Folic Acid (Folic Acid) 1 mg PO DAILY [facility] Last Admin: 09/19/16 10:22 Dose: 1 mg Hydrocortisone Sodium Succinate (Solu-Cortef) 20 mg IV Q8H [facility] Last Admin: 09/19/16 12:29 Dose: 20 mg Mesalamine (Delzicol) 800 mg PO TID [facility] Last Admin: 09/19/16 14:09 Dose: 800 mg Multivitamins (Hexavitamin) 1 tab PO DAILY [facility] Last Admin: 09/19/16 10:22 Dose: 1 tab Mupirocin (Bactroban Ointment) 0 gm TOP BID [facility] Last Admin: 09/19/16 10:28 Dose: Not Given Sucralfate (Carafate Oral Susp) 1 gm PO ACBD [facility] Last Admin: 09/19/16 06:31 Dose: 1 gm Vancomycin HCl (Vancocin (Oral Or Rectal Use)) 125 mg PO QID [facility] Last Admin: 09/19/16 14:09 Dose: 125 mg - Labs Labs: 09/19/16 07:17 09/19/16 07:17 PT 14.0 SECONDS (9.7-12.2) H 09/17/16 07:08 INR 1.2 09/17/16 07:08 APTT 32 SECONDS (21-34) 09/17/16 07:08 Assessment and Plan (1) Anemia Status: Acute (2) Neoplasm of esophagus, malignant Status: Chronic - Assessment and Plan (Free Text) Assessment: Pt seen and examined, agree with residents note. Anemia of chronic disease.
[2016-09-18] MEDS: Albumin Human 25% (12.5 gm/50 ml) IV SCH ×2 (13:06→18:17)
--- NOTE | 2016-09-18 13:27 | CT ---
PROCEDURE: CT Chest with contrast HISTORY: chest pain / HX. OF ESOPHAG. CA , R/O METS COMPARISON: 12/15/2015 TECHNIQUE: Contiguous axial images were obtained through the chest with intravenous contrast enhancement. Sagittal and coronal reconstructions were performed. IV contrast: 100 mL Visipaque 320 Radiation dose (DLP): 243.83 mGy-cm. This CT exam was performed using one or more of the following dose reduction techniques: Automated exposure control, adjustment of the mA and/or kV according to patient size, and/or use of iterative reconstruction technique. FINDINGS: LUNGS: No pulmonary infiltrate. There are small ill-defined opacities bilaterally. These are seen in the left upper lobe, in the right lower lobe and right middle lobe. These may represent metastatic disease or may be infectious in origin. MEDIASTINUM: Unremarkable thoracic aorta. No aneurysm or dissection. Normal sized heart. Normal size of the main pulmonary artery. There is thrombus identified within the right pulmonary artery and lobar and segmental branches. There is thrombus identified within left lower lobe segmental pulmonary artery branches. Findings are consistent with acute pulmonary embolism. Please note that there is no straightening of the interventricular septum suggest right ventricular strain on the basis of this examination. There is no mediastinal or hilar lymphadenopathy. The patient is status post esophagectomy with gastric pull-up. There is an air- fluid level seen in the proximal esophagus. There is particulate food matter seen in the thoracic portion of the stomach. There is a 10 mm nodule in the left lobe of the thyroid. This has enlarged compared to examination of 12/15/2015. Please correlate with thyroid ultrasound examination. PLEURA: There are small bilateral pleural effusions. There is no pneumothorax. BONES: No fracture. No destructive lesion. UPPER ABDOMEN: Grossly unremarkable. OTHER FINDINGS: None. IMPRESSION: Findings consistent with acute bilateral pulmonary thromboembolism. Please note that there is no evidence of right ventricular strain. There are multiple bilateral small ill-defined opacities common nonspecific. These may represent metastases or may represent an infectious or inflammatory process. Small bilateral pleural effusion. Enlarging nodule in left lobe of thyroid compared to 12/06. Please correlate with thyroid ultrasound examination. Status post esophagectomy with gastric pull up. Findings were discussed by telephone with the patient's nurse, Gabriela, at 4: 20 p.m. on 09/16/2016. LUIS ANTONIO
--- NOTE | 2016-09-18 18:17 | PN ---
LOCATION: 2, bed B. SUBJECTIVE: This 71-year-old female seen and examined in rounds today in the presence of her daughter, appeared to be improving clinically despite her complaint of mild generalized weakness and malaise. The patient is tolerating oral intake well, her bowel movement of more solid stool, no reported active bleeding, no nausea or vomiting. The most recent lab results as well as the entire chart is reviewed, and the patient still has low white blood cells of 4.0, hemoglobin 8.1, hematocrit 24.4 with normal platelet count, and slightly increased PT to 14.0 with low BUN and the creatinine. Blood glucose level 121, calcium is below 7.2 with low albumin 1.7, low total protein 4.1 for which albumin IV is ordered. Chest CAT scan was done, no official report yet despite the patient complained of right upper anterior chest muscle pain and the spasm, which is less than before. PHYSICAL EXAMINATION: GENERAL: A 71 years old female, awake, alert, oriented. VITAL SIGNS: Afebrile with pulse of 104, blood pressure 112/76 with respiratory rate 18 to 20. HEENT: Showed pale dry oral mucous membrane. Nonicteric sclerae. LUNGS: Few scattered crepitation. Decreased air entry at bases. HEART: Positive S1 and S2 with mild increase of heart rate. ABDOMEN: Soft with slight generalized tenderness. No masses or organomegaly with mild distention. EXTREMITIES: [id number] extremities edematous changes. No clubbing or cyanosis. NEUROLOGIC: No reported neurological deficits, sensory or motor. IMPRESSION: 1. Inflammatory bowel disease was diagnosed before by recent colonoscopy, carefully, the official pathology report from colonoscopy. 2. Peptic ulcer disease. 3. Perianal abscess diagnosed recently with small amount of purulent exudate. 4. Anemia secondary to above. 5. Malnutrition with hypoalbuminemia, the patient to have albumin IV. 6. Known history of colon polyps. 7. Esophageal cancer by history, seen by Hematology-fitness consultant. 8. Right-sided chest muscle spasm, most likely awaiting official report of the CAT scan of the chest. SUGGESTIONS: 1. Continue current management. 2. Restart steroids IV with a lower dose in the meantime. Subsequently, it will be reviewed and dosed. 3. Followup having CAT scan of the chest. 4. Further evaluation to follow. Anamaria Ferguson, MDDD: 09/18/2016 12:20:02
[2016-09-19] MEDS: Sucralfate 1 gm/10 ml Oral Susp UD PO SCH ×2 (06:31→17:59)
[2016-09-19 07:33] LABS: EOS % 0.1 % (0.0-4.0); HEMATOCRIT 24.3 % (34.0-47.0); LYMPH # 0.7 K/uL (1.0-4.3); LYMPH % 23.1 % (20.0-40.0); MEAN CELL VOLUME 86.9 fL (81.0-99.0); MEAN CORPUSCULAR HEMOGLOBIN 28.2 pg (27.0-31.0); MEAN CORPUSCULAR HGB CONC 32.5 g/dL (33.0-37.0); MEAN PLATELET VOLUME 6.7 fL (7.2-11.7); MONO # 0.2 K/uL (0.0-0.8); MONO % 4.9 % (0.0-10.0); NRBC % 0.1 % (0.0-2.0); WHITE BLOOD COUNT 3.1 K/uL (4.8-10.8)
[2016-09-19 07:59] LABS: ALKALINE PHOSPHATASE 92 U/L (38-126); ALT/SGPT 22 U/L (9-52); AST/SGOT 14 U/L (14-36); BILIRUBIN,TOTAL 0.2 mg/dL (0.2-1.3); BLOOD UREA NITROGEN 5 mg/dL (7-17); CALCIUM 7.3 mg/dl (8.6-10.4); CARBON DIOXIDE 33 mmol/L (22-30); CHLORIDE 101 mmol/L (98-107); GFR AFRICAN-AMERICAN > 60; GLUCOSE,RANDOM 112 mg/dL (65-105); POTASSIUM 3.3 mmol/L (3.6-5.2); SODIUM 140 mmol/L (132-148); TOTAL PROTEIN 4.2 g/dL (6.3-8.3)
[2016-09-19] MEDS: Enoxaparin 60 mg Syringe SC SCH (10:19)
[2016-09-19] MEDS: Vancomycin 125 MG/5 ML SOLN (ORAL/RECTAL) PO SCH ×4 (10:22→22:20)
[2016-09-19] MEDS: Multiple Vitamins Tab PO SCH (10:22)
[2016-09-19] MEDS: Albumin Human 25% (12.5 gm/50 ml) IV SCH ×2 (10:45→18:52)
--- NOTE | 2016-09-19 15:32 | CP.PCM.PN ---
Subjective - Date & Time of Evaluation Date of Evaluation: 09/19/16 Time of Evaluation: 10:40 - Subjective Subjective: clinically same Objective - Vital Signs/Intake and Output Vital Signs (last 24 hours): Temp Pulse Resp BP Pulse Ox 97.9 F 100 H 18 106/67 95 09/19/16 07:35 09/19/16 10:18 09/19/16 07:35 09/19/16 10:18 09/19/16 07:35 Intake and Output: 09/19/16 09/19/16 06:59 18:59 Intake Total 600 Balance 600 - Medications Medications: Current Medications Acetaminophen (Tylenol 325mg Tab) 650 mg PO Q6 PRN PRN Reason: Pain, moderate (4-7) Last Admin: 09/18/16 21:12 Dose: 650 mg Albumin Human (Albumin Human 25% (12.5 Gm/50 Ml)) 12.5 gm IV BID [facility] Stop: 09/19/16 18:01 Last Admin: 09/19/16 10:45 Dose: 12.5 gm Cyclobenzaprine HCl (Flexeril) 10 mg PO TID [facility] Last Admin: 09/19/16 14:08 Dose: 10 mg Enoxaparin Sodium (Lovenox) 50 mg SC Q12 [facility] Last Admin: 09/19/16 10:19 Dose: 50 mg Folic Acid (Folic Acid) 1 mg PO DAILY [facility] Last Admin: 09/19/16 10:22 Dose: 1 mg Hydrocortisone Sodium Succinate (Solu-Cortef) 20 mg IV Q8H [facility] Last Admin: 09/19/16 12:29 Dose: 20 mg Mesalamine (Delzicol) 800 mg PO TID [facility] Last Admin: 09/19/16 14:09 Dose: 800 mg Multivitamins (Hexavitamin) 1 tab PO DAILY [facility] Last Admin: 09/19/16 10:22 Dose: 1 tab Mupirocin (Bactroban Ointment) 0 gm TOP BID [facility] Last Admin: 09/19/16 10:28 Dose: Not Given Sucralfate (Carafate Oral Susp) 1 gm PO ACBD [facility] Last Admin: 09/19/16 06:31 Dose: 1 gm Vancomycin HCl (Vancocin (Oral Or Rectal Use)) 125 mg PO QID [facility] Last Admin: 09/19/16 14:09 Dose: 125 mg - Labs Labs: 09/19/16 07:17 09/19/16 07:17 PT 14.0 SECONDS (9.7-12.2) H 09/17/16 07:08 INR 1.2 09/17/16 07:08 APTT 32 SECONDS (21-34) 09/17/16 07:08 - Constitutional Appears: Well - Head Exam Head Exam: ATRAUMATIC, NORMAL INSPECTION, NORMOCEPHALIC - Eye Exam Eye Exam: EOMI, Normal appearance, PERRL Pupil Exam: NORMAL ACCOMODATION, PERRL - ENT Exam ENT Exam: Mucous Membranes Moist, Normal Exam - Neck Exam Neck Exam: Full ROM, Normal Inspection. absent: Lymphadenopathy - Respiratory Exam Respiratory Exam: Decreased Breath Sounds - Cardiovascular Exam Cardiovascular Exam: REGULAR RHYTHM, +S1, +S2 - GI/Abdominal Exam GI & Abdominal Exam: Soft, Diminished Bowel Sounds - Rectal Exam Rectal Exam: Deferred Assessment and Plan (1) Acute colitis Status: Acute (2) Fever Status: Acute (3) H/O adenomatous polyp of colon Status: Acute (4) Hypotension Status: Acute (5) UTI (urinary tract infection) Status: Acute (6) Abdominal pain Status: Acute (7) Abnormal EKG Status: Acute (8) Anemia Status: Acute (9) Bronchitis Status: Acute (10) Chest pain Status: Acute (11) Colitis Status: Acute (12) Dehydration Status: Acute (13) Diarrhea Status: Acute (14) Elbow fracture Status: Acute (15) Heme + stool Status: Acute (16) Hyponatremia Status: Acute (17) Leukopenia Status: Acute (18) Pharyngitis Status: Acute (19) Pneumonia Status: Acute (20) Prophylactic measure Status: Acute (21) Risk for coronary artery disease less than 10% in next 10 years Status: Acute (22) Severe chronic ulcerative colitis Status: Acute (23) Sore throat symptom Status: Acute (24) UTI (urinary tract infection) Status: Acute (25) Wrist fracture Status: Acute (26) Asthma Status: Chronic (27) Neoplasm of esophagus, malignant Status: Chronic - Assessment and Plan (Free Text) Plan: Patient feeling better Hemoglobin low Potassium low Human albumin Continue vancomycin mupirocin Mesalamine Hydrocortisone DVT prophylaxis Flexeril Labs next a.m. Multiple consults
--- NOTE | 2016-09-19 16:25 | VASCLAB ---
PROCEDURE: Lower Extremity Venous Duplex Exam. HISTORY: R/O DVT PRIORS: None. TECHNIQUE: Bilateral common femoral, femoral, popliteal and posterior tibial, peroneal and great saphenous veins were evaluated. Flow was assessed with color Doppler, compressibility, assessment of phasic flow and augmentation response. Report prepared by Eleno Guerrero, NAINA, RVT FINDINGS: RIGHT: 1. Common Femoral Vein: 1.1. Compressibility - Fully compressible: Thrombus - None : Flow - Phasic: Augmentation -Normal: Reflux - None. 2. Femoral Vein: 2.1. Compressibility - Fully compressible: Thrombus - None : Flow - Phasic: Augmentation -Normal: Reflux - None. 3. Popliteal Vein: 3.1. Compressibility - Partial: Thrombus - Acute : Flow - Reduced : Augmentation -Reduced: Reflux - None. 4. Posterior Tibial Vein: 4.1. Compressibility - Partial: Thrombus - Reduced : Flow - Reduced : Augmentation -None: Reflux - None. 5. Peroneal Vein: 5.1. Compressibility - Fully compressible: Thrombus - None: Flow - Phasic: Augmentation -Normal: Reflux - None. 6. Great Saphenous Vein: 6.1. Compressibility - Fully compressible: Thrombus - None: Flow - Phasic: Augmentation - Normal: Reflux - None. LEFT: 1. Common Femoral Vein: 1.1. Compressibility - Fully compressible: Thrombus - None: Flow - Phasic: Augmentation -Normal: Reflux - None. 2. Femoral Vein: 2.1. Compressibility - Fully compressible: Thrombus - None: Flow - Phasic: Augmentation -Normal: Reflux - None. 3. Popliteal Vein: 3.1. Compressibility - Fully compressible: Thrombus - None : Flow - Phasic: Augmentation -Normal: Reflux - None. 4. Posterior Tibial Vein: 4.1. Compressibility - Fully compressible: Thrombus - None: Flow - Phasic: Augmentation -Normal: Reflux - None. 5. Peroneal Vein: 5.1. Compressibility - Fully compressible: Thrombus - None: Flow - Phasic: Augmentation -Normal: Reflux - None. 6. Great Saphenous Vein: 6.1. Compressibility - Fully compressible: Thrombus - None: Flow - Phasic: Augmentation - Normal: Reflux - None. OTHER FINDINGS: Right: LUIS White notified about the findings. IMPRESSION: Right: Acute thrombosis of the right popliteal and posterior tibial veins with mild reduction of the venous return. Left: No evidence of deep or superficial vein thrombosis of the left lower extremity. Normal valve function noted of the left side.
[2016-09-19] MEDS ORDERED: Epoetin Alfa 20000 UNIT/ML Inj SC ONE ×2 (17:15→18:37)
--- NOTE | 2016-09-19 17:27 | CP.PCM.PN ---
Subjective - Date & Time of Evaluation Date of Evaluation: 09/19/16 Time of Evaluation: 10:00 - Subjective Subjective: PGY3 on heme/onc Dr. Do service: Pt seen and examined at bedside this morning. Pt reports feeling much better compared to yesterday. Pt also reports improvement of stool. Objective - Vital Signs/Intake and Output Vital Signs (last 24 hours): Temp Pulse Resp BP Pulse Ox 98.2 F 115 H 20 104/61 94 L 09/19/16 16:45 09/19/16 16:45 09/19/16 16:45 09/19/16 16:45 09/19/16 16:45 Intake and Output: 09/19/16 09/19/16 06:59 18:59 Intake Total 600 Balance 600 - Medications Medications: Current Medications Acetaminophen (Tylenol 325mg Tab) 650 mg PO Q6 PRN PRN Reason: Pain, moderate (4-7) Last Admin: 09/18/16 21:12 Dose: 650 mg Albumin Human (Albumin Human 25% (12.5 Gm/50 Ml)) 12.5 gm IV BID [facility] Stop: 09/19/16 18:01 Last Admin: 09/19/16 10:45 Dose: 12.5 gm Cyclobenzaprine HCl (Flexeril) 10 mg PO TID [facility] Last Admin: 09/19/16 14:08 Dose: 10 mg Enoxaparin Sodium (Lovenox) 50 mg SC Q12 [facility] Last Admin: 09/19/16 10:19 Dose: 50 mg Epoetin Iker (Procrit) 20,000 unit SC ONCE ONE Stop: 09/19/16 17:16 Folic Acid (Folic Acid) 1 mg PO DAILY [facility] Last Admin: 09/19/16 10:22 Dose: 1 mg Hydrocortisone Sodium Succinate (Solu-Cortef) 20 mg IV Q8H [facility] Last Admin: 09/19/16 12:29 Dose: 20 mg Mesalamine (Delzicol) 800 mg PO TID [facility] Last Admin: 09/19/16 14:09 Dose: 800 mg Multivitamins (Hexavitamin) 1 tab PO DAILY [facility] Last Admin: 09/19/16 10:22 Dose: 1 tab Mupirocin (Bactroban Ointment) 0 gm TOP BID [facility] Last Admin: 09/19/16 10:28 Dose: Not Given Sucralfate (Carafate Oral Susp) 1 gm PO ACBD [facility] Last Admin: 09/19/16 06:31 Dose: 1 gm Vancomycin HCl (Vancocin (Oral Or Rectal Use)) 125 mg PO QID [facility] Last Admin: 09/19/16 14:09 Dose: 125 mg - Labs Labs: 09/19/16 07:17 09/19/16 07:17 PT 14.0 SECONDS (9.7-12.2) H 09/17/16 07:08 INR 1.2 09/17/16 07:08 APTT 32 SECONDS (21-34) 09/17/16 07:08 - Constitutional Appears: Non-toxic, No Acute Distress - Head Exam Head Exam: NORMOCEPHALIC - Eye Exam Eye Exam: Normal appearance Pupil Exam: NORMAL ACCOMODATION - Respiratory Exam Respiratory Exam: NORMAL BREATHING PATTERN - Cardiovascular Exam Cardiovascular Exam: REGULAR RHYTHM, +S1, +S2. absent: Gallop, Rubs - GI/Abdominal Exam GI & Abdominal Exam: Soft, Normal Bowel Sounds - Neurological Exam Neurological Exam: Alert, Awake, Oriented x3 - Psychiatric Exam Psychiatric exam: Normal Mood - Skin Skin Exam: Intact Assessment and Plan - Assessment and Plan (Free Text) Assessment: (1) Anemia Assessment & Plan: Reticulocyte index 0.7 Elevated Ferritin Likely secondary to chronic disease/IBD One dose of 20k units Procrit given Status: Acute (2) IBD Assessment & Plan: ASCA positive, pending pANCA Management as per GI team Status: Chronic (3) Right DVT Assessment & Plan: Continue Lovenox 50mg SC BID. Status: Chronic
--- NOTE | 2016-09-19 18:14 | PN ---
LOCATION: 2, bed B. SUBJECTIVE: This 71-year-old female seen and examined in rounds today with less complaint, near zero of abdominal pain, no rectal bleeding and much less bowel movement frequency, her perirectal abscess is treated with the wound care staff. The patient tolerated oral intake well. The entire chart is reviewed including, but not limited to the most recent lab and radiological results, current and previous medication list, current and previous medical events and the patient still have low white blood cells of 3.1 with low hemoglobin 7.9, low hematocrit 24.3, but normal platelet counts with low potassium 3.3 and slightly elevated CO2 content 33 indicative of respiratory alkalosis with low BUN and low creatinine. Blood glucose level of 112 with low calcium 7.3 with subsequent increase of total protein 4.2, increased albumin to 2.1 after albumin IV was given. The patient has lower extremities Duplex scan due to her lower extremities pain, showed no evidence of deeper superficial venous thrombosis. PHYSICAL EXAMINATION: GENERAL: A [id number] female, appears to be awake, alert, oriented. VITAL SIGNS: Afebrile with pulse 104, respiratory rate 20 to 22. Blood pressure 110/64. HEENT: Showed pale, dry oral mucous membrane, nonicteric sclerae. LUNGS: She has got crepitation, decreased air entry at bases. HEART: Positive S1 and S2 with increased rate. ABDOMEN: Soft. There is mild generalized tenderness. No mass or organomegaly. No rebound tenderness or guarding. EXTREMITIES: Without significant clubbing or cyanosis. Lower extremities mild edematous changes and mild tenderness. NEUROLOGIC: No reported new neurological deficits, sensory or motor. Finally, the report of the CAT scan of the chest is seen consistent with acute bilateral pulmonary thromboembolus with multiple bilateral small ill defiant obesity. Rest of the report is seen. The patient would need pulmonary consult. IMPRESSION: 1. Re-exacerbation of inflammatory bowel disease. 2. Abnormal CAT scan of the chest. 3. Re-exacerbation of peptic ulcer disease. 4. Colon polyp by recent history. 5. Malnutrition with hypoalbuminemia, improving gradually. 6. Anemia secondary to above. 7. Known history of esophageal cancer treated surgically. SUGGESTION: 1. Agree with your plan. 2. More albumin IV. 3. Hematology/oncology followup. Considering also the report of the abnormal CAT scan of the chest. 4. Further evaluation to follow and pulmonary consultation to kept in mind. Anamaria Ferguson MD cc: Anamaria Ferguson MD.
--- NOTE | 2016-09-19 18:30 | CP.PCM.PN ---
Subjective - Date & Time of Evaluation Date of Evaluation: 09/19/16 Time of Evaluation: 18:28 - Subjective Subjective: PT SEEN AND EXAMINED TODAY BY DR Ethan BUSTAMANTE, DENIES ANY SOB, CP, PALPITATIONS, RESP EASY AND UNLABORED, NAD Objective - Vital Signs/Intake and Output Vital Signs (last 24 hours): Temp Pulse Resp BP Pulse Ox 98.2 F 115 H 20 104/61 94 L 09/19/16 16:45 09/19/16 16:45 09/19/16 16:45 09/19/16 16:45 09/19/16 16:45 Intake and Output: 09/19/16 09/19/16 06:59 18:59 Intake Total 600 Balance 600 - Medications Medications: Current Medications Acetaminophen (Tylenol 325mg Tab) 650 mg PO Q6 PRN PRN Reason: Pain, moderate (4-7) Last Admin: 09/18/16 21:12 Dose: 650 mg Apixaban (Eliquis) 2.5 mg PO BID [facility] Cyclobenzaprine HCl (Flexeril) 10 mg PO TID [facility] Last Admin: 09/19/16 18:10 Dose: 10 mg Folic Acid (Folic Acid) 1 mg PO DAILY [facility] Last Admin: 09/19/16 10:22 Dose: 1 mg Hydrocortisone Sodium Succinate (Solu-Cortef) 20 mg IV Q8H [facility] Last Admin: 09/19/16 12:29 Dose: 20 mg Mesalamine (Delzicol) 800 mg PO TID [facility] Last Admin: 09/19/16 18:10 Dose: 800 mg Multivitamins (Hexavitamin) 1 tab PO DAILY [facility] Last Admin: 09/19/16 10:22 Dose: 1 tab Mupirocin (Bactroban Ointment) 0 gm TOP BID [facility] Last Admin: 09/19/16 18:10 Dose: Not Given Sucralfate (Carafate Oral Susp) 1 gm PO ACBD [facility] Last Admin: 09/19/16 17:59 Dose: 1 gm Vancomycin HCl (Vancocin (Oral Or Rectal Use)) 125 mg PO QID [facility] Last Admin: 09/19/16 14:09 Dose: 125 mg - Labs Labs: 09/19/16 07:17 09/19/16 07:17 PT 14.0 SECONDS (9.7-12.2) H 09/17/16 07:08 INR 1.2 09/17/16 07:08 APTT 32 SECONDS (21-34) 09/17/16 07:08 Assessment and Plan - Assessment and Plan (Free Text) Plan: DOPPLER SHOWS ACUTE DVT OF THE RIGHT POPLITEAL AND POSTERIOR TIBIAL VEINS WITH MILD REDUCTION OF THE VENOUS RETURN. LEFT NO EVIDENCE OF DVT. ELIQUIS 2.5 MG PO BID PER DR Ethan BUSTAMANTE ORDERED. AM LABS, WILL CONTINUE MONITOR PATIENT.
[2016-09-20 06:46] LABS: BASO % 0.1 % (0.0-2.0); EOS % 0.6 % (0.0-4.0); HEMATOCRIT 22.2 % (34.0-47.0); LYMPH # 1.5 K/uL (1.0-4.3); LYMPH % 31.4 % (20.0-40.0); MEAN CELL VOLUME 86.7 fL (81.0-99.0); MEAN CORPUSCULAR HEMOGLOBIN 28.6 pg (27.0-31.0); MEAN PLATELET VOLUME 6.8 fL (7.2-11.7); MONO # 0.2 K/uL (0.0-0.8); NRBC % 0.1 % (0.0-2.0); RED CELL DISTRIBUTION WIDTH 14.9 % (11.5-14.5); WHITE BLOOD COUNT 4.8 K/uL (4.8-10.8)
[2016-09-20 06:58] LABS: ALB/GLOB RATIO 1.1 (1.0-2.1); ALKALINE PHOSPHATASE 73 U/L (38-126); ALT/SGPT 24 U/L (9-52); AST/SGOT 12 U/L (14-36); BILIRUBIN,TOTAL 0.2 mg/dL (0.2-1.3); BLOOD UREA NITROGEN 4 mg/dL (7-17); CALCIUM 7.2 mg/dl (8.6-10.4); CARBON DIOXIDE 34 mmol/L (22-30); CHLORIDE 100 mmol/L (98-107); GFR AFRICAN-AMERICAN > 60; GLUCOSE,RANDOM 73 mg/dL (65-105); SODIUM 141 mmol/L (132-148); TOTAL PROTEIN 3.9 g/dL (6.3-8.3)
[2016-09-20 07:01] LABS: INR 1.1
[2016-09-20 07:16] LABS: POTASSIUM 2.4 mmol/L (3.6-5.2)
[2016-09-20] MEDS: Sucralfate 1 gm/10 ml Oral Susp UD PO SCH ×2 (08:47→17:22)
[2016-09-20] MEDS ORDERED: Potassium Chloride 20 mEq ER Tab PO ONE (10:00)
[2016-09-20 10:15] LABS: MAGNESIUM 1.7 mg/dL (1.6-2.3); PHOSPHOROUS 1.1 mg/dL (2.5-4.5)
[2016-09-20] MEDS: Potassium Chloride 20 mEq ER Tab PO SCH ×2 (10:25→11:38)
[2016-09-20] MEDS: Multiple Vitamins Tab PO SCH (10:25)
[2016-09-20] MEDS: Vancomycin 125 MG/5 ML SOLN (ORAL/RECTAL) PO SCH (10:53)
[2016-09-20] MEDS: Potassium & Sodium Phosphate PO SCH ×3 (11:00→17:22)
[2016-09-20] MEDS: Enoxaparin 60 mg Syringe SC SCH ×2 (13:19→21:29)
--- NOTE | 2016-09-20 13:35 | PN ---
LOCATION: 2. SUBJECTIVE: This is 71-year-old female seen and examined in rounds today without significant clinical changes. No reported active bleeding, no shortness of breath, much less to near zero chest pain. No reported diarrhea. The entire chart is reviewed including, but not limited to the most recent lab and radiology study results, current and previous medication list, and previous medical events. Today's lab showed low hemoglobin at 7.3, hematocrit 22.2 for which blood transfusion is to be kept in mind with low potassium 2.4 with increased CO2 content 34 indicative of respiratory alkalosis with low calcium 7.2 and low phosphorous 1.1 with low albumin 2.0. Radiological results showed evidence of acute thrombosis of the right popliteal and posterior tibial veins. PHYSICAL EXAMINATION GENERAL: A 71-year-old female. VITAL SIGNS: Afebrile with pulse of 80, respiratory rate 18 to 20 with blood pressure 120/68. HEENT: Showed pale, dry oral mucous membrane, nonicteric sclerae. LUNGS: She has got crepitation, decreased air entry at bases. HEART: Positive S1 and S2. ABDOMEN: Soft. There is slight generalized tenderness. No mass or organomegaly. No rebound tenderness or guarding. EXTREMITIES: With mild lower extremity tenderness especially in the right side, lower part. NEUROLOGIC: No reported new neurological deficits, sensory or motor. IMPRESSION: 1. Re-exacerbation of ulcerative colitis. 2. thrombosis of right lower extremity. 3. Possible pulmonary embolus versus pneumonia. 4. Peptic ulcer disease. 5. Colon polyps by recent history. 6. Malnutrition with hypoalbuminemia. 7. Malabsorption syndrome. 8. Anemia secondary to above. 9. Electrolyte imbalance with hypokalemia, hypocalcemia and hypomagnesemia. 10. Known history of esophageal cancer treated surgically. SUGGESTION: 1. Continue current management. 2. . 3. Hematology/oncology followup. 4. Further recommendation to follow. Anamaria Ferguson MD
--- NOTE | 2016-09-20 14:40 | CP.PCM.PN ---
Subjective - Date & Time of Evaluation Date of Evaluation: 09/20/16 Time of Evaluation: 10:00 - Subjective Subjective: PGY3 on heme/onc Dr Do service: Pt seen and examined at bedside this morning. Pt reports right localized mild chest discomfort. Reports improvement of stool since yesterday. Denied rectal bleeding. Pt also reports difficulty swallowing of pill. Objective - Vital Signs/Intake and Output Vital Signs (last 24 hours): Temp Pulse Resp BP Pulse Ox 97.8 F 82 22 124/78 94 L 09/20/16 14:04 09/20/16 14:04 09/20/16 14:04 09/20/16 14:04 09/20/16 13:01 Intake and Output: 09/20/16 09/20/16 06:59 18:59 Intake Total 0 Balance 0 - Medications Medications: Current Medications Acetaminophen (Tylenol 325mg Tab) 650 mg PO Q6 PRN PRN Reason: Pain, moderate (4-7) Last Admin: 09/20/16 03:55 Dose: 650 mg Cyclobenzaprine HCl (Flexeril) 10 mg PO TID [facility] Last Admin: 09/20/16 13:40 Dose: 10 mg Enoxaparin Sodium (Lovenox) 50 mg SC Q12 [facility] Last Admin: 09/20/16 13:19 Dose: 50 mg Folic Acid (Folic Acid) 1 mg PO DAILY [facility] Last Admin: 09/20/16 10:25 Dose: 1 mg Hydrocortisone Sodium Succinate (Solu-Cortef) 20 mg IV Q8H [facility] Last Admin: 09/20/16 12:33 Dose: 20 mg Potassium Chloride (Potassium Chloride 20 Meq/100 Ml) 20 meq in 100 mls @ 50 mls/hr IVPB TID [facility] Stop: 09/21/16 10:01 Last Admin: 09/20/16 13:40 Dose: Not Given Mesalamine (Delzicol) 800 mg PO TID [facility] Last Admin: 09/20/16 13:40 Dose: 800 mg Multivitamins (Hexavitamin) 1 tab PO DAILY [facility] Last Admin: 09/20/16 10:25 Dose: 1 tab Mupirocin (Bactroban Ointment) 0 gm TOP BID [facility] Last Admin: 09/20/16 11:36 Dose: Not Given Potassium Phos/Sodium Phos (Neutra-Phos) 1 pkt PO TID [facility] Last Admin: 09/20/16 13:23 Dose: 1 pkt Sucralfate (Carafate Oral Susp) 1 gm PO ACBD [facility] Last Admin: 09/20/16 08:47 Dose: 1 gm - Labs Labs: 09/20/16 06:36 09/20/16 06:36 PT 11.9 SECONDS (9.7-12.2) 09/20/16 06:36 INR 1.1 09/20/16 06:36 APTT 29 SECONDS (21-34) 09/20/16 06:36 - Constitutional Appears: Non-toxic, No Acute Distress - Head Exam Head Exam: NORMOCEPHALIC - Eye Exam Eye Exam: Normal appearance Pupil Exam: NORMAL ACCOMODATION - ENT Exam ENT Exam: Mucous Membranes Moist - Respiratory Exam Respiratory Exam: Chest Wall Tenderness, NORMAL BREATHING PATTERN - Cardiovascular Exam Cardiovascular Exam: REGULAR RHYTHM, +S1, +S2 - GI/Abdominal Exam GI & Abdominal Exam: Soft, Normal Bowel Sounds - Neurological Exam Neurological Exam: Alert, Awake, Oriented x3 - Psychiatric Exam Psychiatric exam: Normal Mood Assessment and Plan - Assessment and Plan (Free Text) Assessment: (1) Anemia Assessment & Plan: Reticulocyte index 0.7 Elevated Ferritin Likely secondary to chronic disease/IBD One dose of 20k units Procrit given Transfuse one unit pRBC today Status: Acute (2) IBD Assessment & Plan: ASCA positive, negative pANCA Management as per GI team Status: Chronic (3) Right DVT Assessment & Plan: Continue Lovenox 50mg SC BID. Status: Chronic (4) Bilateral PE Assessment & Plan: 09/16 CT chest positive for bilateral PE with multiple opacities likely secondary to CA vs infection. Continue Lovenox 50mg SC BID. Recommend vascular evaluation for IVC filter due to right sided popliteal and posterior tibial DVT. Status: Chronic (5) Hypokalemia Assessment & Plan: Repleted along with phosphorus. F/U CMP AM. Status: Chronic (6) Enlarged thyroid nodule Assessment & Plan: Hx of cured esophageal CA. Enlarged thyroid nodule compared to 2016. F/U thyroid ultrasound as per suggestion. Status: Chronic
--- NOTE | 2016-09-20 16:34 | CP.PCM.PN ---
Subjective - Date & Time of Evaluation Date of Evaluation: 09/20/16 Time of Evaluation: 10:20 - Subjective Subjective: Clinically same Objective - Vital Signs/Intake and Output Vital Signs (last 24 hours): Temp Pulse Resp BP Pulse Ox 98 F 88 20 125/76 94 L 09/20/16 14:34 09/20/16 14:34 09/20/16 14:34 09/20/16 14:34 09/20/16 13:01 Intake and Output: 09/20/16 09/20/16 06:59 18:59 Intake Total 0 Balance 0 - Medications Medications: Current Medications Acetaminophen (Tylenol 325mg Tab) 650 mg PO Q6 PRN PRN Reason: Pain, moderate (4-7) Last Admin: 09/20/16 03:55 Dose: 650 mg Cyclobenzaprine HCl (Flexeril) 10 mg PO TID [facility] Last Admin: 09/20/16 13:40 Dose: 10 mg Enoxaparin Sodium (Lovenox) 50 mg SC Q12 [facility] Last Admin: 09/20/16 13:19 Dose: 50 mg Folic Acid (Folic Acid) 1 mg PO DAILY [facility] Last Admin: 09/20/16 10:25 Dose: 1 mg Hydrocortisone Sodium Succinate (Solu-Cortef) 20 mg IV Q8H [facility] Last Admin: 09/20/16 12:33 Dose: 20 mg Potassium Chloride (Potassium Chloride 20 Meq/100 Ml) 20 meq in 100 mls @ 50 mls/hr IVPB TID [facility] Stop: 09/21/16 10:01 Last Admin: 09/20/16 13:40 Dose: Not Given Mesalamine (Delzicol) 800 mg PO TID [facility] Last Admin: 09/20/16 13:40 Dose: 800 mg Multivitamins (Hexavitamin) 1 tab PO DAILY [facility] Last Admin: 09/20/16 10:25 Dose: 1 tab Mupirocin (Bactroban Ointment) 0 gm TOP BID [facility] Last Admin: 09/20/16 11:36 Dose: Not Given Potassium Phos/Sodium Phos (Neutra-Phos) 1 pkt PO TID [facility] Last Admin: 09/20/16 13:23 Dose: 1 pkt Sucralfate (Carafate Oral Susp) 1 gm PO ACBD [facility] Last Admin: 09/20/16 08:47 Dose: 1 gm - Labs Labs: 09/20/16 06:36 09/20/16 06:36 PT 11.9 SECONDS (9.7-12.2) 09/20/16 06:36 INR 1.1 09/20/16 06:36 APTT 29 SECONDS (21-34) 09/20/16 06:36 - Constitutional Appears: Well - Head Exam Head Exam: ATRAUMATIC, NORMAL INSPECTION, NORMOCEPHALIC - Eye Exam Eye Exam: EOMI, Normal appearance, PERRL Pupil Exam: NORMAL ACCOMODATION, PERRL - ENT Exam ENT Exam: Mucous Membranes Moist, Normal Exam - Neck Exam Neck Exam: Full ROM, Normal Inspection. absent: Lymphadenopathy - Respiratory Exam Respiratory Exam: Decreased Breath Sounds - Cardiovascular Exam Cardiovascular Exam: REGULAR RHYTHM, +S1, +S2 - GI/Abdominal Exam GI & Abdominal Exam: Soft, Diminished Bowel Sounds - Rectal Exam Rectal Exam: Deferred Assessment and Plan (1) Acute colitis Status: Acute (2) Fever Status: Acute (3) H/O adenomatous polyp of colon Status: Acute (4) Hypotension Status: Acute (5) UTI (urinary tract infection) Status: Acute (6) Abdominal pain Status: Acute (7) Abnormal EKG Status: Acute (8) Anemia Status: Acute (9) Bronchitis Status: Acute (10) Chest pain Status: Acute (11) Colitis Status: Acute (12) Dehydration Status: Acute (13) Diarrhea Status: Acute (14) Elbow fracture Status: Acute (15) Heme + stool Status: Acute (16) Hyponatremia Status: Acute (17) Leukopenia Status: Acute (18) Pharyngitis Status: Acute (19) Pneumonia Status: Acute (20) Prophylactic measure Status: Acute (21) Risk for coronary artery disease less than 10% in next 10 years Status: Acute (22) Severe chronic ulcerative colitis Status: Acute (23) Sore throat symptom Status: Acute (24) UTI (urinary tract infection) Status: Acute (25) Wrist fracture Status: Acute (26) Asthma Status: Chronic (27) Neoplasm of esophagus, malignant Status: Chronic
--- NOTE | 2016-09-20 20:11 | US ---
EXAM: US Soft Tissues Head and Neck, Thyroid CLINICAL HISTORY: 71 years old, female; Condition or disease; Other: Nodule; Additional info: Enlarged left thyroid nodule compared to 2016 CT TECHNIQUE: Real-time ultrasound scan of the thyroid gland and soft tissues of the neck with image documentation. EXAM DATE/TIME: Exam ordered 09/20/2016 11:39 AM COMPARISON: No relevant prior studies available. FINDINGS: Left thyroid lobe: The left lobe of thyroid measures 4.6 x 1.5 x 1.6 cm. There is a well-defined hypoechoic nodule noted in the mid to lower pole measuring 1.1 x 0.8 x 1.1 cm.. The lesion appears solid and hypoechoic with smooth borders and small punctate echogenic foci within the lesion. Right thyroid lobe: The right lobe of the thyroid measures 4 x 1.5 x 1.9 cm. No enlarged or calcified nodules. Isthmus: The thyroid isthmus measures 0.18 cm. No enlarged or calcified nodules. Lymph nodes: Unremarkable. No lymphadenopathy. IMPRESSION: Left sided thyroid nodule with a TIRADS of 5. Biopsy recommended
[2016-09-20 20:55] LABS: BASO % 0.1 % (0.0-2.0); EOS % 0.3 % (0.0-4.0); HEMATOCRIT 28.4 % (34.0-47.0); LYMPH # 1.3 K/uL (1.0-4.3); LYMPH % 17.2 % (20.0-40.0); MEAN CELL VOLUME 85.8 fL (81.0-99.0); MEAN CORPUSCULAR HEMOGLOBIN 28.6 pg (27.0-31.0); MEAN CORPUSCULAR HGB CONC 33.4 g/dL (33.0-37.0); MEAN PLATELET VOLUME 6.6 fL (7.2-11.7); MONO # 0.4 K/uL (0.0-0.8); MONO % 5.1 % (0.0-10.0); RED CELL DISTRIBUTION WIDTH 14.9 % (11.5-14.5); WHITE BLOOD COUNT 7.7 K/uL (4.8-10.8)
[2016-09-20 21:04] LABS: CHLORIDE 102 mmol/L (98-107); POTASSIUM 3.6 mmol/L (3.6-5.2); SODIUM 141 mmol/L (132-148)
[2016-09-20 21:06] LABS: GFR AFRICAN-AMERICAN > 60
[2016-09-20 21:07] LABS: ALKALINE PHOSPHATASE 80 U/L (38-126); ALT/SGPT 28 U/L (9-52); AST/SGOT 12 U/L (14-36); BILIRUBIN,TOTAL 0.4 mg/dL (0.2-1.3); BLOOD UREA NITROGEN 5 mg/dL (7-17); CALCIUM 6.9 mg/dl (8.6-10.4); CARBON DIOXIDE 32 mmol/L (22-30); GLUCOSE,RANDOM 78 mg/dL (65-105)
[2016-09-21 06:53] LABS: BASO % 0.1 % (0.0-2.0); EOS # 0.1 K/uL (0.0-0.7); EOS % 1.1 % (0.0-4.0); HEMATOCRIT 31.2 % (34.0-47.0); LYMPH # 1.2 K/uL (1.0-4.3); LYMPH % 18.5 % (20.0-40.0); MEAN CELL VOLUME 86.9 fL (81.0-99.0); MEAN CORPUSCULAR HEMOGLOBIN 28.5 pg (27.0-31.0); MEAN CORPUSCULAR HGB CONC 32.8 g/dL (33.0-37.0); MEAN PLATELET VOLUME 7.1 fL (7.2-11.7); MONO # 0.3 K/uL (0.0-0.8); MONO % 4.9 % (0.0-10.0); NRBC % 0.1 % (0.0-2.0); RED CELL DISTRIBUTION WIDTH 15.2 % (11.5-14.5); WHITE BLOOD COUNT 6.6 K/uL (4.8-10.8)
[2016-09-21 07:00] LABS: CHLORIDE 101 mmol/L (98-107); SODIUM 139 mmol/L (132-148)
[2016-09-21 07:01] LABS: POTASSIUM 3.1 mmol/L (3.6-5.2)
[2016-09-21 07:02] LABS: GFR AFRICAN-AMERICAN > 60
[2016-09-21 07:03] LABS: ALB/GLOB RATIO 0.9 (1.0-2.1); ALKALINE PHOSPHATASE 87 U/L (38-126); ALT/SGPT 28 U/L (9-52); AST/SGOT 12 U/L (14-36); BILIRUBIN,TOTAL 0.4 mg/dL (0.2-1.3); BLOOD UREA NITROGEN 4 mg/dL (7-17); CARBON DIOXIDE 30 mmol/L (22-30); GLUCOSE,RANDOM 78 mg/dL (65-105); PHOSPHOROUS 2.3 mg/dL (2.5-4.5); TOTAL PROTEIN 4.3 g/dL (6.3-8.3)
[2016-09-21 07:04] LABS: CALCIUM 6.9 mg/dl (8.6-10.4); MAGNESIUM 1.8 mg/dL (1.6-2.3)
[2016-09-21] MEDS: Sucralfate 1 gm/10 ml Oral Susp UD PO SCH ×2 (07:59→16:37)
[2016-09-21] MEDS: Multiple Vitamins Tab PO SCH (10:55)
[2016-09-21] MEDS: Enoxaparin 60 mg Syringe SC SCH ×2 (10:55→21:07)
[2016-09-21] MEDS: Potassium & Sodium Phosphate PO SCH ×3 (10:56→17:46)
--- NOTE | 2016-09-21 13:50 | CP.PCM.PN ---
Subjective - Date & Time of Evaluation Date of Evaluation: 09/21/16 Time of Evaluation: 09:00 - Subjective Subjective: clinically same Objective - Vital Signs/Intake and Output Vital Signs (last 24 hours): Temp Pulse Resp BP Pulse Ox 97.6 F 79 20 118/73 100 09/21/16 08:00 09/21/16 08:33 09/21/16 08:00 09/21/16 08:00 09/21/16 08:00 - Medications Medications: Current Medications Acetaminophen (Tylenol 325mg Tab) 650 mg PO Q6 PRN PRN Reason: Pain, moderate (4-7) Last Admin: 09/21/16 05:25 Dose: 650 mg Cyclobenzaprine HCl (Flexeril) 10 mg PO TID [facility] Last Admin: 09/21/16 10:55 Dose: 10 mg Enoxaparin Sodium (Lovenox) 50 mg SC Q12 [facility] Last Admin: 09/21/16 10:55 Dose: 50 mg Folic Acid (Folic Acid) 1 mg PO DAILY [facility] Last Admin: 09/21/16 10:55 Dose: 1 mg Hydrocortisone Sodium Succinate (Solu-Cortef) 20 mg IV Q8H [facility] Last Admin: 09/21/16 13:30 Dose: 20 mg Potassium Chloride (Potassium Chloride 20 Meq/100 Ml) 20 meq in 100 mls @ 50 mls/hr IVPB Q4 [facility] Stop: 09/22/16 05:59 Mesalamine (Delzicol) 800 mg PO TID [facility] Last Admin: 09/21/16 10:56 Dose: 800 mg Multivitamins (Hexavitamin) 1 tab PO DAILY [facility] Last Admin: 09/21/16 10:55 Dose: 1 tab Mupirocin (Bactroban Ointment) 0 gm TOP BID [facility] Last Admin: 09/21/16 10:55 Dose: 1 applic Potassium Phos/Sodium Phos (Neutra-Phos) 1 pkt PO TID [facility] Last Admin: 09/21/16 10:56 Dose: 1 pkt Sucralfate (Carafate Oral Susp) 1 gm PO ACBD [facility] Last Admin: 09/21/16 07:59 Dose: 1 gm - Labs Labs: 09/21/16 06:46 09/21/16 06:46 PT 11.9 SECONDS (9.7-12.2) 09/20/16 06:36 INR 1.1 09/20/16 06:36 APTT 29 SECONDS (21-34) 09/20/16 06:36 - Constitutional Appears: Well - Head Exam Head Exam: ATRAUMATIC, NORMAL INSPECTION, NORMOCEPHALIC - Eye Exam Eye Exam: EOMI, Normal appearance, PERRL Pupil Exam: NORMAL ACCOMODATION, PERRL - ENT Exam ENT Exam: Mucous Membranes Moist, Normal Exam - Neck Exam Neck Exam: Full ROM, Normal Inspection. absent: Lymphadenopathy - Respiratory Exam Respiratory Exam: Decreased Breath Sounds - Cardiovascular Exam Cardiovascular Exam: REGULAR RHYTHM, +S1, +S2 - GI/Abdominal Exam GI & Abdominal Exam: Soft, Diminished Bowel Sounds - Rectal Exam Rectal Exam: Deferred Assessment and Plan (1) Acute colitis Status: Acute (2) Fever Status: Acute (3) H/O adenomatous polyp of colon Status: Acute (4) Hypotension Status: Acute (5) UTI (urinary tract infection) Status: Acute (6) Abdominal pain Status: Acute (7) Abnormal EKG Status: Acute (8) Anemia Status: Acute (9) Bronchitis Status: Acute (10) Chest pain Status: Acute (11) Colitis Status: Acute (12) Dehydration Status: Acute (13) Diarrhea Status: Acute (14) Elbow fracture Status: Acute (15) Heme + stool Status: Acute (16) Hyponatremia Status: Acute (17) Leukopenia Status: Acute (18) Pharyngitis Status: Acute (19) Pneumonia Status: Acute (20) Prophylactic measure Status: Acute (21) Risk for coronary artery disease less than 10% in next 10 years Status: Acute (22) Severe chronic ulcerative colitis Status: Acute (23) Sore throat symptom Status: Acute (24) UTI (urinary tract infection) Status: Acute (25) Wrist fracture Status: Acute (26) Asthma Status: Chronic (27) Neoplasm of esophagus, malignant Status: Chronic - Assessment and Plan (Free Text) Plan: Case seen and discussed with the staff GI on board Physical therapy Monitor vitals Continue antibiotics DVT prophylaxis Nasal DE Labs next a.m.
[2016-09-22] MEDS: Sucralfate 1 gm/10 ml Oral Susp UD PO SCH ×2 (06:59→18:04)
[2016-09-22 07:37] LABS: BASO % 0.1 % (0.0-2.0); EOS % 0.3 % (0.0-4.0); HEMATOCRIT 30.4 % (34.0-47.0); LYMPH # 0.7 K/uL (1.0-4.3); LYMPH % 11.9 % (20.0-40.0); MEAN CELL VOLUME 86.3 fL (81.0-99.0); MEAN CORPUSCULAR HEMOGLOBIN 29.3 pg (27.0-31.0); MEAN CORPUSCULAR HGB CONC 33.9 g/dL (33.0-37.0); MEAN PLATELET VOLUME 6.8 fL (7.2-11.7); MONO # 0.3 K/uL (0.0-0.8); MONO % 4.7 % (0.0-10.0); RED CELL DISTRIBUTION WIDTH 15.7 % (11.5-14.5); WHITE BLOOD COUNT 5.8 K/uL (4.8-10.8)
[2016-09-22 08:03] LABS: CHLORIDE 100 mmol/L (98-107); POTASSIUM 3.8 mmol/L (3.6-5.2); SODIUM 139 mmol/L (132-148)
[2016-09-22 08:05] LABS: BILIRUBIN,TOTAL 0.5 mg/dL (0.2-1.3); CARBON DIOXIDE 31 mmol/L (22-30); GFR AFRICAN-AMERICAN > 60
[2016-09-22 08:06] LABS: ALB/GLOB RATIO 0.9 (1.0-2.1); ALKALINE PHOSPHATASE 80 U/L (38-126); ALT/SGPT 28 U/L (9-52); AST/SGOT 13 U/L (14-36); BLOOD UREA NITROGEN 7 mg/dL (7-17); CALCIUM 7.4 mg/dl (8.6-10.4); GLUCOSE,RANDOM 101 mg/dL (65-105); TOTAL PROTEIN 4.4 g/dL (6.3-8.3)
[2016-09-22] MEDS: Multiple Vitamins Tab PO SCH (09:44)
[2016-09-22] MEDS: Enoxaparin 60 mg Syringe SC SCH ×2 (09:44→22:25)
[2016-09-22] MEDS: Potassium & Sodium Phosphate PO SCH ×3 (09:45→18:04)
--- NOTE | 2016-09-22 13:06 | PN ---
DATE: 09/22/2016 LOCATION: 657, bed A. SUBJECTIVE: This is a 71-year-old female seen and examined in rounds without significant clinical changes or reported recent active bleeding with near normal bowel movement on daily basis. Still complaining of intermittent period of lower extremities being on occasion with right side chest discomfort. The entire chart was reviewed including, but not limited to the most recent lab and radiologic results, current and previous medication list, current and previous medical events. Case discussed with the staff at length in the floor. The latest hemoglobin was 10.3 with hematocrit 31.2 with normal platelet count with low potassium of 3.1 with low BUN and creatinine as well as low calcium and phosphorus with albumin 2.0, total protein 4.3. Patient had thyroid ultrasound which showed left sided thyroid nodule and biopsy is recommended. PHYSICAL EXAMINATION: GENERAL: A 71-year-old female. VITAL SIGNS: Afebrile with pulse of 80, respiratory rate 20 to 22 with blood pressure of 103/74. HEENT: Showed pale, dry mucous membrane. Nonicteric sclerae. LUNGS: Few scattered crepitation. Decreased air entry at bases. HEART: Positive S1, S2. ABDOMEN: Soft. Bowel sounds are present. No mass or organomegaly. No rebound tenderness or guarding. RECTAL: The patient refused. EXTREMITIES: Lower extremities with mild adenomatous changes. NEUROLOGIC: No reported new neurological deficits, sensory or motor; however, patient had been having some mild dysphasia recently, swallowing her medication. IMPRESSION: 1. Re-exacerbation of inflammatory bowel disease, ulcerative colitis, on steroids. No need for further unnecessary distinct and the diagnosis ulcerative colitis was made previously and clearly. Giving the patient any chemotherapy for her ulcerative colitis or immune suppressive more medication will expose her to more complications, unnecessary. 2. Reported deep vein thrombosis with abnormal CAT scan of the chest with possible pulmonary emboli. 3. Anemia secondary to above. 4. Thyroid nodule, biopsy is to be performed. 5. Known history of esophageal cancer, treated surgically. 6. most likely secondary to above; however, the patient may develop esophageal candidiasis and upper endoscopy to be repeated. 7. Electrolyte imbalance with hypocalcemia, hypokalemia. 8. Malnutrition with hypoalbuminemia. 9. Known history of colon polyps. SUGGESTION: 1. Agree with your plan. 2. As per above. 3. Patient to be scheduled for possible upper endoscopy for evaluation of the esophageal wall, epigastric wall as well as repeat colonoscopy when she is more stable clinically. Further recommendation to follow. Thank you for letting me participate in your the patient's case management. Anamaria Ferguson MD cc: Anamaria Ferguson MD
[2016-09-22] MEDS ORDERED: Loperamide Hydrochloride 1 mg/5 ml Cup PO STA (13:46)
--- NOTE | 2016-09-22 22:03 | CP.PCM.PN ---
Subjective - Date & Time of Evaluation Date of Evaluation: 09/22/16 Time of Evaluation: 10:10 - Subjective Subjective: clinically same Objective - Vital Signs/Intake and Output Vital Signs (last 24 hours): Temp Pulse Resp BP Pulse Ox 98.5 F 103 H 20 106/60 95 09/22/16 15:32 09/22/16 18:00 09/22/16 15:32 09/22/16 15:32 09/22/16 15:32 Intake and Output: 09/22/16 09/23/16 18:59 06:59 Intake Total 200 Balance 200 - Medications Medications: Current Medications Acetaminophen (Tylenol 325mg Tab) 650 mg PO Q6 PRN PRN Reason: Pain, moderate (4-7) Last Admin: 09/22/16 13:21 Dose: 650 mg Cyclobenzaprine HCl (Flexeril) 10 mg PO TID [facility] Last Admin: 09/22/16 18:04 Dose: 10 mg Enoxaparin Sodium (Lovenox) 50 mg SC Q12 [facility] Last Admin: 09/22/16 09:44 Dose: 50 mg Folic Acid (Folic Acid) 1 mg PO DAILY [facility] Last Admin: 09/22/16 09:44 Dose: 1 mg Hydrocortisone Sodium Succinate (Solu-Cortef) 20 mg IV Q8H [facility] Last Admin: 09/22/16 13:02 Dose: 20 mg Mesalamine (Delzicol) 800 mg PO TID [facility] Last Admin: 09/22/16 18:04 Dose: 800 mg Multivitamins (Hexavitamin) 1 tab PO DAILY [facility] Last Admin: 09/22/16 09:44 Dose: 1 tab Mupirocin (Bactroban Ointment) 0 gm TOP BID [facility] Last Admin: 09/22/16 18:04 Dose: 1 applic Potassium Phos/Sodium Phos (Neutra-Phos) 1 pkt PO TID [facility] Last Admin: 09/22/16 18:04 Dose: 1 pkt Sucralfate (Carafate Oral Susp) 1 gm PO ACBD [facility] Last Admin: 09/22/16 18:04 Dose: 1 gm - Labs Labs: 09/22/16 07:15 09/22/16 07:15 PT 11.9 SECONDS (9.7-12.2) 09/20/16 06:36 INR 1.1 09/20/16 06:36 APTT 29 SECONDS (21-34) 09/20/16 06:36 - Constitutional Appears: Well - Head Exam Head Exam: ATRAUMATIC, NORMAL INSPECTION, NORMOCEPHALIC - Eye Exam Eye Exam: EOMI, Normal appearance, PERRL - ENT Exam ENT Exam: Mucous Membranes Moist, Normal Exam - Neck Exam Neck Exam: Full ROM, Normal Inspection. absent: Lymphadenopathy - Respiratory Exam Respiratory Exam: Decreased Breath Sounds - Cardiovascular Exam Cardiovascular Exam: REGULAR RHYTHM, +S1, +S2. absent: Murmur - GI/Abdominal Exam GI & Abdominal Exam: Soft, Diminished Bowel Sounds - Rectal Exam Rectal Exam: Deferred Assessment and Plan (1) Acute colitis Status: Acute (2) Fever Status: Acute (3) H/O adenomatous polyp of colon Status: Acute (4) Hypotension Status: Acute (5) UTI (urinary tract infection) Status: Acute (6) Abdominal pain Status: Acute (7) Abnormal EKG Status: Acute (8) Anemia Status: Acute (9) Bronchitis Status: Acute (10) Chest pain Status: Acute (11) Colitis Status: Acute (12) Dehydration Status: Acute (13) Diarrhea Status: Acute (14) Elbow fracture Status: Acute (15) Heme + stool Status: Acute (16) Hyponatremia Status: Acute (17) Leukopenia Status: Acute (18) Pharyngitis Status: Acute (19) Pneumonia Status: Acute (20) Prophylactic measure Status: Acute (21) Risk for coronary artery disease less than 10% in next 10 years Status: Acute (22) Severe chronic ulcerative colitis Status: Acute (23) Sore throat symptom Status: Acute (24) UTI (urinary tract infection) Status: Acute (25) Wrist fracture Status: Acute (26) Asthma Status: Chronic (27) Neoplasm of esophagus, malignant Status: Chronic - Assessment and Plan (Free Text) Plan: Patient feeling better No acute event overnight Patient feeling better Hemoglobin trending up Continue mupirocin mesalamine Hydrocortisone DVT prophylaxis Flexeril Labs next a.m. Multiple consults
--- NOTE | 2016-09-22 22:13 | CP.PCM.PN ---
Subjective - Date & Time of Evaluation Date of Evaluation: 09/21/16 Time of Evaluation: 16:00 - Subjective Subjective: Has diarrhea but improved Objective - Vital Signs/Intake and Output Vital Signs (last 24 hours): Temp Pulse Resp BP Pulse Ox 98.5 F 103 H 20 106/60 95 09/22/16 15:32 09/22/16 18:00 09/22/16 15:32 09/22/16 15:32 09/22/16 15:32 Intake and Output: 09/22/16 09/23/16 18:59 06:59 Intake Total 200 Balance 200 - Medications Medications: Current Medications Acetaminophen (Tylenol 325mg Tab) 650 mg PO Q6 PRN PRN Reason: Pain, moderate (4-7) Last Admin: 09/22/16 13:21 Dose: 650 mg Cyclobenzaprine HCl (Flexeril) 10 mg PO TID [facility] Last Admin: 09/22/16 18:04 Dose: 10 mg Enoxaparin Sodium (Lovenox) 50 mg SC Q12 [facility] Last Admin: 09/22/16 09:44 Dose: 50 mg Folic Acid (Folic Acid) 1 mg PO DAILY [facility] Last Admin: 09/22/16 09:44 Dose: 1 mg Hydrocortisone Sodium Succinate (Solu-Cortef) 20 mg IV Q8H [facility] Last Admin: 09/22/16 13:02 Dose: 20 mg Mesalamine (Delzicol) 800 mg PO TID [facility] Last Admin: 09/22/16 18:04 Dose: 800 mg Multivitamins (Hexavitamin) 1 tab PO DAILY [facility] Last Admin: 09/22/16 09:44 Dose: 1 tab Mupirocin (Bactroban Ointment) 0 gm TOP BID [facility] Last Admin: 09/22/16 18:04 Dose: 1 applic Potassium Phos/Sodium Phos (Neutra-Phos) 1 pkt PO TID [facility] Last Admin: 09/22/16 18:04 Dose: 1 pkt Sucralfate (Carafate Oral Susp) 1 gm PO ACBD [facility] Last Admin: 09/22/16 18:04 Dose: 1 gm - Labs Labs: 09/22/16 07:15 09/22/16 07:15 PT 11.9 SECONDS (9.7-12.2) 09/20/16 06:36 INR 1.1 09/20/16 06:36 APTT 29 SECONDS (21-34) 09/20/16 06:36 - Head Exam Head Exam: ATRAUMATIC - Eye Exam Eye Exam: Normal appearance - ENT Exam ENT Exam: Mucous Membranes Dry - Respiratory Exam Respiratory Exam: NORMAL BREATHING PATTERN - Cardiovascular Exam Cardiovascular Exam: +S1, +S2 - GI/Abdominal Exam GI & Abdominal Exam: Normal Bowel Sounds - Extremities Exam Extremities Exam: Normal Inspection - Neurological Exam Neurological Exam: Oriented x3 - Psychiatric Exam Psychiatric exam: Normal Affect, Normal Mood - Skin Skin Exam: Warm Assessment and Plan (1) Pulmonary embolism Assessment & Plan: with DVT anticoagulation changed from Eliquis to Lovenox Status: Acute (2) Anemia Assessment & Plan: chronic disease s/p PRBC transfusion Status: Acute (3) Thyroid nodule Assessment & Plan: recommend IR biopsy Status: Acute (4) Lung nodules Assessment & Plan: ?infectious ?malignant ?inflammatory Status: Acute (5) Neoplasm of esophagus, malignant Assessment & Plan: in remission since 2010 Status: Chronic
[2016-09-23] MEDS: Sucralfate 1 gm/10 ml Oral Susp UD PO SCH ×2 (06:34→17:34)
[2016-09-23 07:12] LABS: BASO % 0.1 % (0.0-2.0); EOS % 0.8 % (0.0-4.0); HEMATOCRIT 29.9 % (34.0-47.0); LYMPH # 0.7 K/uL (1.0-4.3); LYMPH % 14.8 % (20.0-40.0); MEAN CELL VOLUME 86.5 fL (81.0-99.0); MEAN CORPUSCULAR HEMOGLOBIN 28.8 pg (27.0-31.0); MEAN CORPUSCULAR HGB CONC 33.4 g/dL (33.0-37.0); MEAN PLATELET VOLUME 6.8 fL (7.2-11.7); MONO # 0.3 K/uL (0.0-0.8); MONO % 6.5 % (0.0-10.0); NRBC % 0.1 % (0.0-2.0); RED CELL DISTRIBUTION WIDTH 15.6 % (11.5-14.5); WHITE BLOOD COUNT 4.9 K/uL (4.8-10.8)
[2016-09-23 07:43] LABS: CHLORIDE 98 mmol/L (98-107)
[2016-09-23 07:44] LABS: POTASSIUM 2.9 mmol/L (3.6-5.2); SODIUM 139 mmol/L (132-148)
[2016-09-23 07:46] LABS: ALB/GLOB RATIO 0.9 (1.0-2.1); ALKALINE PHOSPHATASE 78 U/L (38-126); ALT/SGPT 28 U/L (9-52); AST/SGOT 12 U/L (14-36); BILIRUBIN,TOTAL 0.5 mg/dL (0.2-1.3); BLOOD UREA NITROGEN 7 mg/dL (7-17); CALCIUM 7.3 mg/dl (8.6-10.4); CARBON DIOXIDE 31 mmol/L (22-30); GFR AFRICAN-AMERICAN > 60; GLUCOSE,RANDOM 105 mg/dL (65-105); TOTAL PROTEIN 4.3 g/dL (6.3-8.3)
[2016-09-23] MEDS: Enoxaparin 60 mg Syringe SC SCH ×2 (09:05→21:09)
[2016-09-23] MEDS: Multiple Vitamins Tab PO SCH (09:06)
[2016-09-23] MEDS: Potassium & Sodium Phosphate PO SCH ×3 (09:06→17:34)
[2016-09-23] MEDS ORDERED: Potassium Chloride 10 mEq ER Tab PO ONE (09:23)
--- NOTE | 2016-09-23 09:32 | CP.PCM.PN ---
Subjective - Date & Time of Evaluation Date of Evaluation: 09/23/16 Time of Evaluation: 09:30 - Subjective Subjective: Medicine Progress Note for Dr. Marquez's Service Pt seen and examined at bedside. She appears to be resting comfortably. She complains of dysuria. She denies F/C/CP/SOB/N/V/D/C/abdominal pain. Objective - Vital Signs/Intake and Output Vital Signs (last 24 hours): Temp Pulse Resp BP Pulse Ox 98.4 F 83 18 125/67 96 09/23/16 07:33 09/23/16 07:33 09/23/16 07:33 09/23/16 07:33 09/23/16 07:33 Intake and Output: 09/23/16 09/23/16 06:59 18:59 Intake Total 240 Balance 240 - Medications Medications: Current Medications Acetaminophen (Tylenol 325mg Tab) 650 mg PO Q6 PRN PRN Reason: Pain, moderate (4-7) Last Admin: 09/23/16 05:45 Dose: 650 mg Cyclobenzaprine HCl (Flexeril) 10 mg PO TID [facility] Last Admin: 09/23/16 09:06 Dose: 10 mg Enoxaparin Sodium (Lovenox) 50 mg SC Q12 [facility] Last Admin: 09/23/16 09:05 Dose: 50 mg Folic Acid (Folic Acid) 1 mg PO DAILY [facility] Last Admin: 09/23/16 09:06 Dose: 1 mg Hydrocortisone Sodium Succinate (Solu-Cortef) 20 mg IV Q8H [facility] Last Admin: 09/23/16 04:36 Dose: 20 mg Mesalamine (Delzicol) 800 mg PO TID [facility] Last Admin: 09/22/16 18:04 Dose: 800 mg Multivitamins (Hexavitamin) 1 tab PO DAILY [facility] Last Admin: 09/23/16 09:06 Dose: 1 tab Mupirocin (Bactroban Ointment) 0 gm TOP BID [facility] Last Admin: 09/22/16 18:04 Dose: 1 applic Potassium Phos/Sodium Phos (Neutra-Phos) 1 pkt PO TID [facility] Last Admin: 09/23/16 09:06 Dose: 1 pkt Sucralfate (Carafate Oral Susp) 1 gm PO ACBD [facility] Last Admin: 09/23/16 06:34 Dose: 1 gm - Labs Labs: 09/23/16 07:00 09/23/16 07:00 PT 11.9 SECONDS (9.7-12.2) 09/20/16 06:36 INR 1.1 09/20/16 06:36 APTT 29 SECONDS (21-34) 09/20/16 06:36 - Constitutional Appears: No Acute Distress - Head Exam Head Exam: ATRAUMATIC, NORMAL INSPECTION - Eye Exam Eye Exam: Normal appearance - ENT Exam ENT Exam: Mucous Membranes Moist - Respiratory Exam Respiratory Exam: Clear to Ausculation Bilateral - Cardiovascular Exam Cardiovascular Exam: REGULAR RHYTHM - GI/Abdominal Exam GI & Abdominal Exam: Soft. absent: Tenderness Additional comments: negative suprapubic tenderness - Neurological Exam Neurological Exam: Alert, Awake, Oriented x3 Assessment and Plan - Assessment and Plan (Free Text) Plan: Pulmonary Embolism- w/o evidence of DVTs CT chest 09/16/2016: Acute bilateral pulmonary embolism Lower extremity duplex negative 09/18/2016 Lovenox 50mg SC Q12hrs Diarrhea GI consult placed to Dr. 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 Murray Continue with Mupirocin Dysuria UA done on 09/11/16 negative Consider repeat UA if symptoms persist Pt does not have suprapubic tenderness/CVA tenderness/UTI sign on exam Hypokalemia likely 2/2 to diarrhea K:2.9 Start KCl 30meq PO daily Continue to monitor Anemia of Chronic Disease- s/p transfusion h/h stable 12/15.9- transfused 1unit PRBC on 09/20/2016 Continue to monitor daily CBC's Ferritin 395.0 Thyroid nodule Left sided thyroid nodule on ultrasound- biopsy recommended Consult placed to Dr. Sinan lion appreciated Polypoid mass in transverse colon- s/p [place] [address] Marshal SHEPHERD to do EGD/Colonoscopy when clinically stable Esophageal neoplasm s/p resection Resection done by Dr. Barker Prophylaxis Tylenol 650mg PRN pain Pepcid 20mg PO daily Case discussed with Dr. Marquez. All management as per Dr. Marquez.
[2016-09-23] MEDS ORDERED: Loperamide Hydrochloride 1 mg/5 ml Cup PO ONE (12:59)
[2016-09-23] MEDS: Sodium Chloride 0.9% 1,000 ML IV SCH (13:18)
[2016-09-23 16:17] LABS: CHLORIDE 100 mmol/L (98-107); SODIUM 140 mmol/L (132-148)
[2016-09-23 16:19] LABS: BILIRUBIN,TOTAL 0.4 mg/dL (0.2-1.3); CARBON DIOXIDE 33 mmol/L (22-30); GFR AFRICAN-AMERICAN > 60
[2016-09-23 16:20] LABS: ALB/GLOB RATIO 0.8 (1.0-2.1); ALKALINE PHOSPHATASE 82 U/L (38-126); ALT/SGPT 24 U/L (9-52); AST/SGOT 9 U/L (14-36); BLOOD UREA NITROGEN 7 mg/dL (7-17); CALCIUM 7.1 mg/dl (8.6-10.4); GLUCOSE,RANDOM 94 mg/dL (65-105); TOTAL PROTEIN 4.5 g/dL (6.3-8.3)
--- NOTE | 2016-09-23 17:50 | CP.PCM.PN ---
Subjective - Date & Time of Evaluation Date of Evaluation: 09/23/16 Time of Evaluation: 09:40 - Subjective Subjective: clinically same Objective - Vital Signs/Intake and Output Vital Signs (last 24 hours): Temp Pulse Resp BP Pulse Ox 98.4 F 83 18 125/67 96 09/23/16 07:33 09/23/16 07:33 09/23/16 07:33 09/23/16 07:33 09/23/16 07:33 Intake and Output: 09/23/16 09/23/16 06:59 18:59 Intake Total 240 100 Balance 240 100 - Medications Medications: Current Medications Acetaminophen (Tylenol 325mg Tab) 650 mg PO Q6 PRN PRN Reason: Pain, moderate (4-7) Last Admin: 09/23/16 05:45 Dose: 650 mg Cyclobenzaprine HCl (Flexeril) 10 mg PO TID [facility] Last Admin: 09/23/16 17:34 Dose: 10 mg Enoxaparin Sodium (Lovenox) 50 mg SC Q12 [facility] Last Admin: 09/23/16 09:05 Dose: 50 mg Famotidine (Pepcid) 20 mg PO DAILY [facility] Folic Acid (Folic Acid) 1 mg PO DAILY [facility] Last Admin: 09/23/16 09:06 Dose: 1 mg Hydrocortisone Sodium Succinate (Solu-Cortef) 20 mg IV Q8H [facility] Last Admin: 09/23/16 13:25 Dose: 20 mg Sodium Chloride (Sodium Chloride 0.9%) 1,000 mls @ 50 mls/hr IV .Q20H [facility] Last Admin: 09/23/16 13:18 Dose: 50 mls/hr Mesalamine (Delzicol) 800 mg PO TID [facility] Last Admin: 09/23/16 17:36 Dose: 800 mg Multivitamins (Hexavitamin) 1 tab PO DAILY [facility] Last Admin: 09/23/16 09:06 Dose: 1 tab Mupirocin (Bactroban Ointment) 0 gm TOP BID [facility] Last Admin: 09/23/16 17:35 Dose: 1 applic Potassium Chloride (K-Dur 20 Meq Er Tab) 40 meq PO ONCE ONE Stop: 09/23/16 18:01 Last Admin: 09/23/16 17:36 Dose: 40 meq Potassium Chloride (K-Dur 20 Meq Er Tab) 40 meq PO DAILY [facility] Potassium Phos/Sodium Phos (Neutra-Phos) 1 pkt PO TID [facility] Last Admin: 09/23/16 17:34 Dose: 1 pkt Sucralfate (Carafate Oral Susp) 1 gm PO ACBD [facility] Last Admin: 09/23/16 17:34 Dose: 1 gm - Labs Labs: 09/23/16 07:00 09/23/16 16:01 PT 11.9 SECONDS (9.7-12.2) 09/20/16 06:36 INR 1.1 09/20/16 06:36 APTT 29 SECONDS (21-34) 09/20/16 06:36 - Constitutional Appears: Well - Head Exam Head Exam: ATRAUMATIC, NORMAL INSPECTION, NORMOCEPHALIC - Eye Exam Eye Exam: EOMI, Normal appearance, PERRL Pupil Exam: NORMAL ACCOMODATION, PERRL - ENT Exam ENT Exam: Mucous Membranes Moist, Normal Exam - Neck Exam Neck Exam: Full ROM, Normal Inspection. absent: Lymphadenopathy - Respiratory Exam Respiratory Exam: Decreased Breath Sounds - Cardiovascular Exam Cardiovascular Exam: REGULAR RHYTHM, +S1, +S2 - GI/Abdominal Exam GI & Abdominal Exam: Soft, Diminished Bowel Sounds - Rectal Exam Rectal Exam: Deferred Assessment and Plan (1) Acute colitis Status: Acute (2) Fever Status: Acute (3) H/O adenomatous polyp of colon Status: Acute (4) Hypotension Status: Acute (5) UTI (urinary tract infection) Status: Acute (6) Abdominal pain Status: Acute (7) Abnormal EKG Status: Acute (8) Anemia Status: Acute (9) Bronchitis Status: Acute (10) Chest pain Status: Acute (11) Colitis Status: Acute (12) Dehydration Status: Acute (13) Diarrhea Status: Acute (14) Elbow fracture Status: Acute (15) Heme + stool Status: Acute (16) Hyponatremia Status: Acute (17) Leukopenia Status: Acute (18) Pharyngitis Status: Acute (19) Pneumonia Status: Acute (20) Prophylactic measure Status: Acute (21) Risk for coronary artery disease less than 10% in next 10 years Status: Acute (22) Severe chronic ulcerative colitis Status: Acute (23) Sore throat symptom Status: Acute (24) UTI (urinary tract infection) Status: Acute (25) Wrist fracture Status: Acute (26) Asthma Status: Chronic (27) Neoplasm of esophagus, malignant Status: Chronic - Assessment and Plan (Free Text) Plan: Continue as ordered DVT prophylaxis Diarrhea clinically improved Surgery consult on board Continue mupirocin Monitor H&H Dr. Ernestina Kapadia Pepcid Physical therapy Labs next a.m.
[2016-09-23] MEDS ORDERED: Potassium Chloride 20 mEq ER Tab PO ONE (18:00)
--- NOTE | 2016-09-23 23:17 | PN ---
DATE: 09/23/2016 LOCATION: 657, bed A. SUBJECTIVE: This is a 71-year-old female, seen and examined early today, without reported new significant changes, but intermittent periods of lower abdominal and lower extremity pain on and off. No reported active bleeding. The entire chart was reviewed including, but not limited to the most recent lab and radiologic studies done, current and previous medications, and current and previous medical events, as well as allergies to medications. The patient appears to be awake, alert, oriented, tolerating oral intake well. PHYSICAL EXAMINATION: GENERAL: This is a 71-year-old female. VITAL SIGNS: Afebrile, with a pulse of 86, respiratory rate of 20 to 22, blood pressure 122/64. HEENT: Some pale, dry oral mucous membranes. Anicteric sclerae. HEART: Positive S1 and S2. LUNGS: Clear to auscultation. Decreased air entry at bases. ABDOMEN: Soft. Bowel sounds are present. No masses or organomegaly. No rebound tenderness or guarding, but with mild slight generalized tenderness. EXTREMITIES: Slight lower extremity tenderness and slight edema. No clubbing or cyanosis. NEUROLOGIC: No reported neurological deficits, sensory or motor. LABORATORY DATA: The most recent lab results showed a hemoglobin of 10.0, hematocrit of 29.9, with a low potassium of 2.9 with low albumin 2.0, low total protein 4.3, with calcium still low at 7.3. IMPRESSION: 1. Re-exacerbation of peptic ulcer disease, the patient in the meantime has tried mesalamine treatment. 2. Peptic ulcer disease. 3. Anemia secondary to above. 4. Thyroid nodules, awaiting biopsy to be performed. 5. Known history of esophageal cancer, treated surgically. 6. Electrolyte imbalance with hypokalemia, hypocalcemia. 7. Known history of colon polyps. 8. Deep venous thrombosis by recent history. 9. Bilateral pulmonary emboli as reported by the CAT scan of the chest. 10. Malnutritional hypoalbuminemia. SUGGESTION: 1. Continue current management. 2. The patient will need albumin IV. 3. Thyroid nodule biopsy. Anamaria Ferguson MD [facility] # [id number]
[2016-09-24] MEDS: Sucralfate 1 gm/10 ml Oral Susp UD PO SCH ×2 (06:33→16:09)
[2016-09-24 06:38] LABS: BASO % 0.1 % (0.0-2.0); EOS % 0.5 % (0.0-4.0); HEMATOCRIT 33.1 % (34.0-47.0); LYMPH # 1.3 K/uL (1.0-4.3); LYMPH % 23.8 % (20.0-40.0); MEAN CELL VOLUME 88.5 fL (81.0-99.0); MEAN CORPUSCULAR HEMOGLOBIN 29.4 pg (27.0-31.0); MEAN CORPUSCULAR HGB CONC 33.2 g/dL (33.0-37.0); MEAN PLATELET VOLUME 6.6 fL (7.2-11.7); MONO # 0.4 K/uL (0.0-0.8); MONO % 7.7 % (0.0-10.0); NRBC % 0.1 % (0.0-2.0); RED CELL DISTRIBUTION WIDTH 16.2 % (11.5-14.5); WHITE BLOOD COUNT 5.3 K/uL (4.8-10.8)
[2016-09-24 07:45] LABS: CHLORIDE 101 mmol/L (98-107)
[2016-09-24 07:46] LABS: POTASSIUM 2.7 mmol/L (3.6-5.2); SODIUM 142 mmol/L (132-148)
[2016-09-24 07:48] LABS: ALB/GLOB RATIO 0.9 (1.0-2.1); ALKALINE PHOSPHATASE 78 U/L (38-126); AST/SGOT 12 U/L (14-36); BILIRUBIN,TOTAL 0.5 mg/dL (0.2-1.3); CARBON DIOXIDE 31 mmol/L (22-30); GFR AFRICAN-AMERICAN > 60; TOTAL PROTEIN 4.3 g/dL (6.3-8.3)
[2016-09-24 07:49] LABS: ALT/SGPT 25 U/L (9-52); BLOOD UREA NITROGEN 6 mg/dL (7-17); CALCIUM 7.2 mg/dl (8.6-10.4); GLUCOSE,RANDOM 110 mg/dL (65-105)
--- NOTE | 2016-09-24 09:20 | CP.PCM.PN ---
<Anselmo Vail S - Last Filed: 09/24/16 13:03> Subjective - Date & Time of Evaluation Date of Evaluation: 09/24/16 Time of Evaluation: 09:18 - Subjective Subjective: Medicine Progress Note for Dr. Marquez's Service Pt seen and examined at bedside. She appears comfortable. She complains of dysuria and suprapubic tenderness. Urine analysis was last done on 09/11/2016 which was 3+ blood, however reflex urine cx was negative. She denies F/C/CP/SOB/ N/V/D/C/abdominal pain. Pt reports she had 1 bowel movement yesterday. Nursing reports that the patients PICC line fell out overnight when she was moving around/getting out of bed. Peripheral access was obtained. Objective - Vital Signs/Intake and Output Vital Signs (last 24 hours): Temp Pulse Resp BP Pulse Ox 98.7 F 96 H 20 112/75 95 09/24/16 07:00 09/24/16 07:00 09/24/16 07:00 09/24/16 07:00 09/24/16 07:00 Intake and Output: 09/24/16 09/24/16 06:59 18:59 Intake Total 720 520 Output Total 1 Balance 720 519 - Medications Medications: Current Medications Acetaminophen (Tylenol 325mg Tab) 650 mg PO Q6 PRN PRN Reason: Pain, moderate (4-7) Last Admin: 09/24/16 03:54 Dose: 650 mg Cyclobenzaprine HCl (Flexeril) 10 mg PO TID [facility] Last Admin: 09/23/16 17:34 Dose: 10 mg Enoxaparin Sodium (Lovenox) 50 mg SC Q12 [facility] Last Admin: 09/23/16 21:09 Dose: 50 mg Famotidine (Pepcid) 20 mg PO DAILY [facility] Folic Acid (Folic Acid) 1 mg PO DAILY [facility] Last Admin: 09/23/16 09:06 Dose: 1 mg Hydrocortisone Sodium Succinate (Solu-Cortef) 20 mg IV Q8H [facility] Last Admin: 09/24/16 05:05 Dose: 20 mg Sodium Chloride (Sodium Chloride 0.9%) 1,000 mls @ 50 mls/hr IV .Q20H [facility] Last Admin: 09/23/16 13:18 Dose: 50 mls/hr Mesalamine (Delzicol) 800 mg PO TID [facility] Last Admin: 09/23/16 17:36 Dose: 800 mg Multivitamins (Hexavitamin) 1 tab PO DAILY [facility] Last Admin: 09/23/16 09:06 Dose: 1 tab Mupirocin (Bactroban Ointment) 0 gm TOP BID [facility] Last Admin: 09/23/16 17:35 Dose: 1 applic Potassium Chloride (K-Dur 20 Meq Er Tab) 40 meq PO DAILY [facility] Potassium Phos/Sodium Phos (Neutra-Phos) 1 pkt PO TID [facility] Last Admin: 09/23/16 17:34 Dose: 1 pkt Sucralfate (Carafate Oral Susp) 1 gm PO ACBD [facility] Last Admin: 09/24/16 06:33 Dose: 1 gm - Labs Labs: 09/24/16 06:26 09/24/16 06:26 PT 11.9 SECONDS (9.7-12.2) 09/20/16 06:36 INR 1.1 09/20/16 06:36 APTT 29 SECONDS (21-34) 09/20/16 06:36 - Constitutional Appears: No Acute Distress - Head Exam Head Exam: ATRAUMATIC - Eye Exam Eye Exam: EOMI, Normal appearance - ENT Exam ENT Exam: Mucous Membranes Moist - Respiratory Exam Respiratory Exam: Clear to Ausculation Bilateral - Cardiovascular Exam Cardiovascular Exam: REGULAR RHYTHM - GI/Abdominal Exam Additional comments: + suprapubic tenderness - Extremities Exam Extremities Exam: Normal Inspection. absent: Calf Tenderness, Pedal Edema - Neurological Exam Neurological Exam: Alert, Awake, Oriented x3 Assessment and Plan - Assessment and Plan (Free Text) Plan: Pulmonary Embolism- w/o evidence of DVTs CT chest 09/16/2016: Acute bilateral pulmonary embolism Lower extremity duplex negative 09/18/2016 Lovenox 50mg SC Q12hrs Diarrhea GI consult placed to Dr. 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 Murray Continue with Mupirocin Dysuria UA done on 09/11/16 negative UA repeated today follow up results Pt does not have suprapubic tenderness/CVA tenderness/UTI sign on exam Hypokalemia likely 2/2 to diarrhea K:2.7 Started K-micaela 40meq PO daily yesterday Continue to monitor Stat K entered- follow up results Consider further replacement of potassium IV Anemia of Chronic Disease- s/p transfusion h/h stable - transfused 1unit PRBC on 09/20/2016 Continue to monitor daily CBC's Ferritin 395.0 Thyroid nodule Left sided thyroid nodule on ultrasound- biopsy recommended Consult placed to Dr. Do- amisha appreciated Polypoid mass in transverse colon- s/p [place] [address] Marshal SHEPHERD to do EGD/Colonoscopy when clinically stable Esophageal neoplasm s/p resection Resection done by Dr. Barker Prophylaxis Tylenol 650mg PRN pain Pepcid 20mg PO daily Case discussed with Dr. Marquez. All management as per Dr. Marquez. <Daphne Marquez S - Last Filed: 10/20/16 23:37> Objective - Vital Signs/Intake and Output Vital Signs (last 24 hours): Temp Pulse Resp BP Pulse Ox 98.6 F 105 H 20 118/73 96 09/27/16 15:45 09/27/16 15:45 09/27/16 15:45 09/27/16 15:45 09/27/16 15:45 - Labs Labs: 09/27/16 13:59 09/26/16 06:51 PT 11.9 SECONDS (9.7-12.2) 09/20/16 06:36 INR 1.1 09/20/16 06:36 APTT 29 SECONDS (21-34) 09/20/16 06:36 Assessment and Plan (1) Abdominal pain Status: Acute (2) Abnormal EKG Status: Acute (3) Acute colitis Status: Acute (4) Anemia Status: Acute (5) Bronchitis Status: Acute (6) Chest pain Status: Acute (7) Colitis Status: Acute (8) Dehydration Status: Acute (9) Diarrhea Status: Acute (10) Elbow fracture Status: Acute (11) Fever Status: Acute (12) H/O adenomatous polyp of colon Status: Acute (13) Heme + stool Status: Acute (14) Hyponatremia Status: Acute (15) Hypotension Status: Acute (16) Leukopenia Status: Acute (17) Lung nodules Status: Acute (18) Pharyngitis Status: Acute (19) Pneumonia Status: Acute (20) Prophylactic measure Status: Acute (21) Pulmonary embolism Status: Acute (22) Risk for coronary artery disease less than 10% in next 10 years Status: Acute (23) Severe chronic ulcerative colitis Status: Acute (24) Sore throat symptom Status: Acute (25) Thyroid nodule Status: Acute (26) UTI (urinary tract infection) Status: Acute (27) UTI (urinary tract infection) Status: Acute (28) Wrist fracture Status: Acute (29) Asthma Status: Chronic (30) Neoplasm of esophagus, malignant Status: Chronic Attending/Attestation - Attestation I have personally seen and examined this patient.: Yes I have fully participated in the care of the patient.: Yes I have reviewed all pertinent clinical information, including history, physical exam and plan: Yes Notes (Text): Case seen and discussed with the
[2016-09-24] MEDS ORDERED: Potassium Chloride 20 mEq ER Tab PO SCH (10:00)
[2016-09-24] MEDS: Enoxaparin 60 mg Syringe SC SCH ×2 (10:12→21:29)
[2016-09-24] MEDS: Potassium & Sodium Phosphate PO SCH ×3 (10:13→17:35)
[2016-09-24] MEDS: Multiple Vitamins Tab PO SCH (10:13)
[2016-09-24] MEDS: Sodium Chloride 0.9% 1,000 ML IV SCH ×2 (10:14→12:37)
[2016-09-24 14:17] LABS: CHLORIDE 103 mmol/L (98-107); SODIUM 144 mmol/L (132-148)
[2016-09-24 14:20] LABS: GFR AFRICAN-AMERICAN > 60
[2016-09-24 14:21] LABS: BLOOD UREA NITROGEN 5 mg/dL (7-17); CARBON DIOXIDE 29 mmol/L (22-30); GLUCOSE,RANDOM 99 mg/dL (65-105); POTASSIUM 2.5 mmol/L (3.6-5.2)
[2016-09-24] MEDS ORDERED: Potassium Chloride 20 mEq/15 ml LIQ UD PO ONE (16:00)
--- NOTE | 2016-09-24 18:03 | CP.PCM.PN ---
Subjective - Date & Time of Evaluation Date of Evaluation: 09/23/16 Time of Evaluation: 18:30 - Subjective Subjective: Diarrhea worse today. Objective - Vital Signs/Intake and Output Vital Signs (last 24 hours): Temp Pulse Resp BP Pulse Ox 98.4 F 92 H 20 128/75 97 09/24/16 16:00 09/24/16 16:00 09/24/16 16:00 09/24/16 16:00 09/24/16 16:00 Intake and Output: 09/24/16 09/24/16 06:59 18:59 Intake Total 720 520 Output Total 1 Balance 720 519 - Medications Medications: Current Medications Acetaminophen (Tylenol 325mg Tab) 650 mg PO Q6 PRN PRN Reason: Pain, moderate (4-7) Last Admin: 09/24/16 03:54 Dose: 650 mg Cyclobenzaprine HCl (Flexeril) 10 mg PO TID [facility] Last Admin: 09/24/16 17:35 Dose: 10 mg Enoxaparin Sodium (Lovenox) 50 mg SC Q12 [facility] Last Admin: 09/24/16 10:12 Dose: 50 mg Famotidine (Pepcid) 20 mg PO DAILY [facility] Last Admin: 09/24/16 10:13 Dose: 20 mg Folic Acid (Folic Acid) 1 mg PO DAILY [facility] Last Admin: 09/24/16 10:13 Dose: 1 mg Hydrocortisone Sodium Succinate (Solu-Cortef) 40 mg IV Q8 [facility] Sodium Chloride (Sodium Chloride 0.9%) 1,000 mls @ 50 mls/hr IV .Q20H [facility] Last Admin: 09/24/16 12:37 Dose: 50 mls/hr Potassium Chloride (Potassium Chloride 20 Meq/100 Ml) 20 meq in 100 mls @ 20 mls/hr IVPB ONCE ONE Stop: 09/24/16 19:59 Last Admin: 09/24/16 14:54 Dose: 20 mls/hr Potassium Chloride (Potassium Chloride 20 Meq/100 Ml) 20 meq in 100 mls @ 50 mls/hr IVPB Q2 [facility] Stop: 09/25/16 01:59 Mesalamine (Delzicol) 800 mg PO TID [facility] Last Admin: 09/24/16 17:36 Dose: 800 mg Multivitamins (Hexavitamin) 1 tab PO DAILY [facility] Last Admin: 09/24/16 10:13 Dose: 1 tab Mupirocin (Bactroban Ointment) 0 gm TOP BID [facility] Last Admin: 09/24/16 17:36 Dose: 1 applic Potassium Chloride (K-Dur 20 Meq Er Tab) 40 meq PO DAILY [facility] Last Admin: 09/24/16 10:12 Dose: 40 meq Potassium Chloride (Klor-Con 10) 40 meq PO BID [facility] Stop: 10/04/16 18:01 Potassium Phos/Sodium Phos (Neutra-Phos) 1 pkt PO TID [facility] Last Admin: 09/24/16 17:35 Dose: 1 pkt Spironolactone (Aldactone) 25 mg PO DAILY [facility] Sucralfate (Carafate Oral Susp) 1 gm PO ACBD [facility] Last Admin: 09/24/16 16:09 Dose: 1 gm - Labs Labs: 09/24/16 06:26 09/24/16 14:01 PT 11.9 SECONDS (9.7-12.2) 09/20/16 06:36 INR 1.1 09/20/16 06:36 APTT 29 SECONDS (21-34) 09/20/16 06:36 - Head Exam Head Exam: ATRAUMATIC - Eye Exam Eye Exam: Normal appearance - ENT Exam ENT Exam: Mucous Membranes Dry - Respiratory Exam Respiratory Exam: NORMAL BREATHING PATTERN - Cardiovascular Exam Cardiovascular Exam: +S1, +S2 - GI/Abdominal Exam GI & Abdominal Exam: Normal Bowel Sounds - Extremities Exam Extremities Exam: Normal Inspection - Neurological Exam Neurological Exam: Oriented x3 - Psychiatric Exam Psychiatric exam: Normal Affect, Normal Mood - Skin Skin Exam: Warm Assessment and Plan (1) Pulmonary embolism Assessment & Plan: on therapeutic anticoagulation suspect provoked from inflammation related to inflammatory bowel disease Status: Acute (2) Anemia Assessment & Plan: chronic disease Status: Acute (3) Thyroid nodule Assessment & Plan: recommend biopsy Status: Acute (4) Lung nodules Assessment & Plan: ?infectious ?inflammatory ?malignancy Status: Acute (5) Neoplasm of esophagus, malignant Assessment & Plan: likely cured Status: Chronic
--- NOTE | 2016-09-24 18:06 | CP.PCM.PN ---
Subjective - Date & Time of Evaluation Date of Evaluation: 09/24/16 Time of Evaluation: 10:00 - Subjective Subjective: clinically same Objective - Vital Signs/Intake and Output Vital Signs (last 24 hours): Temp Pulse Resp BP Pulse Ox 98.4 F 92 H 20 128/75 97 09/24/16 16:00 09/24/16 16:00 09/24/16 16:00 09/24/16 16:00 09/24/16 16:00 Intake and Output: 09/24/16 09/24/16 06:59 18:59 Intake Total 720 520 Output Total 1 Balance 720 519 - Medications Medications: Current Medications Acetaminophen (Tylenol 325mg Tab) 650 mg PO Q6 PRN PRN Reason: Pain, moderate (4-7) Last Admin: 09/24/16 03:54 Dose: 650 mg Cyclobenzaprine HCl (Flexeril) 10 mg PO TID [facility] Last Admin: 09/24/16 17:35 Dose: 10 mg Enoxaparin Sodium (Lovenox) 50 mg SC Q12 [facility] Last Admin: 09/24/16 10:12 Dose: 50 mg Famotidine (Pepcid) 20 mg PO DAILY [facility] Last Admin: 09/24/16 10:13 Dose: 20 mg Folic Acid (Folic Acid) 1 mg PO DAILY [facility] Last Admin: 09/24/16 10:13 Dose: 1 mg Hydrocortisone Sodium Succinate (Solu-Cortef) 40 mg IV Q8 [facility] Sodium Chloride (Sodium Chloride 0.9%) 1,000 mls @ 50 mls/hr IV .Q20H [facility] Last Admin: 09/24/16 12:37 Dose: 50 mls/hr Potassium Chloride (Potassium Chloride 20 Meq/100 Ml) 20 meq in 100 mls @ 20 mls/hr IVPB ONCE ONE Stop: 09/24/16 19:59 Last Admin: 09/24/16 14:54 Dose: 20 mls/hr Potassium Chloride (Potassium Chloride 20 Meq/100 Ml) 20 meq in 100 mls @ 50 mls/hr IVPB Q2 [facility] Stop: 09/25/16 01:59 Mesalamine (Delzicol) 800 mg PO TID [facility] Last Admin: 09/24/16 17:36 Dose: 800 mg Multivitamins (Hexavitamin) 1 tab PO DAILY [facility] Last Admin: 09/24/16 10:13 Dose: 1 tab Mupirocin (Bactroban Ointment) 0 gm TOP BID [facility] Last Admin: 09/24/16 17:36 Dose: 1 applic Potassium Chloride (K-Dur 20 Meq Er Tab) 40 meq PO DAILY [facility] Last Admin: 09/24/16 10:12 Dose: 40 meq Potassium Chloride (Klor-Con 10) 40 meq PO BID [facility] Stop: 10/04/16 18:01 Potassium Phos/Sodium Phos (Neutra-Phos) 1 pkt PO TID [facility] Last Admin: 09/24/16 17:35 Dose: 1 pkt Spironolactone (Aldactone) 25 mg PO DAILY [facility] Sucralfate (Carafate Oral Susp) 1 gm PO ACBD [facility] Last Admin: 09/24/16 16:09 Dose: 1 gm - Labs Labs: 09/24/16 06:26 09/24/16 14:01 PT 11.9 SECONDS (9.7-12.2) 09/20/16 06:36 INR 1.1 09/20/16 06:36 APTT 29 SECONDS (21-34) 09/20/16 06:36 - Constitutional Appears: Well - Head Exam Head Exam: ATRAUMATIC, NORMAL INSPECTION, NORMOCEPHALIC - Eye Exam Eye Exam: EOMI, Normal appearance, PERRL Pupil Exam: NORMAL ACCOMODATION, PERRL - ENT Exam ENT Exam: Mucous Membranes Moist, Normal Exam - Neck Exam Neck Exam: Full ROM, Normal Inspection. absent: Lymphadenopathy - Respiratory Exam Respiratory Exam: Decreased Breath Sounds - Cardiovascular Exam Cardiovascular Exam: REGULAR RHYTHM, +S1, +S2 - GI/Abdominal Exam GI & Abdominal Exam: Soft, Diminished Bowel Sounds - Rectal Exam Rectal Exam: Deferred Assessment and Plan (1) Acute colitis Status: Acute (2) Fever Status: Acute (3) H/O adenomatous polyp of colon Status: Acute (4) Hypotension Status: Acute (5) UTI (urinary tract infection) Status: Acute (6) Abdominal pain Status: Acute (7) Abnormal EKG Status: Acute (8) Anemia Status: Acute (9) Bronchitis Status: Acute (10) Chest pain Status: Acute (11) Colitis Status: Acute (12) Dehydration Status: Acute (13) Diarrhea Status: Acute (14) Elbow fracture Status: Acute (15) Heme + stool Status: Acute (16) Hyponatremia Status: Acute (17) Leukopenia Status: Acute (18) Pharyngitis Status: Acute (19) Pneumonia Status: Acute (20) Prophylactic measure Status: Acute (21) Risk for coronary artery disease less than 10% in next 10 years Status: Acute (22) Severe chronic ulcerative colitis Status: Acute (23) Sore throat symptom Status: Acute (24) UTI (urinary tract infection) Status: Acute (25) Wrist fracture Status: Acute (26) Asthma Status: Chronic (27) Neoplasm of esophagus, malignant Status: Chronic - Assessment and Plan (Free Text) Plan: Case seen and examined at bedside Labs noted Low potassium Potassium replacement Mesalamine DVT prophylaxis Aldactone Continue mupirocin Physical therapy Labs next a.m. Monitor electrolytes
--- NOTE | 2016-09-24 18:09 | CP.PCM.PN ---
Subjective - Date & Time of Evaluation Date of Evaluation: 09/24/16 Time of Evaluation: 10:00 - Subjective Subjective: PGY3 on heme/onc service: Pt seen and examined at bedside this morning. Pt still complains of diarrhea, though better than before. Objective - Vital Signs/Intake and Output Vital Signs (last 24 hours): Temp Pulse Resp BP Pulse Ox 98.4 F 92 H 20 128/75 97 09/24/16 16:00 09/24/16 16:00 09/24/16 16:00 09/24/16 16:00 09/24/16 16:00 Intake and Output: 09/24/16 09/24/16 06:59 18:59 Intake Total 720 520 Output Total 1 Balance 720 519 - Medications Medications: Current Medications Acetaminophen (Tylenol 325mg Tab) 650 mg PO Q6 PRN PRN Reason: Pain, moderate (4-7) Last Admin: 09/24/16 03:54 Dose: 650 mg Cyclobenzaprine HCl (Flexeril) 10 mg PO TID [facility] Last Admin: 09/24/16 17:35 Dose: 10 mg Enoxaparin Sodium (Lovenox) 50 mg SC Q12 [facility] Last Admin: 09/24/16 10:12 Dose: 50 mg Famotidine (Pepcid) 20 mg PO DAILY [facility] Last Admin: 09/24/16 10:13 Dose: 20 mg Folic Acid (Folic Acid) 1 mg PO DAILY [facility] Last Admin: 09/24/16 10:13 Dose: 1 mg Hydrocortisone Sodium Succinate (Solu-Cortef) 40 mg IV Q8 [facility] Sodium Chloride (Sodium Chloride 0.9%) 1,000 mls @ 50 mls/hr IV .Q20H [facility] Last Admin: 09/24/16 12:37 Dose: 50 mls/hr Potassium Chloride (Potassium Chloride 20 Meq/100 Ml) 20 meq in 100 mls @ 20 mls/hr IVPB ONCE ONE Stop: 09/24/16 19:59 Last Admin: 09/24/16 14:54 Dose: 20 mls/hr Potassium Chloride (Potassium Chloride 20 Meq/100 Ml) 20 meq in 100 mls @ 50 mls/hr IVPB Q2 [facility] Stop: 09/25/16 01:59 Mesalamine (Delzicol) 800 mg PO TID [facility] Last Admin: 09/24/16 17:36 Dose: 800 mg Multivitamins (Hexavitamin) 1 tab PO DAILY [facility] Last Admin: 09/24/16 10:13 Dose: 1 tab Mupirocin (Bactroban Ointment) 0 gm TOP BID [facility] Last Admin: 09/24/16 17:36 Dose: 1 applic Potassium Chloride (K-Dur 20 Meq Er Tab) 40 meq PO DAILY [facility] Last Admin: 09/24/16 10:12 Dose: 40 meq Potassium Chloride (Klor-Con 10) 40 meq PO BID [facility] Stop: 10/04/16 18:01 Potassium Phos/Sodium Phos (Neutra-Phos) 1 pkt PO TID [facility] Last Admin: 09/24/16 17:35 Dose: 1 pkt Spironolactone (Aldactone) 25 mg PO DAILY [facility] Sucralfate (Carafate Oral Susp) 1 gm PO ACBD [facility] Last Admin: 09/24/16 16:09 Dose: 1 gm - Labs Labs: 09/24/16 06:26 09/24/16 14:01 PT 11.9 SECONDS (9.7-12.2) 09/20/16 06:36 INR 1.1 09/20/16 06:36 APTT 29 SECONDS (21-34) 09/20/16 06:36 - Constitutional Appears: Non-toxic, No Acute Distress - Head Exam Head Exam: NORMOCEPHALIC - Eye Exam Eye Exam: Normal appearance - Respiratory Exam Respiratory Exam: Clear to Ausculation Bilateral, NORMAL BREATHING PATTERN - Cardiovascular Exam Cardiovascular Exam: REGULAR RHYTHM, +S1, +S2. absent: Gallop, Rubs - GI/Abdominal Exam GI & Abdominal Exam: Soft, Normal Bowel Sounds - Neurological Exam Neurological Exam: Alert, Awake, Oriented x3 Assessment and Plan - Assessment and Plan (Free Text) Assessment: (1) Anemia Assessment & Plan: Reticulocyte index 0.7 Elevated Ferritin Likely secondary to chronic disease/IBD Status: Acute (2) IBD Assessment & Plan: ASCA positive, negative pANCA Management as per GI team Status: Chronic (3) Right DVT Assessment & Plan: Continue Lovenox 50mg SC BID. Status: Chronic (4) Bilateral PE Assessment & Plan: 09/16 CT chest positive for bilateral PE with multiple opacities likely secondary to CA vs infection. Continue Lovenox 50mg SC BID. Recommend vascular evaluation for IVC filter due to right sided popliteal and posterior tibial DVT. Status: Chronic (5) Hypokalemia Assessment & Plan: Repleted along with phosphorus. F/U CMP AM. Status: Chronic (6) Enlarged thyroid nodule Assessment & Plan: Hx of cured esophageal CA. Enlarged thyroid nodule compared to 2016. Might need biopsy. Status: Chronic
--- NOTE | 2016-09-24 19:52 | PN ---
LOCATION: [facility], bed A. SUBJECTIVE: This is a 71-year-old female seen and examined in rounds today with complaint again of unclear etiology but with re-exacerbation of her ulcerative colitis for which the dose of the Solu-Medrol is increased. The entire chart is reviewed including but not limited to the most recent lab and radiologic test results, current and previous medication list, current and the previous medical events. Case discussed with the staff at length. There is subsequent durable potassium. No reported hematemesis. PHYSICAL EXAMINATION: GENERAL: A 71-year-old female, afebrile, awake, alert, oriented. VITAL SIGNS: Pulse of 66, respiratory rate 20 to 22, blood pressure 100/58. HEENT: Pale, dry oral mucous membranes. Non-icteric sclerae. LUNGS: Scattered crepitation, decreased air entry at bases. HEART: Positive S1 and S2. ABDOMEN: Soft. Bowel sounds are present. No mass or organomegaly. No rebound tenderness or guarding. RECTAL: The patient refused, the patient denied rectal bleeding. EXTREMITIES: Lower extremities with mild tenderness. NEUROLOGIC: No reported neurological deficits, sensory, or motor. IMPRESSION: 1. Re-exacerbation of peptic ulcer disease. 2. Re-exacerbation of ulcerative colitis. 3. Electrolyte imbalance with hypokalemia most likely secondary to diarrhea. 4. Mild anemia secondary to recent gastrointestinal blood loss. Hemoglobin and hematocrit are stable. No further bleeding. 5. Deep vein thrombosis. 6. Pulmonary embolus. 7. Long history of esophageal carcinoma, treated surgically. SUGGESTIONS: 1. Continue current management. 2. Increase the dose of Solu-Medrol. 3. Vascular surgeon consultation. Case discussed at length with the admitting medical team as well as oncology/hematology consult. Anamaria Ferguson MD
[2016-09-24] MEDS: Potassium Chloride 10 mEq ER Tab PO SCH (21:34)
[2016-09-25] MEDS: Sodium Chloride 0.9% 1,000 ML IV SCH (06:30)
[2016-09-25] MEDS: Sucralfate 1 gm/10 ml Oral Susp UD PO SCH ×2 (06:34→16:01)
[2016-09-25 07:22] LABS: BASO % 0.1 % (0.0-2.0); EOS % 0.5 % (0.0-4.0); HEMATOCRIT 30.8 % (34.0-47.0); LYMPH # 1.1 K/uL (1.0-4.3); LYMPH % 28.8 % (20.0-40.0); MEAN CELL VOLUME 88.2 fL (81.0-99.0); MEAN CORPUSCULAR HEMOGLOBIN 29.5 pg (27.0-31.0); MEAN CORPUSCULAR HGB CONC 33.4 g/dL (33.0-37.0); MONO # 0.4 K/uL (0.0-0.8); MONO % 9.8 % (0.0-10.0); RED CELL DISTRIBUTION WIDTH 17.3 % (11.5-14.5); WHITE BLOOD COUNT 3.8 K/uL (4.8-10.8)
[2016-09-25 07:39] LABS: CHLORIDE 105 mmol/L (98-107)
[2016-09-25 07:40] LABS: POTASSIUM 3.7 mmol/L (3.6-5.2); SODIUM 138 mmol/L (132-148)
[2016-09-25 07:42] LABS: ALKALINE PHOSPHATASE 87 U/L (38-126); ALT/SGPT 24 U/L (9-52); AST/SGOT 10 U/L (14-36); BILIRUBIN,TOTAL 0.4 mg/dL (0.2-1.3); BLOOD UREA NITROGEN 4 mg/dL (7-17); CARBON DIOXIDE 29 mmol/L (22-30); GFR AFRICAN-AMERICAN > 60; TOTAL PROTEIN 4.3 g/dL (6.3-8.3)
[2016-09-25 07:43] LABS: ALB/GLOB RATIO 0.9 (1.0-2.1); CALCIUM 7.2 mg/dl (8.6-10.4); GLUCOSE,RANDOM 79 mg/dL (65-105); MAGNESIUM 1.6 mg/dL (1.6-2.3); PHOSPHOROUS 2.5 mg/dL (2.5-4.5)
[2016-09-25] MEDS ORDERED: Magnesium Sulfate 1 gm in D5W 1 GM/100 ML BAG IVPB SCH (08:15)
--- NOTE | 2016-09-25 08:16 | CP.PCM.PN ---
Subjective - Date & Time of Evaluation Date of Evaluation: 09/25/16 Time of Evaluation: 07:35 - Subjective Subjective: Medicine Progress Note for Dr. Marquez's Service Pt seen and examined at bedside. She is on NC and appeared comfortable. She was alert and oriented and was able ot answer all of my question. She denied any pain SOB or chest pain. She was requesting that a new PICC line be inserted because she stated that they have to stick her a lot to get blood work. She reports eating well and tolerating her diet. Per nursing she had 1 episode of diarrhea last night but reports that this is improving. Objective - Vital Signs/Intake and Output Vital Signs (last 24 hours): Temp Pulse Resp BP Pulse Ox 97.7 F 68 20 126/75 100 09/25/16 07:57 09/25/16 07:57 09/25/16 07:57 09/25/16 07:57 09/25/16 07:57 Intake and Output: 09/25/16 09/25/16 06:59 18:59 Intake Total 1020 720 Output Total 400 Balance 1020 320 - Medications Medications: Current Medications Acetaminophen (Tylenol 325mg Tab) 650 mg PO Q6 PRN PRN Reason: Pain, moderate (4-7) Last Admin: 09/25/16 08:13 Dose: 650 mg Cyclobenzaprine HCl (Flexeril) 10 mg PO TID [facility] Last Admin: 09/24/16 17:35 Dose: 10 mg Enoxaparin Sodium (Lovenox) 50 mg SC Q12 [facility] Last Admin: 09/24/16 21:29 Dose: 50 mg Famotidine (Pepcid) 20 mg PO DAILY [facility] Last Admin: 09/24/16 10:13 Dose: 20 mg Folic Acid (Folic Acid) 1 mg PO DAILY [facility] Last Admin: 09/24/16 10:13 Dose: 1 mg Hydrocortisone Sodium Succinate (Solu-Cortef) 40 mg IV Q8 [facility] Last Admin: 09/25/16 06:30 Dose: 40 mg Sodium Chloride (Sodium Chloride 0.9%) 1,000 mls @ 50 mls/hr IV .Q20H [facility] Last Admin: 09/25/16 06:30 Dose: 50 mls/hr Mesalamine (Delzicol) 800 mg PO TID [facility] Last Admin: 09/24/16 17:36 Dose: 800 mg Multivitamins (Hexavitamin) 1 tab PO DAILY [facility] Last Admin: 09/24/16 10:13 Dose: 1 tab Mupirocin (Bactroban Ointment) 0 gm TOP BID [facility] Last Admin: 09/24/16 17:36 Dose: 1 applic Potassium Chloride (Klor-Con 10) 40 meq PO BID [facility] Stop: 10/04/16 18:01 Last Admin: 09/24/16 21:34 Dose: 40 meq Potassium Phos/Sodium Phos (Neutra-Phos) 1 pkt PO TID [facility] Last Admin: 09/24/16 17:35 Dose: 1 pkt Spironolactone (Aldactone) 25 mg PO DAILY [facility] Sucralfate (Carafate Oral Susp) 1 gm PO ACBD [facility] Last Admin: 09/25/16 06:34 Dose: 1 gm - Labs Labs: 09/25/16 06:53 09/25/16 06:53 PT 11.9 SECONDS (9.7-12.2) 09/20/16 06:36 INR 1.1 09/20/16 06:36 APTT 29 SECONDS (21-34) 09/20/16 06:36 - Constitutional Appears: Non-toxic, No Acute Distress, Chronically Ill - Eye Exam Eye Exam: Normal appearance, PERRL Pupil Exam: NORMAL ACCOMODATION - ENT Exam ENT Exam: Mucous Membranes Moist - Respiratory Exam Respiratory Exam: Clear to Ausculation Bilateral, NORMAL BREATHING PATTERN. absent: Respiratory Distress - Cardiovascular Exam Cardiovascular Exam: REGULAR RHYTHM, +S1, +S2 - GI/Abdominal Exam GI & Abdominal Exam: Soft, Normal Bowel Sounds. absent: Distended, Firm, Guarding, Tenderness - Back Exam Back Exam: NORMAL INSPECTION - Neurological Exam Neurological Exam: Alert, Awake, Oriented x3 - Psychiatric Exam Psychiatric exam: Normal Affect, Normal Mood - Skin Skin Exam: Dry, Intact, Normal Color, Warm Assessment and Plan - Assessment and Plan (Free Text) Assessment: Pulmonary Embolism- w/o evidence of DVTs CT chest 09/16/2016: Acute bilateral pulmonary embolism Lower extremity duplex negative 09/18/2016 Lovenox 50mg SC Q12hrs Diarrhea GI consult placed to Dr. 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 Murray Continue with Mupirocin Will ask to consider IVC filter if oral anticoagulation not an option Dysuria UA done on 09/11/16 negative UA repeated today follow up results Pt does not have suprapubic tenderness/CVA tenderness/UTI sign on exam Hypokalemia likely 2/2 to diarrhea Resolving K:3.7 Started K-micaela 40meq PO BID Continue to monitor Anemia of Chronic Disease- s/p transfusion h/h stable 10.3 transfused 1unit PRBC on 09/20/2016 Continue to monitor daily CBC's Ferritin 395.0 Thyroid nodule Left sided thyroid nodule on ultrasound- biopsy recommended Consult placed to Dr. Do- recs appreciated Polypoid mass in transverse colon- s/p resection [place] [address] Marshal SHEPHERD to do EGD/Colonoscopy when clinically stable Esophageal neoplasm s/p resection Resection done by Dr. Barker Prophylaxis Tylenol 650mg PRN pain Pepcid 20mg PO daily Lovenox 50mg SC q12 PICC line/midline will be ordered if needed for further management. Case discussed with Dr. Marquez. All management as per Dr. Marquez.
[2016-09-25] MEDS: Enoxaparin 60 mg Syringe SC SCH ×2 (09:34→21:44)
[2016-09-25] MEDS: Potassium Chloride 10 mEq ER Tab PO SCH ×2 (09:35→18:23)
[2016-09-25] MEDS: Multiple Vitamins Tab PO SCH (09:36)
[2016-09-25] MEDS: Potassium & Sodium Phosphate PO SCH ×3 (09:36→18:24)
[2016-09-25] MEDS ORDERED: Atropine-Diphenoxylate 0.025-2.5 mg Tab PO STA (11:05)
[2016-09-25 11:30] LABS: RBC URINE 8 /hpf (0-3); URINE BACTERIA MOD (<OCC); URINE BILIRUBIN NEGATIVE (NEGATIVE); URINE BLOOD 2+ (NEGATIVE); URINE COLOR Yellow (YELLOW); URINE GLUCOSE (UA) 1+ mg/dL (Normal); URINE KETONE NEGATIVE (NEGATIVE); URINE LEUKOCYTE ESTERASE 3+ Leu/uL (Negative); URINE PROTEIN NEGATIVE (NEGATIVE); URINE UROBILINOGEN NORMAL mg/dL (0.2-1.0); WBC URINE 11 /hpf (0-5)
--- NOTE | 2016-09-25 12:39 | CP.PCM.PN ---
Subjective - Date & Time of Evaluation Date of Evaluation: 09/25/16 Time of Evaluation: 10:00 - Subjective Subjective: PGY3 on heme/onc Dr. Do service: Pt seen and examined at bedside. Pt said diarrhea still present. Pt PICC line fell off and request made for a new PICC. Objective - Vital Signs/Intake and Output Vital Signs (last 24 hours): Temp Pulse Resp BP Pulse Ox 97.7 F 68 20 126/75 100 09/25/16 07:57 09/25/16 07:57 09/25/16 07:57 09/25/16 07:57 09/25/16 07:57 Intake and Output: 09/25/16 09/25/16 06:59 18:59 Intake Total 1020 720 Output Total 400 Balance 1020 320 - Medications Medications: Current Medications Acetaminophen (Tylenol 325mg Tab) 650 mg PO Q6 PRN PRN Reason: Pain, moderate (4-7) Last Admin: 09/25/16 08:13 Dose: 650 mg Cyclobenzaprine HCl (Flexeril) 10 mg PO TID [facility] Last Admin: 09/25/16 09:35 Dose: 10 mg Enoxaparin Sodium (Lovenox) 50 mg SC Q12 [facility] Last Admin: 09/25/16 09:34 Dose: 50 mg Famotidine (Pepcid) 20 mg PO DAILY [facility] Last Admin: 09/25/16 09:35 Dose: 20 mg Folic Acid (Folic Acid) 1 mg PO DAILY [facility] Last Admin: 09/25/16 09:35 Dose: 1 mg Hydrocortisone Sodium Succinate (Solu-Cortef) 40 mg IV Q8 [facility] Last Admin: 09/25/16 06:30 Dose: 40 mg Sodium Chloride (Sodium Chloride 0.9%) 1,000 mls @ 50 mls/hr IV .Q20H [facility] Last Admin: 09/25/16 06:30 Dose: 50 mls/hr Mesalamine (Delzicol) 800 mg PO TID [facility] Last Admin: 09/25/16 09:35 Dose: 800 mg Multivitamins (Hexavitamin) 1 tab PO DAILY [facility] Last Admin: 09/25/16 09:36 Dose: 1 tab Mupirocin (Bactroban Ointment) 0 gm TOP BID [facility] Last Admin: 09/25/16 10:40 Dose: 1 applic Potassium Chloride (Klor-Con 10) 40 meq PO BID [facility] Stop: 10/04/16 18:01 Last Admin: 09/25/16 09:35 Dose: 40 meq Potassium Phos/Sodium Phos (Neutra-Phos) 1 pkt PO TID [facility] Last Admin: 09/25/16 09:36 Dose: 1 pkt Spironolactone (Aldactone) 25 mg PO DAILY [facility] Last Admin: 09/25/16 09:34 Dose: 25 mg Sucralfate (Carafate Oral Susp) 1 gm PO ACBD [facility] Last Admin: 09/25/16 06:34 Dose: 1 gm - Labs Labs: 09/25/16 06:53 09/25/16 06:53 PT 11.9 SECONDS (9.7-12.2) 09/20/16 06:36 INR 1.1 09/20/16 06:36 APTT 29 SECONDS (21-34) 09/20/16 06:36 - Constitutional Appears: Non-toxic, No Acute Distress - Head Exam Head Exam: NORMOCEPHALIC - Eye Exam Eye Exam: Normal appearance - ENT Exam ENT Exam: Mucous Membranes Moist - Respiratory Exam Respiratory Exam: Clear to Ausculation Bilateral, NORMAL BREATHING PATTERN. absent: Wheezes - Cardiovascular Exam Cardiovascular Exam: REGULAR RHYTHM, +S1, +S2. absent: Gallop, Rubs - GI/Abdominal Exam GI & Abdominal Exam: Soft, Normal Bowel Sounds - Neurological Exam Neurological Exam: Alert, Awake, Oriented x3 - Psychiatric Exam Psychiatric exam: Normal Affect - Skin Skin Exam: Intact Assessment and Plan - Assessment and Plan (Free Text) Assessment: (1) Anemia Assessment & Plan: Reticulocyte index 0.7 Elevated Ferritin Likely secondary to chronic disease/IBD Status: Acute (2) IBD Assessment & Plan: ASCA positive, negative pANCA Management as per GI team Status: Chronic (3) Right DVT Assessment & Plan: Continue Lovenox 50mg SC BID. Status: Chronic (4) Bilateral PE Assessment & Plan: 09/16 CT chest positive for bilateral PE with multiple opacities likely secondary to CA vs infection. Continue Lovenox 50mg SC BID. Recommend vascular evaluation for IVC filter due to right sided popliteal and posterior tibial DVT. Status: Chronic (5) Hypokalemia Assessment & Plan: Repleted along with phosphorus. Continue monitoring. Status: Chronic (6) Enlarged thyroid nodule Assessment & Plan: Hx of cured esophageal CA. Enlarged thyroid nodule compared to 2016. Biopsy recommended. Status: Chronic
--- NOTE | 2016-09-25 14:42 | PN ---
LOCATION: [facility], bed A. SUBJECTIVE: This is a 71-year-old female seen and examined in rounds was then permitted the period of diarrhea of unclear etiology. Still workup is to be collected. The entire chart is reviewed including but not limited to the most recent lab and radiologic test results, current and previous medication list, current and the previous medical events. Case discussed with the staff as well as the family at length. PHYSICAL EXAMINATION: GENERAL: A 71-year-old female, afebrile. VITAL SIGNS: Pulse of 70, respiratory rate 20 to 22, blood pressure 130/74. HEENT: Pale, dry oral mucous membranes. Non-icteric sclerae. LUNGS: Scattered crepitation, decreased air entry at bases. HEART: Positive S1 and S2. ABDOMEN: Soft. Slight generalized tenderness. No mass or organomegaly. EXTREMITIES: Without significant clubbing, cyanosis, or edema. ____ tenderness at both lower extremities calf. NEUROLOGIC: No new reported neurological deficits, sensory, or motor. LABORATORY DATA: Today's lab showed low hemoglobin of 10.3, hematocrit 30.8 with low BUN and creatinine and low calcium 7.2 with low total protein 4.3, low albumin 2.0. IMPRESSION: 1. Re-exacerbation of ulcerative colitis. 2. Diarrhea could be secondary to above noted infectious prostate. 3. Esophageal cancer by history. 4. Peptic ulcer disease. 5. Anemia secondary to above. 6. Deep vein thrombosis. 7. Bilateral pulmonary emboli. 8. Electrolyte imbalance with hypocalcemia. 7. Malnutrition hypoproteinemia. SUGGESTION: 1. Continue current management. 2. Lomotil. 3. Complete workup to rule out possible ____ colitis. Anamaria Ferguson MD
--- NOTE | 2016-09-25 19:00 | CP.PCM.PN ---
Subjective - Date & Time of Evaluation Date of Evaluation: 09/25/16 Time of Evaluation: 10:00 - Subjective Subjective: clinically same Objective - Vital Signs/Intake and Output Vital Signs (last 24 hours): Temp Pulse Resp BP Pulse Ox 98 F 79 20 115/70 98 09/25/16 17:15 09/25/16 17:15 09/25/16 17:15 09/25/16 17:15 09/25/16 17:15 Intake and Output: 09/25/16 09/25/16 06:59 18:59 Intake Total 1020 1650 Output Total 400 Balance 1020 1250 - Medications Medications: Current Medications Acetaminophen (Tylenol 325mg Tab) 650 mg PO Q6 PRN PRN Reason: Pain, moderate (4-7) Last Admin: 09/25/16 08:13 Dose: 650 mg Cyclobenzaprine HCl (Flexeril) 10 mg PO TID [facility] Last Admin: 09/25/16 18:23 Dose: 10 mg Enoxaparin Sodium (Lovenox) 50 mg SC Q12 [facility] Last Admin: 09/25/16 09:34 Dose: 50 mg Famotidine (Pepcid) 20 mg PO DAILY [facility] Last Admin: 09/25/16 09:35 Dose: 20 mg Folic Acid (Folic Acid) 1 mg PO DAILY [facility] Last Admin: 09/25/16 09:35 Dose: 1 mg Hydrocortisone Sodium Succinate (Solu-Cortef) 40 mg IV Q8 [facility] Last Admin: 09/25/16 13:16 Dose: 40 mg Sodium Chloride (Sodium Chloride 0.9%) 1,000 mls @ 50 mls/hr IV .Q20H [facility] Last Admin: 09/25/16 06:30 Dose: 50 mls/hr Mesalamine (Delzicol) 800 mg PO TID [facility] Last Admin: 09/25/16 18:24 Dose: 800 mg Multivitamins (Hexavitamin) 1 tab PO DAILY [facility] Last Admin: 09/25/16 09:36 Dose: 1 tab Mupirocin (Bactroban Ointment) 0 gm TOP BID [facility] Last Admin: 09/25/16 18:25 Dose: 1 applic Potassium Chloride (Klor-Con 10) 40 meq PO BID [facility] Stop: 10/04/16 18:01 Last Admin: 09/25/16 18:23 Dose: 40 meq Potassium Phos/Sodium Phos (Neutra-Phos) 1 pkt PO TID [facility] Last Admin: 09/25/16 18:24 Dose: 1 pkt Spironolactone (Aldactone) 25 mg PO DAILY [facility] Last Admin: 09/25/16 09:34 Dose: 25 mg Sucralfate (Carafate Oral Susp) 1 gm PO ACBD [facility] Last Admin: 09/25/16 16:01 Dose: 1 gm - Labs Labs: 09/25/16 06:53 09/25/16 06:53 PT 11.9 SECONDS (9.7-12.2) 09/20/16 06:36 INR 1.1 09/20/16 06:36 APTT 29 SECONDS (21-34) 09/20/16 06:36 - Constitutional Appears: Well - Head Exam Head Exam: ATRAUMATIC, NORMAL INSPECTION, NORMOCEPHALIC - Eye Exam Eye Exam: EOMI, Normal appearance, PERRL Pupil Exam: NORMAL ACCOMODATION, PERRL - ENT Exam ENT Exam: Mucous Membranes Moist, Normal Exam - Neck Exam Neck Exam: Full ROM, Normal Inspection. absent: Lymphadenopathy - Respiratory Exam Respiratory Exam: Decreased Breath Sounds - Cardiovascular Exam Cardiovascular Exam: REGULAR RHYTHM, +S1, +S2 - GI/Abdominal Exam GI & Abdominal Exam: Soft, Diminished Bowel Sounds - Rectal Exam Rectal Exam: Deferred Assessment and Plan (1) Acute colitis Status: Acute (2) Fever Status: Acute (3) H/O adenomatous polyp of colon Status: Acute (4) Hypotension Status: Acute (5) UTI (urinary tract infection) Status: Acute (6) Abdominal pain Status: Acute (7) Abnormal EKG Status: Acute (8) Anemia Status: Acute (9) Bronchitis Status: Acute (10) Chest pain Status: Acute (11) Colitis Status: Acute (12) Dehydration Status: Acute (13) Diarrhea Status: Acute (14) Elbow fracture Status: Acute (15) Heme + stool Status: Acute (16) Hyponatremia Status: Acute (17) Leukopenia Status: Acute (18) Pharyngitis Status: Acute (19) Pneumonia Status: Acute (20) Prophylactic measure Status: Acute (21) Risk for coronary artery disease less than 10% in next 10 years Status: Acute (22) Severe chronic ulcerative colitis Status: Acute (23) Sore throat symptom Status: Acute (24) UTI (urinary tract infection) Status: Acute (25) Wrist fracture Status: Acute (26) Asthma Status: Chronic (27) Neoplasm of esophagus, malignant Status: Chronic - Assessment and Plan (Free Text) Plan: Patient seen and examined at bedside Diarrhea still present Continue Lovenox Patient feeling better Continue mupirocin Mesalamine Hydrocortisone DVT prophylaxis Labs next a.m. Multiple consults
[2016-09-26] MEDS: Sodium Chloride 0.9% 1,000 ML IV SCH (05:28)
[2016-09-26] MEDS: Sucralfate 1 gm/10 ml Oral Susp UD PO SCH ×2 (06:32→17:11)
[2016-09-26 07:25] LABS: BASO % 0.1 % (0.0-2.0); HEMATOCRIT 30.4 % (34.0-47.0); LYMPH # 1.4 K/uL (1.0-4.3); LYMPH % 30.1 % (20.0-40.0); MEAN CELL VOLUME 88.5 fL (81.0-99.0); MEAN CORPUSCULAR HEMOGLOBIN 29.2 pg (27.0-31.0); MONO # 0.4 K/uL (0.0-0.8); MONO % 8.7 % (0.0-10.0); NRBC % 0.1 % (0.0-2.0); RED CELL DISTRIBUTION WIDTH 16.6 % (11.5-14.5); WHITE BLOOD COUNT 4.6 K/uL (4.8-10.8)
--- NOTE | 2016-09-26 07:48 | CP.PCM.PN ---
Subjective - Date & Time of Evaluation Date of Evaluation: 09/26/16 Time of Evaluation: 07:47 - Subjective Subjective: Medicine Progress Note for Dr. Marquez's Service Pt seen and examined at bedside. She continues to complain about dysuria and suprapubic tenderness. She is requesting a new PICC line because the previous one fell out. She denies all other acute symptoms- no fever, chills, nausea, vomiting, diarrhea, constipation, chest pain, sob. Objective - Vital Signs/Intake and Output Vital Signs (last 24 hours): Temp Pulse Resp BP Pulse Ox 98.1 F 68 20 134/79 98 09/26/16 04:00 09/26/16 04:11 09/26/16 04:00 09/26/16 04:00 09/26/16 04:00 Intake and Output: 09/26/16 09/26/16 06:59 18:59 Intake Total 1220 Balance 1220 - Medications Medications: Current Medications Acetaminophen (Tylenol 325mg Tab) 650 mg PO Q6 PRN PRN Reason: Pain, moderate (4-7) Last Admin: 09/25/16 08:13 Dose: 650 mg Cyclobenzaprine HCl (Flexeril) 10 mg PO TID [facility] Last Admin: 09/25/16 18:23 Dose: 10 mg Enoxaparin Sodium (Lovenox) 50 mg SC Q12 [facility] Last Admin: 09/25/16 21:44 Dose: 50 mg Famotidine (Pepcid) 20 mg PO DAILY [facility] Last Admin: 09/25/16 09:35 Dose: 20 mg Folic Acid (Folic Acid) 1 mg PO DAILY [facility] Last Admin: 09/25/16 09:35 Dose: 1 mg Hydrocortisone Sodium Succinate (Solu-Cortef) 40 mg IV Q8 [facility] Last Admin: 09/26/16 05:32 Dose: 40 mg Sodium Chloride (Sodium Chloride 0.9%) 1,000 mls @ 50 mls/hr IV .Q20H [facility] Last Admin: 09/26/16 05:28 Dose: 50 mls/hr Mesalamine (Delzicol) 800 mg PO TID [facility] Last Admin: 09/25/16 18:24 Dose: 800 mg Multivitamins (Hexavitamin) 1 tab PO DAILY [facility] Last Admin: 09/25/16 09:36 Dose: 1 tab Mupirocin (Bactroban Ointment) 0 gm TOP BID [facility] Last Admin: 09/25/16 18:25 Dose: 1 applic Potassium Chloride (Klor-Con 10) 40 meq PO BID [facility] Stop: 10/04/16 18:01 Last Admin: 09/25/16 18:23 Dose: 40 meq Potassium Phos/Sodium Phos (Neutra-Phos) 1 pkt PO TID [facility] Last Admin: 09/25/16 18:24 Dose: 1 pkt Spironolactone (Aldactone) 25 mg PO DAILY [facility] Last Admin: 09/25/16 09:34 Dose: 25 mg Sucralfate (Carafate Oral Susp) 1 gm PO ACBD [facility] Last Admin: 09/26/16 06:32 Dose: 1 gm - Labs Labs: 09/26/16 06:51 09/25/16 06:53 PT 11.9 SECONDS (9.7-12.2) 09/20/16 06:36 INR 1.1 09/20/16 06:36 APTT 29 SECONDS (21-34) 09/20/16 06:36 - Constitutional Appears: No Acute Distress - Head Exam Head Exam: ATRAUMATIC, NORMOCEPHALIC - Eye Exam Eye Exam: EOMI - ENT Exam ENT Exam: Mucous Membranes Moist - Respiratory Exam Respiratory Exam: Clear to Ausculation Bilateral, NORMAL BREATHING PATTERN - Cardiovascular Exam Cardiovascular Exam: REGULAR RHYTHM - GI/Abdominal Exam GI & Abdominal Exam: Soft, Tenderness (suprapubic) - Extremities Exam Extremities Exam: absent: Calf Tenderness, Pedal Edema - Neurological Exam Neurological Exam: Alert, Awake, Oriented x3 Assessment and Plan - Assessment and Plan (Free Text) Plan: Pulmonary Embolism- w/o evidence of DVTs CT chest 09/16/2016: Acute bilateral pulmonary embolism Lower extremity duplex negative 09/18/2016 Lovenox 50mg SC Q12hrs Dr. Do- Recommend vascular evaluation for IVC filter due to right sided popliteal and posterior tibial DVT. Diarrhea GI consult placed to Dr. 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 Murray Continue with Mupirocin Dysuria UA done on 09/11/16 negative UA repeated- +3 leukocytes- follow up culture Pt exhibits suprapubic tenderness/no CVA tenderness Hypokalemia likely 2/2 to diarrhea Resolving K:3.7 Started K-micaela 40meq PO BID Continue to monitor Anemia of Chronic Disease- s/p transfusion h/h stable 10 transfused 1unit PRBC on 09/20/2016 Continue to monitor daily CBC's Ferritin 395.0 Reticulocyte index 0.7 Likely secondary to chronic disease/IBD Thyroid nodule Left sided thyroid nodule on ultrasound- biopsy recommended Consult placed to Dr. Do- recs appreciated Polypoid mass in transverse colon- s/p [place] [address] Marshal SHEPHERD to do EGD/Colonoscopy when clinically stable Esophageal neoplasm s/p resection Resection done by Dr. Barker Prophylaxis Tylenol 650mg PRN pain Pepcid 20mg PO daily Lovenox 50mg SC q12 Assess need for PICC line considering no abx at this time. Consider bridge to oral steroid taper and discharge planning with outpatient follow up Case discussed with Dr. Marquez. All management as per Dr. Marquez.
[2016-09-26 08:27] LABS: ALB/GLOB RATIO 0.8 (1.0-2.1); ALKALINE PHOSPHATASE 88 U/L (38-126); ALT/SGPT 21 U/L (9-52); AST/SGOT 14 U/L (14-36); BILIRUBIN,TOTAL 0.4 mg/dL (0.2-1.3); CALCIUM 7.4 mg/dl (8.6-10.4); CARBON DIOXIDE 29 mmol/L (22-30); CHLORIDE 105 mmol/L (98-107); GFR AFRICAN-AMERICAN > 60; GLUCOSE,RANDOM 78 mg/dL (65-105); PHOSPHOROUS 2.8 mg/dL (2.5-4.5); POTASSIUM 3.6 mmol/L (3.6-5.2); SODIUM 141 mmol/L (132-148); TOTAL PROTEIN 4.5 g/dL (6.3-8.3)
[2016-09-26 08:29] LABS: BLOOD UREA NITROGEN 4 mg/dL (7-17)
[2016-09-26] MEDS: Multiple Vitamins Tab PO SCH (10:08)
[2016-09-26] MEDS: Enoxaparin 60 mg Syringe SC SCH ×2 (10:09→21:48)
[2016-09-26] MEDS: Potassium & Sodium Phosphate PO SCH ×3 (10:09→17:11)
[2016-09-26] MEDS: Potassium Chloride 10 mEq ER Tab PO SCH ×2 (10:09→17:11)
--- NOTE | 2016-09-26 15:39 | PN ---
LOCATION: [facility], bed 8. SUBJECTIVE: This is 71 years old female, seen in round, is still complaining of intermittent period of diarrhea, but less than before, with less chest pain and discomfort, with possibly oral intake. Today, lab showed hemoglobin of 10.0, hematocrit 30.4 with again low BUN and creatinine and low calcium of 7.4 with low total protein of 4.5, low albumin 2.0, and the stool for leukocyte was reported to be negative. PHYSICAL EXAMINATION GENERAL: A 71 years old female, afebrile. VITAL SIGNS: Pulse of 92, respiratory rate 20 to 22, blood pressure 120/66. HEENT: Show pale dry mucous membrane. Nonicteric sclerae. LUNGS: Scattered crepitation. Decreased air entry at bases. HEART: Positive S1 and S2. ABDOMEN: Soft. Bowel sounds are present. No mass or organomegaly. No rebound tenderness or dampening. EXTREMITIES: With evidence of muscle waisting syndrome. No clubbing or cyanosis with mild tenderness in both calves. NEUROLOGIC: No reported new neurological deficits, sensory or motor. IMPRESSION: 1. Exacerbation of inflammatory bowel disease. 2. Diarrhea, still awaiting repeat stool workup. 3. history of esophageal carcinoma. 4. Anemia secondary to above. 5. Deep vein thrombosis with bilateral pulmonary emboli. 6. Malnutrition with hypoalbuminemia. SUGGESTION: 1. Continue current management. 2. The patient may increase the dose of Lomotil. 3. Further recommendation to follow that Dr. Ferguson. Anamaria Ferguson MD cc: Anmaaria Ferguson MD
--- NOTE | 2016-09-26 16:26 | CP.PCM.PN ---
Subjective - Date & Time of Evaluation Date of Evaluation: 09/26/16 Time of Evaluation: 10:00 - Subjective Subjective: clinically same Objective - Vital Signs/Intake and Output Vital Signs (last 24 hours): Temp Pulse Resp BP Pulse Ox 97.6 F 96 H 20 108/64 97 09/26/16 08:52 09/26/16 08:52 09/26/16 08:52 09/26/16 08:52 09/26/16 08:52 Intake and Output: 09/26/16 09/26/16 06:59 18:59 Intake Total 1220 960 Output Total 400 Balance 1220 560 - Medications Medications: Current Medications Acetaminophen (Tylenol 325mg Tab) 650 mg PO Q6 PRN PRN Reason: Pain, moderate (4-7) Last Admin: 09/26/16 11:52 Dose: 650 mg Cyclobenzaprine HCl (Flexeril) 10 mg PO TID [facility] Last Admin: 09/26/16 13:34 Dose: 10 mg Enoxaparin Sodium (Lovenox) 50 mg SC Q12 [facility] Last Admin: 09/26/16 10:09 Dose: 50 mg Famotidine (Pepcid) 20 mg PO DAILY [facility] Last Admin: 09/26/16 10:10 Dose: 20 mg Folic Acid (Folic Acid) 1 mg PO DAILY [facility] Last Admin: 09/26/16 10:10 Dose: 1 mg Hydrocortisone Sodium Succinate (Solu-Cortef) 40 mg IV Q8 [facility] Last Admin: 09/26/16 13:35 Dose: 40 mg Mesalamine (Delzicol) 800 mg PO TID [facility] Last Admin: 09/26/16 14:33 Dose: 800 mg Multivitamins (Hexavitamin) 1 tab PO DAILY [facility] Last Admin: 09/26/16 10:08 Dose: 1 tab Mupirocin (Bactroban Ointment) 0 gm TOP BID [facility] Last Admin: 09/26/16 10:54 Dose: 1 applic Potassium Chloride (Klor-Con 10) 40 meq PO BID [facility] Stop: 10/04/16 18:01 Last Admin: 09/26/16 10:09 Dose: 40 meq Potassium Phos/Sodium Phos (Neutra-Phos) 1 pkt PO TID [facility] Last Admin: 09/26/16 13:34 Dose: 1 pkt Spironolactone (Aldactone) 25 mg PO DAILY [facility] Last Admin: 09/26/16 10:10 Dose: 25 mg Sucralfate (Carafate Oral Susp) 1 gm PO ACBD [facility] Last Admin: 09/26/16 06:32 Dose: 1 gm - Labs Labs: 09/26/16 06:51 09/26/16 06:51 PT 11.9 SECONDS (9.7-12.2) 09/20/16 06:36 INR 1.1 09/20/16 06:36 APTT 29 SECONDS (21-34) 09/20/16 06:36 - Constitutional Appears: Well - Head Exam Head Exam: ATRAUMATIC, NORMAL INSPECTION, NORMOCEPHALIC - Eye Exam Eye Exam: EOMI, Normal appearance, PERRL Pupil Exam: NORMAL ACCOMODATION, PERRL - ENT Exam ENT Exam: Mucous Membranes Moist, Normal Exam - Neck Exam Neck Exam: Full ROM, Normal Inspection. absent: Lymphadenopathy - Respiratory Exam Respiratory Exam: Decreased Breath Sounds - Cardiovascular Exam Cardiovascular Exam: REGULAR RHYTHM, +S1, +S2 - GI/Abdominal Exam GI & Abdominal Exam: Soft, Diminished Bowel Sounds - Rectal Exam Rectal Exam: Deferred Assessment and Plan (1) Acute colitis Status: Acute (2) Fever Status: Acute (3) H/O adenomatous polyp of colon Status: Acute (4) Hypotension Status: Acute (5) UTI (urinary tract infection) Status: Acute (6) Abdominal pain Status: Acute (7) Abnormal EKG Status: Acute (8) Anemia Status: Acute (9) Bronchitis Status: Acute (10) Chest pain Status: Acute (11) Colitis Status: Acute (12) Dehydration Status: Acute (13) Diarrhea Status: Acute (14) Elbow fracture Status: Acute (15) Heme + stool Status: Acute (16) Hyponatremia Status: Acute (17) Leukopenia Status: Acute (18) Pharyngitis Status: Acute (19) Pneumonia Status: Acute (20) Prophylactic measure Status: Acute (21) Risk for coronary artery disease less than 10% in next 10 years Status: Acute (22) Severe chronic ulcerative colitis Status: Acute (23) Sore throat symptom Status: Acute (24) UTI (urinary tract infection) Status: Acute (25) Wrist fracture Status: Acute (26) Asthma Status: Chronic (27) Neoplasm of esophagus, malignant Status: Chronic - Assessment and Plan (Free Text) Plan: Diarrhea improved Patient resting comfortably No fever, nausea, vomiting Patient feeling better Mesalamine Hydrocortisone DVT prophylaxis Flexeril Labs next a.m. Multiple consults
[2016-09-27] MEDS: Sodium Chloride 0.9% 1,000 ML IV SCH (00:09)
--- NOTE | 2016-09-27 05:29 | CP.PCM.PN ---
Subjective - Date & Time of Evaluation Date of Evaluation: 09/26/16 Time of Evaluation: 16:00 - Subjective Subjective: Diarrhea slightly improved Objective - Vital Signs/Intake and Output Vital Signs (last 24 hours): Temp Pulse Resp BP Pulse Ox 97.8 F 96 H 20 120/69 97 09/26/16 23:40 09/27/16 01:00 09/26/16 23:40 09/26/16 23:40 09/26/16 23:40 Intake and Output: 09/26/16 09/27/16 18:59 06:59 Intake Total 960 720 Output Total 400 Balance 560 720 - Medications Medications: Current Medications Acetaminophen (Tylenol 325mg Tab) 650 mg PO Q6 PRN PRN Reason: Pain, moderate (4-7) Last Admin: 09/26/16 11:52 Dose: 650 mg Cyclobenzaprine HCl (Flexeril) 10 mg PO TID [facility] Last Admin: 09/26/16 17:11 Dose: 10 mg Enoxaparin Sodium (Lovenox) 50 mg SC Q12 [facility] Last Admin: 09/26/16 21:48 Dose: 50 mg Famotidine (Pepcid) 20 mg PO DAILY [facility] Last Admin: 09/26/16 10:10 Dose: 20 mg Folic Acid (Folic Acid) 1 mg PO DAILY [facility] Last Admin: 09/26/16 10:10 Dose: 1 mg Hydrocortisone Sodium Succinate (Solu-Cortef) 40 mg IV Q8 [facility] Last Admin: 09/26/16 21:57 Dose: 40 mg Loperamide HCl (Imodium) 2 mg PO Q8 [facility] Last Admin: 09/27/16 02:29 Dose: 2 mg Mesalamine (Delzicol) 800 mg PO TID [facility] Last Admin: 09/26/16 18:00 Dose: 800 mg Multivitamins (Hexavitamin) 1 tab PO DAILY [facility] Last Admin: 09/26/16 10:08 Dose: 1 tab Mupirocin (Bactroban Ointment) 0 gm TOP BID [facility] Last Admin: 09/26/16 18:00 Dose: 1 applic Potassium Chloride (Klor-Con 10) 40 meq PO BID [facility] Stop: 10/04/16 18:01 Last Admin: 09/26/16 17:11 Dose: 40 meq Potassium Phos/Sodium Phos (Neutra-Phos) 1 pkt PO TID [facility] Last Admin: 09/26/16 17:11 Dose: 1 pkt Spironolactone (Aldactone) 25 mg PO DAILY [facility] Last Admin: 09/26/16 10:10 Dose: 25 mg Sucralfate (Carafate Oral Susp) 1 gm PO ACBD [facility] Last Admin: 09/26/16 17:11 Dose: 1 gm - Labs Labs: 09/26/16 06:51 09/26/16 06:51 PT 11.9 SECONDS (9.7-12.2) 09/20/16 06:36 INR 1.1 09/20/16 06:36 APTT 29 SECONDS (21-34) 09/20/16 06:36 - Head Exam Head Exam: ATRAUMATIC - Eye Exam Eye Exam: Normal appearance - ENT Exam ENT Exam: Mucous Membranes Dry - Respiratory Exam Respiratory Exam: NORMAL BREATHING PATTERN - Cardiovascular Exam Cardiovascular Exam: +S1, +S2 - GI/Abdominal Exam GI & Abdominal Exam: Normal Bowel Sounds - Extremities Exam Extremities Exam: Normal Inspection Assessment and Plan (1) Pulmonary embolism Assessment & Plan: with DVT on therapeutic anticoagulation Status: Acute (2) Anemia Assessment & Plan: chronic disease Status: Acute (3) Thyroid nodule Assessment & Plan: recommend biopsy Status: Acute (4) Lung nodules Assessment & Plan: cont. to monitor Status: Acute (5) Neoplasm of esophagus, malignant Status: Chronic
[2016-09-27] MEDS: Sucralfate 1 gm/10 ml Oral Susp UD PO SCH (06:31)
[2016-09-27 08:28] VITALS: RESP 20
[2016-09-27] MEDS: Enoxaparin 60 mg Syringe SC SCH (09:09)
[2016-09-27] MEDS: Multiple Vitamins Tab PO SCH (09:11)
[2016-09-27] MEDS: Potassium Chloride 10 mEq ER Tab PO SCH (09:11)
[2016-09-27] MEDS: Potassium & Sodium Phosphate PO SCH ×2 (09:13→14:35)
--- NOTE | 2016-09-27 11:44 | CP.PCM.PN ---
Subjective - Date & Time of Evaluation Date of Evaluation: 09/27/16 Time of Evaluation: 09:00 - Subjective Subjective: Medicine Note- Dr. Marquez's service Patient was seen and examined at bedside. Patient reports no acute complaints at this time. No events overnight. Patient understands she will be going to get a PICC line today. Objective - Vital Signs/Intake and Output Vital Signs (last 24 hours): Temp Pulse Resp BP Pulse Ox 99.1 F 116 H 20 126/66 97 09/27/16 07:00 09/27/16 07:45 09/27/16 07:00 09/27/16 07:00 09/27/16 07:00 Intake and Output: 09/27/16 09/27/16 06:59 18:59 Intake Total 720 Balance 720 - Medications Medications: Current Medications Acetaminophen (Tylenol 325mg Tab) 650 mg PO Q6 PRN PRN Reason: Pain, moderate (4-7) Last Admin: 09/26/16 11:52 Dose: 650 mg Cyclobenzaprine HCl (Flexeril) 10 mg PO TID [facility] Last Admin: 09/27/16 09:12 Dose: 10 mg Enoxaparin Sodium (Lovenox) 50 mg SC Q12 [facility] Last Admin: 09/27/16 09:09 Dose: 50 mg Famotidine (Pepcid) 20 mg PO DAILY [facility] Last Admin: 09/27/16 09:12 Dose: 20 mg Folic Acid (Folic Acid) 1 mg PO DAILY [facility] Last Admin: 09/27/16 09:12 Dose: 1 mg Hydrocortisone Sodium Succinate (Solu-Cortef) 40 mg IV Q8 [facility] Last Admin: 09/27/16 06:32 Dose: 40 mg Loperamide HCl (Imodium) 2 mg PO Q8 [facility] Last Admin: 09/27/16 02:29 Dose: 2 mg Mesalamine (Delzicol) 800 mg PO TID [facility] Last Admin: 09/27/16 09:14 Dose: 800 mg Multivitamins (Hexavitamin) 1 tab PO DAILY [facility] Last Admin: 09/27/16 09:11 Dose: 1 tab Mupirocin (Bactroban Ointment) 0 gm TOP BID [facility] Last Admin: 09/27/16 09:14 Dose: 1 applic Potassium Chloride (Klor-Con 10) 40 meq PO BID [facility] Stop: 10/04/16 18:01 Last Admin: 09/27/16 09:11 Dose: 40 meq Potassium Phos/Sodium Phos (Neutra-Phos) 1 pkt PO TID [facility] Last Admin: 09/27/16 09:13 Dose: 1 pkt Spironolactone (Aldactone) 25 mg PO DAILY [facility] Last Admin: 09/27/16 09:12 Dose: 25 mg Sucralfate (Carafate Oral Susp) 1 gm PO ACBD [facility] Last Admin: 09/27/16 06:31 Dose: 1 gm - Labs Labs: 09/26/16 06:51 09/26/16 06:51 PT 11.9 SECONDS (9.7-12.2) 09/20/16 06:36 INR 1.1 09/20/16 06:36 APTT 29 SECONDS (21-34) 09/20/16 06:36 - Constitutional Appears: Non-toxic, No Acute Distress - Head Exam Head Exam: ATRAUMATIC, NORMAL INSPECTION, NORMOCEPHALIC - Eye Exam Pupil Exam: NORMAL ACCOMODATION, PERRL - ENT Exam ENT Exam: Mucous Membranes Moist - Respiratory Exam Respiratory Exam: Clear to Ausculation Bilateral, NORMAL BREATHING PATTERN. absent: Prolonged Expiratory Phase, Rales, Rhonchi, Wheezes - Cardiovascular Exam Cardiovascular Exam: REGULAR RHYTHM, +S1, +S2 - GI/Abdominal Exam GI & Abdominal Exam: Soft, Normal Bowel Sounds. absent: Rigid, Tenderness, Diminished Bowel Sounds, Hyperactive Bowel Sounds, Hypoactive Bowel Sounds - Extremities Exam Extremities Exam: Normal Capillary Refill, Normal Inspection - Neurological Exam Neurological Exam: Awake, Normal Gait, Oriented x3 - Psychiatric Exam Psychiatric exam: Normal Affect, Normal Mood - Skin Skin Exam: Dry, Intact, Normal Color, Warm Assessment and Plan - Assessment and Plan (Free Text) Assessment: Pulmonary Embolism- w/o evidence of DVTs CT chest 09/16/2016: Acute bilateral pulmonary embolism Lower extremity duplex negative 09/18/2016 Lovenox 50mg SC Q12hrs Dr. Do- Recommend vascular evaluation for IVC filter due to right sided popliteal and posterior tibial DVT. Diarrhea GI consult placed to Dr. Dalton- amisha appreciated C diff negative Questionable history of UC Continue mesalamine and solu-cortef ASCA positive, negative pANCA S. Cerevisiae IgG and IgA ab reactive Clinically improved- pt reports decreased frequency of bowel movements and more formed stool Carafate 1g PO ACBD Perineal Wound Surgery consult placed- recs appreciated no intervention at this time as per Dr. Murray Continue with Mupirocin Dysuria UA done on 09/11/16 negative UA repeated- +3 leukocytes- Urine culture- no growth Pt exhibits suprapubic tenderness/no CVA tenderness Hypokalemia likely 2/2 to diarrhea Resolving K:3.7 Continue K-micaela 40meq PO BID Continue to monitor Anemia of Chronic Disease- s/p transfusion h/h stable 10 transfused 1unit PRBC on 09/20/2016 Continue to monitor daily CBC's Ferritin 395.0 Reticulocyte index 0.7 Likely secondary to chronic disease/IBD Thyroid nodule Left sided thyroid nodule on ultrasound- biopsy recommended Consult placed to Dr. Do- recs appreciated Polypoid mass in transverse colon- s/p [place] [address] Marshal SHEPHERD to do EGD/Colonoscopy when clinically stable Esophageal neoplasm s/p resection Resection done by Dr. Barker Prophylaxis Tylenol 650mg PRN pain Pepcid 20mg PO daily Lovenox 50mg SC q12 PICC Line ordered, as per Dr. Marquez- PLACED ON 09/27/[address] Marquez. All management as per Dr. Marquez. Patient will be discharged home, as per Dr. Marquez. Patient is to followup with Dr. Marquez in his office tomorrow AM.
[2016-09-27] MEDS ORDERED: Lidocaine 1% Inj (20ml) ONE (12:31)
--- NOTE | 2016-09-27 13:02 | PCM.SURG1 ---
Surgeon's Initial Post Op Note - Surgeon's Notes Surgeon: Oscar Ramirez MD Cardiovascular Lab Director: None Type of Anesthesia: Local Pre-Operative Diagnosis: Poor venous access Operative Findings: Patent right basilic vein. Post-Operative Diagnosis: Poor venous access Operation Performed: single lumen picc placement right basilic vein, 30 cm. Tip in SVC. Specimen/Specimens Removed: None Estimated Blood Loss: EBL {In ML}: 2 Blood Products Given: N/A Drains Used: No Drains Post-Op Condition: Fair Date of Surgery/Procedure: 09/27/16 Time of Surgery/Procedure: 12:50
[2016-09-27 14:02] LABS: BASO % 0.3 % (0.0-2.0); EOS % 0.2 % (0.0-4.0); LYMPH # 0.9 K/uL (1.0-4.3); LYMPH % 24.4 % (20.0-40.0); MEAN CELL VOLUME 88.5 fL (81.0-99.0); MEAN CORPUSCULAR HEMOGLOBIN 28.7 pg (27.0-31.0); MEAN CORPUSCULAR HGB CONC 32.5 g/dL (33.0-37.0); MEAN PLATELET VOLUME 6.8 fL (7.2-11.7); MONO # 0.3 K/uL (0.0-0.8); MONO % 6.9 % (0.0-10.0); NRBC % 0.1 % (0.0-2.0); RED CELL DISTRIBUTION WIDTH 17.5 % (11.5-14.5); WHITE BLOOD COUNT 3.7 K/uL (4.8-10.8)
--- NOTE | 2016-09-27 14:55 | CP.PCM.PN ---
Subjective - Date & Time of Evaluation Date of Evaluation: 09/27/16 Time of Evaluation: 10:00 - Subjective Subjective: PGY3 on heme/onc Dr. Do service: Pt seen and examined at bedside. Pt said her stool is much more solid and only one episode of diarrhea. For PICC insertion today. Objective - Vital Signs/Intake and Output Vital Signs (last 24 hours): Temp Pulse Resp BP Pulse Ox 99.1 F 116 H 20 126/66 97 09/27/16 07:00 09/27/16 07:45 09/27/16 07:00 09/27/16 07:00 09/27/16 07:00 Intake and Output: 09/27/16 09/27/16 06:59 18:59 Intake Total 720 Balance 720 - Medications Medications: Current Medications Acetaminophen (Tylenol 325mg Tab) 650 mg PO Q6 PRN PRN Reason: Pain, moderate (4-7) Last Admin: 09/26/16 11:52 Dose: 650 mg Cyclobenzaprine HCl (Flexeril) 10 mg PO TID [facility] Last Admin: 09/27/16 14:34 Dose: 10 mg Enoxaparin Sodium (Lovenox) 50 mg SC Q12 [facility] Last Admin: 09/27/16 09:09 Dose: 50 mg Famotidine (Pepcid) 20 mg PO DAILY [facility] Last Admin: 09/27/16 09:12 Dose: 20 mg Folic Acid (Folic Acid) 1 mg PO DAILY [facility] Last Admin: 09/27/16 09:12 Dose: 1 mg Hydrocortisone Sodium Succinate (Solu-Cortef) 40 mg IV Q8 [facility] Last Admin: 09/27/16 14:34 Dose: 40 mg Loperamide HCl (Imodium) 2 mg PO Q8 PRN Last Admin: 09/27/16 02:29 Dose: 2 mg Mesalamine (Delzicol) 800 mg PO TID [facility] Last Admin: 09/27/16 14:34 Dose: 800 mg Multivitamins (Hexavitamin) 1 tab PO DAILY [facility] Last Admin: 09/27/16 09:11 Dose: 1 tab Mupirocin (Bactroban Ointment) 0 gm TOP BID [facility] Last Admin: 09/27/16 09:14 Dose: 1 applic Potassium Chloride (Klor-Con 10) 40 meq PO BID [facility] Stop: 10/04/16 18:01 Last Admin: 09/27/16 09:11 Dose: 40 meq Potassium Phos/Sodium Phos (Neutra-Phos) 1 pkt PO TID [facility] Last Admin: 09/27/16 14:35 Dose: 1 pkt Spironolactone (Aldactone) 25 mg PO DAILY [facility] Last Admin: 09/27/16 09:12 Dose: 25 mg Sucralfate (Carafate Oral Susp) 1 gm PO ACBD [facility] Last Admin: 09/27/16 06:31 Dose: 1 gm - Labs Labs: 09/27/16 13:59 09/26/16 06:51 PT 11.9 SECONDS (9.7-12.2) 09/20/16 06:36 INR 1.1 09/20/16 06:36 APTT 29 SECONDS (21-34) 09/20/16 06:36 - Constitutional Appears: Non-toxic, No Acute Distress - Head Exam Head Exam: NORMOCEPHALIC - Eye Exam Eye Exam: Normal appearance - Respiratory Exam Respiratory Exam: Clear to Ausculation Bilateral, NORMAL BREATHING PATTERN - Cardiovascular Exam Cardiovascular Exam: REGULAR RHYTHM, +S1, +S2 - GI/Abdominal Exam GI & Abdominal Exam: Soft, Normal Bowel Sounds - Neurological Exam Neurological Exam: Alert, Awake, Oriented x3 - Psychiatric Exam Psychiatric exam: Normal Mood Assessment and Plan - Assessment and Plan (Free Text) Assessment: (1) Anemia Assessment & Plan: Reticulocyte index 0.7 Elevated Ferritin Likely secondary to chronic disease/IBD Status: Acute (2) IBD Assessment & Plan: ASCA positive, negative pANCA Management as per GI team Status: Chronic (3) Right DVT Assessment & Plan: Continue Lovenox 50mg SC BID. Status: Chronic (4) Bilateral PE Assessment & Plan: 09/16 CT chest positive for bilateral PE with multiple opacities likely secondary to CA vs infection. Continue Lovenox 50mg SC BID. Recommend vascular evaluation for IVC filter due to right sided popliteal and posterior tibial DVT. Status: Chronic (5) Hypokalemia Assessment & Plan: Repleted along with phosphorus. Continue monitoring. Status: Chronic (6) Enlarged thyroid nodule Assessment & Plan: Hx of cured esophageal CA. Enlarged thyroid nodule compared to 2016. Biopsy recommended. Status: Chronic
[2016-09-27 16:23] VITALS: BP 118/73; PULSE 105; TEMP 98.6; O2SAT 96
--- NOTE | 2016-09-27 17:17 | PN ---
DATE: LOCATION: [facility], bed A. SUBJECTIVE: This is a 71-year-old female seen and examined in rounds without significant clinical changes. It was reported an open wound at the perianal area. The patient has intermittent periods of diarrhea, but less than before. The entire chart is reviewed including, but not limited to the most recent lab and radiology study results, current and previous medication list, current and previous medical events. Case discussed with the staff at length. LABORATORY DATA: Most recent lab results showed a hemoglobin of 10.0, hematocrit 30.4 with decreased BUN and creatinine and decreased albumin. PHYSICAL EXAMINATION: GENERAL: A 71-year-old female. VITAL SIGNS: Afebrile with pulse of 88, respiratory rate 20 to 22, blood pressure 130/64. HEENT: Showed pale, dry mucous membrane, nonicteric sclerae. LUNGS: Few scattered crepitation. Decreased air entry at bases. HEART: Positive S1 and S2. ABDOMEN: Soft with slight generalized tenderness. No mass or organomegaly. No rebound, tenderness or guarding. EXTREMITIES: Without significant edema, clubbing or cyanosis. NEUROLOGIC: No reported neurological deficits, sensory or motor. It has to be mentioned that the patient will have intermittent periods of lower extremity pain. IMPRESSION: 1. Re-exacerbation of inflammatory bowel disease. 2. Peptic ulcer disease. 3. Anemia secondary to above. 4. Bilateral pulmonary emboli. 5. Deep venous thrombosis. 6. Hypoalbuminemia with malnutrition. 7. Known history of esophageal cancer, treated surgically. SUGGESTIONS: 1. Agree with your plan. 2. Adjust the steroid dose. 3. Antireflux measure. Anamaria Ferguson MD
--- NOTE | 2016-09-30 12:32 | US ---
Date of procedure: 09/27/2016 Procedure: Ultrasound guidance for vascular access HISTORY: Infection requiring long-term IV antibiotics TECHNIQUE: Following informed consent and procedure time-out, the patient placed supine on the interventional table and the right arm prepped and draped in the usual sterile fashion. Ultrasound showed a patent and compressible basilic vein. After the skin was anesthetized with lidocaine, the basilic vein was accessed with micro micropuncture technique using ultrasound guidance. An image documenting ultrasound guidance for vascular access was permanently saved. IMPRESSION: Ultrasound guidance for vascular access for placement of PICC.
--- NOTE | 2016-09-30 12:34 | RAD ---
PROCEDURE: Date of procedure: 09/27/2016 Procedure: 1. Placement of a right arm PICC with ultrasound and fluoroscopic guidance, CPT 82872 2. PICC tip confirmation with spot radiograph and is in the superior vena cava Medications: 1 percent lidocaine Total Fluoro time: 16.7 seconds Radiation: 3.93 MGy EBL: 2 cc HISTORY: Infection requiring long-term IV antibiotics TECHNIQUE: Following informed consent and procedure time-out, the patient was placed supine on the interventional table and the right arm prepped and draped in the usual sterile fashion. Ultrasound showed a patent and compressible right basilic vein. After the skin was anesthetized with lidocaine, the basilic vein was accessed with micro micropuncture technique using ultrasound guidance. A guidewire was then advanced under fluoroscopic guidance into the superior vena cava. An image documenting ultrasound guidance for vascular access was permanently saved. The length of the single-lumen 4 Turkish PICC was trimmed to 36 centimeters and advanced through a peel-away sheath. The PICC was position with tip of PICC confirm a spot radiograph the superior vena cava. The PICC was secured to the patient's skin. The PICC was flushed. A biopatch and sterile dressing was applied. IMPRESSION: Placement of a single-lumen 4 Turkish PICC trimmed to 36 centimeters via right basilic vein. The tip of the PICC is confirmed with spot radiograph and is in the superior vena cava.
== END 2016-09-27 17:24 | disposition home or self-care (01) | DRG 552 ==
LOC: C.ER 15:05 → C.9E 17:18 → C.6T 20:47 → C.5T 09-19 19:31 → C.6T 09-21 22:17
PROVIDERS: ADMIT Internal Medicine Nephrology; ATTEND Internal Medicine Nephrology
PROC: 02HV33Z Insertion of Infusion Device into Superior Vena Cava, Percutaneous Approach (ICD-10-PCS; 2016-09-12)
PROC: B548ZZA Ultrasonography of Superior Vena Cava, Guidance (ICD-10-PCS; 2016-09-12)
PROC: 02HV33Z Insertion of Infusion Device into Superior Vena Cava, Percutaneous Approach (ICD-10-PCS; principal; 2016-09-27)
DX: K51.90 Ulcerative colitis, unspecified, without complications (principal); E43 Unspecified severe protein-calorie malnutrition; I26.99 Other pulmonary embolism without acute cor pulmonale; J18.9 Pneumonia, unspecified organism; D63.8 Anemia in other chronic diseases classified elsewhere; N39.0 Urinary tract infection, site not specified; E87.1 Hypo-osmolality and hyponatremia; E87.6 Hypokalemia; E86.0 Dehydration; K27.9 Peptic ulcer, site unspecified, unspecified as acute or chronic, without hemorrhage or perforation; M19.90 Unspecified osteoarthritis, unspecified site; Z85.01 Personal history of malignant neoplasm of esophagus; Z87.891 Personal history of nicotine dependence